=== PATIENT | female | born 1930 | race Caucasian/White ===

== ENCOUNTER 2017-03-15 15:10 | Inpatient (IN) | payer MEDICARE ==
--- OUTSIDE RECORDS SUMMARY | 2017-03-15 15:17 | XMS | Clinical Summary ---
:1930 Author Organization [facility] Address [address] [place] [place] [id number] Phone Care Team Providers Name Role Phone , Primary Care Provider Unavailable Allergies Not on File Current Medications Not on file Active Problems Not on file Social History Tobacco Use Types Packs/Day Years Used Date Never Assessed Sex Assigned at Date Recorded Not on file Last Filed Vital Signs Not on file Plan of Treatment Not on file Results Not on filefrom Last 3 Months
[2017-03-15] MEDS ORDERED: Aspirin 325 MG TAB ONE (16:26)
[2017-03-15] MEDS ORDERED: Ondansetron HCl/PF 4 MG/2 ML Vial IVP PRN ×2 (18:30→18:32)
[2017-03-15] MEDS ORDERED: Benzonatate 100 MG CAP PO PRN (18:30)
[2017-03-15] MEDS ORDERED: cloNIDine HCl 0.1 MG TAB PO PRN (18:30)
[2017-03-15] MEDS ORDERED: Ondansetron ODT 4 MG TAB PO PRN (18:30)
[2017-03-15] MEDS ORDERED: Ondansetron ODT 4 MG TAB SL PRN (18:32)
[2017-03-15] MEDS ORDERED: Sodium Chloride 0.9% 1,000 ML IV SCH (18:45)
--- NOTE | 2017-03-15 19:34 | HP ---
DATE OF ADMISSION: 03/15/2017 PRIMARY CARE PROVIDER: Dr. Adrian Vega. CHIEF COMPLAINT: Shortness of breath. HISTORY OF PRESENT ILLNESS: This is an 87-year-old female who initially presented to [facility] Emergency Department complaining of increased shortness of breath. The patient stat es her symptoms began to increase in the last 24 hours, becoming constant with associated cough and fever with temperature ranging in 100.5-100.9 degrees Fahrenheit range. The patient admitted to inc reasing home inhalers to counteract her symptoms without relief. Patient denied specific exposure h istory, nausea, peripheral edema or vomiting. The patient states her symptoms were not relieved by any measure she took at home. The patient does admit to chronic oxygen supplementation at 2 liters per minute by nasal cannula. The patient reports being up to date on all pneumonia vaccinations and influenza. In the emergency room, the patient underwent general evaluation including chest imaging showing hyperinflation of the lung culver with questionable early infiltrate of the right lower lob e concerning for pneumonia. Due to patient's presentation and hypoxemia, patient was placed on BiPA P noninvasive mechanical ventilation and given IV Rocephin and normal saline, aspirin 324 mg and Freda u-Medrol 125 mg. Patient was also given bronchodilator therapy and transferred to the [facility] for furt her evaluation. PAST MEDICAL HISTORY: 1. Chronic hypoxemic respiratory failure with chronic oxygen supplementation at 2-3 liters per ida te by nasal cannula. 2. History of mechanical falls. 3. History of breast cancer treated with chemotherapy. 4. Chronic obstructive pulmonary disease. 5. Hypertension. 6. Gastroesophageal reflux disease. 7. Osteoarthritis. 8. History of community acquired bacterial pneumonia, 09/2016. 9. Anxiety disorder. PAST SURGICAL HISTORY: 1. Status post left breast needle localization with lumpectomy. 2. Status post bilateral total hip arthroplasty. 3. Status post left shoulder replacement. 4. Status post lumbar spine surgery. CURRENT MEDICATIONS: Based on previous admission in the electronic medical record. 1. Albuterol sulfate 2.5 mg nebulized q.4 hours p.r.n. 2. Xanax 0.25 mg p.o. b.i.d. 3. Acetaminophen 500 mg p.o. q.6 hours p.r.n. 4. Amlodipine 5 mg p.o. at bedtime. 5. Duloxetine 30 mg 1 tablet p.o. daily. 6. Nexium 40 mg one tablet p.o. daily. 7. Lyrica 50 mg p.o. b.i.d. 8. Tramadol 50 mg 1-2 tablet p.o. q.4-6 hours p.r.n. ALLERGIES: 1. ADHESIVE TAPE. 2. OXYCODONE. 3. HYDROCODONE. FAMILY HISTORY: No inheritable diseases per patient report. SOCIAL HISTORY: The patient resides with her daughter and son. Ambulates with the use of a rolling walker. No current alcohol, tobacco or illicit drug use. REVIEW OF SYSTEMS: The following complete review of systems was negative, unless otherwise mentione d in the HPI or below: Constitutional: Weight loss or gain, ability to conduct usual activities. Skin: Rash, itching. Eyes: Double vision, pain. ENT/Mouth: Nose bleeding, neck stiffness, pain, tenderness. Cardiovascular: Palpitations, dyspnea on exertion, orthopnea. Respiratory: Shortness of breath, wheezing, cough, hemoptysis, fever or night sweats. Gastrointestinal: Poor appetite, abdominal pain, heartburn, nausea, vomiting, constipation, or diar satinder. Genitourinary: Urgency, frequency, dysuria, nocturia. Musculoskeletal: Pain, swelling. Neurologic/Psychiatric: Anxiety, depression. Allergy/Immunologic: Skin rash, bleeding tendency. Otherwise negative except as stated per HPI. PHYSICAL EXAMINATION: VITAL SIGNS: On admission, blood pressure 132/64, pulse 103, respiratory rate is 20, temperature 99 .2 degrees Fahrenheit, O2 saturation 95% on 50% FiO2 by face mask. GENERAL APPEARANCE: This is an 87-year-old female sitting on the hospital bed on current BiPAP noninvasive mechanical ventilation, alert and responsive. HEENT: Pupils are equal, round, and reactive to light and accommodation. Extraocular muscles are i ntact. No scleral icterus, no conjunctival injection. Nares patent. OP is clear. NECK: Supple, no cervical adenopathy, no thyromegaly, no carotid bruits, no JVD appreciated. Cervi yudith spine with full active and passive range of motion. CHEST: Diminished breath sounds in the bases bilaterally. CARDIOVASCULAR: S1 and S2 with distant heart sounds. ABDOMEN: Rounded, soft, nontender, and nondistended. Bowel sounds are positive in all four quadran ts. There is no hepatosplenomegaly, no abdominal bruits, no rebound or guarding appreciated. EXTREMITIES: Warm and dry with fair turgor. No clubbing, cyanosis or asymmetric edema appreciated. Pulses palpable distally at the dorsalis pedis, posterior tibial, and popliteal arteries bilateral ly. Capillary refill less than 2 seconds. NEUROLOGIC: Cranial nerves II-XII are grossly intact. No focal or lateralizing signs appreciated. PERTINENT LABORATORY DATA AND X-RAY FINDINGS: Sodium 133, potassium 4.0, chloride 95, CO2 of 26, BU N is 21, creatinine 0.86, estimated GFR of 62, glucose 137. Lactic acid level 2.7, calcium 9.6, tot al bilirubin 1.3, AST 16, ALT of 12, alkaline phosphatase 88, troponin I 0.224. BNP 567, previously noted 73 on 12/31/2016, albumin 3.7. CBC showed a white blood cell count of 22.7, hemoglobin 16, h ematocrit 49, platelet count 225 with 76% neutrophilia. Portable chest x-ray dated 03/15/2017 showe d early infiltrate in the right lower lobe with hyperinflation of bilateral lung culver. EKG dated 03/15/2017 by my interpretation shows sinus tachycardia with heart rates in the low 100s. Premature atrial complexes noted. Normal axis. No acute ST-T wave changes appreciated. ASSESSMENT AND PLAN: 1. Acute on chronic hypoxemic respiratory failure. The patient will continue on bilevel positive a irway pressure noninvasive mechanical ventilation at 10/5 with 40% FIO2. Maintain O2 saturations gr eater than or equal to 90%. Suspect multifactorial including possible infectious process with commu nity-acquired pneumonia in conjunction with mild pulmonary edema and heart failure. Continue genera l pulmonary supportive measures and monitor clinical response. 2. Right lower lobe community-acquired pneumonia. Continue Rocephin 2 g IV q.24 hours with additio nal Levaquin 750 mg IV q.24 hours. Blood cultures pending x2. Continue DuoNeb q.4 hours p.r.n. 3. Lactic acidosis. Suspect multifactorial including infectious process in conjunction with acute respiratory failure. Continue antibiotic coverage as outlined previously. Repeat lactic acid level . 4. Elevated troponin I. Suspect secondarily to demand ischemia in the context of #1. 5. Continue troponin I trending and monitor clinically. 6. Hypertension. Resume amlodipine 5 mg p.o. daily. 7. Prophylaxis. Sequential compression devices while in bed. Pepcid 20 mg p.o. b.i.d. 8. Code status is FULL. Surrogate medical decision maker is patient's son.
[2017-03-15] MEDS ORDERED: cefTRIAXone\\ROCEPHIN 2 GM in Sodium Chloride 0.9% 100 ML IVPB SCH (20:00)
[2017-03-15] MEDS: Acetaminophen 500 MG TAB PO PRN (21:22)
[2017-03-15] MEDS ORDERED: Pregabalin 50 MG CAP PO SCH (21:30)
[2017-03-16 05:22] LABS: Anion Gap 16 mmol/L (10-20); BUN (Urea Nitrogen) 30 mg/dL (9.8-20.1); Calc. Creatinine Clearance 50 mL/min (70-130); Calcium 8.7 mg/dL (7.8-10.44); Carbon Dioxide 23 mmol/L (23-31); Chloride 98 mmol/L (98-107); Estimated GFR-MDRD 65
[2017-03-16 05:27] LABS: Band 23 % (5-11); Hematocrit 42.3 % (36.0-47.0); Mean Platelet Volume 8.4 fL (7.4-10.4); Neutrophil 72 % (42-75); Red Blood Cell (RBC) Count 4.31 mill/uL (4.20-5.40); White Blood Cell (WBC) Count 20.2 thou/uL (4.8-10.8)
[2017-03-16] MEDS: Acetaminophen 500 MG TAB PO PRN (08:10)
[2017-03-16] MEDS: Famotidine 20 MG TAB PO SCH (08:11)
--- NOTE | 2017-03-16 12:41 | PRG ---
DATE OF SERVICE: 03/16/2017 SERVICE: Pulmonary Medicine. REASON FOR CONSULTATION: CU patient. HISTORY OF PRESENT ILLNESS: The patient is an 87-year-old white female with past medical history significant for chronic hypoxemic respiratory failure. She probably has some degree of COPD as well. That being said, she only uses p.r.n. nebulized medications at home. She has never had a formal evaluation for the same. Either way, she presented to the hospital with an acute onset of shortness of breath that came on over a period of a couple of days. She had some low-grade temperatures. She denies any recent sick contacts. She was placed in the IMCU and required BiPAP overnight. This morning, she is feeling much improved. She denies any current fevers, chills, nausea, vomiting, or chest discomfort. Otherwise, there were no overnight events. She has been getting nebulized medications, steroids, and antibiotics. PAST MEDICAL HISTORY: 1. Chronic hypoxic respiratory failure. 2. Chronic obstructive pulmonary disease. 3. Gastroesophageal reflux disease. 4. Hypertension. 5. Osteoarthritis. 6. Anxiety disorder. 7. History of breast cancer, status post chemotherapy. PAST SURGICAL HISTORY: 1. Biopsy of breast followed by lumpectomy. 2. Total hip replacement, bilateral. 3. Left shoulder replacement. 4. Lumbar spine surgery. FAMILY HISTORY: Noncontributory. SOCIAL HISTORY: The patient currently lives with her daughter. She uses a rolling walker to get around, and has been ambulatory as of yesterday. There are no exposures to alcohol, tobacco, or illicit drug use presently. ALLERGIES: ADHESIVE TAPE, OXYCODONE, HYDROCODONE. MEDICATIONS: List of her inpatient medications was reviewed. Multiple updates were made. REVIEW OF SYSTEMS: General, head, ears, eyes, nose, throat, cardiovascular, respiratory, GI, , musculoskeletal, neurologic, and skin is negative except as mentioned in the HPI. PHYSICAL EXAMINATION: VITAL SIGNS: Afebrile, pulse 95, blood pressure 108/43, respirations 12, saturation 95% on 2 liters nasal cannula. GENERAL: Patient is awake, alert, in no apparent distress. LUNGS: Decent air entry. There is a slightly prolonged expiratory phase. I do not appreciate wheezing. Dependent crackles are not present. No rhonchi. HEART: Normal rate, regular. ABDOMEN: Soft, nontender, nondistended. Bowel sounds positive. MUSCULOSKELETAL: No cyanosis or clubbing. No pitting in the bilateral lower extremities. NEUROLOGIC: Grossly nonfocal. LABORATORY DATA: WBC 20.2, hemoglobin 13.9, platelets 176,000. Band count was 23% and the neutrophil count was 72%. Basic metabolic profile was otherwise unremarkable. pH 7.43, pCO2 of 38, pO2 72, and FiO2 of 40%. Lactate 2.7 previously. BNP 570, troponin 0.2. Liver function studies were unremarkable. Blood cultures x2 are growing Streptococcus pneumoniae. IMAGING: Chest x-ray demonstrates right lower lobe infiltrate, new since December, consistent with consolidation/pneumonia. ASSESSMENT: 1. Acute on chronic hypoxic respiratory failure. 2. Community-acquired pneumonia secondary to Streptococcus pneumoniae. 3. Bacteremia secondary to Streptococcus pneumoniae. 4. COPD with acute exacerbation. 5. Severe sepsis. 6. Non-ST elevation myocardial infarction. 7. Abnormal BNP. PLAN: At this point, the patient's end-organ disease has cleared and she is much more comfortable. We will give her a good break from the BiPAP. If she tolerates this through the day, she would be a candidate for transition to the telemetry unit. She may have some COPD, but I really do not appreciate much in the way of an acute exacerbation. Steroids will be deescalated and limited to 5 days. Frequent nebulized medications will be continued. I will discontinue all cough suppressants, as in this setting the cough is quite helpful. MTDD
--- NOTE | 2017-03-16 14:24 | PDOC.PN ---
- Subjective Encounter Start Date: 03/16/17 Encounter Start Time: 14:20 Subjective: Feels much better but does not recall the events of the day before and time -: in ED. Off BiPAP and maintaining O2 sats on O2 via NC. - Objective Resuscitation Status: Resuscitation Status FULL:Full Resuscitation MAR Reviewed: Yes Vital Signs & Weight: Vital Signs (12 hours) Temp Pulse Resp BP Pulse Ox 03/16/17 12:00 97.8 F 122 H 16 148/66 H 91 L 03/16/17 10:58 103 H 24 H 99 03/16/17 08:00 97.6 F 95 12 95 03/16/17 07:42 97.6 F 95 12 108/43 L 95 03/16/17 06:51 99 03/16/17 06:47 90 18 99 03/16/17 04:00 97.8 F 98 18 98/50 L 94 L 03/16/17 02:30 67 18 95 Weight Weight 152 lb 3 oz I&O: 03/15/17 03/16/17 03/17/17 06:59 06:59 06:59 Intake Total 1460 Output Total 350 Balance 1110 Result Diagrams: 03/16/17 04:21 03/16/17 04:21 Additional Labs: Laboratory Tests 03/15/17 13:18 WBC 22.7 H Radiology Reviewed by me: Yes (PCXR - RM/LL infiltrate) EKG Reviewed by me: Yes (Tele - SR in 90's) Phys Exam - Physical Examination Constitutional: NAD smiling, alert HEENT: PERRLA, oral pharynx no lesions Neck: no JVD, supple Respiratory: no wheezing, clear to auscultation bilateral Cardiovascular: RRR Gastrointestinal: soft, non-tender, no distention, positive bowel sounds Musculoskeletal: no edema, pulses present Neurological: normal sensation, moves all 4 limbs Psychiatric: A&O x 3 Skin: normal turgor, cap refill <2 seconds Dx/Plan (1) Acute on chronic respiratory failure with hypoxia Code(s): J96.21 - ACUTE AND CHRONIC RESPIRATORY FAILURE WITH HYPOXIA Status: Acute Comment: Continue O2 supplementation, titrate to keep sats>90% (2) Community acquired bacterial pneumonia Code(s): J15.9 - UNSPECIFIED BACTERIAL PNEUMONIA Status: Acute Comment: Suspected streptococcal spp, continue Levaquin 750mg IV daily, Prednisone 40mg daily (3) Troponin level elevated Code(s): R74.8 - ABNORMAL LEVELS OF OTHER SERUM ENZYMES Status: Acute Comment: chronic and demand state, no ACS (4) Hypertension Code(s): I10 - ESSENTIAL (PRIMARY) HYPERTENSION Status: Chronic Qualifiers: Hypertension type: essential hypertension Qualified Code(s): I10 - Essential (primary) hypertension Comment: Stable overall, resume home BP regimen (5) Lactic acidosis Code(s): E87.2 - ACIDOSIS Status: Acute Comment: Resolved - Plan plan discussed w/ family, continue antibiotics, PT/OT, respiratory therapy, out of bed/ambulate, DVT proph w/SCDs Stable overall -: Continue Levaquin 750mg IV daily -: Continue O2 supplementation -: PT for ambulation -: Duonebs q4h prn * Transfer to tele * AM lab: CBC
[2017-03-16] MEDS ORDERED: Cyclobenzaprine 10 MG TAB PO PRN (16:59)
[2017-03-16] MEDS ORDERED: Pregabalin 50 MG CAP PO SCH (17:15)
[2017-03-16] MEDS ORDERED: ALPRAZolam 0.25 MG TAB PO SCH (21:00)
[2017-03-16] MEDS: ALPRAZolam 0.25 MG TAB PO SCH (21:29)
[2017-03-16] MEDS: Pregabalin 50 MG CAP PO SCH (21:30)
[2017-03-17 06:14] LABS: Band 6 % (5-11); Hematocrit 41.4 % (36.0-47.0); Mean Platelet Volume 8.8 fL (7.4-10.4); Neutrophil 86 % (42-75); White Blood Cell (WBC) Count 15.7 thou/uL (4.8-10.8)
[2017-03-17] MEDS ORDERED: Lisinopril 5 MG TAB PO SCH (09:00)
[2017-03-17] MEDS: Famotidine 20 MG TAB PO SCH (10:01)
[2017-03-17] MEDS: CeleCOXIB 100 MG CAP PO SCH (10:02)
[2017-03-17] MEDS: Multivit, Therapeutic 1 TAB PO SCH (10:03)
[2017-03-17] MEDS: Anastrozole 1 MG TAB PO SCH (10:04)
[2017-03-17] MEDS: Pregabalin 50 MG CAP PO SCH ×3 (10:04→20:37)
[2017-03-17] MEDS: ALPRAZolam 0.25 MG TAB PO SCH ×2 (10:05→20:37)
[2017-03-17] MEDS: predniSONE 20 MG TAB PO SCH (10:06)
[2017-03-17] MEDS ORDERED: guaiFENesin ER 600 MG TAB PO SCH ×2 (10:15→11:00)
--- NOTE | 2017-03-17 11:36 | PDOC.PN ---
- Subjective Encounter Start Date: 03/17/17 Encounter Start Time: 11:15 Subjective: c/o of lack of sleep overnight. [facility] -: SOB improved but coughed extensively without relief. - Objective Resuscitation Status: Resuscitation Status FULL:Full Resuscitation MAR Reviewed: Yes Vital Signs & Weight: Vital Signs (12 hours) Temp Pulse Resp BP BP Pulse Ox 03/17/17 10:03 82 156/70 H 03/17/17 06:58 96.5 F L 82 20 156/70 H 93 L 03/17/17 06:49 94 L 03/17/17 06:46 75 24 H 03/17/17 04:00 98.2 F 83 18 149/70 H 94 L 03/17/17 01:30 95 03/17/17 00:00 99.0 F 97 16 140/69 93 L Weight Weight 152 lb 3 oz I&O: 03/16/17 03/17/17 03/18/17 06:59 06:59 06:59 Intake Total 1460 Output Total 350 Balance 1110 Result Diagrams: 03/17/17 05:15 03/16/17 04:21 Additional Labs: Laboratory Tests 10/03/16 10/03/16 10/04/16 19:35 22:21 02:15 WBC Neutrophils % (Manual) Band Neuts % (Manual) Troponin I 0.052 H 0.059 H 0.049 H 03/15/17 03/16/17 03/17/17 13:18 04:21 05:15 WBC 22.7 H 20.2 H Neutrophils % (Manual) 72 86 H Band Neuts % (Manual) 23 H 6 Troponin I EKG Reviewed by me: Yes (Tele - SR) Phys Exam - Physical Examination Constitutional: NAD HEENT: PERRLA, oral pharynx no lesions Neck: no JVD, supple coarse in basilar segments Cardiovascular: RRR Gastrointestinal: soft, non-tender, no distention, positive bowel sounds Musculoskeletal: no edema, pulses present Neurological: normal sensation, moves all 4 limbs Psychiatric: A&O x 3 Skin: normal turgor, cap refill <2 seconds Dx/Plan (1) Acute on chronic respiratory failure with hypoxia Code(s): J96.21 - ACUTE AND CHRONIC RESPIRATORY FAILURE WITH HYPOXIA Status: Acute Comment: Continue O2 supplementation, titrate to keep sats>90%, improved (2) Community acquired bacterial pneumonia Code(s): J15.9 - UNSPECIFIED BACTERIAL PNEUMONIA Status: Acute Comment: Suspected streptococcal spp, continue Levaquin 750mg IV daily, Prednisone 40mg daily, add Mucinex 600mg BID (3) Troponin level elevated Code(s): R74.8 - ABNORMAL LEVELS OF OTHER SERUM ENZYMES Status: Acute Comment: chronic and demand state, no ACS (4) Hypertension Code(s): I10 - ESSENTIAL (PRIMARY) HYPERTENSION Status: Chronic Qualifiers: Hypertension type: essential hypertension Qualified Code(s): I10 - Essential (primary) hypertension Comment: Stable overall, resume home BP regimen (5) Lactic acidosis Code(s): E87.2 - ACIDOSIS Status: Acute Comment: Resolved - Plan plan discussed w/ family, continue antibiotics, PT/OT, respiratory therapy, out of bed/ambulate, DVT proph w/SCDs Stable overall -: Change Duonebs q6h prn -: Continue Levaquin 750mg IV daily then convert to po in 24h -: PT for mobilization -: Incentive spirometry * AM lab: BMP, CBC * Likely home in 24-48h
--- NOTE | 2017-03-17 18:40 | PRG ---
DATE OF SERVICE: 03/17/2017 SERVICE: Pulmonary Medicine. INTERVAL HISTORY: The patient is doing fine from a cardiovascular and respiratory standpoint. Her breathing is actually under excellent control. Last night, she had a little bit of anxiety attack. She had multiple complaints about the noise that was around her. There was loud TV on. Somebody w as screaming down the hallway. Additionally, it took a long time for her nurse to get to her. When ever her nurse finally made into the room, she would have multiple phone calls in a very short perio d of time that prevented her from getting a tension that she expected. She has no medical complaint s this morning. PHYSICAL EXAMINATION: VITAL SIGNS: Afebrile, pulse 81, blood pressure 163/75, respirations 24, saturation 96% on 2 liters nasal cannula. GENERAL: Patient is awake, alert, no apparent distress. LUNGS: Decent air entry. This has actually improved slightly. There is a prolonged expiratory pha se with a little crackling. There is also expiratory wheezing evident today. HEART: Normal rate, regular. ABDOMEN: Soft, nontender, nondistended. Bowel sounds positive. MUSCULOSKELETAL: No cyanosis or clubbing. There is no pitting in the bilateral lower extremities. NEUROLOGIC: Grossly nonfocal. LABORATORY DATA: WBC is down trending to 15.7, hemoglobin 13.7, platelets 212,000. Band count has dramatically improved. Blood cultures x2 are positive for Streptococcus pneumonia (these are from t he prior encounter). ASSESSMENT: 1. Acute hypoxic respiratory failure, improving. 2. Community-acquired pneumonia secondary to Streptococcus pneumoniae. 3. Bacteremia secondary to Streptococcus pneumoniae. 4. Severe sepsis. 5. Non-ST elevation myocardial infarction. 6. Chronic obstructive pulmonary disease with acute exacerbation. PLAN: We will continue antibiotics for the time being. Once sensitivities return, we can deescalat e to monotherapy Pulmonary Critical Care will continue to follow while the patient remains in house for the time being. Ultimately, she will need a repeat chest x-ray in 6 weeks in the outpatient se tting to make certain the infiltrate has cleared.
[2017-03-17] MEDS: guaiFENesin ER 600 MG TAB PO SCH (20:37)
[2017-03-18] MEDS: Diabetic Tussin 200 MG/10 ML UDCUP PO PRN ×2 (00:24→20:49)
[2017-03-18 05:52] LABS: Anion Gap 10 mmol/L (10-20); BUN (Urea Nitrogen) 23 mg/dL (9.8-20.1); Calc. Creatinine Clearance 71 mL/min (70-130); Carbon Dioxide 31 mmol/L (23-31); Chloride 103 mmol/L (98-107); Estimated GFR-MDRD Greater than 90
[2017-03-18 05:58] LABS: Band 2 % (5-11); Hematocrit 44.1 % (36.0-47.0); Mean Platelet Volume 8.1 fL (7.4-10.4); Neutrophil 73 % (42-75); Red Blood Cell (RBC) Count 4.48 mill/uL (4.20-5.40); White Blood Cell (WBC) Count 12.8 thou/uL (4.8-10.8)
[2017-03-18] MEDS: Famotidine 20 MG TAB PO SCH (08:25)
[2017-03-18] MEDS: Multivit, Therapeutic 1 TAB PO SCH (08:25)
[2017-03-18] MEDS: CeleCOXIB 100 MG CAP PO SCH (08:26)
[2017-03-18] MEDS: predniSONE 20 MG TAB PO SCH (08:26)
[2017-03-18] MEDS: Pregabalin 50 MG CAP PO SCH ×3 (08:26→21:08)
[2017-03-18] MEDS: ALPRAZolam 0.25 MG TAB PO SCH ×2 (08:27→20:48)
[2017-03-18] MEDS: Anastrozole 1 MG TAB PO SCH (08:27)
[2017-03-18] MEDS: guaiFENesin ER 600 MG TAB PO SCH ×2 (08:28→20:48)
[2017-03-18] MEDS ORDERED: Magnesium 2 GM/NS 0.9% 100 ML 2 GM in Premix Bag 1 BAG IVPB SCH (08:34)
[2017-03-18] MEDS ORDERED: Magnesium Sulfate 2 GM in Sodium Chloride 0.9% 100 ML IVPB SCH (08:34)
[2017-03-18 08:51] LABS: Phosphorus 2.7 mg/dL (2.3-4.7)
--- NOTE | 2017-03-18 11:44 | PRG ---
DATE OF SERVICE: 03/18/2017 SUBJECTIVE: The patient is feeling okay. She had no acute complaints. PHYSICAL EXAMINATION: VITAL SIGNS: Temperature is 98.6, pulse ranging from 90-147, O2 sat 93% on 2 liters, respiratory ra te 18, blood pressure 137/99. HEENT: Unremarkable. NECK: No JVD. LUNGS: Clear. CARDIAC: S1, S2 irregularly irregular. ABDOMEN: Soft. EXTREMITIES: Trace edema. LABORATORY DATA: White blood cell count 12.8, hematocrit 44, platelet count 228. Sodium 140, potas sium 3.6, chloride 103, CO2 31, BUN 23, creatinine 0.6, glucose 105. ASSESSMENT: 1. Atrial fibrillation with rapid ventricular response. 2. Acute hypoxic respiratory failure, which is improving. 3. Community-acquired pneumonia secondary to Streptococcus pneumonia. 4. Bacteremia secondary to Streptococcus pneumonia. 5. Sepsis syndrome. 6. Afh-TO-xiddtns myocardial infarction. 7. Chronic obstructive pulmonary disease with exacerbation. PLAN: 1. Antibiotics were consolidated yesterday - she is on Levaquin. 2. Hopefully, she can transition over to oral medication for control of her atrial fibrillation, ve ntricular rate. 3. Continue prednisone for several more days.
--- NOTE | 2017-03-18 14:15 | PDOC.PN ---
- Subjective Encounter Start Date: 03/18/17 Encounter Start Time: 13:30 Patient seen and examined. No new complaints. No overnight events - Objective Resuscitation Status: Resuscitation Status FULL:Full Resuscitation MAR Reviewed: Yes Vital Signs & Weight: Vital Signs (12 hours) Temp Pulse Pulse Pulse Resp BP BP 03/18/17 13:40 98 03/18/17 13:33 93 91 176/77 H 152/65 H 03/18/17 12:58 64 20 03/18/17 11:45 98.2 F 93 20 03/18/17 08:05 98.6 F 147 H 18 03/18/17 06:44 03/18/17 06:41 110 H 16 03/18/17 04:00 98.6 F 90 18 BP Pulse Ox Pulse Ox Pulse Ox 03/18/17 13:40 03/18/17 13:33 95 94 L 03/18/17 12:58 03/18/17 11:45 134/60 03/18/17 08:05 137/99 H 93 L 03/18/17 06:44 94 L 03/18/17 06:41 03/18/17 04:00 142/65 H 93 L Weight Weight 152 lb 3 oz I&O: 03/17/17 03/18/17 03/19/17 06:59 06:59 06:59 Intake Total 940 Output Total 1060 Balance -120 Result Diagrams: 03/18/17 05:13 03/18/17 05:13 EKG Reviewed by me: Yes (SVT earlier) Phys Exam - Physical Examination Respiratory: no wheezing, no rhonchi right basilar rales, Symmetrical Cardiovascular: RRR, no rub no rubs/gallops Gastrointestinal: soft, non-tender, no distention, positive bowel sounds Musculoskeletal: no edema Neurological: non-focal, normal sensation, moves all 4 limbs Psychiatric: normal affect, A&O x 3 Dx/Plan (1) SVT (supraventricular tachycardia) Code(s): I47.1 - SUPRAVENTRICULAR TACHYCARDIA Status: Acute (2) Acute on chronic respiratory failure with hypoxia Code(s): J96.21 - ACUTE AND CHRONIC RESPIRATORY FAILURE WITH HYPOXIA Status: Acute (3) Bacteremia due to Streptococcus pneumoniae Code(s): R78.81 - BACTEREMIA Status: Acute (4) COPD with exacerbation Code(s): J44.1 - CHRONIC OBSTRUCTIVE PULMONARY DISEASE W (ACUTE) EXACERBATION Status: Acute (5) Community acquired bacterial pneumonia Code(s): J15.9 - UNSPECIFIED BACTERIAL PNEUMONIA Status: Acute Comment: Suspected streptococcal spp, (6) Troponin level elevated Code(s): R74.8 - ABNORMAL LEVELS OF OTHER SERUM ENZYMES Status: Acute Comment: due to demand ischemia (7) Anxiety Code(s): F41.9 - ANXIETY DISORDER, UNSPECIFIED Status: Chronic (8) Hypertension Code(s): I10 - ESSENTIAL (PRIMARY) HYPERTENSION Status: Chronic Qualifiers: Hypertension type: essential hypertension Qualified Code(s): I10 - Essential (primary) hypertension - Plan cont current plan of care, plan discussed w/ family, DVT proph w/SCDs * Cardizem drip started * Cont to monitor * Will try oral Cardizem later * Cont steroids/Atbx * Hold Lisinopril * Cont therapy Review of Systems - Review of Systems Respiratory: SOB with Excertion. negative: Cough, Dry, Shortness of Breath, Hemoptysis, Pleuritic Pain, Sputum, Wheezing Cardiovascular: Palpitations. negative: Chest Pain, Orthopnea, Paroxysmal Noc. Dyspnea, Edema, Light Headedness, Other Gastrointestinal: negative: Nausea, Vomiting, Abdominal Pain, Diarrhea, Constipation, Melena, Hematochezia, Other - Medications/Allergies Allergies/Adverse Reactions: Allergies Allergy/AdvReac Type Severity Reaction Status Date / Time adhesive Allergy Mild Rash Verified 03/15/17 19:48 oxycodone HCl Allergy Unknown Hives Verified 03/15/17 19:48 [From OxyContin] codeine Allergy Verified 03/15/17 19:48 diclofenac Allergy Verified 03/15/17 19:48 donepezil Allergy Verified 03/15/17 19:48 hydrocodone bitartrate Allergy AMS Verified 03/15/17 19:48 [From Vicodin] Medications: Current Medications Acetaminophen (Tylenol) 1,000 mg PO Q6H PRN PRN Reason: Headache/Fever or Mild Pain Last Admin: 03/16/17 08:10 Dose: 1,000 mg Albuterol/Ipratropium (Duoneb) 3 ml NEB [id number] JONES Last Admin: 03/18/17 12:58 Dose: 3 ml Alprazolam (Xanax) 0.25 mg PO BID JONES Last Admin: 03/18/17 08:27 Dose: 0.25 mg Anastrozole (Arimidex) 1 mg PO DAILY [facility] Last Admin: 03/18/17 08:27 Dose: 1 mg Celecoxib (Celebrex) 200 mg PO DAILY [facility] Last Admin: 03/18/17 08:26 Dose: 200 mg Clonidine HCl (Catapres) 0.1 mg PO Q4H PRN PRN Reason: Systolic BP > 180 Cyclobenzaprine HCl (Flexeril) 10 mg PO TID PRN PRN Reason: Muscle Spasm Last Admin: 03/17/17 03:07 Dose: 10 mg Diltiazem HCl (Cardizem) 30 mg PO Q6H PRN PRN Reason: HR >120 sustained Diltiazem HCl (Cardizem Cd) 120 mg PO DAILY [facility] Duloxetine HCl (Cymbalta) 60 mg PO DAILY [facility] Last Admin: 03/18/17 08:26 Dose: 60 mg Famotidine (Pepcid) 20 mg PO DAILY [facility] Last Admin: 03/18/17 08:25 Dose: 20 mg Guaifenesin (Mucinex) 600 mg PO Q12HR [facility] Last Admin: 03/18/17 08:28 Dose: 600 mg Guaifenesin (Robitussin Sf) 100 mg PO Q6H PRN PRN Reason: Cough Last Admin: 03/18/17 00:24 Dose: 100 mg Hydralazine HCl (Apresoline) 10 mg SLOW IVP Q4H PRN PRN Reason: Systolic BP > 180 Levofloxacin 750 mg/ Device 150 mls @ 100 mls/hr IVPB 1600 [facility] Last Admin: 03/17/17 15:48 Dose: 150 mls Diltiazem HCl 125 mg/ Sodium (Chloride) 125 mls @ 5 mls/hr IVPB INF JONES; 5 MG/ HR PRN Reason: Protocol Last Admin: 03/18/17 09:27 Dose: 125 mls Multivitamins (Theragran) 1 tab PO DAILY [facility] Last Admin: 03/18/17 08:25 Dose: 1 tab Ondansetron HCl (Zofran Odt) 4 mg PO Q6H PRN PRN Reason: Nausea/Vomiting Ondansetron HCl (Zofran) 4 mg IVP Q6H PRN PRN Reason: Nausea/Vomiting Prednisone (Prednisone) 40 mg PO QA-[facility] Stop: 10/02/17 08:01 Last Admin: 03/18/17 08:26 Dose: 40 mg Pregabalin (Lyrica) 100 mg PO TID [facility] Last Admin: 03/18/17 08:26 Dose: 100 mg Sodium Chloride (Flush - Normal Saline) 10 ml IVF Q12HR [facility] Sodium Chloride (Flush - Normal Saline) 10 ml IVF PRN PRN PRN Reason: Saline Flush
[2017-03-19] MEDS: Acetaminophen 500 MG TAB PO PRN ×2 (06:21→17:59)
[2017-03-19] MEDS: Pregabalin 50 MG CAP PO SCH ×3 (09:43→21:37)
[2017-03-19] MEDS: Famotidine 20 MG TAB PO SCH ×2 (09:46→21:38)
[2017-03-19] MEDS: CeleCOXIB 100 MG CAP PO SCH (09:46)
[2017-03-19] MEDS: ALPRAZolam 0.25 MG TAB PO SCH ×3 (09:46→21:37)
[2017-03-19] MEDS: Multivit, Therapeutic 1 TAB PO SCH (09:46)
[2017-03-19] MEDS: predniSONE 20 MG TAB PO SCH (09:46)
[2017-03-19] MEDS: guaiFENesin ER 600 MG TAB PO SCH ×2 (09:47→21:38)
[2017-03-19] MEDS: Anastrozole 1 MG TAB PO SCH (09:48)
--- NOTE | 2017-03-19 11:01 | PRG ---
DATE OF SERVICE: 03/19/2017 She is awake and alert, in no distress. PHYSICAL EXAMINATION: VITAL SIGNS: On exam, temperature is 96.6, pulse ranging between 79 and 136, blood pressure 175/79, O2 sat 96% on 2 liters. HEENT: Unremarkable. NECK: No JVD. LUNGS: Clear without wheezing. CARDIAC: S1, S2 irregularly irregular. ABDOMEN: Soft. EXTREMITIES: Trace edema. ASSESSMENT: 1. Atrial fibrillation with rapid ventricular response. 2. Acute hypoxic respiratory failure, which appears to have resolved. 3. Community-acquired pneumonia secondary to Streptococcus pneumonia. 4. Bacteremia secondary to Streptococcus pneumonia. 5. Sepsis syndrome. PLAN: 1. Continue Levaquin. 2. Atrial fibrillation per management per Internal Medicine.
--- NOTE | 2017-03-19 12:38 | PDOC.PN ---
- Subjective Encounter Start Date: 03/19/17 Encounter Start Time: 12:00 Patient seen and examined. No new complaints. No overnight events. Off Cardizem drip. - Objective Resuscitation Status: Resuscitation Status FULL:Full Resuscitation MAR Reviewed: Yes Vital Signs & Weight: Vital Signs (12 hours) Temp Pulse Resp BP BP Pulse Ox 03/19/17 09:44 79 175/79 H 03/19/17 08:00 96.6 F L 136 H 20 150/67 H 96 03/19/17 06:33 94 L 03/19/17 06:31 85 12 03/19/17 04:00 98.1 F 93 18 146/63 H 94 L 03/19/17 01:36 96 Weight Weight 151 lb 6 oz I&O: 03/18/17 03/19/17 03/20/17 06:59 06:59 06:59 Intake Total 940 678 Output Total 1060 2200 Balance -120 -1522 Result Diagrams: 03/18/17 05:13 03/18/17 05:13 EKG Reviewed by me: Yes (Tele SR) Phys Exam - Physical Examination Constitutional: NAD Respiratory: no wheezing, no rhonchi Scat rales at bases Cardiovascular: RRR, no rub Gastrointestinal: soft, non-tender, positive bowel sounds Musculoskeletal: no edema Neurological: moves all 4 limbs Dx/Plan (1) SVT (supraventricular tachycardia) Code(s): I47.1 - SUPRAVENTRICULAR TACHYCARDIA Status: Acute Comment: in SR. Off Cardizem drip (2) Acute on chronic respiratory failure with hypoxia Code(s): J96.21 - ACUTE AND CHRONIC RESPIRATORY FAILURE WITH HYPOXIA Status: Acute (3) Bacteremia due to Streptococcus pneumoniae Code(s): R78.81 - BACTEREMIA Status: Acute (4) COPD with exacerbation Code(s): J44.1 - CHRONIC OBSTRUCTIVE PULMONARY DISEASE W (ACUTE) EXACERBATION Status: Acute (5) Community acquired bacterial pneumonia Code(s): J15.9 - UNSPECIFIED BACTERIAL PNEUMONIA Status: Acute Comment: Suspected streptococcal spp, (6) Troponin level elevated Code(s): R74.8 - ABNORMAL LEVELS OF OTHER SERUM ENZYMES Status: Acute Comment: due to demand ischemia (7) Anxiety Code(s): F41.9 - ANXIETY DISORDER, UNSPECIFIED Status: Chronic (8) Hypertension Code(s): I10 - ESSENTIAL (PRIMARY) HYPERTENSION Status: Chronic Qualifiers: Hypertension type: essential hypertension Qualified Code(s): I10 - Essential (primary) hypertension - Plan cont current plan of care, continue antibiotics, PT/OT, DVT proph w/heparin, DVT proph w/SCDs * Cont PO Cardizem * Consult Dr Harding in AM * AM labs * Lisinopril on hold * Cont therapy Review of Systems - Review of Systems Constitutional: negative: Fever, Chills, Sweats, Weakness, Malaise, Other Respiratory: negative: Cough, Dry, Shortness of Breath, Hemoptysis, SOB with Excertion, Pleuritic Pain, Sputum, Wheezing Cardiovascular: negative: Chest Pain, Palpitations, Orthopnea, Paroxysmal Noc. Dyspnea, Edema, Light Headedness, Other Gastrointestinal: negative: Nausea, Vomiting, Abdominal Pain, Diarrhea, Constipation, Melena, Hematochezia, Other Neurological: negative: Weakness, Numbness, Incoordination, Change in Speech, Confusion, Seizures, Other - Medications/Allergies Allergies/Adverse Reactions: Allergies Allergy/AdvReac Type Severity Reaction Status Date / Time adhesive Allergy Mild Rash Verified 03/15/17 19:48 oxycodone HCl Allergy Unknown Hives Verified 03/15/17 19:48 [From OxyContin] codeine Allergy Verified 03/15/17 19:48 diclofenac Allergy Verified 03/15/17 19:48 donepezil Allergy Verified 03/15/17 19:48 hydrocodone bitartrate Allergy AMS Verified 03/15/17 19:48 [From Vicodin] Medications: Current Medications Acetaminophen (Tylenol) 1,000 mg PO Q6H PRN PRN Reason: Headache/Fever or Mild Pain Last Admin: 03/19/17 06:21 Dose: 1,000 mg Albuterol/Ipratropium (Duoneb) 3 ml NEB [id number] [facility] Last Admin: 03/19/17 06:31 Dose: 3 ml Alprazolam (Xanax) 0.25 mg PO BID [facility] Last Admin: 03/19/17 09:50 Dose: 0.25 mg Anastrozole (Arimidex) 1 mg PO DAILY [facility] Last Admin: 03/19/17 09:48 Dose: 1 mg Celecoxib (Celebrex) 200 mg PO DAILY [facility] Last Admin: 03/19/17 09:46 Dose: 200 mg Clonidine HCl (Catapres) 0.1 mg PO Q4H PRN PRN Reason: Systolic BP > 180 Cyclobenzaprine HCl (Flexeril) 10 mg PO TID PRN PRN Reason: Muscle Spasm Last Admin: 03/17/17 03:07 Dose: 10 mg Diltiazem HCl (Cardizem) 30 mg PO Q6H PRN PRN Reason: HR >120 sustained Diltiazem HCl (Cardizem Cd) 120 mg PO DAILY [facility] Last Admin: 03/19/17 09:44 Dose: 120 mg Duloxetine HCl (Cymbalta) 60 mg PO DAILY [facility] Last Admin: 03/19/17 09:46 Dose: 60 mg Famotidine (Pepcid) 20 mg PO BID [facility] Guaifenesin (Mucinex) 600 mg PO Q12HR [facility] Last Admin: 03/19/17 09:47 Dose: 600 mg Guaifenesin (Robitussin Sf) 100 mg PO Q6H PRN PRN Reason: Cough Last Admin: 03/18/17 20:49 Dose: 100 mg Heparin Sodium (Porcine) (Heparin) 5,000 units SC BID [facility] Hydralazine HCl (Apresoline) 10 mg SLOW IVP Q4H PRN PRN Reason: Systolic BP > 180 Levofloxacin 750 mg/ Device 150 mls @ 100 mls/hr IVPB 1600 [facility] Last Admin: 03/18/17 15:36 Dose: 150 mls Multivitamins (Theragran) 1 tab PO DAILY [facility] Last Admin: 03/19/17 09:46 Dose: 1 tab Ondansetron HCl (Zofran Odt) 4 mg PO Q6H PRN PRN Reason: Nausea/Vomiting Ondansetron HCl (Zofran) 4 mg IVP Q6H PRN PRN Reason: Nausea/Vomiting Prednisone (Prednisone) 40 mg PO QAM[facility] Stop: 03/20/17 08:01 Last Admin: 03/19/17 09:46 Dose: 40 mg Pregabalin (Lyrica) 100 mg PO TID [facility] Last Admin: 03/19/17 09:43 Dose: 100 mg Sodium Chloride (Flush - Normal Saline) 10 ml IVF Q12HR [facility] Last Admin: 03/19/17 09:48 Dose: 10 ml Sodium Chloride (Flush - Normal Saline) 10 ml IVF PRN PRN PRN Reason: Saline Flush
[2017-03-19] MEDS ORDERED: Nystatin Cream 15 GM TUBE TOP PRN (13:33)
[2017-03-19] MEDS: Heparin 5,000 UNITS/ML VIAL SC SCH (21:36)
[2017-03-19] MEDS ORDERED: Milk Of Magnesia 30 ML UDCUP PO SCH (23:00)
[2017-03-20 06:10] LABS: #Basophils 0.1 thou/uL (0.0-0.2); #Lymphocytes 2.6 thou/uL (1.20-3.40); #Monocytes 0.7 thou/uL (0.11-0.59); #Neutrophils 4.5 thou/uL (1.40-6.50); %Basophils 1.1 % (0.0-1.0); %Eosinophils 0.2 % (0.0-10.0); %Lymphocytes 32.7 % (21.0-51.0); %Monocytes 9.1 % (0.0-10.0); Hematocrit 45.6 % (36.0-47.0); Red Blood Cell (RBC) Count 4.62 mill/uL (4.20-5.40)
[2017-03-20 06:30] LABS: Anion Gap 13 mmol/L (10-20); BUN (Urea Nitrogen) 24 mg/dL (9.8-20.1); Calc. Creatinine Clearance 61 mL/min (70-130); Calcium 8.8 mg/dL (7.8-10.44); Carbon Dioxide 31 mmol/L (23-31); Chloride 99 mmol/L (98-107); Estimated GFR-MDRD 85
[2017-03-20] MEDS: Pregabalin 50 MG CAP PO SCH ×3 (08:36→20:19)
[2017-03-20] MEDS: guaiFENesin ER 600 MG TAB PO SCH ×2 (08:38→20:19)
[2017-03-20] MEDS: Famotidine 20 MG TAB PO SCH ×2 (08:39→20:19)
[2017-03-20] MEDS: Multivit, Therapeutic 1 TAB PO SCH (08:39)
[2017-03-20] MEDS: ALPRAZolam 0.25 MG TAB PO SCH ×2 (08:41→20:18)
[2017-03-20] MEDS: predniSONE 20 MG TAB PO SCH (08:41)
[2017-03-20] MEDS: Anastrozole 1 MG TAB PO SCH (08:41)
[2017-03-20] MEDS: Heparin 5,000 UNITS/ML VIAL SC SCH ×2 (08:42→20:19)
[2017-03-20] MEDS: CeleCOXIB 100 MG CAP PO SCH (08:42)
--- NOTE | 2017-03-20 10:10 | PQF ---
DATE: 03-20-14 ATTN: DR. JULIANA MACKEY Please exercise your independent, professional judgment in responding to the clarification form. Clinical indicators are provided on the bottom of this form for your review Please check appropriate box(s): [X] Sepsis due to: (Pna, UTI, gangrenous gall bladder, etc.) __Pneumonia [ ] with organ dysfunction [ x ] without organ dysfunction [ ] Severe sepsis with acute organ dysfunction of: (Examples: respiratory failure, encephalopathy, acute kidney failure, other) [ ] Localized infection without sepsis [ ] Other diagnosis [ ] Unable to determine In addition, please specify: Present on Admission (POA): [ X] Yes [ ] No [ ] Unable to determine For continuity of documentation, please document condition throughout progress notes and discharge summary. Thank You. CLINICAL INDICATORS - SIGNS / SYMPTOMS / LABS ER DIAGNOSIS: ACUTE RESPIRATORY DISTRESS, CHF, INDETERMINATE TROPONIN, PNA, SEPSIS H&P: SUSPECT MULTIFACTORIAL INCLUDING POSSIBLE INFECTIOUS PROCESS WITH COMMUNITY ACQUIRED PNEUMONIA IN CONJUNCTION WITH MILD PULMONARY EDEMA AND HEART FAILURE. CONSULT NOTE DR. TSANG 03-17-17: SEVERE SEPSIS CONSULT NOTE DR. PRIETO 03-19-17: SEPSIS SYNDROME WBC: 03-16-17: 20.2 03-17-17: 15.7 03-18-17: 12.8 BANDS: 03-16-17: 23 PULSE: 03-17-17: 107 03-18-17: 110, 147 03-19-17: 136, 124 RISK FACTORS: PN DR. HAMPTON 03-19-17: ACUTE BACTEREMIA D/T STREPTOCOCCUS PNEUMONIAE SUSPECTED ACUTE COMMUNITY ACQUIRED BACTERIAL PNEUMONIA TREATMENTS: (03-17-17) LEVAQUIN IV DAILY LABS (This form is maintained as a part of the permanent medical record) 2014 [employer]. All Rights Reserved ELÍAS [email or web address] Office: [phone] [facility]
--- NOTE | 2017-03-20 11:19 | PDOC.PN ---
- Subjective Encounter Start Date: 03/20/17 Encounter Start Time: 11:05 Subjective: f/u for PNA and ? SVT vs A-fib RVR. States doing better overall. Episode of -: SVT on Cardizem gtt initially. Currently in sinus mechanism. - Objective Resuscitation Status: Resuscitation Status FULL:Full Resuscitation MAR Reviewed: Yes Vital Signs & Weight: Vital Signs (12 hours) Temp Pulse Resp BP BP BP Pulse Ox 03/20/17 10:00 95 126/78 03/20/17 08:39 95 172/104 H 03/20/17 08:00 97.2 F L 95 16 96 03/20/17 07:45 97.2 F L 80 16 172/104 H 96 03/20/17 06:34 81 14 93 L 03/20/17 04:06 96 03/20/17 03:58 97.7 F 77 14 145/68 H 96 03/19/17 23:55 97.8 F 82 18 128/68 95 Weight Weight 143 lb I&O: 03/19/17 03/20/17 03/21/17 06:59 06:59 06:59 Intake Total 678 1200 Output Total 2200 1175 Balance -1522 25 Result Diagrams: 03/20/17 05:27 03/20/17 05:27 Additional Labs: Microbiology 03/15/17 13:18 Venous blood - Right Arm Blood Culture - Final Streptococcus pneumoniae 03/15/17 13:00 Venous blood - Left Arm Blood Culture - Final Streptococcus pneumoniae Laboratory Tests 10/03/16 10/03/16 10/04/16 19:35 22:21 02:15 WBC Neutrophils % (Manual) Band Neuts % (Manual) Troponin I 0.052 H 0.059 H 0.049 H 03/15/17 03/16/17 03/17/17 13:18 04:21 05:15 WBC 22.7 H 20.2 H Neutrophils % (Manual) 72 86 H Band Neuts % (Manual) 23 H 6 Troponin I EKG Reviewed by me: Yes (Tele - SR in with PAC's) Phys Exam - Physical Examination Constitutional: NAD HEENT: PERRLA, oral pharynx no lesions Neck: no JVD Respiratory: no wheezing, clear to auscultation bilateral Cardiovascular: RRR Gastrointestinal: soft, non-tender, no distention, positive bowel sounds Musculoskeletal: no edema, pulses present Neurological: normal sensation, moves all 4 limbs Psychiatric: A&O x 3 Skin: normal turgor, cap refill <2 seconds Dx/Plan (1) Sepsis Code(s): A41.9 - SEPSIS, UNSPECIFIED ORGANISM Status: Acute Qualifiers: Sepsis type: Pneumococcus Qualified Code(s): A40.3 - Sepsis due to Streptococcus pneumoniae Comment: See below, improved and resolving (2) Acute on chronic respiratory failure with hypoxia Code(s): J96.21 - ACUTE AND CHRONIC RESPIRATORY FAILURE WITH HYPOXIA Status: Acute Comment: Stable overall, continue supportive mgmt, O2 supplementation prn (3) Community acquired bacterial pneumonia Code(s): J15.9 - UNSPECIFIED BACTERIAL PNEUMONIA Status: Acute Comment: Streptococcal pneumonia on blood cx, continue Levaquin (4) Troponin level elevated Code(s): R74.8 - ABNORMAL LEVELS OF OTHER SERUM ENZYMES Status: Acute Comment: due to demand ischemia (5) Hypertension Code(s): I10 - ESSENTIAL (PRIMARY) HYPERTENSION Status: Chronic Qualifiers: Hypertension type: essential hypertension Qualified Code(s): I10 - Essential (primary) hypertension (6) Bacteremia due to Streptococcus pneumoniae Code(s): R78.81 - BACTEREMIA Status: Acute Comment: Strep pneumonia on 2/2 blood cx, continue Levaquin 750mg po daily (7) SVT (supraventricular tachycardia) Code(s): I47.1 - SUPRAVENTRICULAR TACHYCARDIA Status: Acute Comment: in SR. 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
[2017-03-20 14:53] VITALS: BMI 28.8
--- NOTE | 2017-03-20 15:03 | CON ---
DATE OF CONSULTATION: 03/20/2017 REFERRING PHYSICIAN: Poornima denise, Dr. Lyn. PRIMARY CARE PHYSICIAN: Dr. Adrian Vega PRIMARY TAPE RECORDER MECHANIC: Dr. Johnna Harding REASON FOR CARDIOLOGY CONSULT: Supraventricular tachycardia and possible atrial fibrillation. HISTORY OF PRESENT ILLNESS: Ms. Wick is an 87-year-old female with significant history of hypertension, hyperlipidemia, COPD with home O2 at 2-3 liters every day, history of a TIA and fibromyalgia. According to the patient' s daughter, she noticed the patient started having shortness of breath about a few days ago. Then the patient started confusing in and out same time. On when the patient's daughter came back from work, she noticed the patient was having labored breathing and very confused about situation even the patient was wearing home oxygen at that time. Therefore, the patient's daughter called EMS and the patient was transferred to [facility] at [place] for further studies and treatments. During that episode, the patient did not remember anything. Her daughter did not notice the patient complaining of any cardiac symptoms prior and during that episode. During the initial Cardiology consult assessment, the patient denies chest pain, palpitation, fluttering in her chest, nauseated or vomiting, dizziness or lightheadedness or any other cardiac complaints. The patient underwent a cardiac catheterization in 2009 which revealed she has normal coronary artery with EF of 50-55%. Last 2D echocardiogram was in 2013 which revealed EF of 55%, mild to moderate tricuspid regurgitation, and mild aortic valve regurgitation, mitral valve regurgitation, and mild aortic sclerosis. The patient had a stress test in 2015 which revealed normal results with no reversible ischemias. She underwent lumpectomy in 2016. PAST MEDICAL HISTORY: 1. Chronic obstructive pulmonary disease. 2. Gastroesophageal reflux disease. 3. Arthritis. 4. Neuropathy. 5. Hypertension. 6. Hyperlipidemia. 7. Transient ischemic attack. 8. Frequent premature atrial contractions on the EKG. 9. Anxiety. 10. Fibromyalgia. 11. She has multiple history of a fall and she uses a walker. PAST SURGICAL HISTORY: 1. Left hip replacement in 1999. 2. Left shoulder replacement. 3. Right hip replacement. 4. Breast biopsy. 5. Lumpectomy in 2017. FAMILY HISTORY: The patient's mother had a history of breast cancer and myocardial infarction. The patient's sister has a history of diabetes. SOCIAL HISTORY: She is and she lives with her 2 children; however, she is having stress at home due to dealing with her son at this time. She denies any tobacco abuse, ETOH or illicit drug abuse. She uses home O2 oxygen 2 -3 liters nasal cannula every day. ALLERGIES: She has allergies to OXYCODONE and any medicine contained oxycodone. She must use paper tape due to her very fragile skin. HOME MEDICATIONS: Xanax 0.25 mg twice a day, tramadol 50 mg 1-2 tablets every 6 hours p.r.n., Tylenol 500 mg 1 tablet every 6 hours p.r.n., albuterol 2.5mg/3 liters nebulizer q.4 h. p.r.n. Celecoxib 200 mg once a day, lisinopril 5 mg once a day, Duloxetine 60 mg once a day, Arimidex 1 tablet once a day, cyclobenzaprine 10 mg 3 times a day p.r.n. , multivitamin 1 tablet once a day, Nexium 20 mg once a day, Lyrica 100 mg 3 times a day, Nystatin cream twice a day as needed to skin rash on the back and buttocks, Valacyclovir 500 mg once a day and she takes 1 tablet extra when she has skin flare on the back. REVIEW OF SYSTEMS: The following complete review of systems was negative, unless otherwise mentioned in the HPI or below. CONSTITUTIONAL: Weight loss or weight gain, ability to conduct usual activities. SKIN: Positive to the skin rash on the back and buttocks. She has seen continuity person and she was prescribed Nystatin cream and valacyclovir. EYES: Double vision, vision change, pain. ENT: Mouth, nasal bleeding, obstruction, no discharge from the nose, neck stiffness, pain or tenderness, or mass to palpate in the thyroid or other areas. CARDIOVASCULAR: Palpitations, dyspnea on exertion, or orthopnea. RESPIRATORY: Shortness of breath, wheezing, cough, hemoptysis. GASTROINTESTINAL: Poor appetite, abdominal pain, heartburn, nausea, vomiting, constipation, diarrhea, blood in the stool or urine, abnormal bowel habits. GENITOURINARY: Urinary urgency, frequency, dysuria, nocturia, hematuria. MUSCULOSKELETAL: She uses a walker to prevent the fall. Positive for generalized pain due to the fibromyalgia, but negative swelling or heat in the joint or muscle. NEUROLOGIC: Patient alert and oriented x4. Seizure, paralysis. PSYCHIATRIC: She is under huge distress due to a relationship with her son. PHYSICAL EXAMINATION: VITAL SIGNS: Blood pressure 139/64, heart rate 78 with sinus rhythm with frequent PACs, temperature 98.9, O2 sat 97% with 2 liters nasal cannula. GENERAL: The patient alert and oriented x4. HEAD: Normocephalic, atraumatic. Eyes; extraocular muscle movement intact. Nose and mouth, there are no nasal and oral mucosa is moist and without lesions. NECK: Supple. No carotid bruits, no JVD. PULMONARY: Clear, but diminished at the bases bilaterally by auscultation. CARDIOVASCULAR: S1 and S2 are present. There are no S3, S4, no murmur, heaves , thrill noted. ABDOMEN: Bowel sounds positive and in the 4 quadrants. No tenderness or mass to palpate. EXTREMITIES: Warm and dry with fair turgor. There is skin rash on her back and bilateral buttock. There is no edema in her extremities. There is 2+ bilateral dorsal pedis pulses, 1+ in bilateral posterior tibial, and popliteal pulses. NEUROLOGIC: The patient is alert, oriented x4, in no acute distress. LABORATORY DATA: A 12-lead EKG on 03/15/2017 showed sinus rhythm with frequent PACs, but there are no 12-lead EKG which revealed atrial fibrillation at this moment. Chest x-ray on 03/15/2017 showing right lower lobe pneumonia. ASSESSMENT AND PLAN: 1. History of supraventricular tachycardia. Unfortunately, there are no records showing the patient has had atrial fibrillation, but there is some history of supraventricular tachycardia on the monitors. At this moment the patient on remains in sinus rhythm with Diltiazem 120 mg daily, and she is on heparin subacute twice a day. We like to continue current medication and continue to monitor on tele. 2. Right lower lobe community acquired pneumonia. The patient's breathing is stable at this time with current antibiotics which is being managed by primary care doctor. 3. Hypertension. Her blood pressure is stable with current medication. We like to continue to monitor. 4. Gastroesophageal reflux disease. She is on Pepcid 20 mg twice a day. 5. Anxiety. She is on Xanax and her emotional condition is stable at this time. 6. Skin rash flare. She is on Nystatin cream at this moment. She may require valacyclovir 500 mg once a day if the patient's skin flare become worse. 7. Fibromyalgia. She is on Lyrica and Flexeril for generalized pain. At this moment she denies any pain or discomfort. 8. Chronic obstructive pulmonary disease. She is on 2 liters nasal cannula at this time. Her breathing pattern is stable at this time. We would like to continue to monitor. Thank you very much for the Cardiology consult to participate in care of the patient. We will follow up with the patient's care team and recommend appropriate recommendations as needed. JEANETTE
--- NOTE | 2017-03-20 17:19 | PRG ---
DATE OF SERVICE: 03/20/2017 SERVICE: Pulmonary Medicine. INTERVAL HISTORY: The patient is doing really well from a respiratory standpoint. She denies any c urrent fevers, chills, nausea, vomiting or chest discomfort. Otherwise, she is returning to her [facility]. Monday evening, she went into atrial fibrillation with a rapid response. She is now under good rate control, but remains irregular. PHYSICAL EXAMINATION: VITAL SIGNS: Afebrile, pulse 74, blood pressure 134/65, respirations 18, saturation 97% on 2 liters nasal cannula. GENERAL: Patient is awake, alert, in no apparent distress. LUNGS: Decent air entry. I do not appreciate a prolonged expiratory phase, wheezing, rhonchi, or c rackles today. HEART: Normal rate, irregular. ABDOMEN: Soft, nontender, nondistended, bowel sounds positive. MUSCULOSKELETAL: No cyanosis or clubbing. No pitting in the bilateral lower extremities. NEUROLOGIC: Grossly nonfocal. LABORATORY DATA: WBC 8.0, hemoglobin 15.1 and platelets 259,000. Basic metabolic profile is comple tely unremarkable with a BUN of 24. Magnesium and phosphorus are previously fell within the normal limits. ASSESSMENT: 1. Acute hypoxic respiratory failure, resolving. 2. Community-acquired pneumonia secondary to Streptococcus pneumoniae. 3. Bacteremia secondary to Streptococcus pneumoniae. 4. Severe sepsis. 5. Non-ST elevation myocardial infarction. 6. Atrial fibrillation with rapid ventricular response. PLAN: I will continue to follow while the patient remains in the hospital. From my perspective, quoc rogel is stable for discharge from the hospital. Her Streptococcus is sensitive to fluoroquinolones, wh ich should be continued for a total duration of 2 weeks. From my perspective, she will be in a posi tion where she is stable for transition out of the hospital tomorrow morning. She will need a repea t chest x-ray in roughly 5 weeks in the outpatient setting to confirm resolution of the infiltrate.
--- NOTE | 2017-03-20 19:29 | CON ---
DATE OF ADMISSION: 03/15/2017 DATE OF CONSULTATION: 03/20/2017 INDICATION FOR CONSULTATION: An 87-year-old female who was admitted with pneumonia, had sinus tachy cardia and PACs. She did have some 5-beat episode of nonsustained ventricular tachycardia and also some short runs of PSVT. We were asked to see her for atrial fibrillation, but I do not see any giovanni dence of atrial fibrillation on the tracings that are available to me at this time, but appears that she does have some occasional multifocal atrial tachycardia, but no other significant arrhythmias. She did undergo stress testing in 2015, which showed a normal ejection fraction about 58%. She had an echocardiogram in September of this year, which showed ejection fraction of 60% with diastolic dysfu nction with trace mitral valve regurgitation, mild tricuspid valve regurgitation, trivial aortic mini ve regurgitation. She had a cardiac catheterization in 2009, which showed normal coronary artery. She denies any chest pain. She does have shortness of breath and has chronic pulmonary problems for which she is on oxygen. She is supposed be on oxygen at least every night, but sometimes she does not wear it, but maybe she needs to be on oxygen 24/, but she recently developed pneumonia. At thi s time, her heart rates have been controlled with diltiazem and she seems to be doing much better. Her respiratory rate is also improved. For her remainder of the physical examination, past medical history, social history, and review of systems, please refer to the notes dictated by the nurse prac Nola linda. PHYSICAL EXAMINATION: The patient was seen and evaluated. GENERAL: She is alert and oriented at this time. She did answer my questions appropriately. She i s in no distress. HEENT: Shows head to be normocephalic and atraumatic. CHEST: Clear. I did not hear any rales, rhonchi, or wheezing. CARDIOVASCULAR: Reveals a regular rate and rhythm at this time without any significant ectopy. ABDOMEN: Soft and nontender. EXTREMITIES: Showed no clubbing, cyanosis, or edema. Pedal pulses are present. NEUROLOGIC: The patient appears to be intact. SKIN: Warm and dry. VITAL SIGNS: Blood pressure was 139/64, heart rates in the 70s and shows a sinus rhythm. O2 satura tion 97% on 2 liters. IMPRESSION: 1. At this time, her pneumonia which is resolving, which cause her to have respiratory failure and a right lower lobe community-acquired pneumonia was noted. She seems to be doing better on her anti biotics. 2. Palpitations. She did not notice any significant arrhythmias herself, but was found by the nurs e at home. She now on the monitor here has been having premature atrial contractions, occasional pr emature ventricular contractions, and short runs of nonsustained ventricular tachycardia as well as atrial arrhythmias in the form of multifocal atrial tachycardia and short runs of supraventricular t achycardia. Given her overall lack of symptoms associated with this and her underlying chronic obst ructive pulmonary disease, most likely this is associated due to underlying pulmonary problems. I w ill continue the present treatment as you are, I would not think that she is a very good candidate f or beta blockers, but seems to be doing quite well on the beta blockers and I would continue these. Otherwise, there is no further cardiac evaluation indicated at this time.
[2017-03-20] MEDS ORDERED: FLU VACC TS2017-18 (>65YR) 0.5 ML SYRINGE IM ONE (21:00)
[2017-03-21] MEDS: Acetaminophen 500 MG TAB PO PRN (01:38)
[2017-03-21] MEDS: CeleCOXIB 100 MG CAP PO SCH (08:37)
[2017-03-21] MEDS: Heparin 5,000 UNITS/ML VIAL SC SCH (08:37)
[2017-03-21] MEDS: Multivit, Therapeutic 1 TAB PO SCH (08:38)
[2017-03-21] MEDS: guaiFENesin ER 600 MG TAB PO SCH (08:38)
[2017-03-21] MEDS: Pregabalin 50 MG CAP PO SCH (08:38)
[2017-03-21] MEDS: Anastrozole 1 MG TAB PO SCH (08:38)
[2017-03-21] MEDS: ALPRAZolam 0.25 MG TAB PO SCH (08:38)
[2017-03-21] MEDS: Famotidine 20 MG TAB PO SCH (08:39)
--- NOTE | 2017-03-21 10:42 | PRG ---
DATE OF SERVICE: 03/21/2017 SERVICE: Pulmonary Medicine. INTERVAL HISTORY: The patient is doing great from a respiratory standpoint. She is off oxygen. Omari rogel feels that her breathing is much improved. Her strength is also much better. She is hoping to go home today. She understands that if she has recurrence in symptoms, increasing cough, sputum produ ction, or fever profile, she has returned to the emergency department or to me in clinic. PHYSICAL EXAMINATION: VITAL SIGNS: Afebrile, pulse 90, blood pressure 168/78, respirations 16, saturation 97% on 2 liters nasal cannula. GENERAL: The patient is awake, alert, no apparent distress. LUNGS: Decent air entry. There is no prolonged expiratory phase, wheezing, rhonchi or crackles. HEART: Normal rate, regular. ABDOMEN: Soft, nontender, nondistended. Bowel sounds positive. MUSCULOSKELETAL: No cyanosis or clubbing. No pitting in the bilateral lower extremities. NEUROLOGIC: Grossly nonfocal. ASSESSMENT: 1. Acute hypoxic respiratory failure, resolved. 2. Community-acquired pneumonia secondary to Streptococcus pneumoniae. 3. Bacteremia secondary to Streptococcus pneumoniae. 4. Severe sepsis, resolving. 5. Non-ST elevation myocardial infarction. 6. Atrial fibrillation with rapid ventricular response, currently rate controlled. PLAN: From a purely respiratory standpoint, the patient is stable for discharge from the hospital. I will continue to follow if she remains in house. She will need a repeat chest x-ray in the outpa tient setting with follow up with me at that time. This chest x-ray should be roughly 5 weeks out.
--- NOTE | 2017-03-21 11:38 | DIS ---
DATE OF ADMISSION: 03/15/2017 DATE OF DISCHARGE: 03/21/2017 DISCHARGE DIAGNOSES: 1. Status post sepsis secondarily to Streptococcus pneumoniae bacteremia with concomitant pneumonia . 2. Community-acquired pneumonia with Streptococcus pneumonia, improved. 3. Acute on chronic hypoxemic respiratory failure with current oxygen supplementation at 2 liters p er minute by nasal cannula. 4. Elevated troponin I secondarily to demand ischemia. 5. Hypertension, stable. 6. Nonsustained supraventricular tachycardia, improved. 7. Deconditioning. CONSULTATIONS: Dr. Pillai and Dr. Duran with Pulmonology Service. Dr. Harding with Cardiology Serv ice. PERTINENT LABORATORY DATA AND X-RAY FINDINGS: Basic metabolic profile showed sodium ranging between 133-140, phosphorus 2.7, magnesium 2.0. CBC showed a white blood cell count ranging between 8.0-20 .2. Blood cultures dated 03/15/2017 showed 2/2 positive for Streptococcus pneumonia. Portable ches t x-ray dated 03/15/2017 showed right basilar opacity concerning for pneumonia. HOSPITAL COURSE: Patient was admitted to the telemetry unit after initially presenting with acute o n chronic hypoxemic respiratory failure with associated right lower lobe community-acquired pneumoni a. The patient was initially managed with BiPAP noninvasive mechanical ventilation transitioning to oxygen supplementation by nasal cannula. The patient was placed on broad spectrum IV antibiotic th erapy with blood cultures showing 2/2 positive for Streptococcus pneumonia species. The patient was initially managed with IV Rocephin and IV Levaquin transitioning to single agent of Levaquin 750 mg daily. The patient was evaluated by the Pulmonology Service with recommendations for general pulmo nary supportive measures and continuation of antibiotic therapy. The patient's hospital course was complicated after patient developed nonsustained ventricular tachycardia with atrial tachycardia req uiring a short course of Cardizem infusion. The patient was evaluated by the Cardiology Service wit h recommendations to transition to diltiazem for rate control. The patient was transitioned to oral diltiazem with overall rate control noted on telemetry monitoring. The patient overall remained cl inically stable throughout the hospital course receiving physical and occupational therapy for mobil ization and ambulation. The patient overall stable and ready for discharge on 03/21/2017. DISCHARGE MEDICATIONS: 1. Levaquin 750 mg 1 tab p.o. daily x8 days. 2. Ventolin nebulized solution 2.5 mg nebulized q.4 hours p.r.n. 3. Xanax 0.25 mg p.o. b.i.d. 4. Acetaminophen 500 mg 1 tab p.o. q.6 hours p.r.n. 5. Arimidex 1 mg p.o. daily. 6. Celebrex 200 mg p.o. daily. 7. Cyclobenzaprine 10 mg p.o. t.i.d. p.r.n. 8. Duloxetine 60 mg p.o. daily. 9. Diltiazem CD 120 mg p.o. daily. 10. Nexium 20 mg 1 tab p.o. daily. 11. Lisinopril 5 mg 1 tablet p.o. daily. 12. Multivitamin 1 tab p.o. daily. 13. Nystatin one application topically b.i.d. p.r.n. 14. Lyrica 100 mg p.o. t.i.d. 15. Mucinex ER 600 mg p.o. b.i.d. 16. Tramadol 50 mg 1-2 tabs p.o. q.6 hours p.r.n. pain. 17. Valacyclovir 500 mg p.o. daily. FOLLOWUP: The patient may follow up with her primary care provider, Dr. Georgia Biggs within 7 da ys of discharge. CONDITION ON DISCHARGE: Stable. ACTIVITY: Ad quintin. SPECIAL INSTRUCTIONS: Patient will receive home health services through [facility] agency to include nursing and physical therapy. Recommend repeat chest x-ray in 4 weeks after discharge. DIET: Regular. CODE STATUS: FULL. DISPOSITION: Home 03/21/2017. Total time preparing and coordinating discharge is 37 minutes.
[2017-03-21 11:47] VITALS: BP 139/68; TEMP 98.2
--- NOTE | 2017-03-21 13:00 | PDOC.CTH ---
Cardiology Progress Note - Subjective The pt was seen and examined. No overnight events. No cardiac complaints. She still has SOB with movement as prior to this hospitalization. She is very gold and felt relief after she and her family discussed with Care managers about her home situation. - Objective Vital Signs Temp Pulse Resp BP BP Pulse Ox 03/21/17 11:46 98.2 F 84 20 139/68 95 03/21/17 08:37 90 03/21/17 08:00 98.5 F 90 16 168/78 H 97 03/21/17 07:30 98.5 F 90 16 97 03/21/17 06:43 77 16 96 03/21/17 03:20 97.9 F 78 20 172/75 H 94 L Admit Weight 147 lb 4.8 oz Weight 145 lb 03/20/17 03/21/17 03/22/17 06:59 06:59 06:59 Intake Total 1200 1198 Output Total 1175 2300 Balance 25 -1102 - Physical Examination General/Neuro: alert & oriented x3 Neck: no JVD present Lungs: other: (very diminished at bases) Heart: RRR, other: (skipping beats with HR 80s) Abdomen: soft Extremities: other: (No edemas) - Telemetry Telemetry Rhythm: SR with HR 80s - Labs Result Diagrams: 03/20/17 05:27 03/20/17 05:27 - Assessment/Plan 1. Hx of SVT - Remain SR with Cardizem 120mg po daily 2. Community acquired bacterial pneumonia - on Oral Antibiotics, Levaquin 750mg po daily 3. HTN - stable with current medication 4. COPD - D/c to home with Home O2 5. GERD - Stable 6. Anxiety - stable with current medication; She is very glad and felt relief after she and her family discussed with tire care manager about her stress situation at home. 7. Skin Rash flar - stable with Nystatin cream and Valcyclovir 500mg PO daily 8. Fibromyalgia - stable with current medication MAR reviewed From Cardiac standpoint, the pt is stable to D/c to home with Home O2; The pt will f/u with Dr Harding' office within 1-2 months with ECG Thank you very much for cardiology consult request. Review of Systems - Review of Systems Constitutional: reports: no symptoms reported EENTM: reports: no symptoms reported Respiratory: reports: SOB with excertion Cardiac (ROS): reports: no symptoms reported ABD/GI: reports: no symptoms reported : reports: no symptoms reported Skin: reports: no symptoms reported
== END 2017-03-21 13:49 | disposition home health service (06) | DRG 871 ==
LOC: ERS 15:10 → IMCU/EMU 16:36 → 2NO 03-16 20:48
PROVIDERS: ADMIT Family Medicine; ATTEND Family Medicine
PROC: 5A09357 Assistance with Respiratory Ventilation, Less than 24 Consecutive Hours, Continuous Positive Airway Pressure (ICD-10-PCS; principal; 2017-03-15)
DX: A40.3 Sepsis due to Streptococcus pneumoniae (principal); J96.21 Acute and chronic respiratory failure with hypoxia; R65.20 Severe sepsis without septic shock; J13 Pneumonia due to Streptococcus pneumoniae; E87.2 Acidosis; I47.1 Supraventricular tachycardia; I24.8 Other forms of acute ischemic heart disease; J44.1 Chronic obstructive pulmonary disease with (acute) exacerbation; J44.0 Chronic obstructive pulmonary disease with (acute) lower respiratory infection; Z99.81 Dependence on supplemental oxygen; Z79.51 Long term (current) use of inhaled steroids; Z91.81 History of falling; Z85.3 Personal history of malignant neoplasm of breast; Z92.21 Personal history of antineoplastic chemotherapy; I10 Essential (primary) hypertension; K21.9 Gastro-esophageal reflux disease without esophagitis; M19.90 Unspecified osteoarthritis, unspecified site; F41.9 Anxiety disorder, unspecified; Z96.643 Presence of artificial hip joint, bilateral; Z96.612 Presence of left artificial shoulder joint; Z90.12 Acquired absence of left breast and nipple; Z88.5 Allergy status to narcotic agent; Z91.048 Other nonmedicinal substance allergy status; I08.3 Combined rheumatic disorders of mitral, aortic and tricuspid valves; E78.5 Hyperlipidemia, unspecified; Z86.73 Personal history of transient ischemic attack (TIA), and cerebral infarction without residual deficits; M79.7 Fibromyalgia; L30.9 Dermatitis, unspecified
CPT/HCPCS: 36415; 80048; 83735; 84100; 85007; 85025; 85027; 93005; 94640; 96365; 96366; 96375; A4216; G8978-GP-CL; G8979-GP-CJ; J0696; J1644; J1956; J3370; J3475; J7050; J7506; J7620

== ENCOUNTER 2017-05-02 13:15 | Outpatient (CLI) | payer MEDICARE ==
--- NOTE | 2017-05-02 14:53 | RAD ---
PA AND LATERAL CHEST: History: Dyspnea. FINDINGS: Comparison made with exam of 03-15-17. The heart is enlarged. The lungs are well expanded with chronic changes. There has been interval res olution of the right basilar opacity since the last exam. No focal areas of consolidation, pneumotho rax or pleural effusions seen. There are degenerative changes in the right shoulder joint. Left mert ral head prosthesis remains in place. IMPRESSION: No evidence of acute process. Interval resolution of right basilar opacity since 03-15-17. POS: DAVID
== END 2017-05-02 13:16 | disposition home or self-care (01) ==
LOC: RAD 13:15
PROVIDERS: ATTEND Internal Medicine
DX: R06.00 Dyspnea, unspecified (principal); R91.8 Other nonspecific abnormal finding of lung field
CPT/HCPCS: 71020

== ENCOUNTER 2017-05-27 05:25 | Inpatient (IN) | payer MEDICARE ==
[2017-05-27] MEDS ORDERED: Albuterol Sulfate 2.5 mg/3 ml Neb ONE ×2 (06:15→08:06)
[2017-05-27] MEDS ORDERED: Albuterol Sulfate 2.5 mg/0.5 ml Neb ONE ×6 (06:17→08:06)
[2017-05-27 06:20] LABS: #Basophils 0.1 thou/uL (0.0-0.2); #Lymphocytes 2.2 thou/uL (1.20-3.40); #Monocytes 0.3 thou/uL (0.11-0.59); #Neutrophils 8.5 thou/uL (1.40-6.50); %Eosinophils 0.2 % (0.0-10.0); %Lymphocytes 19.6 % (21.0-51.0); %Monocytes 2.5 % (0.0-10.0); Hematocrit 44.5 % (36.0-47.0); Mean Platelet Volume 8.3 fL (7.4-10.4); Red Blood Cell (RBC) Count 4.46 mill/uL (4.20-5.40)
[2017-05-27 06:45] LABS: Bilirubin Small (Negative); Blood, Urine Trace (Negative); Glucose, Urine (Dipstick) Negative (Negative); Ketone, Urine Trace mg/dL (Negative); Protein, Urine (Dipstick) 300 mg/dL (Neg-Trace)
[2017-05-27 06:58] LABS: Renal Epithelial 0-3 HPF (0-3); Transitional Epithelial NONE SEEN HPF (0-3)
[2017-05-27 07:00] LABS: Bacteria/HPF Rare-Few HPF (None Seen)
[2017-05-27 07:01] LABS: Nitrite Negative (Negative)
[2017-05-27 07:03] LABS: ALT (SGPT) 14 U/L (8-55); AST (SGOT) 30 U/L (5-34); Alkaline Phosphatase 63 U/L (40-150); Anion Gap 18 mmol/L (10-20); BUN (Urea Nitrogen) 27 mg/dL (9.8-20.1); Bilirubin, Total 0.9 mg/dL (0.2-1.2); CK (CPK) 129 U/L (29-168); Calc. Creatinine Clearance 0 mL/min (70-130); Carbon Dioxide 21 mmol/L (23-31); Chloride 102 mmol/L (98-107); Estimated GFR-MDRD 59; Globulin 4.3 g/dL (2.4-3.5); Lipase Less than 4 U/L (8-78); Protein, Total 7.5 g/dL (6.0-8.3)
[2017-05-27 07:13] LABS: Troponin I 0.328 ng/mL (< 0.028)
[2017-05-27] MEDS ORDERED: Piperacillin/Tazobactam 4.5 GM, Admixture Fee 1 EACH in Sodium Chloride 0.9% 100 ML IVPB SCH (07:45)
[2017-05-27] MEDS ORDERED: methylPREDNISolone Sod Succ/PF 125 MG/2 ML VIAL ONE (08:15)
[2017-05-27] MEDS ORDERED: Diabetic Tussin 200 MG/10 ML UDCUP PO PRN (08:31)
[2017-05-27] MEDS ORDERED: Chloraseptic Spray 180 ml Bottle PO PRN (08:31)
[2017-05-27] MEDS ORDERED: Loperamide HCl 2 MG CAP PO PRN (08:31)
[2017-05-27] MEDS ORDERED: Loratadine 10 MG TAB PO PRN (08:31)
[2017-05-27] MEDS ORDERED: hydrALAZINE 20 MG/ML VIAL SLOW IVP PRN (08:31)
[2017-05-27] MEDS ORDERED: Mag-Al 1200 mg/1200 mg/30 ML UDCUP PO PRN (08:31)
[2017-05-27] MEDS ORDERED: Artificial Tears 18 DROP/0.9 ML EA EYE PRN (08:31)
[2017-05-27] MEDS ORDERED: Nystatin Powder 15 GM BOT TOP PRN (08:31)
[2017-05-27] MEDS ORDERED: cloNIDine 0.1 MG TAB PO PRN (08:31)
[2017-05-27] MEDS ORDERED: Ondansetron ODT 4 MG TAB PO PRN (08:31)
[2017-05-27] MEDS ORDERED: Ondansetron HCl/PF 4 MG/2 ML Vial IVP PRN (08:31)
[2017-05-27] MEDS ORDERED: Sodium Chloride 0.65% Nasal 44 ML BOT EA NARE PRN (08:31)
[2017-05-27] MEDS ORDERED: Senokot 8.6 MG TAB PO PRN (08:31)
[2017-05-27] MEDS ORDERED: Milk Of Magnesia 30 ML UDCUP PO PRN (08:31)
[2017-05-27] MEDS ORDERED: Eucerin (Mineral Oil/Petrolatum,White) 30 gm Jar TOP PRN (08:31)
[2017-05-27] MEDS ORDERED: Benzonatate 100 MG CAP PO PRN (08:31)
--- NOTE | 2017-05-27 08:40 | RAD ---
1 VIEW CHEST: Date: 05/27/17 HISTORY: Dyspnea. COMPARISON: 03/15/17, 05/02/17. FINDINGS: Enlarged cardiac silhouette. Pulmonary vessels are within normal limits. Costophrenic angles are george r. Patchy interstitial opacities with more focal alveolar opacification in the left upper lobe and le ft lower lobe. No pneumothorax. Stable degenerative changes and prosthesis involving the right and le ft humerus, respectively. IMPRESSION: Multifocal opacities. Multifocal pneumonia. Continued surveillance. POS: [facility]
--- NOTE | 2017-05-27 10:31 | HP ---
PRIMARY CARE PHYSICIAN: Adrian Vega M.D. REASON FOR ADMISSION: Acute on chronic hypoxic respiratory failure, COPD exacerbation, influenza A, and community-acquired pneumonia. HISTORY OF PRESENT ILLNESS: An 87-year-old female who was recently admitted in our hospital in 03/08 17. At that time, patient was treated for right lower lobe community-acquired pneumonia. Subsequent ly, patient was discharged home on p.o. Levaquin. Patient has completed the therapy. She has underl bettina chronic hypoxic respiratory failure and she is using 2-3 liters of nasal cannula oxygen at home. The patient came back again to emergency room with increasing shortness of breath, gurgling sound fro m her throat and cough productive of yellowish white sputum. She denies any hemoptysis. She became sick very rapidly. The patient's family member reports that in her entire family, most of the family members had flu-like symptoms and patient also started recently flu-like symptoms and subsequently h er condition gotten worse rapidly. She was struggling to breathe and she was becoming more and more hypoxic and she was not able to talk in full sentences and that is why family member brought her to emergency room. In the emergency room, patient has appeared sick. She was in respiratory distress. Her routine lab tests showed lactic acidosis and elevated troponin. Her chest x-ray at this time also showed multifo yudith opacity and her influenza A was positive. Patient is going to be admitted in IMCU for close monitoring. When I saw this patient in the emergency room, at that time, patient's daughter who was present at be [facility] and she expressed her wish to be continued as FULL CODE status. At this point, the patient wayne eared to be vitals bianchi stable. She was given maintaining saturation with nasal cannula oxygen, but she was continued to have gurgling sound from her throat. The patient was not able to provide any hi story because of respiratory distress. REVIEW OF SYSTEMS: The patient was able to nod yes or no with direct questions. The following compl ete review of systems was negative, unless otherwise mentioned in the HPI or below: Constitutional: Weight loss or gain, ability to conduct usual activities. Skin: Rash, itching. Eyes: Double vision, pain. ENT/Mouth: Nose bleeding, neck stiffness, pain, tenderness. Cardiovascular: Palpitations, dyspnea on exertion, orthopnea. Respiratory: Shortness of breath, wheezing, cough, hemoptysis, fever or night sweats. Gastrointestinal: Poor appetite, abdominal pain, heartburn, nausea, vomiting, constipation, or diarr hea. Genitourinary: Urgency, frequency, dysuria, nocturia. Musculoskeletal: Pain, swelling. Neurologic/Psychiatric: Anxiety, depression. Allergy/Immunologic: Skin rash, bleeding tendency. All other review of systems reviewed and negative except as mentioned in the HPI. ALLERGIES: ADHESIVE TAPE, CODEINE SULFATE, DICLOFENAC, ARICEPT, HYDROCODONE, OXYCODONE. CURRENT HOME MEDICATIONS: Xanax 0.25 mg p.o. b.i.d. p.r.n., Ventolin nebulization q.4 hourly, Arimid ex 1 mg p.o. daily, celecoxib 200 mg p.o. daily, Flexeril 10 mg t.i.d. p.r.n., Cardizem CD 120 mg p.o . daily, Nexium 20 mg p.o. daily, lisinopril 5 mg p.o. daily, multivitamin 1 tablet p.o. daily, Mai a 100 mg t.i.d., tramadol 50 mg q.6 hourly p.r.n., valacyclovir 500 mg p.o. daily. PAST MEDICAL HISTORY: Chronic hypoxic respiratory failure with chronic oxygen supplementation at 2-3 liters nasal cannula, COPD, history of recurrent community-acquired pneumonia, osteoarthritis, gastr oesophageal reflux disease, hypertension, history of breast cancer treated with chemotherapy, mechani yudith fall, physical deconditioning. PAST PSYCHIATRIC HISTORY: Anxiety and depression. PAST SURGICAL HISTORY: Left breast needle localization with lumpectomy, bilateral total hip arthropl asty, left shoulder replacement, lumbar spine surgery. FAMILY HISTORY: No strong family history of premature coronary artery disease, stroke or cancer. SOCIAL HISTORY: Patient lives at home with her daughter. She ambulates with a rolling walker. No h istory of tobacco, alcohol or illicit drug abuse. EMERGENCY ROOM COURSE: Patient has received Solu-Medrol 125 mg, vancomycin, Zosyn, IV fluid, and alb uterol nebulization therapy. PHYSICAL EXAMINATION: VITAL SIGNS: On arrival, blood pressure 134/67, pulse 96, respiratory rate 24, temperature 98.1, sat uration 91% on 3 liter oxygen. Weight 70.3 kilograms. GENERAL: The patient is currently in respiratory distress. HEAD: Normocephalic, atraumatic. EYES: Pupils are round and reactive to light. Extraocular muscle intact. ENT: Oropharynx within normal limits. Moist mucous membranes. No oral lesions. No pharyngeal eryt nolvia, no exudate. NECK: Supple. Gurgling sounds heard from throat. Pharyngeal erythema noted. No exudate. LUNGS: Bilateral wheezing heard. Coarse rales noted. CARDIAC: S1, S2 regular. No murmur elicited, no gallop, no rub. ABDOMEN: Soft, bowel sounds present, nontender, nondistended. No organomegaly, no mass, no suprapub ic tenderness. BACK: Examination unremarkable, no CVA tenderness. EXTREMITIES: Upper extremity passive movements of all joints are normal. Lower extremities: No bethanie ma. Good peripheral pulsation. SKIN: No skin rash. HEMATOLOGICAL SYSTEM: No lymphadenopathy. PSYCHIATRIC: Anxious affect. IMAGING AND SIGNIFICANT LABORATORY DATA: 1. EKG based on my review, normal sinus rhythm, premature ventricular complexes, nonspecific ST-T ch anges. 2. Chest x-ray showing multifocal pneumonia. 3. CBC: WBC 11.0, hemoglobin 14.6, platelets 175 with left shift. 4. BMP: Sodium 136, potassium 4.6, chloride 102, carbon dioxide 21, anion gap 18, BUN 27, creatinin e 0.98, glucose 113, calcium 9.0, lactic acid 7.0 5. LFT: AST 30, ALT 14, alkaline phosphatase 63, albumin 3.2, CK 129, CK-MB 1.6, troponin I 0.328. Lipase less than 4. 6. Urinalysis: WBC 4-6. ASSESSMENT AND PLAN/IMPRESSION: 1. Acute on chronic hypoxic respiratory failure, most likely related with underlying influenza A and associated multifocal pneumonia. At this point, we are trying to keep oxygen saturation above 92% w ith nasal cannula or facemask. We will try BiPAP if needed, but currently in the emergency room, rose quintana was experiencing nausea and vomiting and that is why we are holding on that. I spoke with the gonzalez leong's daughter who is the medical power of erisa attorney for this patient and she expressed to be a FUL L CODE. This patient is at risk for intubation in case if she gets tired with breathing. We will cl osely monitor in IMCU. I spoke with Dr. Pillai and consulted him as well. 2. Chronic obstructive pulmonary disease exacerbation with hypoxic respiratory failure and pneumonia . Patient will be given DuoNeb therapy every 4 hourly, Solu-Medrol 40 mg IV q.6 hourly, empiric anti biotic therapy with vancomycin and Zosyn, Mucinex 600 mg t.i.d., and oxygen to keep saturation above 92%. 3. Multifocal pneumonia, community acquired with underlying chronic obstructive pulmonary disease an d associated with respiratory failure. At this point, patient has influenza A as well. We will cora t for influenza A with Tamiflu as well as we will cover with Staphyloncus coverage with vancomycin an d we will continue with Zosyn and Levaquin for atypical coverage. We will continue with steroid as w ell as Mucinex 600 mg 3 times daily along with respiratory therapy. We will closely monitor in IMCU. 4. Demand ischemia of myocardium with non-ST elevation myocardial infarction type 2, likely due to s tress response. Patient already had echocardiography in recent past, so no need of repeating echocar diography, we will continue with aspirin 325 mg p.o. daily. Cardiology will be consulted for their o tadeo. 5. Lactic acidosis, likely due to sepsis and hypoxic respiratory failure. We will repeat lactic aci d tomorrow. Patient is on broad spectrum antibiotic therapy. 6. Chronic low back pain and pain disorder. We will continue Flexeril 5 mg t.i.d. p.r.n., celecoxib 200 mg p.o. daily, tramadol 50 mg q.6 hourly p.r.n. as per home dosage and Lyrica 100 mg t.i.d. 7. Hypertension. We will continue lisinopril 5 mg p.o. daily and we will continue p.r.n. basis bloo d pressure medication if needed. 8. Paroxysmal supraventricular tachycardia. We will continue Cardizem CD 120 mg p.o. daily. 9. Gastroesophageal reflux disease. We will continue Protonix 40 mg p.o. daily. 10. Anxiety and depression. We will continue Xanax 0.25 mg p.o. b.i.d. and Cymbalta 60 mg p.o. leeann y as per home dosage. 11. History of breast cancer. We will continue Arimidex 1 mg p.o. daily. 12. Deep venous thrombosis prophylaxis, Lovenox 40 mg subcu daily. 13. Gastrointestinal prophylaxis, Protonix 40 mg p.o. daily. CODE STATUS: The patient is FULL CODE. Patient's daughter is surrogate decision maker. Disposition plan based on clinical course. We are expecting patient's stay in the hospital more than 2 midnights. Plan of care discussed with the patient and family member at bedside in the emergency room.
[2017-05-27] MEDS ORDERED: Vancomycin HCl 750 MG, Admixture Fee 1 EACH in Sodium Chloride 0.9% 250 ML 250 ML IVPB SCH (11:00)
[2017-05-27] MEDS ORDERED: Enoxaparin Sodium 40 MG/0.4 ML SYRINGE ONE (11:57)
[2017-05-27] MEDS ORDERED: Aspirin 325 MG TAB ONE (11:57)
[2017-05-27] MEDS ORDERED: ALPRAZolam 0.25 MG TAB ONE (12:46)
[2017-05-27 12:47] LABS: Critical Call Chem Troponin I RESULT DECREASING; Troponin I 0.307 ng/mL (< 0.028)
--- NOTE | 2017-05-27 17:15 | CON ---
DATE OF CONSULTATION: 05/27/2017 PRIMARY WASHER ENGINEER: Johnna Harding M.D. REASON FOR CONSULTATION: Elevated troponins. HISTORY OF PRESENT ILLNESS: Ms. Wick is a very pleasant 87-year-old white female who comes to the [facility] for shortness of breath. She was diagnosed with COPD exacerbation secondary to influenza type A. She has been placed on a BiPAP during her initial evaluation. Troponins were drawn, they are mi ldly elevated, so Cardiology is being consulted. Ms. Wick denies any chest pain, tightness. She onl y admits to the shortness of breath. PAST MEDICAL HISTORY: 1. Chronic COPD, chronic oxygen supplementation 2 or 3 liters. 2. History of several mechanical falls. 3. Breast cancer treated with chemotherapy. 4. Hypertension. 5. GERD. 6. Osteoarthritis. 7. History of pneumonias in the recent past. 8. Anxiety disorder. PAST SURGICAL HISTORY: 1. Left breast lumpectomy. 2. Total hip arthroplasty bilaterally. 3. Left shoulder replacement. 4. Lumber spine surgery. OUTPATIENT MEDICATIONS: Include: 1. Xanax p.r.n. 2. Albuterol inhalers. 3. Arimidex. 4. Celecoxib. 5. Flexeril. 6. Cardizem 120 mg a day. 7. Nexium 20 mg a day. 8. Lisinopril 5 mg a day. 9. Multivitamin daily. 10. Lyrica 100 mg daily. 11. Tramadol 50 mg q. 6 hours p.r.n. 12. Valacyclovir. SOCIAL HISTORY: No alcohol, tobacco, or drugs. FAMILY HISTORY: Noncontributory, but she does not have a strong premature coronary artery disease hi story. REVIEW OF SYSTEMS: A 12-point review of systems was done and is all negative unless stated in the hi story of present illness. PHYSICAL EXAMINATION: VITAL SIGNS: Temperature 98.1, pulse 96, respiratory rate 24, satting 91% on 2 liters nasal cannula, blood pressure 134/67. GENERAL: Awake, alert, oriented x3, in moderate respiratory distress. HEENT: Normocephalic, atraumatic. NECK: Supple. LUNGS: Have diminished breath sounds bilaterally. CARDIOVASCULAR: S1, S2 with distant heart sounds. ABDOMEN: Soft, positive bowel sounds. EXTREMITIES: Trace edema. SKIN: Warm and dry. LABORATORY WORK: Reviewed. White count of 11, hemoglobin of 14, hematocrit of 44, platelet count of 175. Chemistry showed a carbon dioxide of 21, BUN of 27, creatinine of 0.9, GFR of 59, albumin of 3 .2. Lactic acid was 7.0 up to 12. On redo, troponin was 0.32, 0.32, 0.30. UA showed trace ketones and blood, proteins, small bilirubin, 7-10 red cells. Chest x-ray showed multiple opacities suggestive of multifocal pneumonia. Microbiology shows influenza type A positive antigen. ASSESSMENT AND PLAN: 1. Non-ST elevation myocardial infarction: Demand ischemia most likely from her chronic obstructive pulmonary disease exacerbation and pneumonia. 2. Multifocal pneumonia. 3. Influenza type A. 4. Chronic obstructive pulmonary disease exacerbation. PLAN: 1. Conservative management for now. 2. Demand ischemia is most likely the cause. We will get an echocardiogram to assess LV function an d valvular structure to make sure they have not changed significantly from the echo done back in [place]. Thank you for letting us participate in the care of your patient. We will follow.
[2017-05-27] MEDS: Anastrozole 1 MG TAB PO SCH (17:59)
[2017-05-27] MEDS: CeleCOXIB 100 MG CAP PO SCH (17:59)
[2017-05-27] MEDS: Aspirin 325 MG TAB PO SCH (17:59)
[2017-05-27] MEDS: guaiFENesin ER 600 MG TAB PO SCH ×2 (18:00→20:51)
[2017-05-27] MEDS: Lisinopril 10 MG TAB PO SCH (18:00)
[2017-05-27] MEDS: Enoxaparin Sodium 40 MG/0.4 ML SYRINGE SC SCH (18:00)
[2017-05-27] MEDS: Saccharomyces boulardii 250 MG CAP PO SCH (18:01)
[2017-05-27] MEDS: Pregabalin 50 MG CAP PO SCH ×2 (18:01→20:51)
[2017-05-27] MEDS: Multivitamin W/ Minerals 1 TAB PO SCH (18:01)
[2017-05-27] MEDS: Oseltamivir 75 MG CAP PO SCH ×2 (18:01→20:50)
[2017-05-27] MEDS: Piperacillin/Tazobactam 4.5 GM, Admixture Fee 1 EACH in Sodium Chloride 0.9% 100 ML IVPB SCH ×2 (18:02→20:50)
[2017-05-27] MEDS: Dextrose 5 % And 0.9 % NaCl 1,000 ML IV SCH (18:30)
[2017-05-27 20:34] LABS: Oxyhemoglobin 93.2 % (94.0-97.0); Sodium 140 mmol/L (135-148)
--- NOTE | 2017-05-27 21:40 | CON ---
DATE OF SERVICE: 05/27/2017 SERVICE: Pulmonary Medicine. REASON FOR CONSULTATION: Respiratory failure. HISTORY OF PRESENT ILLNESS: The patient is an 87-year-old white female who was recently admitted in 02/2017 for community-acquired pneumonia of the right lower lobe. She was discharged on p.o. Levaquin. She completed her therapy. She returned to her usual state of health, but keeps a little bit of a cough productive of some clear sputum. Roughly 2 to 3 days ago, she started having higher fevers, productive of yellow sputum, myalgias, and started having increasing difficulty with breathing. She presented to the Emergency Department. She was discovered to have influenza. She was initiated on a little bit of BiPAP. This has been discontinued. Her lactate has been trending upward. I just address code status with the patient's daughter, suggesting that she has a FULL CODE, if it means that she could return to her usual state of health in a short period of time. They are leaning against protracted hospital courses with tracheostomies, but would cross that bridge at some future time. PAST MEDICAL HISTORY: 1. Chronic hypoxic respiratory failure. 2. Chronic obstructive pulmonary disease. 3. Osteoarthritis. 4. Gastroesophageal reflux disease. 5. Hypertension. 6. History of breast cancer, status post chemotherapy. 7. Deconditioning. PAST SURGICAL HISTORY: 1. Left breast lumpectomy. 2. Bilateral hip arthroplasty. 3. Left shoulder replacement. 4. Lumbar spine surgery. FAMILY HISTORY: Noncontributory. SOCIAL HISTORY: She lives at home with her daughter. She uses a rolling walker to get around. She denies any alcohol, tobacco, or illicit drug use presently. ALLERGIES: ADHESIVE TAPE, CODEINE, DICLOFENAC, ARICEPT, HYDROCODONE, OXYCODONE. MEDICATIONS: List of her inpatient medications were reviewed. Multiple updates were made at this time. REVIEW OF SYSTEMS: General, head, ears, eyes, nose, throat, cardiovascular, respiratory, GI, , musculoskeletal, neurologic and skin is negative except as mentioned in the HPI. PHYSICAL EXAMINATION: VITAL SIGNS: Afebrile, pulse 99, blood pressure 137/59, respirations 22, saturation 94% on 3 liters nasal cannula. GENERAL: The patient is awake and alert. She is in acute respiratory distress. She has pursed lip breathing and has tachypnea. HEENT: Normocephalic, atraumatic. Sclerae are white, conjunctivae pink. Oral mucosa is dry. LUNGS: Decreased air entry with prolonged expiratory phase and rhonchi. Dependent crackles on the left, but not on the right. HEART: Tachycardic. Regular. ABDOMEN: Soft, nontender, nondistended. Bowel sounds are positive. MUSCULOSKELETAL: No cyanosis or clubbing. No pitting in the bilateral lower extremities. SKIN: Tenting throughout. GENITOURINARY: No Dimas catheter in place. NEUROLOGIC: Grossly nonfocal. LABORATORY DATA: Lactate is trending upward 12.2 from 7.0. Basic metabolic profile and liver function studies are otherwise unremarkable. Troponin is down trending to 0.31. Urinalysis is unremarkable. WBC 11.0 with 76% bands. Influenza A is positive on the nasal swab. IMAGING: Chest x-ray demonstrates multifocal opacifications. ASSESSMENT: 1. Acute on chronic hypoxic respiratory failure. 2. Chronic obstructive pulmonary disease with acute exacerbation. 3. Healthcare-associated pneumonia, secondary to influenza. 4. Debility. PLAN: I am going to get rid of all nonessential medications. Agree with current antibiotic choices. Tamiflu will be continued. I am going to get stat ABG and lactate. If these things are significantly abnormal, we will need to proceed with intubation. BiPAP was titrated up and down at bedside throughout the evening. CRITICAL CARE TIME: 45 minutes. MTDD
--- NOTE | 2017-05-27 22:10 | PDOC.EVN ---
Event Note - Event Note Event Note: RN called with positive blood cultures. Already on Empiric Atbx
[2017-05-27 22:25] LABS: Mode 2L NC; Modified Allen's Test POSITIVE
[2017-05-28] MEDS: Piperacillin/Tazobactam 4.5 GM, Admixture Fee 1 EACH in Sodium Chloride 0.9% 100 ML IVPB SCH ×4 (01:16→17:25)
[2017-05-28] MEDS: Amiodarone In Dextrose,Iso-Osm 200 ML IVPB SCH ×2 (04:46→10:04)
[2017-05-28] MEDS: Dextrose 5 % And 0.9 % NaCl 1,000 ML IV SCH ×2 (04:54→14:04)
[2017-05-28 05:19] LABS: ALT (SGPT) 15 U/L (8-55); AST (SGOT) 25 U/L (5-34); Alkaline Phosphatase 44 U/L (40-150); Bilirubin, Direct 0.5 mg/dL (0.1-0.3); Bilirubin, Total 0.9 mg/dL (0.2-1.2); Protein, Total 7.3 g/dL (6.0-8.3)
[2017-05-28 05:23] LABS: ALT (SGPT) 14 U/L (8-55); AST (SGOT) 26 U/L (5-34); Alkaline Phosphatase 45 U/L (40-150); Anion Gap 12 mmol/L (10-20); BUN (Urea Nitrogen) 27 mg/dL (9.8-20.1); Bilirubin, Total 0.9 mg/dL (0.2-1.2); Calc. Creatinine Clearance 53 mL/min (70-130); Calcium 9.2 mg/dL (7.8-10.44); Carbon Dioxide 23 mmol/L (23-31); Chloride 106 mmol/L (98-107); Estimated GFR-MDRD 70; Globulin 4.4 g/dL (2.4-3.5); Protein, Total 7.4 g/dL (6.0-8.3)
[2017-05-28 06:39] LABS: Band 21 % (5-11); Hematocrit 42.4 % (36.0-47.0); Mean Platelet Volume 8.3 fL (7.4-10.4); Metamyelocyte 2 % (0-0); Myelocyte 3 % (0-0); Neutrophil 58 % (42-75); Red Blood Cell (RBC) Count 4.29 mill/uL (4.20-5.40); White Blood Cell (WBC) Count 15.6 thou/uL (4.8-10.8)
--- NOTE | 2017-05-28 07:33 | PDOC.PN ---
- Subjective Encounter Start Date: 05/28/17 Encounter Start Time: 06:50 -: old records requested/rev pt had afib with RVR, so amiodraron drip stated, afebrile, vitals stable, - Objective Resuscitation Status: Resuscitation Status FULL:Full Resuscitation MAR Reviewed: Yes Vital Signs & Weight: Vital Signs (12 hours) Temp Pulse Resp BP Pulse Ox 05/28/17 07:19 97.6 F 111 H 29 H 142/83 H 96 05/28/17 06:10 115 H 27 H 134/80 97 05/28/17 05:15 115 H 22 H 141/79 H 05/28/17 04:45 118 H 121/86 05/28/17 04:00 99.1 F 118 H 26 H 136/71 97 05/28/17 02:32 93 05/28/17 02:30 95 27 H 96 05/28/17 02:10 85 22 H 139/75 96 05/28/17 00:00 97.1 F L 88 28 H 130/65 97 05/27/17 22:34 86 05/27/17 22:33 87 33 H 96 05/27/17 22:20 88 20 128/56 L 95 Weight Weight 145 lb 2 oz I&O: 05/27/17 05/28/17 05/29/17 06:59 06:59 06:59 Intake Total 1925 Output Total 1075 Balance 850 Result Diagrams: 05/28/17 04:48 05/28/17 04:48 EKG Reviewed by me: Yes (afib) Phys Exam - Physical Examination Constitutional: NAD HEENT: PERRLA, moist MMs, sclera anicteric Neck: no JVD, supple Respiratory: wheezing present reduced air entry, few scattered rales Cardiovascular: no significant murmur, irregular Gastrointestinal: soft, non-tender, no distention, positive bowel sounds Musculoskeletal: no edema, pulses present Neurological: non-focal, normal sensation Lymphatic: no nodes Psychiatric: normal affect Skin: no rash, normal turgor Dx/Plan (1) Acute on chronic respiratory failure with hypoxia Code(s): J96.21 - ACUTE AND CHRONIC RESPIRATORY FAILURE WITH HYPOXIA Status: Acute Comment: (2) Atrial fibrillation with RVR Code(s): I48.91 - UNSPECIFIED ATRIAL FIBRILLATION Status: Acute (3) Bacteremia due to Streptococcus pneumoniae Code(s): R78.81 - BACTEREMIA Status: Acute (4) COPD with exacerbation Code(s): J44.1 - CHRONIC OBSTRUCTIVE PULMONARY DISEASE W (ACUTE) EXACERBATION Status: Acute (5) Demand ischemia of myocardium Code(s): I24.8 - OTHER FORMS OF ACUTE ISCHEMIC HEART DISEASE Status: Acute (6) Influenza A Code(s): J10.1 - FLU DUE TO OTH IDENT INFLUENZA VIRUS W OTH RESP MANIFEST Status: Acute (7) Lactic acidosis Code(s): E87.2 - ACIDOSIS Status: Acute (8) Pneumococcal pneumonia (streptococcus pneumoniae pneumonia) Code(s): J13 - PNEUMONIA DUE TO STREPTOCOCCUS PNEUMONIAE Status: Acute (9) Sepsis with acute organ dysfunction Code(s): A41.9 - SEPSIS, UNSPECIFIED ORGANISM; R65.20 - SEVERE SEPSIS WITHOUT SEPTIC SHOCK Status: Acute (10) Anxiety and depression Code(s): F41.8 - OTHER SPECIFIED ANXIETY DISORDERS Status: Chronic (11) Chronic pain disorder Code(s): G89.4 - CHRONIC PAIN SYNDROME Status: Chronic (12) GERD (gastroesophageal reflux disease) Code(s): K21.9 - GASTRO-ESOPHAGEAL REFLUX DISEASE WITHOUT ESOPHAGITIS Status: Chronic (13) H/O malignant neoplasm of breast Code(s): Z85.3 - PERSONAL HISTORY OF MALIGNANT NEOPLASM OF BREAST Status: Chronic (14) Hypertension Code(s): I10 - ESSENTIAL (PRIMARY) HYPERTENSION Status: Chronic Qualifiers: Hypertension type: essential hypertension Qualified Code(s): I10 - Essential (primary) hypertension - Plan cont current plan of care, continue antibiotics, respiratory therapy * continue amiodraon drip for afib * continue rocephin, levaquin, vancomycin * later today will narrow antibiotics spectrum, will not need vancomycin and rocephin * continue tamiflu * continue low dose steroid * continue respiratory therapy * continue selected home medication * follow blood culture report * medication reviewed as below * symptomatic treatment. Review of Systems - Review of Systems Constitutional: Weakness. negative: Fever, Chills, Sweats, Malaise, Other Eyes: negative: Pain, Vision Change, Conjunctivae Inflammation, Eyelid Inflammation, Redness, Other ENT: negative: Ear Pain, Ear Discharge, Nose Pain, Nose Discharge, Nose Congestion, Mouth Pain, Mouth Swelling, Throat Pain, Throat Swelling, Other Respiratory: Cough, Shortness of Breath, SOB with Excertion. negative: Dry, Hemoptysis, Pleuritic Pain, Sputum, Wheezing Cardiovascular: negative: Chest Pain, Palpitations, Orthopnea, Paroxysmal Noc. Dyspnea, Edema, Light Headedness, Other Gastrointestinal: negative: Nausea, Vomiting, Abdominal Pain, Diarrhea, Constipation, Melena, Hematochezia, Other Genitourinary: negative: Dysuria, Frequency, Incontinence, Hematuria, Retention , Other Musculoskeletal: negative: Neck Pain, Shoulder Pain, Arm Pain, Back Pain, Hand Pain, Leg Pain, Foot Pain, Other - Medications/Allergies Allergies/Adverse Reactions: Allergies Allergy/AdvReac Type Severity Reaction Status Date / Time adhesive Allergy Mild Rash Verified 03/15/17 19:48 oxycodone HCl Allergy Unknown Hives Verified 03/15/17 19:48 [From OxyContin] codeine Allergy Verified 03/15/17 19:48 diclofenac Allergy Verified 03/15/17 19:48 donepezil Allergy Verified 03/15/17 19:48 hydrocodone bitartrate Allergy AMS Verified 03/15/17 19:48 [From Vicodin] Medications: Current Medications Acetaminophen (Tylenol) 650 mg PO Q4H PRN PRN Reason: Headache/Fever or Pain Al Hydroxide/Mg Hydroxide (Maalox) 30 ml PO Q6H PRN PRN Reason: Heartburn or Indigestion Albuterol/Ipratropium (Duoneb) 3 ml NEB [id number] [facility] Last Admin: 05/28/17 02:30 Dose: 3 ml Albuterol/Ipratropium (Duoneb) 3 ml NEB [id number] PRN PRN Reason: SOB &/or Wheezing Alprazolam (Xanax) 0.25 mg PO BIDPRN PRN PRN Reason: Anxiety Anastrozole (Arimidex) 1 mg PO DAILY [facility] Last Admin: 05/27/17 17:59 Dose: Not Given Aspirin (Aspirin) 325 mg PO DAILY [facility] Last Admin: 05/27/17 17:59 Dose: Not Given Celecoxib (Celebrex) 200 mg PO DAILY [facility] Last Admin: 05/27/17 17:59 Dose: Not Given Clonidine (Catapres) 0.1 mg PO Q4H PRN PRN Reason: Systolic BP > 180 Cyclobenzaprine HCl (Flexeril) 5 mg PO TID PRN PRN Reason: Muscle Spasm Diltiazem HCl (Cardizem Cd) 120 mg PO DAILY [facility] Last Admin: 05/27/17 17:59 Dose: Not Given Duloxetine HCl (Cymbalta) 60 mg PO DAILY [facility] Last Admin: 05/27/17 17:59 Dose: Not Given Enoxaparin Sodium (Lovenox) 40 mg SC 0900 [facility] Last Admin: 05/27/17 18:00 Dose: Not Given Guaifenesin (Mucinex) 600 mg PO TID [facility] Last Admin: 05/27/17 20:51 Dose: 600 mg Hydralazine HCl (Apresoline) 10 mg SLOW IVP Q4H PRN PRN Reason: Systolic BP > 180 Levofloxacin 750 mg/ Device 150 mls @ 100 mls/hr IVPB Q24HR [facility] Last Admin: 05/27/17 18:00 Dose: Not Given Piperacillin Sod/Tazobactam Sod 4.5 gm/ Miscellaneous Medication 1 each/ Sodium Chloride 100 mls @ 200 mls/hr IVPB Q6HR [facility] Last Admin: 05/28/17 06:09 Dose: 100 mls Vancomycin HCl 750 mg/Miscellaneous Medication 1 each/ Sodium Chloride 250 mls @ 250 mls/hr IVPB 0800 [facility] Dextrose/Sodium Chloride (D5 0.9% Ns) 1,000 mls @ 75 mls/hr IV .[id number] [facility] Last Admin: 05/28/17 04:54 Dose: Not Given Amiodarone HCl/Dextrose (Nexterone) 200 mls @ 0 mls/hr IVPB INF JONES; As Directed PRN Reason: Protocol Last Admin: 05/28/17 04:46 Dose: 200 mls Iron/Minerals/Multivitamins (Theragran M) 1 tab PO DAILY [facility] Last Admin: 05/27/17 18:01 Dose: Not Given Lisinopril (Zestril) 10 mg PO DAILY [facility] Last Admin: 05/27/17 18:00 Dose: Not Given Loperamide HCl (Imodium) 2 mg PO PRN PRN PRN Reason: Diarrhea/Loose Stools Loratadine (Claritin) 10 mg PO DAILYPRN PRN PRN Reason: Sinus Symptoms Magnesium Hydroxide (Milk Of Magnesium) 30 ml PO DAILYPRN PRN PRN Reason: Constipation Methylprednisolone Sodium Succinate (Solu-Medrol) 40 mg IVP DAILY [facility] Mineral Oil/White Petrolatum (Eucerin Cream) 0 gm TOP BIDPRN PRN PRN Reason: Dry Skin Miscellaneous Medication (Pharmacy To Dose) 1 each IVPB ASDIR [facility] Nystatin (Mycostatin Powder) 1 gm TOP BID PRN PRN Reason: Topical Irritations Ondansetron HCl (Zofran Odt) 4 mg PO Q6H PRN PRN Reason: Nausea/Vomiting Ondansetron HCl (Zofran) 4 mg IVP Q6H PRN PRN Reason: Nausea/Vomiting Oseltamivir Phosphate (Tamiflu) 75 mg PO BID [facility] Stop: 05/31/17 21:01 Last Admin: 05/27/17 20:50 Dose: 75 mg Pantoprazole Sodium (Protonix) 40 mg PO DAILY [facility] Last Admin: 05/27/17 18:01 Dose: Not Given Phenol (Chloraseptic [place] 180 Ml Bot) 0 ml PO PRN PRN PRN Reason: Sore Throat Pregabalin (Lyrica) 100 mg PO TID [facility] Last Admin: 05/27/17 20:51 Dose: 100 mg Saccharomyces Boulardii (Florastor) 250 mg PO DAILY [facility] Last Admin: 05/27/17 18:01 Dose: Not Given Senna (Senokot) 2 tab PO HSPRN PRN PRN Reason: Constipation Sodium Chloride ([place] Nasal [place] 0.65%) 0 ml EA NARE QIDPRN PRN PRN Reason: Nasal Congestion Sodium Chloride (Flush - Normal Saline) 10 ml IVF Q12HR [facility] Last Admin: 05/27/17 20:51 Dose: 10 ml Sodium Chloride (Flush - Normal Saline) 10 ml IVF PRN PRN PRN Reason: Saline Flush Tramadol HCl (Ultram) 50 mg PO Q6H PRN PRN Reason: Pain
[2017-05-28] MEDS: CeleCOXIB 100 MG CAP PO SCH (09:18)
[2017-05-28] MEDS: Aspirin 325 MG TAB PO SCH (09:18)
[2017-05-28] MEDS: Anastrozole 1 MG TAB PO SCH (09:18)
[2017-05-28] MEDS: Multivitamin W/ Minerals 1 TAB PO SCH (09:19)
[2017-05-28] MEDS: Lisinopril 10 MG TAB PO SCH (09:19)
[2017-05-28] MEDS: guaiFENesin ER 600 MG TAB PO SCH ×3 (09:19→20:55)
[2017-05-28] MEDS: Enoxaparin Sodium 40 MG/0.4 ML SYRINGE SC SCH (09:19)
[2017-05-28] MEDS: Saccharomyces boulardii 250 MG CAP PO SCH (09:20)
[2017-05-28] MEDS: Pregabalin 50 MG CAP PO SCH ×3 (10:03→20:55)
[2017-05-28] MEDS: Vancomycin HCl 750 MG, Admixture Fee 1 EACH in Sodium Chloride 0.9% 250 ML 250 ML IVPB SCH (10:03)
[2017-05-28] MEDS: Oseltamivir 75 MG CAP PO SCH ×2 (10:04→20:55)
--- NOTE | 2017-05-28 12:39 | PDOC.CTH ---
Cardiology Progress Note - Subjective She is breathing much better than yesterday. She is off bipap and only on NC. She went into afib RVR overnight. - Objective Vital Signs Temp Pulse Resp BP Pulse Ox 05/28/17 11:18 96 05/28/17 11:17 112 H 20 05/28/17 11:12 97.7 F 102 H 16 133/79 93 L 05/28/17 09:18 111 H 05/28/17 08:00 97.6 F 111 H 24 H 95 05/28/17 07:19 97.6 F 111 H 29 H 142/83 H 96 05/28/17 06:10 115 H 27 H 134/80 97 05/28/17 05:15 115 H 22 H 141/79 H 05/28/17 04:45 118 H 121/86 05/28/17 04:00 99.1 F 118 H 26 H 136/71 97 05/28/17 02:32 93 05/28/17 02:30 95 27 H 96 05/28/17 02:10 85 22 H 139/75 96 Weight 145 lb 2 oz 05/27/17 05/28/17 05/29/17 06:59 06:59 06:59 Intake Total 1925 Output Total 1075 Balance 850 - Physical Examination General/Neuro: alert & oriented x3, NAD Neck: no JVD present Lungs: unlabored respirations, other: (reduced breath sounds bilat. ) Heart: other: (Irreg) Abdomen: NT/ND Extremities: other: (no edema) - Telemetry Telemetry Rhythm: Afib - Labs Result Diagrams: 05/28/17 04:48 05/28/17 04:48 Troponin/CKMB CK-MB (CK-2) 1.6 ng/mL (0-6.6) 05/27/17 06:03 Troponin I 0.307 ng/mL (< 0.028) H* 05/27/17 12:09 - Assessment/Plan 1. COPD exacerbation. 2. Influenza A 3. Afib RVR new diagnosis. 4. Pneumonia 5. Strep bacteremia. 6. NSTEMI, demand ischemia. PLAN: - Continue rate control. Will switch amio to diltiazem drip. - Full anticoagulation with Lovenox SQ for stroke prophylaxis. - Abx per primary team.
[2017-05-28] MEDS: ALPRAZolam 0.25 MG TAB PO PRN (17:24)
--- NOTE | 2017-05-28 17:33 | PRG ---
DATE OF SERVICE: 05/28/2017 SERVICE: Pulmonary Medicine. INTERVAL HISTORY: The patient actually feels a little improved today. She denies any current fevers , chills, nausea, or vomiting. She is coughing up mucus plugs. Outside of this, there has been no i nterval change to her condition. PHYSICAL EXAMINATION: VITAL SIGNS: Afebrile, pulse 98, blood pressure 126/69, respirations 22, saturation 91% on 4 liters nasal cannula. GENERAL: Patient is awake, alert, in no apparent distress. HEENT: Normocephalic, atraumatic. Sclerae are white, conjunctivae pink. LUNGS: Decent air entry. This is much improved compared to yesterday. There is still prolonged exp iratory phase. I hear rhonchi and polyphonic wheeze on expiration. HEART: Normal rate and irregular. ABDOMEN: Soft, nontender, nondistended, bowel sounds positive. MUSCULOSKELETAL: No cyanosis or clubbing. There is no pitting in the bilateral lower extremities. NEUROLOGIC: Grossly nonfocal. LABORATORY DATA: WBC 15.6, hemoglobin 13.7, platelets 175,000. Band count is now 21%. A pH 7.45, p CO2 35, pO2 62. Metabolic profile and liver function studies are unremarkable. Troponin is 0.3, whi ch is down trending. TSH falls within the normal limits. One out of two blood cultures is growing a lpha hemolytic streptococcus. The other blood culture is growing Streptococcus pneumoniae. Urine cu lture is negative x1. Influenza A is positive. ASSESSMENT: 1. Acute on chronic hypoxic respiratory failure. 2. Chronic obstructive pulmonary disease with acute exacerbation. 3. Healthcare-associated pneumonia, secondary to influenza and Streptococcus. 4. Debility, advanced. PLAN: We will continue current medications for an additional 24 hours. Tomorrow, we can likely dire ct our antibiotic choice and duration to the bacteremia and influenza. The patient feels much improv ed. As such, supportive measures including antibiotic, steroids and nebulized medications will be co ntinued.
[2017-05-28] MEDS: Enoxaparin Sodium 60 MG/0.6 ML SYRINGE SC SCH (20:55)
[2017-05-28] MEDS: Acetaminophen 325 MG TAB PO PRN (22:50)
[2017-05-28] MEDS: Cyclobenzaprine 10 MG TAB PO PRN (22:50)
[2017-05-29] MEDS: Piperacillin/Tazobactam 4.5 GM, Admixture Fee 1 EACH in Sodium Chloride 0.9% 100 ML IVPB SCH ×3 (00:36→12:18)
[2017-05-29 05:39] LABS: Anion Gap 10 mmol/L (10-20); BUN (Urea Nitrogen) 35 mg/dL (9.8-20.1); Calc. Creatinine Clearance 53 mL/min (70-130); Calcium 8.9 mg/dL (7.8-10.44); Carbon Dioxide 25 mmol/L (23-31); Chloride 109 mmol/L (98-107); Estimated GFR-MDRD 70
[2017-05-29 05:57] LABS: Band 26 % (5-11); Hematocrit 39.1 % (36.0-47.0); Mean Platelet Volume 9.1 fL (7.4-10.4); Neutrophil 65 % (42-75); Red Blood Cell (RBC) Count 3.95 mill/uL (4.20-5.40); White Blood Cell (WBC) Count 13.1 thou/uL (4.8-10.8)
[2017-05-29] MEDS: Dextrose 5 % And 0.9 % NaCl 1,000 ML IV SCH (06:29)
[2017-05-29 07:36] LABS: Vancomycin, Trough 6.9 ug/mL
[2017-05-29] MEDS: Acetaminophen 325 MG TAB PO PRN (08:41)
[2017-05-29] MEDS: ALPRAZolam 0.25 MG TAB PO PRN (08:42)
[2017-05-29] MEDS: Anastrozole 1 MG TAB PO SCH (08:42)
[2017-05-29] MEDS: Oseltamivir 75 MG CAP PO SCH ×2 (08:42→21:07)
[2017-05-29] MEDS: Multivitamin W/ Minerals 1 TAB PO SCH (08:43)
[2017-05-29] MEDS: Aspirin 325 MG TAB PO SCH (08:43)
[2017-05-29] MEDS: guaiFENesin ER 600 MG TAB PO SCH ×3 (08:43→21:06)
[2017-05-29] MEDS: Pregabalin 50 MG CAP PO SCH ×3 (08:43→21:09)
[2017-05-29] MEDS: Lisinopril 10 MG TAB PO SCH (08:43)
[2017-05-29] MEDS: CeleCOXIB 100 MG CAP PO SCH (08:44)
[2017-05-29] MEDS: Saccharomyces boulardii 250 MG CAP PO SCH (08:44)
[2017-05-29] MEDS: Enoxaparin Sodium 60 MG/0.6 ML SYRINGE SC SCH ×2 (08:44→21:10)
[2017-05-29] MEDS: Vancomycin HCl 750 MG, Admixture Fee 1 EACH in Sodium Chloride 0.9% 250 ML 250 ML IVPB SCH (08:45)
--- NOTE | 2017-05-29 13:02 | PDOC.PN ---
- Subjective Encounter Start Date: 05/29/17 Encounter Start Time: 09:00 Patient seen and examined. No new complaints. No overnight events - Objective Resuscitation Status: Resuscitation Status FULL:Full Resuscitation MAR Reviewed: Yes Vital Signs & Weight: Vital Signs (12 hours) Temp Pulse Resp BP BP Pulse Ox 05/29/17 12:19 96 24 H 99 05/29/17 11:13 98.0 F 110 H 20 144/57 H 94 L 05/29/17 09:06 88 24 H 99 05/29/17 08:43 135/66 05/29/17 08:00 97.5 F L 88 24 H 93 L 05/29/17 07:19 98.1 F 90 19 126/55 L 95 05/29/17 06:32 82 24 H 122/65 05/29/17 04:14 97.9 F 78 26 H 118/64 95 05/29/17 02:35 79 25 H 96 Weight Weight 149 lb 1 oz I&O: 05/28/17 05/29/17 05/30/17 06:59 06:59 06:59 Intake Total 1925 2920 Output Total 1075 1200 Balance 850 1720 Result Diagrams: 05/29/17 04:34 05/29/17 04:34 EKG Reviewed by me: Yes (afib) Phys Exam - Physical Examination Constitutional: NAD HEENT: PERRLA, moist MMs, sclera anicteric Neck: no JVD, supple Respiratory: no wheezing, no rales, no rhonchi Cardiovascular: no significant murmur, no rub, irregular Gastrointestinal: soft, non-tender, no distention, positive bowel sounds Musculoskeletal: no edema, pulses present Neurological: non-focal, normal sensation Lymphatic: no nodes Psychiatric: normal affect Skin: no rash, normal turgor Dx/Plan (1) Acute on chronic respiratory failure with hypoxia Code(s): J96.21 - ACUTE AND CHRONIC RESPIRATORY FAILURE WITH HYPOXIA Status: Acute Comment: (2) Atrial fibrillation with RVR Code(s): I48.91 - UNSPECIFIED ATRIAL FIBRILLATION Status: Acute (3) Bacteremia due to Streptococcus pneumoniae Code(s): R78.81 - BACTEREMIA Status: Acute (4) COPD with exacerbation Code(s): J44.1 - CHRONIC OBSTRUCTIVE PULMONARY DISEASE W (ACUTE) EXACERBATION Status: Acute (5) Demand ischemia of myocardium Code(s): I24.8 - OTHER FORMS OF ACUTE ISCHEMIC HEART DISEASE Status: Acute (6) Influenza A Code(s): J10.1 - FLU DUE TO OTH IDENT INFLUENZA VIRUS W OTH RESP MANIFEST Status: Acute (7) Lactic acidosis Code(s): E87.2 - ACIDOSIS Status: Acute (8) Pneumococcal pneumonia (streptococcus pneumoniae pneumonia) Code(s): J13 - PNEUMONIA DUE TO STREPTOCOCCUS PNEUMONIAE Status: Acute (9) Sepsis with acute organ dysfunction Code(s): A41.9 - SEPSIS, UNSPECIFIED ORGANISM; R65.20 - SEVERE SEPSIS WITHOUT SEPTIC SHOCK Status: Acute (10) Anxiety and depression Code(s): F41.8 - OTHER SPECIFIED ANXIETY DISORDERS Status: Chronic (11) Chronic pain disorder Code(s): G89.4 - CHRONIC PAIN SYNDROME Status: Chronic (12) GERD (gastroesophageal reflux disease) Code(s): K21.9 - GASTRO-ESOPHAGEAL REFLUX DISEASE WITHOUT ESOPHAGITIS Status: Chronic (13) H/O malignant neoplasm of breast Code(s): Z85.3 - PERSONAL HISTORY OF MALIGNANT NEOPLASM OF BREAST Status: Chronic (14) Hypertension Code(s): I10 - ESSENTIAL (PRIMARY) HYPERTENSION Status: Chronic Qualifiers: Hypertension type: essential hypertension Qualified Code(s): I10 - Essential (primary) hypertension - Plan cont current plan of care, continue antibiotics, PT/OT, social group worker, respiratory therapy * continue cardizem drip for rate control * start PT as tolerated * repeat labs and culture tomorrow * medication reviewed as below * symptomatic treatment. * DC vancomycin and zosyn * continue IV levaquin * DC IVF Review of Systems - Review of Systems ENT: negative: Ear Pain, Ear Discharge, Nose Pain, Nose Discharge, Nose Congestion, Mouth Pain, Mouth Swelling, Throat Pain, Throat Swelling, Other Respiratory: negative: Cough, Dry, Shortness of Breath, Hemoptysis, SOB with Excertion, Pleuritic Pain, Sputum, Wheezing Cardiovascular: negative: Chest Pain, Palpitations, Orthopnea, Paroxysmal Noc. Dyspnea, Edema, Light Headedness, Other Gastrointestinal: negative: Nausea, Vomiting, Abdominal Pain, Diarrhea, Constipation, Melena, Hematochezia, Other Genitourinary: negative: Dysuria, Frequency, Incontinence, Hematuria, Retention , Other Musculoskeletal: negative: Neck Pain, Shoulder Pain, Arm Pain, Back Pain, Hand Pain, Leg Pain, Foot Pain, Other Skin: negative: Rash, Lesions, [place], Bruising, Other Other: not reliable due to dementia - Medications/Allergies Allergies/Adverse Reactions: Allergies Allergy/AdvReac Type Severity Reaction Status Date / Time adhesive Allergy Mild Rash Verified 03/15/17 19:48 oxycodone HCl Allergy Unknown Hives Verified 03/15/17 19:48 [From OxyContin] codeine Allergy Verified 03/15/17 19:48 diclofenac Allergy Verified 03/15/17 19:48 donepezil Allergy Verified 03/15/17 19:48 hydrocodone bitartrate Allergy AMS Verified 03/15/17 19:48 [From Vicodin] Medications: Current Medications Acetaminophen (Tylenol) 650 mg PO Q4H PRN PRN Reason: Headache/Fever or Pain Last Admin: 05/29/17 08:41 Dose: 650 mg Al Hydroxide/Mg Hydroxide (Maalox) 30 ml PO Q6H PRN PRN Reason: Heartburn or Indigestion Albuterol/Ipratropium (Duoneb) 3 ml NEB [id number] [facility] Last Admin: 05/29/17 12:19 Dose: 3 ml Albuterol/Ipratropium (Duoneb) 3 ml NEB [id number] PRN PRN Reason: SOB &/or Wheezing Alprazolam (Xanax) 0.25 mg PO BIDPRN PRN PRN Reason: Anxiety Last Admin: 05/29/17 08:42 Dose: 0.25 mg Anastrozole (Arimidex) 1 mg PO DAILY [facility] Last Admin: 05/29/17 08:42 Dose: 1 mg Aspirin (Aspirin) 325 mg PO DAILY [facility] Last Admin: 05/29/17 08:43 Dose: 325 mg Celecoxib (Celebrex) 200 mg PO DAILY [facility] Last Admin: 05/29/17 08:44 Dose: 200 mg Clonidine (Catapres) 0.1 mg PO Q4H PRN PRN Reason: Systolic BP > 180 Cyclobenzaprine HCl (Flexeril) 5 mg PO TID PRN PRN Reason: Muscle Spasm Last Admin: 05/28/17 22:50 Dose: 5 mg Duloxetine HCl (Cymbalta) 60 mg PO DAILY [facility] Last Admin: 05/29/17 08:44 Dose: 60 mg Enoxaparin Sodium (Lovenox) 60 mg SC 0900,2100 [facility] Last Admin: 05/29/17 08:44 Dose: 60 mg Guaifenesin (Mucinex) 600 mg PO TID [facility] Last Admin: 05/29/17 08:43 Dose: 600 mg Hydralazine HCl (Apresoline) 10 mg SLOW IVP Q4H PRN PRN Reason: Systolic BP > 180 Levofloxacin 750 mg/ Device 150 mls @ 100 mls/hr IVPB Q24HR [facility] Last Admin: 05/29/17 10:17 Dose: 150 mls Piperacillin Sod/Tazobactam Sod 4.5 gm/ Miscellaneous Medication 1 each/ Sodium Chloride 100 mls @ 200 mls/hr IVPB Q6HR [facility] Last Admin: 05/29/17 12:18 Dose: 100 mls Diltiazem HCl 125 mg/ Sodium (Chloride) 125 mls @ 10 mls/hr IVPB INF JONES; 10 MG /HR PRN Reason: Protocol Last Admin: 05/29/17 00:35 Dose: 125 mls Iron/Minerals/Multivitamins (Theragran M) 1 tab PO DAILY [facility] Last Admin: 05/29/17 08:43 Dose: 1 tab Lisinopril (Zestril) 10 mg PO DAILY [facility] Last Admin: 05/29/17 08:43 Dose: 10 mg Loperamide HCl (Imodium) 2 mg PO PRN PRN PRN Reason: Diarrhea/Loose Stools Loratadine (Claritin) 10 mg PO DAILYPRN PRN PRN Reason: Sinus Symptoms Magnesium Hydroxide (Milk Of Magnesium) 30 ml PO DAILYPRN PRN PRN Reason: Constipation Methylprednisolone Sodium Succinate (Solu-Medrol) 40 mg IVP DAILY [facility] Last Admin: 05/29/17 08:44 Dose: 40 mg Mineral Oil/White Petrolatum (Eucerin Cream) 0 gm TOP BIDPRN PRN PRN Reason: Dry Skin Nystatin (Mycostatin Powder) 1 gm TOP BID PRN PRN Reason: Topical Irritations Ondansetron HCl (Zofran Odt) 4 mg PO Q6H PRN PRN Reason: Nausea/Vomiting Ondansetron HCl (Zofran) 4 mg IVP Q6H PRN PRN Reason: Nausea/Vomiting Last Admin: 05/28/17 07:50 Dose: 4 mg Oseltamivir Phosphate (Tamiflu) 75 mg PO BID [facility] Stop: 05/31/17 21:01 Last Admin: 05/29/17 08:42 Dose: 75 mg Pantoprazole Sodium (Protonix) 40 mg PO DAILY [facility] Last Admin: 05/29/17 08:44 Dose: 40 mg Phenol (Chloraseptic [place] 180 Ml Bot) 0 ml PO PRN PRN PRN Reason: Sore Throat Pregabalin (Lyrica) 100 mg PO TID [facility] Last Admin: 05/29/17 08:43 Dose: 100 mg Saccharomyces Boulardii (Florastor) 250 mg PO DAILY [facility] Last Admin: 05/29/17 08:44 Dose: 250 mg Senna (Senokot) 2 tab PO HSPRN PRN PRN Reason: Constipation Sodium Chloride ([place] Nasal [place] 0.65%) 0 ml EA NARE QIDPRN PRN PRN Reason: Nasal Congestion Sodium Chloride (Flush - Normal Saline) 10 ml IVF Q12HR [facility] Last Admin: 05/29/17 08:44 Dose: 10 ml Sodium Chloride (Flush - Normal Saline) 10 ml IVF PRN PRN PRN Reason: Saline Flush Tramadol HCl (Ultram) 50 mg PO Q6H PRN PRN Reason: Pain Valacyclovir HCl (Valtrex) 500 mg PO DAILY [facility] Last Admin: 05/29/17 10:17 Dose: 500 mg
--- NOTE | 2017-05-29 13:58 | PDOC.CTH ---
Cardiology Progress Note - Subjective Pt. seen and evaluated. No complaints. Chronic A-fib. - Objective Vital Signs Temp Pulse Resp BP BP Pulse Ox 05/29/17 12:19 96 24 H 99 05/29/17 11:13 98.0 F 110 H 20 144/57 H 94 L 05/29/17 09:06 88 24 H 99 05/29/17 08:43 135/66 05/29/17 08:00 97.5 F L 88 24 H 93 L 05/29/17 07:19 98.1 F 90 19 126/55 L 95 05/29/17 06:32 82 24 H 122/65 05/29/17 04:14 97.9 F 78 26 H 118/64 95 05/29/17 02:35 79 25 H 96 Weight 149 lb 1 oz 05/28/17 05/29/17 05/30/17 06:59 06:59 06:59 Intake Total 1925 2920 Output Total 1075 1200 Balance 850 1720 - Physical Examination General/Neuro: alert & oriented x3 Neck: carotid US brisk, no JVD present Lungs: other: (scattered rhonchi.) Heart: other: (irreg/ireg.) Abdomen: NT/ND, soft Extremities: other: (no edema.) - Telemetry Telemetry Rhythm: Afib. - Labs Result Diagrams: 05/29/17 04:34 05/29/17 04:34 Troponin/CKMB CK-MB (CK-2) 1.6 ng/mL (0-6.6) 05/27/17 06:03 Troponin I 0.307 ng/mL (< 0.028) H* 05/27/17 12:09 - Assessment/Plan 1. COPD exacerbation. 2. Influenza A 3. Afib RVR new diagnosis. Rate control is the goal. Continue IV dilt. for now. 4. Pneumonia 5. Strep bacteremia. 6. NSTEMI, demand ischemia. Review of Systems - Review of Systems Respiratory: reports: cough, shortness of breath Cardiac (ROS): reports: no symptoms reported ABD/GI: reports: no symptoms reported : reports: no symptoms reported Musculoskeletal: reports: no symptoms reported
--- NOTE | 2017-05-29 18:32 | PRG ---
DATE OF SERVICE: 05/29/2017 SERVICE: Pulmonary Medicine. INTERVAL HISTORY: The patient is doing great from a respiratory standpoint. She currently denies an y shortness of breath, fevers, chills, nausea or vomiting. She is breathing very comfortably this mo rning. Otherwise, she is slowly returning to her usual state of health. She is yet to be out of bed . PHYSICAL EXAMINATION: VITAL SIGNS: Afebrile, pulse 92, blood pressure 142/64, respirations 17, saturation 94% on 3 liters nasal cannula. GENERAL: The patient is awake, alert, in no apparent distress. LUNGS: Rhonchi are present. There is slightly prolonged expiratory phase. There is no wheezing or crackles appreciated. HEART: Normal rate, irregular. ABDOMEN: Soft, nontender, nondistended. Bowel sounds positive. MUSCULOSKELETAL: No cyanosis or clubbing. No pitting in the bilateral lower extremities. NEUROLOGIC: Grossly nonfocal. LABORATORY DATA: WBC 13.1 and trending downward, hemoglobin 12.8, platelets 172,000. Band count is 26%. Basic metabolic profile was completely unremarkable. Liver function studies are previously nor mal. TSH was normal. One out of two blood cultures growing Streptococcus pneumoniae. Blood culture s also growing Streptococcus pneumoniae. ASSESSMENT: 1. Acute on chronic hypoxic respiratory failure. 2. Chronic obstructive pulmonary disease with acute exacerbation. 3. Healthcare-associated pneumonia, secondary to influenza and Streptococcus. 4. Bacteremia secondary to Streptococcus. 5. Debility, advanced. PLAN: We can transition the patient onto a narrow spectrum of antibiotic. We will continue her Linda flu for a total duration of 5 days and Levaquin for a total duration of 14 days. This can be switche d over to p.o. regimen assuming she tolerates moving forward. Pulmonary Critical Care will continue to follow. From my perspective, she is stable for transition to the floor. We will focus on mobiliz ing her, getting her into a chair and having worked with physical therapy.
[2017-05-30] MEDS: Cyclobenzaprine 10 MG TAB PO PRN (00:31)
[2017-05-30] MEDS: traMADol HCl 50 MG TAB PO PRN (00:31)
[2017-05-30 06:28] LABS: Anion Gap 11 mmol/L (10-20); BUN (Urea Nitrogen) 35 mg/dL (9.8-20.1); Calc. Creatinine Clearance 59 mL/min (70-130); Calcium 8.7 mg/dL (7.8-10.44); Carbon Dioxide 24 mmol/L (23-31); Chloride 109 mmol/L (98-107); Estimated GFR-MDRD 77
[2017-05-30 07:03] LABS: Hematocrit 38.6 % (36.0-47.0); Mean Platelet Volume 8.5 fL (7.4-10.4); White Blood Cell (WBC) Count 9.2 thou/uL (4.8-10.8)
[2017-05-30 07:25] LABS: Band 12 % (5-11); Metamyelocyte 4 % (0-0); Myelocyte 2 % (0-0); Neutrophil 63 % (42-75); Reactive Lymphocytes 1 % (0-10); Toxic Granulation SLIGHT
[2017-05-30] MEDS: Anastrozole 1 MG TAB PO SCH (08:51)
[2017-05-30] MEDS: Saccharomyces boulardii 250 MG CAP PO SCH (08:51)
[2017-05-30] MEDS: Aspirin 325 MG TAB PO SCH (08:51)
[2017-05-30] MEDS: Oseltamivir 75 MG CAP PO SCH ×2 (08:51→20:29)
[2017-05-30] MEDS: Enoxaparin Sodium 60 MG/0.6 ML SYRINGE SC SCH ×2 (08:51→20:28)
[2017-05-30] MEDS: Multivitamin W/ Minerals 1 TAB PO SCH (08:52)
[2017-05-30] MEDS: Lisinopril 10 MG TAB PO SCH (08:52)
[2017-05-30] MEDS: Pregabalin 50 MG CAP PO SCH ×3 (08:52→20:29)
[2017-05-30] MEDS: CeleCOXIB 100 MG CAP PO SCH (08:52)
[2017-05-30] MEDS: guaiFENesin ER 600 MG TAB PO SCH ×3 (08:53→20:28)
[2017-05-30] MEDS: ALPRAZolam 0.25 MG TAB PO PRN (08:53)
--- NOTE | 2017-05-30 10:05 | PDOC.CTH ---
Cardiology Progress Note - Subjective The pt. was seen and evaluated. She is feeling better but remains in A-fib. The rate is reasonable well controlled. She denies any cardiac complaints today. She says she is breathing much better. - Objective Vital Signs Temp Pulse Resp BP BP Pulse Ox 05/30/17 09:29 92 L 05/30/17 09:28 103 H 19 92 L 05/30/17 08:52 147/85 H 05/30/17 08:00 98.3 F 93 16 133/79 94 L 05/30/17 03:43 99 20 129/66 92 L 05/30/17 02:28 995 H 05/30/17 02:26 102 H 16 95 05/30/17 00:31 95 05/29/17 23:25 98.3 F 103 H 24 H 134/73 96 Weight 145 lb 3 oz 05/29/17 05/30/17 05/31/17 06:59 06:59 06:59 Intake Total 2920 1170 Output Total 1200 775 Balance 1720 395 - Physical Examination General/Neuro: alert & oriented x3 Neck: carotid US brisk Lungs: other: (few left basilar rales.) Heart: other: (irreg/irreg.) Abdomen: no HSM, NT/ND, soft Extremities: other: (no edema.) - Labs Result Diagrams: 05/30/17 05:23 05/30/17 05:23 Troponin/CKMB CK-MB (CK-2) 1.6 ng/mL (0-6.6) 05/27/17 06:03 Troponin I 0.307 ng/mL (< 0.028) H* 05/27/17 12:09 - Assessment/Plan 1. COPD exacerbation. 2. Influenza A 3. Afib RVR new diagnosis. Rate control is the goal. Continue IV dilt. for now. Add flecainide. She has LAE and may not maintain sinus even if she converts. She has a history of falls and is a poor candidate for OAC. She is on Lovenox at this time. 4. Pneumonia 5. Strep bacteremia. 6. NSTEMI, demand ischemia. consider a stress test as an outpt. She has an abnormal EKG but the echo does not indicate a prior PA. Review of Systems - Review of Systems Respiratory: reports: other (mild SOB) Cardiac (ROS): reports: no symptoms reported ABD/GI: reports: no symptoms reported : reports: no symptoms reported Musculoskeletal: reports: no symptoms reported Neurological: reports: no symptoms reported
--- NOTE | 2017-05-30 11:07 | PDOC.PN ---
- Subjective Encounter Start Date: 05/30/17 Encounter Start Time: 09:30 Patient seen and examined. No new complaints. No overnight events - Objective Resuscitation Status: Resuscitation Status FULL:Full Resuscitation MAR Reviewed: Yes Vital Signs & Weight: Vital Signs (12 hours) Temp Pulse Resp BP BP Pulse Ox 05/30/17 09:29 92 L 05/30/17 09:28 103 H 19 92 L 05/30/17 08:52 147/85 H 05/30/17 08:00 98.3 F 103 H 19 133/79 95 05/30/17 03:43 99 20 129/66 92 L 05/30/17 02:28 995 H 05/30/17 02:26 102 H 16 95 05/30/17 00:31 95 05/29/17 23:25 98.3 F 103 H 24 H 134/73 96 Weight Weight 145 lb 3 oz I&O: 05/29/17 05/30/17 05/31/17 06:59 06:59 06:59 Intake Total 2920 1170 Output Total 1200 775 Balance 1720 395 Result Diagrams: 05/30/17 05:23 05/30/17 05:23 EKG Reviewed by me: Yes (afib) Phys Exam - Physical Examination Constitutional: NAD HEENT: PERRLA, moist MMs, sclera anicteric Neck: no JVD, supple Respiratory: no wheezing, no rales, no rhonchi Cardiovascular: no significant murmur, irregular Gastrointestinal: soft, non-tender, no distention, positive bowel sounds Musculoskeletal: no edema, pulses present Neurological: non-focal, normal sensation Lymphatic: no nodes Psychiatric: normal affect, A&O x 3 Skin: no rash, normal turgor Dx/Plan (1) Acute on chronic respiratory failure with hypoxia Code(s): J96.21 - ACUTE AND CHRONIC RESPIRATORY FAILURE WITH HYPOXIA Status: Acute Comment: (2) Atrial fibrillation with RVR Code(s): I48.91 - UNSPECIFIED ATRIAL FIBRILLATION Status: Acute (3) Bacteremia due to Streptococcus pneumoniae Code(s): R78.81 - BACTEREMIA Status: Acute (4) COPD with exacerbation Code(s): J44.1 - CHRONIC OBSTRUCTIVE PULMONARY DISEASE W (ACUTE) EXACERBATION Status: Acute (5) Demand ischemia of myocardium Code(s): I24.8 - OTHER FORMS OF ACUTE ISCHEMIC HEART DISEASE Status: Acute (6) Influenza A Code(s): J10.1 - FLU DUE TO OTH IDENT INFLUENZA VIRUS W OTH RESP MANIFEST Status: Acute (7) Lactic acidosis Code(s): E87.2 - ACIDOSIS Status: Acute (8) Pneumococcal pneumonia (streptococcus pneumoniae pneumonia) Code(s): J13 - PNEUMONIA DUE TO STREPTOCOCCUS PNEUMONIAE Status: Acute (9) Sepsis with acute organ dysfunction Code(s): A41.9 - SEPSIS, UNSPECIFIED ORGANISM; R65.20 - SEVERE SEPSIS WITHOUT SEPTIC SHOCK Status: Acute (10) Anxiety and depression Code(s): F41.8 - OTHER SPECIFIED ANXIETY DISORDERS Status: Chronic (11) Chronic pain disorder Code(s): G89.4 - CHRONIC PAIN SYNDROME Status: Chronic (12) GERD (gastroesophageal reflux disease) Code(s): K21.9 - GASTRO-ESOPHAGEAL REFLUX DISEASE WITHOUT ESOPHAGITIS Status: Chronic (13) H/O malignant neoplasm of breast Code(s): Z85.3 - PERSONAL HISTORY OF MALIGNANT NEOPLASM OF BREAST Status: Chronic (14) Hypertension Code(s): I10 - ESSENTIAL (PRIMARY) HYPERTENSION Status: Chronic Qualifiers: Hypertension type: essential hypertension Qualified Code(s): I10 - Essential (primary) hypertension - Plan cont current plan of care, continue antibiotics, PT/OT, public health social worker, respiratory therapy * continue cardizem drip and now will start oral cardizem as well and wean off drip * continue lovenox and on discharge will consider elliquis * start PT * SNU evaluation if needed * transfer to tele * medication reviewed as below * symptomatic treatment. * continue levaquin and tamiflu Review of Systems - Review of Systems ENT: negative: Ear Pain, Ear Discharge, Nose Pain, Nose Discharge, Nose Congestion, Mouth Pain, Mouth Swelling, Throat Pain, Throat Swelling, Other Respiratory: negative: Cough, Dry, Shortness of Breath, Hemoptysis, SOB with Excertion, Pleuritic Pain, Sputum, Wheezing Cardiovascular: negative: Chest Pain, Palpitations, Orthopnea, Paroxysmal Noc. Dyspnea, Edema, Light Headedness, Other Gastrointestinal: negative: Nausea, Vomiting, Abdominal Pain, Diarrhea, Constipation, Melena, Hematochezia, Other Genitourinary: negative: Dysuria, Frequency, Incontinence, Hematuria, Retention , Other Musculoskeletal: negative: Neck Pain, Shoulder Pain, Arm Pain, Back Pain, Hand Pain, Leg Pain, Foot Pain, Other Skin: negative: Rash, Lesions, [place], Bruising, Other - Medications/Allergies Allergies/Adverse Reactions: Allergies Allergy/AdvReac Type Severity Reaction Status Date / Time adhesive Allergy Mild Rash Verified 03/15/17 19:48 oxycodone HCl Allergy Unknown Hives Verified 03/15/17 19:48 [From OxyContin] codeine Allergy Verified 03/15/17 19:48 diclofenac Allergy Verified 03/15/17 19:48 donepezil Allergy Verified 03/15/17 19:48 hydrocodone bitartrate Allergy AMS Verified 03/15/17 19:48 [From Vicodin] Medications: Current Medications Acetaminophen (Tylenol) 650 mg PO Q4H PRN PRN Reason: Headache/Fever or Pain Last Admin: 05/29/17 08:41 Dose: 650 mg Al Hydroxide/Mg Hydroxide (Maalox) 30 ml PO Q6H PRN PRN Reason: Heartburn or Indigestion Albuterol/Ipratropium (Duoneb) 3 ml NEB [id number] [facility] Last Admin: 05/30/17 09:28 Dose: 3 ml Albuterol/Ipratropium (Duoneb) 3 ml NEB [id number] PRN PRN Reason: SOB &/or Wheezing Alprazolam (Xanax) 0.25 mg PO BIDPRN PRN PRN Reason: Anxiety Last Admin: 05/30/17 08:53 Dose: 0.25 mg Anastrozole (Arimidex) 1 mg PO DAILY [facility] Last Admin: 05/30/17 08:51 Dose: 1 mg Aspirin (Aspirin) 325 mg PO DAILY [facility] Last Admin: 05/30/17 08:51 Dose: 325 mg Celecoxib (Celebrex) 200 mg PO DAILY [facility] Last Admin: 05/30/17 08:52 Dose: 200 mg Clonidine (Catapres) 0.1 mg PO Q4H PRN PRN Reason: Systolic BP > 180 Cyclobenzaprine HCl (Flexeril) 5 mg PO TID PRN PRN Reason: Muscle Spasm Last Admin: 05/30/17 00:31 Dose: 5 mg Duloxetine HCl (Cymbalta) 60 mg PO DAILY [facility] Last Admin: 05/30/17 08:51 Dose: 60 mg Enoxaparin Sodium (Lovenox) 60 mg SC 0900,2100 [facility] Last Admin: 05/30/17 08:51 Dose: 60 mg Flecainide Acetate (Tambocor) 50 mg PO Q12HR [facility] Flecainide Acetate (Tambocor) 50 mg PO NOW [facility] Stop: 05/30/17 12:30 Guaifenesin (Mucinex) 600 mg PO TID [facility] Last Admin: 05/30/17 08:53 Dose: 600 mg Hydralazine HCl (Apresoline) 10 mg SLOW IVP Q4H PRN PRN Reason: Systolic BP > 180 Diltiazem HCl 125 mg/ Sodium (Chloride) 125 mls @ 10 mls/hr IVPB INF JONES; 10 MG /HR PRN Reason: Protocol Last Admin: 05/30/17 00:04 Dose: 125 mls Iron/Minerals/Multivitamins (Theragran M) 1 tab PO DAILY [facility] Last Admin: 05/30/17 08:52 Dose: 1 tab Levofloxacin (Levaquin) 750 mg PO 0600 [facility] Stop: 06/12/17 06:01 Last Admin: 05/30/17 07:11 Dose: 750 mg Lisinopril (Zestril) 10 mg PO DAILY [facility] Last Admin: 05/30/17 08:52 Dose: 10 mg Loperamide HCl (Imodium) 2 mg PO PRN PRN PRN Reason: Diarrhea/Loose Stools Loratadine (Claritin) 10 mg PO DAILYPRN PRN PRN Reason: Sinus Symptoms Magnesium Hydroxide (Milk Of Magnesium) 30 ml PO DAILYPRN PRN PRN Reason: Constipation Mineral Oil/White Petrolatum (Eucerin Cream) 0 gm TOP BIDPRN PRN PRN Reason: Dry Skin Nystatin (Mycostatin Powder) 1 gm TOP BID PRN PRN Reason: Topical Irritations Ondansetron HCl (Zofran Odt) 4 mg PO Q6H PRN PRN Reason: Nausea/Vomiting Ondansetron HCl (Zofran) 4 mg IVP Q6H PRN PRN Reason: Nausea/Vomiting Last Admin: 05/28/17 07:50 Dose: 4 mg Oseltamivir Phosphate (Tamiflu) 75 mg PO BID [facility] Stop: 05/31/17 21:01 Last Admin: 05/30/17 08:51 Dose: 75 mg Pantoprazole Sodium (Protonix) 40 mg PO DAILY [facility] Last Admin: 05/30/17 08:53 Dose: 40 mg Phenol (Chloraseptic [place] 180 Ml Bot) 0 ml PO PRN PRN PRN Reason: Sore Throat Pregabalin (Lyrica) 100 mg PO TID [facility] Last Admin: 05/30/17 08:52 Dose: 100 mg Saccharomyces Boulardii (Florastor) 250 mg PO DAILY [facility] Last Admin: 05/30/17 08:51 Dose: 250 mg Senna (Senokot) 2 tab PO HSPRN PRN PRN Reason: Constipation Sodium Chloride ([place] Nasal [place] 0.65%) 0 ml EA NARE QIDPRN PRN PRN Reason: Nasal Congestion Sodium Chloride (Flush - Normal Saline) 10 ml IVF Q12HR [facility] Last Admin: 05/30/17 08:53 Dose: 10 ml Sodium Chloride (Flush - Normal Saline) 10 ml IVF PRN PRN PRN Reason: Saline Flush Tramadol HCl (Ultram) 50 mg PO Q6H PRN PRN Reason: Pain Last Admin: 05/30/17 00:31 Dose: 50 mg Valacyclovir HCl (Valtrex) 500 mg PO DAILY [facility] Last Admin: 05/30/17 08:53 Dose: 500 mg
--- NOTE | 2017-05-30 17:38 | PRG ---
DATE OF SERVICE: 05/30/2017 SERVICE: Pulmonary Medicine. INTERVAL HISTORY: The patient is doing very well from a respiratory standpoint. She is breathing co mfortably and so has a sense of humor better. She denies any current fevers, chills, nausea, vomitin g or chest discomfort. Otherwise, there has been no interval change to her condition. PHYSICAL EXAMINATION: VITAL SIGNS: Afebrile, pulse 78, blood pressure 150/53, respirations 16, saturation 97% on 2 liters nasal cannula. GENERAL: Patient is awake, alert, in no apparent distress. LUNGS: Excellent air entry. There is not much prolonged expiratory phase. Rhonchi are still presen t, but are clear with an improved cough. HEART: Normal rate, regular. ABDOMEN: Soft, nontender, nondistended. Bowel sounds positive. MUSCULOSKELETAL: No cyanosis or clubbing. No pitting in the bilateral lower extremities. NEUROLOGIC: Grossly nonfocal. LABORATORY DATA: WBC 9.2, hemoglobin 12.5, platelets 181,000. Band count is improving well to 12%. Basic metabolic profile is essentially unremarkable/stable. Microbiology is growing Streptococcus p neumoniae in 2 out of 2 blood cultures. Influenza A is positive. Urine cultures negative to date. ASSESSMENT: 1. Acute on chronic hypoxic respiratory failure. 2. Chronic obstructive pulmonary disease with acute exacerbation. 3. Healthcare-associated pneumonia, secondary to influenza and Streptococcus. 4. Bacteremia, secondary to Streptococcus. 5. Debility. PLAN: The patient will be transitioned out of the IMCU to the regular floor. She will require a 14- day course of p.o. Levaquin for her severe community-acquired pneumonia and bacteremia. Pulmonary wi ll continue to follow for the time being. In 4-6 weeks repeat chest x-ray will need to be done in [facility] outpatient setting.
[2017-05-31] MEDS: Acetaminophen 325 MG TAB PO PRN ×2 (05:29→12:49)
[2017-05-31 05:53] VITALS: BMI 30.9
[2017-05-31] MEDS: Aspirin 325 MG TAB PO SCH (09:22)
[2017-05-31] MEDS: Anastrozole 1 MG TAB PO SCH (09:22)
[2017-05-31] MEDS: CeleCOXIB 100 MG CAP PO SCH (09:22)
[2017-05-31] MEDS: Lisinopril 10 MG TAB PO SCH (09:23)
[2017-05-31] MEDS: guaiFENesin ER 600 MG TAB PO SCH ×3 (09:23→20:27)
[2017-05-31] MEDS: Enoxaparin Sodium 60 MG/0.6 ML SYRINGE SC SCH ×2 (09:23→20:26)
[2017-05-31] MEDS: Oseltamivir 75 MG CAP PO SCH ×2 (09:24→20:27)
[2017-05-31] MEDS: Saccharomyces boulardii 250 MG CAP PO SCH (09:24)
[2017-05-31] MEDS: Multivitamin W/ Minerals 1 TAB PO SCH (09:24)
[2017-05-31] MEDS: Pregabalin 50 MG CAP PO SCH ×3 (09:24→20:27)
--- NOTE | 2017-05-31 12:53 | DIS ---
DATE OF ADMISSION: 05/27/2017 DATE OF DISCHARGE: 05/31/2017 PRIMARY CARE PHYSICIAN: Dr. Adrian Vega. DISCHARGE DISPOSITION: Home with home health. PRIMARY DISCHARGE DIAGNOSES: 1. Acute on chronic respiratory failure with hypoxia. 2. Atrial fibrillation with rapid ventricular response. 3. Bacteremia due to Streptococcus pneumoniae. 4. Streptococcal pneumonia. 5. Influenza A. 6. Chronic obstructive pulmonary disease with exacerbation. 7. Demand ischemia of myocardium. 8. Sepsis with acute organ dysfunction. 9. Lactic acidosis. SECONDARY DISCHARGE DIAGNOSES: Anxiety and depression, chronic pain disorder, chronic respiratory failure, chronic obstructive pulmonary disease, gastroesophageal reflux disease, history of breast cancer, paroxysmal supraventricular tachycardia, hypertension. PRIMARY PROCEDURE/OPERATION: None. RADIOLOGICAL INVESTIGATION: Echocardiography during this admission showed normal EF, pulmonary hypertension. Chest x-ray on admission showed multifocal pneumonia. SIGNIFICANT LABS: WBC 9.2, hemoglobin 12.5, platelets 181, sodium 140, potassium 3.8, BUN 35, creatinine 0.72, calcium 8.7. LFTs normal. TSH 1.32. Urinalysis suggestive of UTI. Urine culture negative. Blood culture positive for Streptococcus pneumoniae. Repeat blood culture negative, influenza A positive. DISCHARGE MEDICATIONS: Tylenol 500 mg 1 tablet q.6 hourly p.r.n., Ventolin nebulization q.4 hourly p.r.n., Xanax 0.25 mg p.o. b.i.d., Arimidex 1 mg p.o. daily, Eliquis 5 mg p.o. b.i.d., celecoxib 200 mg p.o. daily, Flexeril 10 mg p.o. t.i.d. p.r.n., Cardizem-CD 120 mg p.o. daily, Cymbalta 60 mg p.o. daily, Nexium 20 mg p.o. daily, flecainide 50 mg p.o. b.i.d., Mucinex 600 mg p.o. t.i.d. for 10 days, Levaquin 750 mg p.o. daily for 11 days, lisinopril 5 mg p.o. daily, multivitamin 1 tablet p.o. daily, Protonix 40 mg p.o. daily, Lyrica 100 mg t.i.d., Florastor 250 mg p.o. daily for 11 days, tramadol 50 mg q.6 hourly p.r.n., Valtrex 500 mg p.o. daily. CONTRAINDICATIONS: None. CODE STATUS: FULL CODE. INPATIENT CONSULTANTS: Dr. Gtz was consulted for atrial fibrillation with rapid ventricular response. Dr. Pillai was consulted for Streptococcal multifocal pneumonia. TEST RESULTS PENDING ON DISCHARGE: None. ALLERGIES: ADHESIVE, OXYCODONE, CODEINE, DICLOFENAC, ARICEPT. DISCHARGE PLAN: Post hospital, the patient is discharged home with home health. Subsequently, the patient will follow up with primary care physician, Dr. Vega, and Dr. Gtz. Primary care physician requested to repeat chest x -ray in 2-3 weeks. HOSPITAL COURSE: An 87-year-old female who was admitted by me. Please see my HPI for further details. The patient was having upper respiratory symptoms and she got acutely sick with shortness of breath, cough, fever. Most of the family members were also having flu-like illness. During this admission, we found her with positive influenza A and she was having COPD exacerbation as well as underlying multifocal pneumonia. Patient was hypoxic and she is using home oxygen as well. She was more hypoxic on arrival to the ER. She was also in atrial fibrillation with RVR. This patient was sick and she required IMCU admission. We treated her with Solu-Medrol, empiric antibiotic therapy with Rocephin, levofloxacin, as well as Tamiflu. Her atrial fibrillation required a Cardizem drip. Subsequently, Cardiology also started flecainide as well as we changed Cardizem drip to oral Cardizem-CD. With this, her rate is under control. She remained in the CCU for 3 days. Upon stabilization, we transferred her to the telemetry floor where she remained stable as well. We initially were interested in sending her to a assisted home, but this patient denied to go to assisted, rather wanted to go home with home health and she already has caregiver and family member support. At this point now, Pulmonary cleared her for discharge. For anticoagulation, restarted Eliquis therapy. While in hospital, we gave her Lovenox. The patient is seen and examined at bedside today. All review of systems reviewed with her and negative. PHYSICAL EXAMINATION: VITAL SIGNS: Currently, temperature 97.6, pulse 79, respiratory rate 20, saturation 93%, blood pressure 146/83. Weight 152 pounds. GENERAL: The patient is alert, oriented, no acute distress. HEAD: Normocephalic, atraumatic. LUNGS: Clear. CARDIAC: S1, S2, irregular. No murmur. ABDOMEN: Soft, benign without any tenderness. EXTREMITIES: No edema. NEUROLOGIC: Nonfocal examination. MTDD
--- NOTE | 2017-05-31 13:00 | PRG ---
DATE OF SERVICE: 05/31/2017 SERVICE: Pulmonary Medicine. INTERVAL HISTORY: The patient is doing really well from a respiratory standpoint. She denies any cu rrent fever, chills, nausea, vomiting or chest discomfort. She is breathing very comfortably. Her s pirits are about her. Otherwise, there has been no interval change to her condition. Her strength i s improving a little day by day. PHYSICAL EXAMINATION: VITAL SIGNS: Afebrile, pulse 79, blood pressure 146/83, respirations 20, saturation 95% on 3 liters nasal cannula. GENERAL: Patient is awake and alert, in no apparent distress. LUNGS: Decreased air entry. There is no prolonged expiratory phase. Rhonchi are present, but clear with cough. No crackles. HEART: Normal rate, regular. ABDOMEN: Soft, nontender, nondistended. Bowel sounds positive. MUSCULOSKELETAL: No cyanosis or clubbing. No pitting in the bilateral lower extremities. NEUROLOGIC: Grossly nonfocal. ASSESSMENT: 1. Acute on chronic hypoxic respiratory failure. 2. Chronic obstructive pulmonary disease with acute exacerbation. 3. Healthcare-associated pneumonia secondary to influenza and Streptococcus. 4. Bacteremia secondary to Streptococcus. 5. Debility. PLAN: From my perspective, the patient is stable for transition out of the hospital. She will follo w up with me in clinic in 4-6 weeks with a repeat chest x-ray to make certain that infiltrate has res olved. Pulmonary Critical Care will continue to follow while the patient remains in house.
--- NOTE | 2017-05-31 13:13 | PDOC.PN ---
- Subjective Encounter Start Date: 05/31/17 Encounter Start Time: 09:05 Patient seen and examined. No new complaints. No overnight events - Objective Resuscitation Status: Resuscitation Status FULL:Full Resuscitation MAR Reviewed: Yes Vital Signs & Weight: Vital Signs (12 hours) Temp Pulse Resp BP BP BP Pulse Ox 05/31/17 11:33 97.2 F L 103 H 18 114/69 92 L 05/31/17 10:00 79 20 95 05/31/17 09:23 79 146/83 H 05/31/17 09:14 97.6 F 79 16 93 L 05/31/17 07:08 82 20 94 L 05/31/17 03:19 97.9 F 72 20 137/65 95 05/31/17 02:26 66 22 H 92 L Weight Weight 152 lb 14.4 oz I&O: 05/30/17 05/31/17 06/01/17 06:59 06:59 06:59 Intake Total 1170 966.1 Output Total 775 Balance 395 966.1 Result Diagrams: 05/30/17 05:23 05/30/17 05:23 EKG Reviewed by me: Yes Phys Exam - Physical Examination Constitutional: NAD HEENT: PERRLA, moist MMs, sclera anicteric Neck: no JVD, supple Respiratory: no wheezing, no rales, no rhonchi Cardiovascular: RRR, no significant murmur, no rub Gastrointestinal: soft, non-tender, no distention, positive bowel sounds Musculoskeletal: no edema, pulses present Neurological: non-focal, normal sensation Lymphatic: no nodes Psychiatric: normal affect Skin: no rash, normal turgor Dx/Plan (1) Acute on chronic respiratory failure with hypoxia Code(s): J96.21 - ACUTE AND CHRONIC RESPIRATORY FAILURE WITH HYPOXIA Status: Acute Comment: (2) Atrial fibrillation with RVR Code(s): I48.91 - UNSPECIFIED ATRIAL FIBRILLATION Status: Acute (3) Bacteremia due to Streptococcus pneumoniae Code(s): R78.81 - BACTEREMIA Status: Acute (4) COPD with exacerbation Code(s): J44.1 - CHRONIC OBSTRUCTIVE PULMONARY DISEASE W (ACUTE) EXACERBATION Status: Acute (5) Demand ischemia of myocardium Code(s): I24.8 - OTHER FORMS OF ACUTE ISCHEMIC HEART DISEASE Status: Acute (6) Influenza A Code(s): J10.1 - FLU DUE TO OTH IDENT INFLUENZA VIRUS W OTH RESP MANIFEST Status: Acute (7) Lactic acidosis Code(s): E87.2 - ACIDOSIS Status: Acute (8) Pneumococcal pneumonia (streptococcus pneumoniae pneumonia) Code(s): J13 - PNEUMONIA DUE TO STREPTOCOCCUS PNEUMONIAE Status: Acute (9) Sepsis with acute organ dysfunction Code(s): A41.9 - SEPSIS, UNSPECIFIED ORGANISM; R65.20 - SEVERE SEPSIS WITHOUT SEPTIC SHOCK Status: Acute (10) Anxiety and depression Code(s): F41.8 - OTHER SPECIFIED ANXIETY DISORDERS Status: Chronic (11) Chronic pain disorder Code(s): G89.4 - CHRONIC PAIN SYNDROME Status: Chronic (12) GERD (gastroesophageal reflux disease) Code(s): K21.9 - GASTRO-ESOPHAGEAL REFLUX DISEASE WITHOUT ESOPHAGITIS Status: Chronic (13) H/O malignant neoplasm of breast Code(s): Z85.3 - PERSONAL HISTORY OF MALIGNANT NEOPLASM OF BREAST Status: Chronic (14) Hypertension Code(s): I10 - ESSENTIAL (PRIMARY) HYPERTENSION Status: Chronic Qualifiers: Hypertension type: essential hypertension Qualified Code(s): I10 - Essential (primary) hypertension - Plan cont current plan of care, continue antibiotics * medication reviewed as below * symptomatic treatment * see discharge summery. Review of Systems - Review of Systems ENT: negative: Ear Pain, Ear Discharge, Nose Pain, Nose Discharge, Nose Congestion, Mouth Pain, Mouth Swelling, Throat Pain, Throat Swelling, Other Respiratory: negative: Cough, Dry, Shortness of Breath, Hemoptysis, SOB with Excertion, Pleuritic Pain, Sputum, Wheezing Cardiovascular: negative: Chest Pain, Palpitations, Orthopnea, Paroxysmal Noc. Dyspnea, Edema, Light Headedness, Other Gastrointestinal: negative: Nausea, Vomiting, Abdominal Pain, Diarrhea, Constipation, Melena, Hematochezia, Other Genitourinary: negative: Dysuria, Frequency, Incontinence, Hematuria, Retention , Other Musculoskeletal: negative: Neck Pain, Shoulder Pain, Arm Pain, Back Pain, Hand Pain, Leg Pain, Foot Pain, Other - Medications/Allergies Allergies/Adverse Reactions: Allergies Allergy/AdvReac Type Severity Reaction Status Date / Time adhesive Allergy Mild Rash Verified 03/15/17 19:48 oxycodone HCl Allergy Unknown Hives Verified 03/15/17 19:48 [From OxyContin] codeine Allergy Verified 03/15/17 19:48 diclofenac Allergy Verified 03/15/17 19:48 donepezil Allergy Verified 03/15/17 19:48 hydrocodone bitartrate Allergy AMS Verified 03/15/17 19:48 [From Vicodin] Medications: Current Medications Acetaminophen (Tylenol) 650 mg PO Q4H PRN PRN Reason: Headache/Fever or Pain Last Admin: 05/31/17 12:49 Dose: 650 mg Al Hydroxide/Mg Hydroxide (Maalox) 30 ml PO Q6H PRN PRN Reason: Heartburn or Indigestion Albuterol/Ipratropium (Duoneb) 3 ml NEB [id number] [facility] Last Admin: 05/31/17 10:00 Dose: 3 ml Albuterol/Ipratropium (Duoneb) 3 ml NEB [id number] PRN PRN Reason: SOB &/or Wheezing Alprazolam (Xanax) 0.25 mg PO BIDPRN PRN PRN Reason: Anxiety Last Admin: 05/30/17 08:53 Dose: 0.25 mg Anastrozole (Arimidex) 1 mg PO DAILY [facility] Last Admin: 05/31/17 09:22 Dose: 1 mg Aspirin (Aspirin) 325 mg PO DAILY [facility] Last Admin: 05/31/17 09:22 Dose: 325 mg Celecoxib (Celebrex) 200 mg PO DAILY [facility] Last Admin: 05/31/17 09:22 Dose: 200 mg Clonidine (Catapres) 0.1 mg PO Q4H PRN PRN Reason: Systolic BP > 180 Cyclobenzaprine HCl (Flexeril) 5 mg PO TID PRN PRN Reason: Muscle Spasm Last Admin: 05/30/17 00:31 Dose: 5 mg Diltiazem HCl (Cardizem Cd) 120 mg PO DAILY [facility] Last Admin: 05/31/17 09:23 Dose: 120 mg Duloxetine HCl (Cymbalta) 60 mg PO DAILY [facility] Last Admin: 05/31/17 09:23 Dose: 60 mg Enoxaparin Sodium (Lovenox) 60 mg SC 0900,2100 [facility] Last Admin: 05/31/17 09:23 Dose: 60 mg Flecainide Acetate (Tambocor) 50 mg PO Q12HR [facility] Last Admin: 05/31/17 09:23 Dose: 50 mg Guaifenesin (Mucinex) 600 mg PO TID [facility] Last Admin: 05/31/17 09:23 Dose: 600 mg Hydralazine HCl (Apresoline) 10 mg SLOW IVP Q4H PRN PRN Reason: Systolic BP > 180 Iron/Minerals/Multivitamins (Theragran M) 1 tab PO DAILY [facility] Last Admin: 05/31/17 09:24 Dose: 1 tab Levofloxacin (Levaquin) 750 mg PO 0600 [facility] Stop: 06/12/17 06:01 Last Admin: 05/31/17 05:29 Dose: 750 mg Lisinopril (Zestril) 10 mg PO DAILY [facility] Last Admin: 05/31/17 09:23 Dose: 10 mg Loperamide HCl (Imodium) 2 mg PO PRN PRN PRN Reason: Diarrhea/Loose Stools Loratadine (Claritin) 10 mg PO DAILYPRN PRN PRN Reason: Sinus Symptoms Magnesium Hydroxide (Milk Of Magnesium) 30 ml PO DAILYPRN PRN PRN Reason: Constipation Mineral Oil/White Petrolatum (Eucerin Cream) 0 gm TOP BIDPRN PRN PRN Reason: Dry Skin Nystatin (Mycostatin Powder) 1 gm TOP BID PRN PRN Reason: Topical Irritations Ondansetron HCl (Zofran Odt) 4 mg PO Q6H PRN PRN Reason: Nausea/Vomiting Ondansetron HCl (Zofran) 4 mg IVP Q6H PRN PRN Reason: Nausea/Vomiting Last Admin: 05/28/17 07:50 Dose: 4 mg Oseltamivir Phosphate (Tamiflu) 75 mg PO BID [facility] Stop: 05/31/17 21:01 Last Admin: 05/31/17 09:24 Dose: 75 mg Pantoprazole Sodium (Protonix) 40 mg PO DAILY [facility] Last Admin: 05/31/17 09:24 Dose: 40 mg Phenol (Chloraseptic [place] 180 Ml Bot) 0 ml PO PRN PRN PRN Reason: Sore Throat Pregabalin (Lyrica) 100 mg PO TID [facility] Last Admin: 05/31/17 09:24 Dose: 100 mg Saccharomyces Boulardii (Florastor) 250 mg PO DAILY [facility] Last Admin: 05/31/17 09:24 Dose: 250 mg Senna (Senokot) 2 tab PO HSPRN PRN PRN Reason: Constipation Sodium Chloride ([place] Nasal [place] 0.65%) 0 ml EA NARE QIDPRN PRN PRN Reason: Nasal Congestion Sodium Chloride (Flush - Normal Saline) 10 ml IVF Q12HR [facility] Last Admin: 05/31/17 09:25 Dose: 10 ml Sodium Chloride (Flush - Normal Saline) 10 ml IVF PRN PRN PRN Reason: Saline Flush Tramadol HCl (Ultram) 50 mg PO Q6H PRN PRN Reason: Pain Last Admin: 05/30/17 00:31 Dose: 50 mg Valacyclovir HCl (Valtrex) 500 mg PO DAILY [facility] Last Admin: 05/31/17 09:25 Dose: 500 mg
--- NOTE | 2017-05-31 13:26 | PDOC.CTH ---
<Nola Avila - Last Filed: 05/31/17 13:24> Cardiology Progress Note - Subjective The Pt was seen and examined. No overnight events. No cardiac complaints. She still complains of weakness. Her HR has been increasing since her IV diltizem was titillated from 10mg/h to 5mg/h. - Objective Vital Signs Temp Pulse Resp BP BP BP Pulse Ox 05/31/17 11:33 97.2 F L 103 H 18 114/69 92 L 05/31/17 10:00 79 20 95 05/31/17 09:23 79 146/83 H 05/31/17 09:14 97.6 F 79 16 93 L 05/31/17 07:08 82 20 94 L 05/31/17 03:19 97.9 F 72 20 137/65 95 05/31/17 02:26 66 22 H 92 L Weight 152 lb 14.4 oz 05/30/17 05/31/17 06/01/17 06:59 06:59 06:59 Intake Total 1170 966.1 Output Total 775 Balance 395 966.1 - Physical Examination General/Neuro: alert & oriented x3 Neck: no JVD present Lungs: other: (diminished at bases) Heart: other: (irregular) Extremities: other: (No edema) - Telemetry Telemetry Rhythm: Afib 90-120s - Labs Result Diagrams: 05/30/17 05:23 05/30/17 05:23 Troponin/CKMB CK-MB (CK-2) 1.6 ng/mL (0-6.6) 05/27/17 06:03 Troponin I 0.307 ng/mL (< 0.028) H* 05/27/17 12:09 - Assessment/Plan 1. New-onset Afib with RVR - Increase PO diltiazem from 120mg to 240mg daily and stop IV diltiazem when finish. Cont. flecainide. She has LAE and may not maintain sinus even if she converts. She has a history of falls and is a poor candidate for OAC. She is on Lovenox at this time. 2. COPD exacerbation - stable; cont. monitor 3. Influenza A - 4. Pneumonia - 5. Strep bacteremia. 6. NSTEMI 2ndary to demand ischemia - consider a stress test as an outpt. She has an abnormal EKG but the echo does not indicate a prior [place]. MAR reviewed Review of Systems - Review of Systems Constitutional: reports: see HPI EENTM: reports: no symptoms reported Respiratory: reports: see HPI Cardiac (ROS): reports: no symptoms reported ABD/GI: reports: no symptoms reported : reports: no symptoms reported Musculoskeletal: reports: no symptoms reported <Julius Hardingan - Last Filed: 05/31/17 18:03> Cardiology Progress Note - Objective Vital Signs Temp Pulse Pulse Pulse Resp BP BP 05/31/17 15:30 98.2 F 105 H 16 05/31/17 13:42 115 H 159/70 H 05/31/17 11:33 97.2 F L 103 H 18 05/31/17 10:00 79 20 05/31/17 09:23 79 146/83 H 05/31/17 09:14 97.6 F 79 16 05/31/17 09:10 79 81 144/68 H 05/31/17 07:08 82 20 BP BP Pulse Ox Pulse Ox Pulse Ox 05/31/17 15:30 139/71 94 L 05/31/17 13:42 05/31/17 11:33 114/69 92 L 05/31/17 10:00 95 05/31/17 09:23 05/31/17 09:14 93 L 05/31/17 09:10 149/83 H 96 95 05/31/17 07:08 94 L Weight 152 lb 14.4 oz 05/30/17 05/31/17 06/01/17 06:59 06:59 06:59 Intake Total 1170 966.1 720 Output Total 775 Balance 395 966.1 720 - Labs Result Diagrams: 05/30/17 05:23 05/30/17 05:23 Troponin/CKMB CK-MB (CK-2) 1.6 ng/mL (0-6.6) 05/27/17 06:03 Troponin I 0.307 ng/mL (< 0.028) H* 05/27/17 12:09 - Assessment/Plan Pt. seen and eval. by me. I agree with the A/P by the N.P. The HR is still elevated with the A-fib. I will add digoxin. May consider electrical cardioversion if she does not convert to sinus with the Flecainide.
[2017-05-31] MEDS ORDERED: Digoxin 0.5 MG/2 ML AMP SLOW IVP SCH (18:00)
[2017-05-31] MEDS: ALPRAZolam 0.25 MG TAB PO PRN (20:57)
[2017-06-01] MEDS: Digoxin 0.5 MG/2 ML AMP SLOW IVP SCH ×2 (00:10→05:35)
[2017-06-01] MEDS: traMADol HCl 50 MG TAB PO PRN ×2 (03:49→09:13)
[2017-06-01 04:44] LABS: Hematocrit 43.6 % (36.0-47.0)
[2017-06-01] MEDS: Aspirin 325 MG TAB PO SCH (09:12)
[2017-06-01] MEDS: Multivitamin W/ Minerals 1 TAB PO SCH (09:12)
[2017-06-01] MEDS: CeleCOXIB 100 MG CAP PO SCH (09:13)
[2017-06-01] MEDS: Saccharomyces boulardii 250 MG CAP PO SCH (09:13)
[2017-06-01] MEDS: guaiFENesin ER 600 MG TAB PO SCH ×3 (09:15→20:39)
[2017-06-01] MEDS: Anastrozole 1 MG TAB PO SCH (09:15)
[2017-06-01] MEDS: Lisinopril 10 MG TAB PO SCH (09:15)
[2017-06-01] MEDS: Enoxaparin Sodium 60 MG/0.6 ML SYRINGE SC SCH ×2 (09:16→20:39)
[2017-06-01] MEDS: Pregabalin 50 MG CAP PO SCH ×3 (09:16→20:39)
--- NOTE | 2017-06-01 10:24 | PDOC.PN ---
- Subjective Encounter Start Date: 06/01/17 Encounter Start Time: 08:10 Patient seen and examined. No new complaints. No overnight events - Objective Resuscitation Status: Resuscitation Status FULL:Full Resuscitation MAR Reviewed: Yes Vital Signs & Weight: Vital Signs (12 hours) Temp Pulse Resp BP BP BP Pulse Ox 06/01/17 09:15 137/94 H 06/01/17 09:12 116 H 137/94 H 06/01/17 07:36 97.8 F 92 17 137/94 H 94 L 06/01/17 06:50 116 H 20 94 L 06/01/17 05:35 105 H 06/01/17 04:00 97.7 F 67 18 142/67 H 96 06/01/17 02:48 68 20 95 06/01/17 00:00 98.9 F 77 16 144/78 H 96 05/31/17 22:45 116 H 24 H 92 L Weight Weight 150 lb 12.8 oz I&O: 05/31/17 06/01/17 06/02/17 06:59 06:59 06:59 Intake Total 966.1 1180 240 Output Total 1400 Balance 966.1 -220 240 Result Diagrams: 06/01/17 04:18 06/01/17 04:18 EKG Reviewed by me: Yes (afib) Phys Exam - Physical Examination Constitutional: NAD HEENT: PERRLA, moist MMs, sclera anicteric Neck: no JVD, supple Respiratory: no wheezing, no rales, no rhonchi Cardiovascular: no significant murmur, irregular Gastrointestinal: soft, non-tender, no distention, positive bowel sounds Musculoskeletal: no edema, pulses present Neurological: non-focal, normal sensation Lymphatic: no nodes Psychiatric: normal affect, A&O x 3 Skin: no rash, normal turgor Dx/Plan (1) Acute on chronic respiratory failure with hypoxia Code(s): J96.21 - ACUTE AND CHRONIC RESPIRATORY FAILURE WITH HYPOXIA Status: Acute Comment: (2) Atrial fibrillation with RVR Code(s): I48.91 - UNSPECIFIED ATRIAL FIBRILLATION Status: Acute (3) Bacteremia due to Streptococcus pneumoniae Code(s): R78.81 - BACTEREMIA Status: Acute (4) COPD with exacerbation Code(s): J44.1 - CHRONIC OBSTRUCTIVE PULMONARY DISEASE W (ACUTE) EXACERBATION Status: Acute (5) Demand ischemia of myocardium Code(s): I24.8 - OTHER FORMS OF ACUTE ISCHEMIC HEART DISEASE Status: Acute (6) Influenza A Code(s): J10.1 - FLU DUE TO OTH IDENT INFLUENZA VIRUS W OTH RESP MANIFEST Status: Acute (7) Lactic acidosis Code(s): E87.2 - ACIDOSIS Status: Acute (8) Pneumococcal pneumonia (streptococcus pneumoniae pneumonia) Code(s): J13 - PNEUMONIA DUE TO STREPTOCOCCUS PNEUMONIAE Status: Acute (9) Sepsis with acute organ dysfunction Code(s): A41.9 - SEPSIS, UNSPECIFIED ORGANISM; R65.20 - SEVERE SEPSIS WITHOUT SEPTIC SHOCK Status: Acute (10) Anxiety and depression Code(s): F41.8 - OTHER SPECIFIED ANXIETY DISORDERS Status: Chronic (11) Chronic pain disorder Code(s): G89.4 - CHRONIC PAIN SYNDROME Status: Chronic (12) GERD (gastroesophageal reflux disease) Code(s): K21.9 - GASTRO-ESOPHAGEAL REFLUX DISEASE WITHOUT ESOPHAGITIS Status: Chronic (13) H/O malignant neoplasm of breast Code(s): Z85.3 - PERSONAL HISTORY OF MALIGNANT NEOPLASM OF BREAST Status: Chronic (14) Hypertension Code(s): I10 - ESSENTIAL (PRIMARY) HYPERTENSION Status: Chronic Qualifiers: Hypertension type: essential hypertension Qualified Code(s): I10 - Essential (primary) hypertension - Plan cont current plan of care, plan discussed w/ family, continue antibiotics, respiratory therapy * cardizem cd dose increased * rate appears controlled but on exertion goes little fast * continue digoxin * medication reviewed as below * symptomatic treatment * will consider discharge when cardiology ok. Review of Systems - Review of Systems ENT: negative: Ear Pain, Ear Discharge, Nose Pain, Nose Discharge, Nose Congestion, Mouth Pain, Mouth Swelling, Throat Pain, Throat Swelling, Other Respiratory: negative: Cough, Dry, Shortness of Breath, Hemoptysis, SOB with Excertion, Pleuritic Pain, Sputum, Wheezing Cardiovascular: negative: Chest Pain, Palpitations, Orthopnea, Paroxysmal Noc. Dyspnea, Edema, Light Headedness, Other Gastrointestinal: negative: Nausea, Vomiting, Abdominal Pain, Diarrhea, Constipation, Melena, Hematochezia, Other Genitourinary: negative: Dysuria, Frequency, Incontinence, Hematuria, Retention , Other Musculoskeletal: negative: Neck Pain, Shoulder Pain, Arm Pain, Back Pain, Hand Pain, Leg Pain, Foot Pain, Other Skin: negative: Rash, Lesions, [place], Bruising, Other - Medications/Allergies Allergies/Adverse Reactions: Allergies Allergy/AdvReac Type Severity Reaction Status Date / Time adhesive Allergy Mild Rash Verified 03/15/17 19:48 oxycodone HCl Allergy Unknown Hives Verified 03/15/17 19:48 [From OxyContin] codeine Allergy Verified 03/15/17 19:48 diclofenac Allergy Verified 03/15/17 19:48 donepezil Allergy Verified 03/15/17 19:48 hydrocodone bitartrate Allergy AMS Verified 03/15/17 19:48 [From Vicodin] Medications: Current Medications Acetaminophen (Tylenol) 650 mg PO Q4H PRN PRN Reason: Headache/Fever or Pain Last Admin: 05/31/17 12:49 Dose: 650 mg Al Hydroxide/Mg Hydroxide (Maalox) 30 ml PO Q6H PRN PRN Reason: Heartburn or Indigestion Albuterol/Ipratropium (Duoneb) 3 ml NEB [id number] [facility] Last Admin: 06/01/17 06:50 Dose: 3 ml Albuterol/Ipratropium (Duoneb) 3 ml NEB [id number] PRN PRN Reason: SOB &/or Wheezing Alprazolam (Xanax) 0.25 mg PO BIDPRN PRN PRN Reason: Anxiety Last Admin: 05/31/17 20:57 Dose: 0.25 mg Anastrozole (Arimidex) 1 mg PO DAILY [facility] Last Admin: 06/01/17 09:15 Dose: 1 mg Aspirin (Aspirin) 325 mg PO DAILY [facility] Last Admin: 06/01/17 09:12 Dose: 325 mg Celecoxib (Celebrex) 200 mg PO DAILY [facility] Last Admin: 06/01/17 09:13 Dose: 200 mg Clonidine (Catapres) 0.1 mg PO Q4H PRN PRN Reason: Systolic BP > 180 Cyclobenzaprine HCl (Flexeril) 5 mg PO TID PRN PRN Reason: Muscle Spasm Last Admin: 05/30/17 00:31 Dose: 5 mg Digoxin (Lanoxin) 0.25 mg PO [facility] Diltiazem HCl (Cardizem Cd) 240 mg PO DAILY [facility] Last Admin: 06/01/17 09:12 Dose: 240 mg Duloxetine HCl (Cymbalta) 60 mg PO DAILY [facility] Last Admin: 06/01/17 09:12 Dose: 60 mg Enoxaparin Sodium (Lovenox) 60 mg SC 0900,2100 [facility] Last Admin: 06/01/17 09:16 Dose: 60 mg Flecainide Acetate (Tambocor) 50 mg PO Q12HR [facility] Last Admin: 06/01/17 09:12 Dose: 50 mg Guaifenesin (Mucinex) 600 mg PO TID [facility] Last Admin: 06/01/17 09:15 Dose: 600 mg Hydralazine HCl (Apresoline) 10 mg SLOW IVP Q4H PRN PRN Reason: Systolic BP > 180 Iron/Minerals/Multivitamins (Theragran M) 1 tab PO DAILY [facility] Last Admin: 06/01/17 09:12 Dose: 1 tab Levofloxacin (Levaquin) 750 mg PO 0600 [facility] Stop: 06/12/17 06:01 Last Admin: 06/01/17 05:35 Dose: 750 mg Lisinopril (Zestril) 10 mg PO DAILY [facility] Last Admin: 06/01/17 09:15 Dose: 10 mg Loperamide HCl (Imodium) 2 mg PO PRN PRN PRN Reason: Diarrhea/Loose Stools Loratadine (Claritin) 10 mg PO DAILYPRN PRN PRN Reason: Sinus Symptoms Magnesium Hydroxide (Milk Of Magnesium) 30 ml PO DAILYPRN PRN PRN Reason: Constipation Mineral Oil/White Petrolatum (Eucerin Cream) 0 gm TOP BIDPRN PRN PRN Reason: Dry Skin Nystatin (Mycostatin Powder) 1 gm TOP BID PRN PRN Reason: Topical Irritations Ondansetron HCl (Zofran Odt) 4 mg PO Q6H PRN PRN Reason: Nausea/Vomiting Ondansetron HCl (Zofran) 4 mg IVP Q6H PRN PRN Reason: Nausea/Vomiting Last Admin: 05/28/17 07:50 Dose: 4 mg Pantoprazole Sodium (Protonix) 40 mg PO DAILY [facility] Last Admin: 06/01/17 09:12 Dose: 40 mg Phenol (Chloraseptic [place] 180 Ml Bot) 0 ml PO PRN PRN PRN Reason: Sore Throat Pregabalin (Lyrica) 100 mg PO TID [facility] Last Admin: 06/01/17 09:16 Dose: 100 mg Saccharomyces Boulardii (Florastor) 250 mg PO DAILY [facility] Last Admin: 06/01/17 09:13 Dose: 250 mg Senna (Senokot) 2 tab PO HSPRN PRN PRN Reason: Constipation Sodium Chloride ([place] Nasal [place] 0.65%) 0 ml EA NARE QIDPRN PRN PRN Reason: Nasal Congestion Sodium Chloride (Flush - Normal Saline) 10 ml IVF Q12HR [facility] Last Admin: 06/01/17 09:17 Dose: 10 ml Sodium Chloride (Flush - Normal Saline) 10 ml IVF PRN PRN PRN Reason: Saline Flush Tramadol HCl (Ultram) 50 mg PO Q6H PRN PRN Reason: Pain Last Admin: 06/01/17 09:13 Dose: 50 mg Valacyclovir HCl (Valtrex) 500 mg PO DAILY [facility] Last Admin: 06/01/17 09:17 Dose: 500 mg
[2017-06-01] MEDS: Acetaminophen 325 MG TAB PO PRN (11:56)
--- NOTE | 2017-06-01 15:51 | PRG ---
DATE OF SERVICE: 06/01/2017 SERVICE: Pulmonary Medicine. INTERVAL HISTORY: The patient is doing fine from a breathing standpoint. She continues to be in atr ial fibrillation and working on getting that under control. Outside of that, her cough is improving. She is walking with physical therapy without significant difficulties. PHYSICAL EXAMINATION: VITAL SIGNS: Afebrile, pulse 86-130, blood pressure 124/61, respirations 18, saturation 93% on 2.5 l iters nasal cannula. GENERAL: Patient is awake, alert, in no apparent distress. LUNGS: Excellent air entry with no prolonged expiratory phase, wheezing, rhonchi or crackles. HEART: Normal rate, regular. ABDOMEN: Soft, nontender, nondistended. Bowel sounds positive. MUSCULOSKELETAL: No cyanosis or clubbing. No pitting in the bilateral lower extremities. NEUROLOGIC: Grossly nonfocal. LABORATORY DATA: Hemoglobin 14.4, platelets 211,000. Creatinine 0.64 and roughly stable. Blood cul tures growing Streptococcus pneumoniae in out of two. Repeat blood cultures are negative to date. T he strep is sensitive to fluoroquinolones. ASSESSMENT: 1. Acute on chronic hypoxic respiratory failure. 2. Chronic obstructive pulmonary disease with acute exacerbation. 3. Healthcare-associated pneumonia secondary to influenza and Streptococcus. 4. Bacteremia secondary to Streptococcus. 5. Debility, improving. 6. Atrial fibrillation with variable rate control, asymptomatic. PLAN: The patient is stable from a respiratory standpoint for transition home. She will need a repe at chest x-ray in 4 weeks in the outpatient setting and will follow up with me at that time. The [facility] has no further ongoing requirements for inpatient Pulmonary or Critical Care opinion. As such, we will sign off. Please call with additional questions or concerns.
--- NOTE | 2017-06-01 15:51 | PDOC.CTH ---
<Nola Avila - Last Filed: 06/01/17 15:49> Cardiology Progress Note - Subjective The pt seen and examined. No overnights. No cardiac complaints. She is eating lunch at this time without any difficulties. - Objective Vital Signs Temp Pulse Pulse Resp BP BP BP 06/01/17 13:54 80 18 06/01/17 12:00 98.1 F 130 H 20 06/01/17 10:55 86 20 06/01/17 10:16 82 138/67 06/01/17 09:15 137/94 H 06/01/17 09:12 116 H 137/94 H 06/01/17 07:36 97.8 F 92 17 06/01/17 06:50 116 H 20 06/01/17 05:35 105 H 06/01/17 04:00 97.7 F 67 18 142/67 H BP Pulse Ox Pulse Ox 06/01/17 13:54 93 L 06/01/17 12:00 124/61 94 L 06/01/17 10:55 95 06/01/17 10:16 95 06/01/17 09:15 06/01/17 09:12 06/01/17 07:36 137/94 H 94 L 06/01/17 06:50 94 L 06/01/17 05:35 06/01/17 04:00 96 Weight 150 lb 12.8 oz 05/31/17 06/01/17 06/02/17 06:59 06:59 06:59 Intake Total 966.1 1180 480 Output Total 1400 Balance 966.1 -220 480 - Physical Examination General/Neuro: alert & oriented x3 Neck: no JVD present Lungs: CTA (diminished at bases) Heart: other: (Irregluar) Abdomen: soft Extremities: other: (No edemas) - Telemetry Telemetry Rhythm: afib - Labs Result Diagrams: 06/01/17 04:18 06/01/17 04:18 Troponin/CKMB CK-MB (CK-2) 1.6 ng/mL (0-6.6) 05/27/17 06:03 Troponin I 0.307 ng/mL (< 0.028) H* 05/27/17 12:09 - Assessment/Plan 1. New-onset Afib with RVR - Remains Afib with HR 90-110s; on PO diltiazem 240mg daily, Digoxin 0.25mg daily, and flecainide. She has LAE and may not maintain sinus even if she converts. She has a history of falls and is a poor candidate for OAC. She is on Lovenox at this time. 2. COPD exacerbation - stable; cont. monitor 3. Influenza A - 4. Pneumonia - improved 5. Strep bacteremia. 6. NSTEMI 2ndary to demand ischemia - stable; consider a stress test as an outpt. She has an abnormal EKG but the echo does not indicate a prior [place]. MAR reviewed Review of Systems - Review of Systems Constitutional: reports: no symptoms reported EENTM: reports: no symptoms reported Respiratory: reports: no symptoms reported Cardiac (ROS): reports: no symptoms reported ABD/GI: reports: no symptoms reported : reports: no symptoms reported Musculoskeletal: reports: no symptoms reported <Julius Harding - Last Filed: 06/01/17 18:53> Cardiology Progress Note - Objective Vital Signs Temp Pulse Pulse Resp BP BP BP 06/01/17 15:13 98.6 F 111 H 18 126/78 06/01/17 13:54 80 18 06/01/17 12:00 98.1 F 130 H 20 06/01/17 10:55 86 20 06/01/17 10:16 82 138/67 06/01/17 09:15 137/94 H 06/01/17 09:12 116 H 137/94 H 06/01/17 07:36 97.8 F 92 17 06/01/17 06:50 116 H 20 BP Pulse Ox Pulse Ox 06/01/17 15:13 94 L 06/01/17 13:54 93 L 06/01/17 12:00 124/61 94 L 06/01/17 10:55 95 06/01/17 10:16 95 06/01/17 09:15 06/01/17 09:12 06/01/17 07:36 137/94 H 94 L 06/01/17 06:50 94 L Weight 150 lb 12.8 oz 05/31/17 06/01/17 06/02/17 06:59 06:59 06:59 Intake Total 966.1 1180 1080 Output Total 1400 550 Balance 966.1 -220 530 - Labs Result Diagrams: 06/01/17 04:18 06/01/17 04:18 Troponin/CKMB CK-MB (CK-2) 1.6 ng/mL (0-6.6) 05/27/17 06:03 Troponin I 0.307 ng/mL (< 0.028) H* 05/27/17 12:09 - Assessment/Plan Pt. seen and eval. by me. I agree with the A/P by the PSYCH TECH. She remains in atrial fib. She may convert with the Flecainide and if not I will consider electrical cardioversion. She had a cardiac cath several years ago and had normal coronaries.
[2017-06-02] MEDS: traMADol HCl 50 MG TAB PO PRN (05:58)
[2017-06-02] MEDS: Aspirin 325 MG TAB PO SCH (09:45)
[2017-06-02] MEDS: CeleCOXIB 100 MG CAP PO SCH (09:45)
[2017-06-02] MEDS: Multivitamin W/ Minerals 1 TAB PO SCH (09:45)
[2017-06-02] MEDS: Saccharomyces boulardii 250 MG CAP PO SCH (09:45)
[2017-06-02] MEDS: Digoxin 0.25 MG TAB PO SCH (09:46)
[2017-06-02] MEDS: Anastrozole 1 MG TAB PO SCH (09:46)
[2017-06-02] MEDS: Lisinopril 10 MG TAB PO SCH (09:46)
[2017-06-02] MEDS: guaiFENesin ER 600 MG TAB PO SCH ×3 (09:46→21:08)
[2017-06-02] MEDS: Pregabalin 50 MG CAP PO SCH ×3 (09:47→21:07)
[2017-06-02] MEDS: Enoxaparin Sodium 60 MG/0.6 ML SYRINGE SC SCH ×2 (09:47→21:09)
--- NOTE | 2017-06-02 10:13 | PDOC.PN ---
- Subjective Encounter Start Date: 06/02/17 Encounter Start Time: 08:10 Patient seen and examined. No new complaints. No overnight events - Objective Resuscitation Status: Resuscitation Status FULL:Full Resuscitation MAR Reviewed: Yes Vital Signs & Weight: Vital Signs (12 hours) Temp Pulse Resp BP BP Pulse Ox 06/02/17 09:46 86 136/87 06/02/17 09:45 86 06/02/17 08:00 97 F L 86 18 94 L 06/02/17 07:41 97.0 F L 125 H 20 95 06/02/17 06:34 125 H 20 96 06/02/17 04:00 96.9 F L 128 H 19 131/69 94 L 06/02/17 02:58 117 H 18 95 06/02/17 00:00 97.1 F L 100 20 154/72 H 94 L 06/01/17 23:15 81 18 95 Weight Weight 150 lb I&O: 06/01/17 06/02/17 06/03/17 06:59 06:59 06:59 Intake Total 1180 1680 Output Total 1400 1850 Balance -220 -170 Result Diagrams: 06/01/17 04:18 06/01/17 04:18 EKG Reviewed by me: Yes (afib) Phys Exam - Physical Examination Constitutional: NAD HEENT: PERRLA, moist MMs, sclera anicteric Neck: no JVD, supple Respiratory: no wheezing, no rales, no rhonchi Cardiovascular: no significant murmur, irregular Gastrointestinal: soft, non-tender, no distention, positive bowel sounds Musculoskeletal: no edema, pulses present Neurological: non-focal, normal sensation Lymphatic: no nodes Psychiatric: normal affect, A&O x 3 Skin: no rash, normal turgor Dx/Plan (1) Acute on chronic respiratory failure with hypoxia Code(s): J96.21 - ACUTE AND CHRONIC RESPIRATORY FAILURE WITH HYPOXIA Status: Acute Comment: (2) Atrial fibrillation with RVR Code(s): I48.91 - UNSPECIFIED ATRIAL FIBRILLATION Status: Acute (3) Bacteremia due to Streptococcus pneumoniae Code(s): R78.81 - BACTEREMIA Status: Acute (4) COPD with exacerbation Code(s): J44.1 - CHRONIC OBSTRUCTIVE PULMONARY DISEASE W (ACUTE) EXACERBATION Status: Acute (5) Demand ischemia of myocardium Code(s): I24.8 - OTHER FORMS OF ACUTE ISCHEMIC HEART DISEASE Status: Acute (6) Influenza A Code(s): J10.1 - FLU DUE TO OTH IDENT INFLUENZA VIRUS W OTH RESP MANIFEST Status: Acute (7) Lactic acidosis Code(s): E87.2 - ACIDOSIS Status: Acute (8) Pneumococcal pneumonia (streptococcus pneumoniae pneumonia) Code(s): J13 - PNEUMONIA DUE TO STREPTOCOCCUS PNEUMONIAE Status: Acute (9) Sepsis with acute organ dysfunction Code(s): A41.9 - SEPSIS, UNSPECIFIED ORGANISM; R65.20 - SEVERE SEPSIS WITHOUT SEPTIC SHOCK Status: Acute (10) Anxiety and depression Code(s): F41.8 - OTHER SPECIFIED ANXIETY DISORDERS Status: Chronic (11) Chronic pain disorder Code(s): G89.4 - CHRONIC PAIN SYNDROME Status: Chronic (12) GERD (gastroesophageal reflux disease) Code(s): K21.9 - GASTRO-ESOPHAGEAL REFLUX DISEASE WITHOUT ESOPHAGITIS Status: Chronic (13) H/O malignant neoplasm of breast Code(s): Z85.3 - PERSONAL HISTORY OF MALIGNANT NEOPLASM OF BREAST Status: Chronic (14) Hypertension Code(s): I10 - ESSENTIAL (PRIMARY) HYPERTENSION Status: Chronic Qualifiers: Hypertension type: essential hypertension Qualified Code(s): I10 - Essential (primary) hypertension - Plan cont current plan of care, continue antibiotics, respiratory therapy * on cardizem cd 240 mg, flecanide, digoxin, * still with exertion she goes to RVR * medication reviewed as below * symptomatic treatment * once cardiology clear, will consider discharge * overall stable and improving * will need repeat chest xray on follow up. Review of Systems - Review of Systems ENT: negative: Ear Pain, Ear Discharge, Nose Pain, Nose Discharge, Nose Congestion, Mouth Pain, Mouth Swelling, Throat Pain, Throat Swelling, Other Respiratory: negative: Cough, Dry, Shortness of Breath, Hemoptysis, SOB with Excertion, Pleuritic Pain, Sputum, Wheezing Cardiovascular: negative: Chest Pain, Palpitations, Orthopnea, Paroxysmal Noc. Dyspnea, Edema, Light Headedness, Other Gastrointestinal: negative: Nausea, Vomiting, Abdominal Pain, Diarrhea, Constipation, Melena, Hematochezia, Other Genitourinary: negative: Dysuria, Frequency, Incontinence, Hematuria, Retention , Other Musculoskeletal: negative: Neck Pain, Shoulder Pain, Arm Pain, Back Pain, Hand Pain, Leg Pain, Foot Pain, Other Skin: negative: Rash, Lesions, [place], Bruising, Other - Medications/Allergies Allergies/Adverse Reactions: Allergies Allergy/AdvReac Type Severity Reaction Status Date / Time adhesive Allergy Mild Rash Verified 03/15/17 19:48 oxycodone HCl Allergy Unknown Hives Verified 03/15/17 19:48 [From OxyContin] codeine Allergy Verified 03/15/17 19:48 diclofenac Allergy Verified 03/15/17 19:48 donepezil Allergy Verified 03/15/17 19:48 hydrocodone bitartrate Allergy AMS Verified 03/15/17 19:48 [From Vicodin] Medications: Current Medications Acetaminophen (Tylenol) 650 mg PO Q4H PRN PRN Reason: Headache/Fever or Pain Last Admin: 06/01/17 11:56 Dose: 650 mg Al Hydroxide/Mg Hydroxide (Maalox) 30 ml PO Q6H PRN PRN Reason: Heartburn or Indigestion Albuterol/Ipratropium (Duoneb) 3 ml NEB [id number] [facility] Last Admin: 06/02/17 06:34 Dose: 3 ml Albuterol/Ipratropium (Duoneb) 3 ml NEB [id number] PRN PRN Reason: SOB &/or Wheezing Alprazolam (Xanax) 0.25 mg PO BIDPRN PRN PRN Reason: Anxiety Last Admin: 05/31/17 20:57 Dose: 0.25 mg Anastrozole (Arimidex) 1 mg PO DAILY [facility] Last Admin: 06/02/17 09:46 Dose: 1 mg Aspirin (Aspirin) 325 mg PO DAILY [facility] Last Admin: 06/02/17 09:45 Dose: 325 mg Celecoxib (Celebrex) 200 mg PO DAILY [facility] Last Admin: 06/02/17 09:45 Dose: 200 mg Clonidine (Catapres) 0.1 mg PO Q4H PRN PRN Reason: Systolic BP > 180 Cyclobenzaprine HCl (Flexeril) 5 mg PO TID PRN PRN Reason: Muscle Spasm Last Admin: 05/30/17 00:31 Dose: 5 mg Digoxin (Lanoxin) 0.25 mg PO QAM [facility] Last Admin: 06/02/17 09:46 Dose: 0.25 mg Diltiazem HCl (Cardizem Cd) 240 mg PO DAILY [facility] Last Admin: 06/02/17 09:45 Dose: 240 mg Duloxetine HCl (Cymbalta) 60 mg PO DAILY [facility] Last Admin: 06/02/17 09:45 Dose: 60 mg Enoxaparin Sodium (Lovenox) 60 mg SC 0900,2100 [facility] Last Admin: 06/02/17 09:47 Dose: 60 mg Flecainide Acetate (Tambocor) 50 mg PO Q12HR [facility] Last Admin: 06/02/17 09:45 Dose: 50 mg Guaifenesin (Mucinex) 600 mg PO TID [facility] Last Admin: 06/02/17 09:46 Dose: 600 mg Hydralazine HCl (Apresoline) 10 mg SLOW IVP Q4H PRN PRN Reason: Systolic BP > 180 Iron/Minerals/Multivitamins (Theragran M) 1 tab PO DAILY [facility] Last Admin: 06/02/17 09:45 Dose: 1 tab Levofloxacin (Levaquin) 750 mg PO 0600 [facility] Stop: 06/12/17 06:01 Last Admin: 06/02/17 05:57 Dose: 750 mg Lisinopril (Zestril) 10 mg PO DAILY [facility] Last Admin: 06/02/17 09:46 Dose: 10 mg Loperamide HCl (Imodium) 2 mg PO PRN PRN PRN Reason: Diarrhea/Loose Stools Loratadine (Claritin) 10 mg PO DAILYPRN PRN PRN Reason: Sinus Symptoms Magnesium Hydroxide (Milk Of Magnesium) 30 ml PO DAILYPRN PRN PRN Reason: Constipation Mineral Oil/White Petrolatum (Eucerin Cream) 0 gm TOP BIDPRN PRN PRN Reason: Dry Skin Nystatin (Mycostatin Powder) 1 gm TOP BID PRN PRN Reason: Topical Irritations Ondansetron HCl (Zofran Odt) 4 mg PO Q6H PRN PRN Reason: Nausea/Vomiting Ondansetron HCl (Zofran) 4 mg IVP Q6H PRN PRN Reason: Nausea/Vomiting Last Admin: 05/28/17 07:50 Dose: 4 mg Pantoprazole Sodium (Protonix) 40 mg PO DAILY [facility] Last Admin: 06/02/17 09:46 Dose: 40 mg Phenol (Chloraseptic [place] 180 Ml Bot) 0 ml PO PRN PRN PRN Reason: Sore Throat Pregabalin (Lyrica) 100 mg PO TID [facility] Last Admin: 06/02/17 09:47 Dose: 100 mg Saccharomyces Boulardii (Florastor) 250 mg PO DAILY [facility] Last Admin: 06/02/17 09:45 Dose: 250 mg Senna (Senokot) 2 tab PO HSPRN PRN PRN Reason: Constipation Sodium Chloride ([place] Nasal [place] 0.65%) 0 ml EA NARE QIDPRN PRN PRN Reason: Nasal Congestion Sodium Chloride (Flush - Normal Saline) 10 ml IVF Q12HR [facility] Last Admin: 06/02/17 09:47 Dose: 10 ml Sodium Chloride (Flush - Normal Saline) 10 ml IVF PRN PRN PRN Reason: Saline Flush Tramadol HCl (Ultram) 50 mg PO Q6H PRN PRN Reason: Pain Last Admin: 06/02/17 05:58 Dose: 50 mg Valacyclovir HCl (Valtrex) 500 mg PO DAILY [facility] Last Admin: 06/02/17 09:45 Dose: 500 mg
--- NOTE | 2017-06-02 11:17 | DIS ---
ADDENDUM Please see my discharge summary dictated on 05/31/2017. This patient was planned for discharge on at day, but she was having atrial fibrillation with RVR and that is why we canceled discharge and kep t in hospital. Subsequently, patient was also getting high dose of Cardizem-CD and we turned off Ca rdizem drip. The patient's rate almost most of the time remained well controlled, but whenever she o dayana-examined her heart rate goes to 110 and at that time, patient is completely asymptomatic. Vonda t wanted to continue anticoagulation therapy and risk and benefit was discussed with the patient and she agreed with continuation of Eliquis therapy upon discharge. The patient was seen and examined at bedside today. Please see my progress note from today for furth er details. The only change happened from my discharge summary dictated on 05/31/2017 is the patient is on following medications: Digoxin is added and 0.25 mg p.o. daily, Cardizem-CD, dose increased t o 240 mg p.o. daily. She will continue flecainide 50 mg p.o. b.i.d., and Eliquis 5 mg p.o. b.i.d. H er antibiotics will be continued for another 7 days, along with Mucinex and Florastor. Rest of medic ation was continued as per previous. The patient is medically stable for discharge to home if as long as Cardiology clears her today.
--- NOTE | 2017-06-02 12:12 | PDOC.CTH ---
<Nola Avila - Last Filed: 06/02/17 12:09> Cardiology Progress Note - Subjective The pt seen and examined. No overnight events. No cardiac complaints. Her HR has been 110-120s. Asymptomatic. - Objective Vital Signs Temp Pulse Resp BP BP Pulse Ox 06/02/17 10:14 117 H 20 97 06/02/17 09:46 86 136/87 06/02/17 09:45 86 06/02/17 08:00 97 F L 86 18 94 L 06/02/17 07:41 97.0 F L 125 H 20 95 06/02/17 06:34 125 H 20 96 06/02/17 04:00 96.9 F L 128 H 19 131/69 94 L 06/02/17 02:58 117 H 18 95 Weight 150 lb 06/01/17 06/02/17 06/03/17 06:59 06:59 06:59 Intake Total 1180 1680 Output Total 1400 1850 Balance -220 -170 - Physical Examination General/Neuro: alert & oriented x3 Neck: no JVD present Lungs: CTA (diminished at bases) Heart: other: (irregular) Abdomen: soft Extremities: other: (No edemas) - Telemetry Telemetry Rhythm: Afib 110-120s - Labs Result Diagrams: 06/01/17 04:18 06/01/17 04:18 Troponin/CKMB CK-MB (CK-2) 1.6 ng/mL (0-6.6) 05/27/17 06:03 Troponin I 0.307 ng/mL (< 0.028) H* 05/27/17 12:09 - Assessment/Plan 1. New-onset Afib with RVR - Remains Afib with HR 110-120s; Increase flecainide from 50mg to 100mg BID; Cont. monitor and possible cardioversion on Monday if her HR is not controlled well. She has LAE and may not maintain sinus even if she converts. She has a history of falls and is a poor candidate for OAC. She is on Lovenox at this time. 2. COPD exacerbation - stable; cont. monitor 3. Influenza A - 4. Pneumonia - improved 5. Strep bacteremia. 6. NSTEMI 2ndary to demand ischemia - stable; consider a stress test as an outpt. She has an abnormal EKG but the echo does not indicate a prior [place]. MAR reviewed Review of Systems - Review of Systems Constitutional: reports: no symptoms reported EENTM: reports: no symptoms reported Respiratory: reports: no symptoms reported Cardiac (ROS): reports: no symptoms reported ABD/GI: reports: no symptoms reported : reports: no symptoms reported Musculoskeletal: reports: no symptoms reported Skin: reports: no symptoms reported Neurological: reports: no symptoms reported <Julius Harding - Last Filed: 06/02/17 14:33> Cardiology Progress Note - Objective Vital Signs Temp Pulse Resp BP BP Pulse Ox 06/02/17 13:37 105 H 18 98 06/02/17 12:00 98.5 F 89 19 126/81 94 L 06/02/17 10:14 117 H 20 97 06/02/17 09:46 86 136/87 06/02/17 09:45 86 06/02/17 08:00 97 F L 86 18 94 L 06/02/17 07:41 97.0 F L 125 H 20 95 06/02/17 06:34 125 H 20 96 06/02/17 04:00 96.9 F L 128 H 19 131/69 94 L 06/02/17 02:58 117 H 18 95 Weight 150 lb 06/01/17 06/02/17 06/03/17 06:59 06:59 06:59 Intake Total 1180 1680 120 Output Total 1400 1850 Balance -220 -170 120 - Labs Result Diagrams: 06/01/17 04:18 06/01/17 04:18 Troponin/CKMB CK-MB (CK-2) 1.6 ng/mL (0-6.6) 05/27/17 06:03 Troponin I 0.307 ng/mL (< 0.028) H* 05/27/17 12:09 - Assessment/Plan Pt. seen and eval. by me. I agree with the A/P by the [employer]. She remains in atrial fib. She may convert with the increased dose Flecainide and if not I will plan for electrical cardioversion on Monday... She had a cardiac cath several years ago and had normal coronaries.
[2017-06-02] MEDS: ALPRAZolam 0.25 MG TAB PO PRN (12:33)
[2017-06-03] MEDS: Cyclobenzaprine 10 MG TAB PO PRN (00:11)
[2017-06-03] MEDS: ALPRAZolam 0.25 MG TAB PO PRN (00:11)
[2017-06-03 06:25] LABS: Hematocrit 39.4 % (36.0-47.0)
[2017-06-03] MEDS: guaiFENesin ER 600 MG TAB PO SCH ×3 (09:00→21:33)
[2017-06-03] MEDS: Multivitamin W/ Minerals 1 TAB PO SCH (09:00)
[2017-06-03] MEDS: Aspirin 325 MG TAB PO SCH (09:00)
[2017-06-03] MEDS: Enoxaparin Sodium 60 MG/0.6 ML SYRINGE SC SCH ×2 (09:00→21:35)
[2017-06-03] MEDS: Digoxin 0.25 MG TAB PO SCH (09:00)
[2017-06-03] MEDS: Pregabalin 50 MG CAP PO SCH ×3 (09:01→21:33)
[2017-06-03] MEDS: Saccharomyces boulardii 250 MG CAP PO SCH (09:01)
[2017-06-03] MEDS: Lisinopril 10 MG TAB PO SCH (09:01)
[2017-06-03] MEDS: Anastrozole 1 MG TAB PO SCH (09:01)
[2017-06-03] MEDS: CeleCOXIB 100 MG CAP PO SCH (09:01)
--- NOTE | 2017-06-03 11:01 | PDOC.PN ---
- Subjective Encounter Start Date: 06/03/17 Encounter Start Time: 08:00 Patient seen and examined. No new complaints. No overnight events her afib remained labile with HR 90-120 - Objective Resuscitation Status: Resuscitation Status FULL:Full Resuscitation MAR Reviewed: Yes Vital Signs & Weight: Vital Signs (12 hours) Temp Pulse Resp BP BP BP Pulse Ox 06/03/17 09:00 91 06/03/17 08:00 97.2 F L 91 18 98 06/03/17 07:59 97.2 F L 91 18 156/77 H 96 06/03/17 04:00 98.3 F 97 20 143/80 H 93 L 06/03/17 02:40 76 16 95 06/03/17 00:11 95 06/02/17 23:31 97.8 F 98 20 138/60 91 L Weight Weight 149 lb 12.8 oz I&O: 06/02/17 06/03/17 06/04/17 06:59 06:59 06:59 Intake Total 1680 1200 Output Total 1850 1380 Balance -170 -180 Result Diagrams: 06/03/17 06:07 06/03/17 06:07 EKG Reviewed by me: Yes (afib) Phys Exam - Physical Examination Constitutional: NAD HEENT: PERRLA, moist MMs, sclera anicteric Neck: no JVD, supple Respiratory: no wheezing, no rales, no rhonchi Cardiovascular: no significant murmur, irregular Gastrointestinal: soft, non-tender, no distention, positive bowel sounds Musculoskeletal: no edema, pulses present Neurological: non-focal, normal sensation Psychiatric: normal affect, A&O x 3 Skin: no rash, normal turgor Dx/Plan (1) Acute on chronic respiratory failure with hypoxia Code(s): J96.21 - ACUTE AND CHRONIC RESPIRATORY FAILURE WITH HYPOXIA Status: Acute Comment: (2) Atrial fibrillation with RVR Code(s): I48.91 - UNSPECIFIED ATRIAL FIBRILLATION Status: Acute (3) Bacteremia due to Streptococcus pneumoniae Code(s): R78.81 - BACTEREMIA Status: Acute (4) COPD with exacerbation Code(s): J44.1 - CHRONIC OBSTRUCTIVE PULMONARY DISEASE W (ACUTE) EXACERBATION Status: Acute (5) Demand ischemia of myocardium Code(s): I24.8 - OTHER FORMS OF ACUTE ISCHEMIC HEART DISEASE Status: Acute (6) Influenza A Code(s): J10.1 - FLU DUE TO OTH IDENT INFLUENZA VIRUS W OTH RESP MANIFEST Status: Acute (7) Lactic acidosis Code(s): E87.2 - ACIDOSIS Status: Acute (8) Pneumococcal pneumonia (streptococcus pneumoniae pneumonia) Code(s): J13 - PNEUMONIA DUE TO STREPTOCOCCUS PNEUMONIAE Status: Acute (9) Sepsis with acute organ dysfunction Code(s): A41.9 - SEPSIS, UNSPECIFIED ORGANISM; R65.20 - SEVERE SEPSIS WITHOUT SEPTIC SHOCK Status: Acute (10) Anxiety and depression Code(s): F41.8 - OTHER SPECIFIED ANXIETY DISORDERS Status: Chronic (11) Chronic pain disorder Code(s): G89.4 - CHRONIC PAIN SYNDROME Status: Chronic (12) GERD (gastroesophageal reflux disease) Code(s): K21.9 - GASTRO-ESOPHAGEAL REFLUX DISEASE WITHOUT ESOPHAGITIS Status: Chronic (13) H/O malignant neoplasm of breast Code(s): Z85.3 - PERSONAL HISTORY OF MALIGNANT NEOPLASM OF BREAST Status: Chronic (14) Hypertension Code(s): I10 - ESSENTIAL (PRIMARY) HYPERTENSION Status: Chronic Qualifiers: Hypertension type: essential hypertension Qualified Code(s): I10 - Essential (primary) hypertension - Plan cont current plan of care, continue antibiotics, PT/OT, respiratory therapy * continue to monitor over weekend to see rate control and adjust medication * if she still has RVR, she will need cardioversion on Monday as per cardiology * continue levaquin * medication reviewed as below * symptomatic treatment * overall stable and improving. * change duoneb q 6 hourly Review of Systems - Review of Systems ENT: negative: Ear Pain, Ear Discharge, Nose Pain, Nose Discharge, Nose Congestion, Mouth Pain, Mouth Swelling, Throat Pain, Throat Swelling, Other Respiratory: negative: Cough, Dry, Shortness of Breath, Hemoptysis, SOB with Excertion, Pleuritic Pain, Sputum, Wheezing Cardiovascular: negative: Chest Pain, Palpitations, Orthopnea, Paroxysmal Noc. Dyspnea, Edema, Light Headedness, Other Gastrointestinal: negative: Nausea, Vomiting, Abdominal Pain, Diarrhea, Constipation, Melena, Hematochezia, Other Genitourinary: negative: Dysuria, Frequency, Incontinence, Hematuria, Retention , Other Musculoskeletal: negative: Neck Pain, Shoulder Pain, Arm Pain, Back Pain, Hand Pain, Leg Pain, Foot Pain, Other Skin: negative: Rash, Lesions, [place], Bruising, Other - Medications/Allergies Allergies/Adverse Reactions: Allergies Allergy/AdvReac Type Severity Reaction Status Date / Time adhesive Allergy Mild Rash Verified 03/15/17 19:48 oxycodone HCl Allergy Unknown Hives Verified 03/15/17 19:48 [From OxyContin] codeine Allergy Verified 03/15/17 19:48 diclofenac Allergy Verified 03/15/17 19:48 donepezil Allergy Verified 03/15/17 19:48 hydrocodone bitartrate Allergy AMS Verified 03/15/17 19:48 [From Vicodin] Medications: Current Medications Acetaminophen (Tylenol) 650 mg PO Q4H PRN PRN Reason: Headache/Fever or Pain Last Admin: 06/01/17 11:56 Dose: 650 mg Al Hydroxide/Mg Hydroxide (Maalox) 30 ml PO Q6H PRN PRN Reason: Heartburn or Indigestion Albuterol/Ipratropium (Duoneb) 3 ml NEB [id number] [facility] Last Admin: 06/03/17 10:34 Dose: 3 ml Albuterol/Ipratropium (Duoneb) 3 ml NEB [id number] PRN PRN Reason: SOB &/or Wheezing Alprazolam (Xanax) 0.25 mg PO BIDPRN PRN PRN Reason: Anxiety Last Admin: 06/03/17 00:11 Dose: 0.25 mg Anastrozole (Arimidex) 1 mg PO DAILY [facility] Last Admin: 06/03/17 09:01 Dose: 1 mg Aspirin (Aspirin) 325 mg PO DAILY [facility] Last Admin: 06/03/17 09:00 Dose: 325 mg Celecoxib (Celebrex) 200 mg PO DAILY [facility] Last Admin: 06/03/17 09:01 Dose: 200 mg Clonidine (Catapres) 0.1 mg PO Q4H PRN PRN Reason: Systolic BP > 180 Cyclobenzaprine HCl (Flexeril) 5 mg PO TID PRN PRN Reason: Muscle Spasm Last Admin: 06/03/17 00:11 Dose: 5 mg Digoxin (Lanoxin) 0.25 mg PO QAM [facility] Last Admin: 06/03/17 09:00 Dose: 0.25 mg Diltiazem HCl (Cardizem Cd) 240 mg PO DAILY [facility] Last Admin: 06/03/17 09:00 Dose: 240 mg Duloxetine HCl (Cymbalta) 60 mg PO DAILY [facility] Last Admin: 06/03/17 09:00 Dose: 60 mg Enoxaparin Sodium (Lovenox) 60 mg SC 0900,2100 [facility] Last Admin: 06/03/17 09:00 Dose: 60 mg Flecainide Acetate (Tambocor) 100 mg PO Q12HR [facility] Last Admin: 06/03/17 09:00 Dose: 100 mg Guaifenesin (Mucinex) 600 mg PO TID [facility] Last Admin: 06/03/17 09:00 Dose: 600 mg Hydralazine HCl (Apresoline) 10 mg SLOW IVP Q4H PRN PRN Reason: Systolic BP > 180 Iron/Minerals/Multivitamins (Theragran M) 1 tab PO DAILY [facility] Last Admin: 06/03/17 09:00 Dose: 1 tab Levofloxacin (Levaquin) 750 mg PO 0600 [facility] Stop: 06/12/17 06:01 Last Admin: 06/03/17 05:36 Dose: 750 mg Lisinopril (Zestril) 10 mg PO DAILY [facility] Last Admin: 06/03/17 09:01 Dose: 10 mg Loperamide HCl (Imodium) 2 mg PO PRN PRN PRN Reason: Diarrhea/Loose Stools Loratadine (Claritin) 10 mg PO DAILYPRN PRN PRN Reason: Sinus Symptoms Magnesium Hydroxide (Milk Of Magnesium) 30 ml PO DAILYPRN PRN PRN Reason: Constipation Mineral Oil/White Petrolatum (Eucerin Cream) 0 gm TOP BIDPRN PRN PRN Reason: Dry Skin Nystatin (Mycostatin Powder) 1 gm TOP BID PRN PRN Reason: Topical Irritations Ondansetron HCl (Zofran Odt) 4 mg PO Q6H PRN PRN Reason: Nausea/Vomiting Ondansetron HCl (Zofran) 4 mg IVP Q6H PRN PRN Reason: Nausea/Vomiting Last Admin: 05/28/17 07:50 Dose: 4 mg Pantoprazole Sodium (Protonix) 40 mg PO DAILY [facility] Last Admin: 06/03/17 09:01 Dose: 40 mg Phenol (Chloraseptic [place] 180 Ml Bot) 0 ml PO PRN PRN PRN Reason: Sore Throat Pregabalin (Lyrica) 100 mg PO TID [facility] Last Admin: 06/03/17 09:01 Dose: 100 mg Saccharomyces Boulardii (Florastor) 250 mg PO DAILY [facility] Last Admin: 06/03/17 09:01 Dose: 250 mg Senna (Senokot) 2 tab PO HSPRN PRN PRN Reason: Constipation Sodium Chloride ([place] Nasal [place] 0.65%) 0 ml EA NARE QIDPRN PRN PRN Reason: Nasal Congestion Sodium Chloride (Flush - Normal Saline) 10 ml IVF Q12HR [facility] Last Admin: 06/03/17 09:02 Dose: 10 ml Sodium Chloride (Flush - Normal Saline) 10 ml IVF PRN PRN PRN Reason: Saline Flush Tramadol HCl (Ultram) 50 mg PO Q6H PRN PRN Reason: Pain Last Admin: 06/02/17 05:58 Dose: 50 mg Valacyclovir HCl (Valtrex) 500 mg PO DAILY [facility] Last Admin: 06/03/17 09:00 Dose: 500 mg
[2017-06-03] MEDS: Acetaminophen 325 MG TAB PO PRN (14:24)
[2017-06-04] MEDS: traMADol HCl 50 MG TAB PO PRN ×2 (05:16→12:27)
[2017-06-04] MEDS: Pregabalin 50 MG CAP PO SCH ×3 (08:33→20:32)
[2017-06-04] MEDS: Digoxin 0.25 MG TAB PO SCH (08:34)
[2017-06-04] MEDS: Multivitamin W/ Minerals 1 TAB PO SCH (08:34)
[2017-06-04] MEDS: Aspirin 325 MG TAB PO SCH (08:34)
[2017-06-04] MEDS: CeleCOXIB 100 MG CAP PO SCH (08:34)
[2017-06-04] MEDS: Saccharomyces boulardii 250 MG CAP PO SCH (08:34)
[2017-06-04] MEDS: Lisinopril 10 MG TAB PO SCH (08:35)
[2017-06-04] MEDS: Enoxaparin Sodium 60 MG/0.6 ML SYRINGE SC SCH ×2 (08:35→20:33)
[2017-06-04] MEDS: Anastrozole 1 MG TAB PO SCH (08:35)
[2017-06-04] MEDS: guaiFENesin ER 600 MG TAB PO SCH ×3 (08:35→20:33)
--- NOTE | 2017-06-04 10:27 | PDOC.PN ---
- Subjective Encounter Start Date: 06/04/17 Encounter Start Time: 08:10 Patient seen and examined. No new complaints. No overnight events - Objective Resuscitation Status: Resuscitation Status FULL:Full Resuscitation MAR Reviewed: Yes Vital Signs & Weight: Vital Signs (12 hours) Temp Pulse Resp BP Pulse Ox 06/04/17 08:34 73 06/04/17 08:00 98 F 73 20 95 06/04/17 07:54 98 F 73 18 131/60 95 06/04/17 07:35 80 16 06/04/17 04:00 98.6 F 76 18 120/67 91 L 06/04/17 00:00 97.8 F 78 20 122/56 L 94 L 06/03/17 23:32 70 16 94 L Weight Weight 149 lb 11.2 oz I&O: 06/03/17 06/04/17 06/05/17 06:59 06:59 06:59 Intake Total 1200 1560 Output Total 1380 1280 Balance -180 280 Result Diagrams: 06/03/17 06:07 06/03/17 06:07 EKG Reviewed by me: Yes (afib) Phys Exam - Physical Examination Constitutional: NAD HEENT: PERRLA, moist MMs, sclera anicteric Neck: no JVD, supple Respiratory: no wheezing, no rales, no rhonchi Cardiovascular: no significant murmur, irregular Gastrointestinal: soft, non-tender, no distention, positive bowel sounds Musculoskeletal: no edema, pulses present Neurological: non-focal, normal sensation, moves all 4 limbs Lymphatic: no nodes Psychiatric: normal affect, A&O x 3 Skin: no rash, normal turgor Dx/Plan (1) Acute on chronic respiratory failure with hypoxia Code(s): J96.21 - ACUTE AND CHRONIC RESPIRATORY FAILURE WITH HYPOXIA Status: Acute Comment: (2) Atrial fibrillation with RVR Code(s): I48.91 - UNSPECIFIED ATRIAL FIBRILLATION Status: Acute (3) Bacteremia due to Streptococcus pneumoniae Code(s): R78.81 - BACTEREMIA Status: Acute (4) COPD with exacerbation Code(s): J44.1 - CHRONIC OBSTRUCTIVE PULMONARY DISEASE W (ACUTE) EXACERBATION Status: Acute (5) Demand ischemia of myocardium Code(s): I24.8 - OTHER FORMS OF ACUTE ISCHEMIC HEART DISEASE Status: Acute (6) Influenza A Code(s): J10.1 - FLU DUE TO OTH IDENT INFLUENZA VIRUS W OTH RESP MANIFEST Status: Acute (7) Lactic acidosis Code(s): E87.2 - ACIDOSIS Status: Acute (8) Pneumococcal pneumonia (streptococcus pneumoniae pneumonia) Code(s): J13 - PNEUMONIA DUE TO STREPTOCOCCUS PNEUMONIAE Status: Acute (9) Sepsis with acute organ dysfunction Code(s): A41.9 - SEPSIS, UNSPECIFIED ORGANISM; R65.20 - SEVERE SEPSIS WITHOUT SEPTIC SHOCK Status: Acute (10) Anxiety and depression Code(s): F41.8 - OTHER SPECIFIED ANXIETY DISORDERS Status: Chronic (11) Chronic pain disorder Code(s): G89.4 - CHRONIC PAIN SYNDROME Status: Chronic (12) GERD (gastroesophageal reflux disease) Code(s): K21.9 - GASTRO-ESOPHAGEAL REFLUX DISEASE WITHOUT ESOPHAGITIS Status: Chronic (13) H/O malignant neoplasm of breast Code(s): Z85.3 - PERSONAL HISTORY OF MALIGNANT NEOPLASM OF BREAST Status: Chronic (14) Hypertension Code(s): I10 - ESSENTIAL (PRIMARY) HYPERTENSION Status: Chronic Qualifiers: Hypertension type: essential hypertension Qualified Code(s): I10 - Essential (primary) hypertension - Plan cont current plan of care, continue antibiotics, PT/OT, respiratory therapy * tomorrow cardiology will decide if she needs cardioversion or not * we are expecting discharge tomorrow * medication reviewed as below * symptomatic treatment * stable and improving * continue levaquin. Review of Systems - Review of Systems ENT: negative: Ear Pain, Ear Discharge, Nose Pain, Nose Discharge, Nose Congestion, Mouth Pain, Mouth Swelling, Throat Pain, Throat Swelling, Other Respiratory: negative: Cough, Dry, Shortness of Breath, Hemoptysis, SOB with Excertion, Pleuritic Pain, Sputum, Wheezing Cardiovascular: negative: Chest Pain, Palpitations, Orthopnea, Paroxysmal Noc. Dyspnea, Edema, Light Headedness, Other Gastrointestinal: negative: Nausea, Vomiting, Abdominal Pain, Diarrhea, Constipation, Melena, Hematochezia, Other Genitourinary: negative: Dysuria, Frequency, Incontinence, Hematuria, Retention , Other Musculoskeletal: negative: Neck Pain, Shoulder Pain, Arm Pain, Back Pain, Hand Pain, Leg Pain, Foot Pain, Other Skin: negative: Rash, Lesions, T[place], Bruising, Other - Medications/Allergies Allergies/Adverse Reactions: Allergies Allergy/AdvReac Type Severity Reaction Status Date / Time adhesive Allergy Mild Rash Verified 03/15/17 19:48 oxycodone HCl Allergy Unknown Hives Verified 03/15/17 19:48 [From OxyContin] codeine Allergy Verified 03/15/17 19:48 diclofenac Allergy Verified 03/15/17 19:48 donepezil Allergy Verified 03/15/17 19:48 hydrocodone bitartrate Allergy AMS Verified 03/15/17 19:48 [From Vicodin] Medications: Current Medications Acetaminophen (Tylenol) 650 mg PO Q4H PRN PRN Reason: Headache/Fever or Pain Last Admin: 06/03/17 14:24 Dose: 650 mg Al Hydroxide/Mg Hydroxide (Maalox) 30 ml PO Q6H PRN PRN Reason: Heartburn or Indigestion Albuterol/Ipratropium (Duoneb) 3 ml NEB [id number] PRN PRN Reason: SOB &/or Wheezing Albuterol/Ipratropium (Duoneb) 3 ml NEB [id number] [facility] Last Admin: 06/04/17 07:35 Dose: 3 ml Alprazolam (Xanax) 0.25 mg PO BIDPRN PRN PRN Reason: Anxiety Last Admin: 06/03/17 00:11 Dose: 0.25 mg Anastrozole (Arimidex) 1 mg PO DAILY [facility] Last Admin: 06/04/17 08:35 Dose: 1 mg Aspirin (Aspirin) 325 mg PO DAILY [facility] Last Admin: 06/04/17 08:34 Dose: 325 mg Celecoxib (Celebrex) 200 mg PO DAILY [facility] Last Admin: 06/04/17 08:34 Dose: 200 mg Clonidine (Catapres) 0.1 mg PO Q4H PRN PRN Reason: Systolic BP > 180 Last Admin: 06/03/17 21:32 Dose: 0.1 mg Cyclobenzaprine HCl (Flexeril) 5 mg PO TID PRN PRN Reason: Muscle Spasm Last Admin: 06/03/17 00:11 Dose: 5 mg Digoxin (Lanoxin) 0.25 mg PO QAM [facility] Last Admin: 06/04/17 08:34 Dose: 0.25 mg Diltiazem HCl (Cardizem Cd) 240 mg PO DAILY [facility] Last Admin: 06/04/17 08:34 Dose: 240 mg Duloxetine HCl (Cymbalta) 60 mg PO DAILY [facility] Last Admin: 06/04/17 08:34 Dose: 60 mg Enoxaparin Sodium (Lovenox) 60 mg SC 0900,2100 [facility] Last Admin: 06/04/17 08:35 Dose: 60 mg Flecainide Acetate (Tambocor) 100 mg PO Q12HR [facility] Last Admin: 06/04/17 08:35 Dose: 100 mg Guaifenesin (Mucinex) 600 mg PO TID [facility] Last Admin: 06/04/17 08:35 Dose: 600 mg Hydralazine HCl (Apresoline) 10 mg SLOW IVP Q4H PRN PRN Reason: Systolic BP > 180 Iron/Minerals/Multivitamins (Theragran M) 1 tab PO DAILY [facility] Last Admin: 06/04/17 08:34 Dose: 1 tab Levofloxacin (Levaquin) 750 mg PO 0600 [facility] Stop: 06/12/17 06:01 Last Admin: 06/04/17 05:16 Dose: 750 mg Lisinopril (Zestril) 10 mg PO DAILY [facility] Last Admin: 06/04/17 08:35 Dose: 10 mg Loperamide HCl (Imodium) 2 mg PO PRN PRN PRN Reason: Diarrhea/Loose Stools Loratadine (Claritin) 10 mg PO DAILYPRN PRN PRN Reason: Sinus Symptoms Magnesium Hydroxide (Milk Of Magnesium) 30 ml PO DAILYPRN PRN PRN Reason: Constipation Mineral Oil/White Petrolatum (Eucerin Cream) 0 gm TOP BIDPRN PRN PRN Reason: Dry Skin Nystatin (Mycostatin Powder) 1 gm TOP BID PRN PRN Reason: Topical Irritations Ondansetron HCl (Zofran Odt) 4 mg PO Q6H PRN PRN Reason: Nausea/Vomiting Ondansetron HCl (Zofran) 4 mg IVP Q6H PRN PRN Reason: Nausea/Vomiting Last Admin: 05/28/17 07:50 Dose: 4 mg Pantoprazole Sodium (Protonix) 40 mg PO DAILY [facility] Last Admin: 06/04/17 08:34 Dose: 40 mg Phenol (Chloraseptic [place] 180 Ml Bot) 0 ml PO PRN PRN PRN Reason: Sore Throat Pregabalin (Lyrica) 100 mg PO TID [facility] Last Admin: 06/04/17 08:33 Dose: 100 mg Saccharomyces Boulardii (Florastor) 250 mg PO DAILY [facility] Last Admin: 06/04/17 08:34 Dose: 250 mg Senna (Senokot) 2 tab PO HSPRN PRN PRN Reason: Constipation Sodium Chloride ([place] Nasal [place] 0.65%) 0 ml EA NARE QIDPRN PRN PRN Reason: Nasal Congestion Sodium Chloride (Flush - Normal Saline) 10 ml IVF Q12HR [facility] Last Admin: 06/04/17 08:36 Dose: 10 ml Sodium Chloride (Flush - Normal Saline) 10 ml IVF PRN PRN PRN Reason: Saline Flush Tramadol HCl (Ultram) 50 mg PO Q6H PRN PRN Reason: Pain Last Admin: 06/04/17 05:16 Dose: 50 mg Valacyclovir HCl (Valtrex) 500 mg PO DAILY [facility] Last Admin: 06/04/17 08:34 Dose: 500 mg
[2017-06-05] MEDS: traMADol HCl 50 MG TAB PO PRN (00:42)
[2017-06-05 05:25] LABS: Hematocrit 36.2 % (36.0-47.0)
[2017-06-05] MEDS: Anastrozole 1 MG TAB PO SCH (08:32)
[2017-06-05] MEDS: Multivitamin W/ Minerals 1 TAB PO SCH (08:33)
[2017-06-05] MEDS: CeleCOXIB 100 MG CAP PO SCH (08:33)
[2017-06-05] MEDS: Lisinopril 10 MG TAB PO SCH (08:33)
[2017-06-05] MEDS: Pregabalin 50 MG CAP PO SCH ×3 (08:34→20:33)
[2017-06-05] MEDS: Saccharomyces boulardii 250 MG CAP PO SCH (08:34)
[2017-06-05] MEDS: Digoxin 0.25 MG TAB PO SCH (08:35)
[2017-06-05] MEDS: guaiFENesin ER 600 MG TAB PO SCH ×3 (08:35→20:33)
[2017-06-05] MEDS: Apixaban 5 MG TAB PO SCH ×2 (08:42→20:33)
--- NOTE | 2017-06-05 09:38 | PDOC.PN ---
- Subjective Encounter Start Date: 06/05/17 Encounter Start Time: 07:50 Patient seen and examined. No new complaints. No overnight events - Objective Resuscitation Status: Resuscitation Status FULL:Full Resuscitation MAR Reviewed: Yes Vital Signs & Weight: Vital Signs (12 hours) Temp Pulse Resp BP Pulse Ox 06/05/17 08:35 74 06/05/17 04:00 97.8 F 74 20 119/57 L 93 L 06/05/17 01:31 95 06/05/17 00:00 98.7 F 61 20 107/52 L 93 L Weight Weight 150 lb I&O: 06/04/17 06/05/17 06/06/17 06:59 06:59 06:59 Intake Total 1560 1080 Output Total 1280 1330 Balance 280 -250 Result Diagrams: 06/05/17 04:55 06/05/17 04:55 EKG Reviewed by me: Yes (afib) Phys Exam - Physical Examination Constitutional: NAD HEENT: PERRLA, moist MMs, sclera anicteric Neck: no JVD, supple Respiratory: no wheezing, no rales, no rhonchi Cardiovascular: no significant murmur, irregular Gastrointestinal: soft, non-tender, no distention, positive bowel sounds Musculoskeletal: no edema, pulses present Neurological: non-focal, normal sensation Lymphatic: no nodes Psychiatric: normal affect, A&O x 3 Skin: no rash, normal turgor Dx/Plan (1) Acute on chronic respiratory failure with hypoxia Code(s): J96.21 - ACUTE AND CHRONIC RESPIRATORY FAILURE WITH HYPOXIA Status: Acute Comment: (2) Atrial fibrillation with RVR Code(s): I48.91 - UNSPECIFIED ATRIAL FIBRILLATION Status: Acute (3) Bacteremia due to Streptococcus pneumoniae Code(s): R78.81 - BACTEREMIA Status: Acute (4) COPD with exacerbation Code(s): J44.1 - CHRONIC OBSTRUCTIVE PULMONARY DISEASE W (ACUTE) EXACERBATION Status: Acute (5) Demand ischemia of myocardium Code(s): I24.8 - OTHER FORMS OF ACUTE ISCHEMIC HEART DISEASE Status: Acute (6) Influenza A Code(s): J10.1 - FLU DUE TO OTH IDENT INFLUENZA VIRUS W OTH RESP MANIFEST Status: Acute (7) Lactic acidosis Code(s): E87.2 - ACIDOSIS Status: Acute (8) Pneumococcal pneumonia (streptococcus pneumoniae pneumonia) Code(s): J13 - PNEUMONIA DUE TO STREPTOCOCCUS PNEUMONIAE Status: Acute (9) Sepsis with acute organ dysfunction Code(s): A41.9 - SEPSIS, UNSPECIFIED ORGANISM; R65.20 - SEVERE SEPSIS WITHOUT SEPTIC SHOCK Status: Acute (10) Anxiety and depression Code(s): F41.8 - OTHER SPECIFIED ANXIETY DISORDERS Status: Chronic (11) Chronic pain disorder Code(s): G89.4 - CHRONIC PAIN SYNDROME Status: Chronic (12) GERD (gastroesophageal reflux disease) Code(s): K21.9 - GASTRO-ESOPHAGEAL REFLUX DISEASE WITHOUT ESOPHAGITIS Status: Chronic (13) H/O malignant neoplasm of breast Code(s): Z85.3 - PERSONAL HISTORY OF MALIGNANT NEOPLASM OF BREAST Status: Chronic (14) Hypertension Code(s): I10 - ESSENTIAL (PRIMARY) HYPERTENSION Status: Chronic Qualifiers: Hypertension type: essential hypertension Qualified Code(s): I10 - Essential (primary) hypertension - Plan cont current plan of care, plan discussed w/ family, continue antibiotics, respiratory therapy * overall stable medically with current treatment * medication reviewed as below * symptomatic treatment * today likely plan for cardioversion. Review of Systems - Review of Systems ENT: negative: Ear Pain, Ear Discharge, Nose Pain, Nose Discharge, Nose Congestion, Mouth Pain, Mouth Swelling, Throat Pain, Throat Swelling, Other Respiratory: negative: Cough, Dry, Shortness of Breath, Hemoptysis, SOB with Excertion, Pleuritic Pain, Sputum, Wheezing Cardiovascular: negative: Chest Pain, Palpitations, Orthopnea, Paroxysmal Noc. Dyspnea, Edema, Light Headedness, Other Gastrointestinal: negative: Nausea, Vomiting, Abdominal Pain, Diarrhea, Constipation, Melena, Hematochezia, Other Genitourinary: negative: Dysuria, Frequency, Incontinence, Hematuria, Retention , Other Musculoskeletal: negative: Neck Pain, Shoulder Pain, Arm Pain, Back Pain, Hand Pain, Leg Pain, Foot Pain, Other Skin: negative: Rash, Lesions, [place], Bruising, Other - Medications/Allergies Allergies/Adverse Reactions: Allergies Allergy/AdvReac Type Severity Reaction Status Date / Time adhesive Allergy Mild Rash Verified 03/15/17 19:48 oxycodone HCl Allergy Unknown Hives Verified 03/15/17 19:48 [From OxyContin] codeine Allergy Verified 03/15/17 19:48 diclofenac Allergy Verified 03/15/17 19:48 donepezil Allergy Verified 03/15/17 19:48 hydrocodone bitartrate Allergy AMS Verified 03/15/17 19:48 [From Vicodin] Medications: Current Medications Acetaminophen (Tylenol) 650 mg PO Q4H PRN PRN Reason: Headache/Fever or Pain Last Admin: 06/03/17 14:24 Dose: 650 mg Al Hydroxide/Mg Hydroxide (Maalox) 30 ml PO Q6H PRN PRN Reason: Heartburn or Indigestion Albuterol/Ipratropium (Duoneb) 3 ml NEB [id number] PRN PRN Reason: SOB &/or Wheezing Albuterol/Ipratropium (Duoneb) 3 ml NEB [id number] [facility] Last Admin: 06/05/17 01:31 Dose: 3 ml Alprazolam (Xanax) 0.25 mg PO BIDPRN PRN PRN Reason: Anxiety Last Admin: 06/03/17 00:11 Dose: 0.25 mg Anastrozole (Arimidex) 1 mg PO DAILY [facility] Last Admin: 06/05/17 08:32 Dose: 1 mg Apixaban (Eliquis) 5 mg PO BID [facility] Last Admin: 06/05/17 08:42 Dose: 5 mg Aspirin (Aspirin Chewable) 81 mg PO DAILY [facility] Last Admin: 06/05/17 08:42 Dose: 81 mg Celecoxib (Celebrex) 200 mg PO DAILY [facility] Last Admin: 06/05/17 08:33 Dose: 200 mg Clonidine (Catapres) 0.1 mg PO Q4H PRN PRN Reason: Systolic BP > 180 Last Admin: 06/03/17 21:32 Dose: 0.1 mg Cyclobenzaprine HCl (Flexeril) 5 mg PO TID PRN PRN Reason: Muscle Spasm Last Admin: 06/03/17 00:11 Dose: 5 mg Digoxin (Lanoxin) 0.25 mg PO QAM [facility] Last Admin: 06/05/17 08:35 Dose: 0.25 mg Diltiazem HCl (Cardizem Cd) 240 mg PO DAILY [facility] Last Admin: 06/05/17 08:33 Dose: 240 mg Duloxetine HCl (Cymbalta) 60 mg PO DAILY [facility] Last Admin: 06/05/17 08:33 Dose: 60 mg Flecainide Acetate (Tambocor) 100 mg PO Q12HR [facility] Last Admin: 06/05/17 08:34 Dose: 100 mg Guaifenesin (Mucinex) 600 mg PO TID [facility] Last Admin: 06/05/17 08:35 Dose: 600 mg Hydralazine HCl (Apresoline) 10 mg SLOW IVP Q4H PRN PRN Reason: Systolic BP > 180 Iron/Minerals/Multivitamins (Theragran M) 1 tab PO DAILY [facility] Last Admin: 06/05/17 08:33 Dose: 1 tab Levofloxacin (Levaquin) 750 mg PO 0600 [facility] Stop: 06/12/17 06:01 Last Admin: 06/05/17 06:20 Dose: 750 mg Lisinopril (Zestril) 10 mg PO DAILY [facility] Last Admin: 06/05/17 08:33 Dose: 10 mg Loperamide HCl (Imodium) 2 mg PO PRN PRN PRN Reason: Diarrhea/Loose Stools Loratadine (Claritin) 10 mg PO DAILYPRN PRN PRN Reason: Sinus Symptoms Magnesium Hydroxide (Milk Of Magnesium) 30 ml PO DAILYPRN PRN PRN Reason: Constipation Mineral Oil/White Petrolatum (Eucerin Cream) 0 gm TOP BIDPRN PRN PRN Reason: Dry Skin Nystatin (Mycostatin Powder) 1 gm TOP BID PRN PRN Reason: Topical Irritations Ondansetron HCl (Zofran Odt) 4 mg PO Q6H PRN PRN Reason: Nausea/Vomiting Ondansetron HCl (Zofran) 4 mg IVP Q6H PRN PRN Reason: Nausea/Vomiting Last Admin: 05/28/17 07:50 Dose: 4 mg Pantoprazole Sodium (Protonix) 40 mg PO DAILY [facility] Last Admin: 06/05/17 08:34 Dose: 40 mg Phenol (Chloraseptic [place] 180 Ml Bot) 0 ml PO PRN PRN PRN Reason: Sore Throat Pregabalin (Lyrica) 100 mg PO TID [facility] Last Admin: 06/05/17 08:34 Dose: 100 mg Saccharomyces Boulardii (Florastor) 250 mg PO DAILY [facility] Last Admin: 06/05/17 08:34 Dose: 250 mg Senna (Senokot) 2 tab PO HSPRN PRN PRN Reason: Constipation Sodium Chloride (Citrus Nasal [place] 0.65%) 0 ml EA NARE QIDPRN PRN PRN Reason: Nasal Congestion Sodium Chloride (Flush - Normal Saline) 10 ml IVF Q12HR [facility] Last Admin: 06/05/17 08:36 Dose: 10 ml Sodium Chloride (Flush - Normal Saline) 10 ml IVF PRN PRN PRN Reason: Saline Flush Tramadol HCl (Ultram) 50 mg PO Q6H PRN PRN Reason: Pain Last Admin: 06/05/17 00:42 Dose: 50 mg Valacyclovir HCl (Valtrex) 500 mg PO DAILY [facility] Last Admin: 06/05/17 08:42 Dose: 500 mg
--- NOTE | 2017-06-05 09:45 | PQF ---
DATE: 06-05-17 ATTN: ANTONIO KASPER Please exercise your independent, professional judgment in responding to the clarification form. Clinical indicators are provided on the bottom of this form for your review Please check appropriate box(s): [ ] NSTEMI [x ] NSTEMI Type 2 ( due to demand ischemia) [ ] Demand Ischemia [ ] Unable to determine [ ] Other diagnosis [ ] Unable to determine In addition, please specify: Present on Admission (POA): [ x ] Yes [ ] No [ ] Unable to determine CLINICAL INDICATORS - SIGNS / SYMPTOMS / LABS H&P: DEMAND ISCHEMIA OF MYOCARDIUM WITH NON-ST ELEVATION MYOCARDIAL INFARCTION TYPE 2, LIKELY DUE TO DEMAND STRESS RESPONSE CONSULT NOTE DR. VARGAS 05-27-17: NON-ST ELEVATION MYOCARDIAL INFARCTION: DEMAND ISCHEMIA MOST LIKELY FROM HER COPD EXACERBATION AND PNEUMONIA. CONSULT NOTE JOHN ZACARIAS 06-01-17: NSTEMI 2NDARY TO DEMAND ISCHEMIA PROGRESS NOTE DR. KASPER 06-04-17: ACUTE DEMAND ISCHEMIA OF MYOCARDIUM TROPONIN 05-27-17: 0.328, 0.320, 0.307 RISKS: H&P: HX OF HTN TREATMENTS:CONTINUOUS CARDIAC MONITORING CARDIAC CONSULT (MAR) ASPIRIN 05-27-17, LOVENOX 05-28-17 (This form is maintained as a part of the permanent medical record) 2014 [employer]. All Rights Reserved ELÍAS [email or web address] Office: [phone] JEANETTE
[2017-06-05] MEDS ORDERED: Diprivan 20 ML ONE (09:57)
[2017-06-05] MEDS ORDERED: Propofol 200 MG/20 ML VIAL ONE (10:24)
--- NOTE | 2017-06-05 11:48 | OP ---
DATE OF PROCEDURE: 06/05/2017 INDICATION FOR PROCEDURE: An 87-year-old female with atrial fibrillation and was advised to undergo electrical cardioversion. DESCRIPTION OF PROCEDURE: She was taken to the recovery area where she underwent short acting propof ol. Using one attempt at 200 joules, she was successfully converted back to normal sinus rhythm with heart rate in the 70s without any difficulties or complications. ADDENDUM: Approximately 10 minutes after the patient was successfully converted from atrial fibrilla tion back to normal sinus rhythm with one shock at 200 joules, she then developed atrial flutter with a variable block. Heart rate was still well controlled. At this time we will ask the electrophysio logist to visit with the patient for possible ablation or further recommendations regarding medical m anagement.
[2017-06-05] MEDS: Acetaminophen 325 MG TAB PO PRN (13:35)
--- NOTE | 2017-06-05 13:58 | PDOC.CTH ---
Cardiology Progress Note - Subjective The pt converted back from Afib to SR with HR 70s at 1155 today. She was asymptomatic when she was having Afib. - Objective Vital Signs Temp Pulse Resp BP Pulse Ox 06/05/17 11:26 93 L 06/05/17 11:24 77 20 93 L 06/05/17 08:35 74 06/05/17 08:00 80 16 134/60 93 L 06/05/17 04:00 97.8 F 74 20 119/57 L 93 L Weight 150 lb 06/04/17 06/05/17 06/06/17 06:59 06:59 06:59 Intake Total 1560 1080 Output Total 1280 1330 Balance 280 -250 - Labs Result Diagrams: 06/05/17 04:55 06/05/17 04:55 Troponin/CKMB CK-MB (CK-2) 1.6 ng/mL (0-6.6) 05/27/17 06:03 Troponin I 0.307 ng/mL (< 0.028) H* 05/27/17 12:09
--- NOTE | 2017-06-05 20:23 | CON-2 ---
DATE OF CONSULTATION: 06/05/2017 NALLELY Streeter, dictating as scribe for oTny Smith M.D. ELECTROPHYSIOLOGY CONSULTATION REPORT REFERRING PHYSICIAN: Johnna Harding MD REASON FOR CONSULTATION: Atrial fibrillation of new onset. HISTORY OF PRESENT ILLNESS: Ms. Wick is a pleasant 87-year-old female who initially presented to the emergency room with shortness of breath. Earlier this year, she had been hospitalized for pneumonia and completed her course of Levaquin, but upon presentation in the emergency room was found to be experiencing a COPD exacerbation with multifocal pneumonia as well as influenza type A. Also, of note, she had a mildly elevated troponin upon admission of 0.32, for which Cardiology was consulted. She required BiPAP support during initial evaluation. She denies being aware of anything wrong with her other than having this persistent cough and some shortness of breath. Since admission , cardiology determined her elevated troponin was from demand ischemia, and she is being treated for her pneumonia. Her COPD exacerbation is resolving and she denies any increasing shortness of breath. She does have some fatigue and dyspnea on exertion. She denies chest pain or pressure, syncope, stroke, or stroke-like symptoms. She denies any awareness of heart racing or palpitations. She does not remember ever being told that she has had atrial fibrillation in the past or other arrhythmias. The patient was admitted on 05/27/2017 and over the night going into the following day, she went into atrial fibrillation with rapid ventricular response. She sustained in atrial fibrillation over the weekend and cardioversion was attempted earlier today. Initially, cardioversion did restore sinus rhythm, but only briefly and the patient returned back to atrial fibrillation. Shortly after returning to her room, she did spontaneously convert to a normal sinus rhythm (at 11:55). The patient is currently taking Eliquis for stroke prophylaxis, digoxin for rate control, and flecainide for arrhythmia suppression. PAST MEDICAL HISTORY: 1. New-onset atrial fibrillation with rapid ventricular response. 2. Chronic obstructive pulmonary disease. 3. Hypertension. 4. History of pneumonia. 5. Breast cancer, previously treated with chemo. 6. History of multiple falls. 7. Osteoarthritis. 8. Gastroesophageal reflux disease. 9. Anxiety. PAST SURGICAL HISTORY: Left breast lumpectomy and ortho surgeries of the hip, shoulder, and spine. HOME MEDICATIONS: Include Xanax, albuterol inhalers, Arimidex, celecoxib, Flexeril, Cardizem 120 mg a day, Nexium daily, lisinopril 5 mg daily, multivitamin daily, Lyrica 100 mg daily, tramadol as needed, and valacyclovir. SOCIAL HISTORY: Denies any alcohol, drug, or tobacco use. FAMILY HISTORY: Noncontributory. Negative for sudden cardiac and negative for premature coronary artery disease over the age of 55. ALLERGIES: Include ADHESIVE, OXYCODONE, CODEINE, DICLOFENAC, DONEPEZIL, WELL ARICEPT, AND HYDROCODONE. REVIEW OF SYMPTOMS: A 12-point review of systems was conducted and is negative with the exception of that which is listed in the HPI. PHYSICAL EXAMINATION: VITAL SIGNS: Include temperature 97.8 degrees Fahrenheit, pulse of 77, respirations 16, 93% on 2 liters, blood pressure 134/60. NEUROLOGIC: Grossly intact. The patient is nonfocal and without deficit. PULMONARY: Lungs are coarse with very fine crackles over the lower lobes. There are no wheezes or rhonchi. Respirations are even and unlabored with good bilateral excursion. HEART: The patient does have wet sounding cough. CARDIOVASCULAR: Heart tones are irregularly irregular. PMI is nondisplaced. EXTREMITIES: Warm and dry to touch without evidence of clubbing, cyanosis, or edema. ABDOMEN: Positive bowel tones. There are no masses. There is no hepatosplenomegaly and hepatojugular reflux is negative. LABORATORY DATA: Lab results were reviewed. Hemoglobin today was 11.9, hematocrit today was 36.2, and platelet count was 257. The last WBC was on 05/2017 and was 9.2. Chemistry from 05/30/2017, sodium 140, potassium 3.8, chloride 109, carbon dioxide 24, BUN 35, creatinine 0.72, calcium was 8.7. DATABASE: The patient is currently in a normal sinus rhythm, but review of rhythm strip and EKGs on chart reveals that the patient was in atrial fibrillation and atrial flutter previously. QRS is narrow at 80 milliseconds and the QTC is 387 milliseconds. IMPRESSION: 1. New-onset atrial fibrillation/atrial flutter with rapid ventricular response. Currently, the patient is in normal sinus rhythm and the patient had an eventual good response to her flecainide antiarrhythmic therapy. She is on digoxin for rate control and Eliquis for stroke prophylaxis. 2. Chronic pulmonary disease, chronic obstructive pulmonary disease, pneumonia this admission. PLAN: Continue with current plan utilizing flecainide and digoxin for arrhythmia management and Eliquis for oral anticoagulation/stroke prophylaxis. At this time there has been no definite typical atrial flutter seen and we will continue to monitor at this time. Given the patient's extensive chronic pulmonary disease, amiodarone should be avoided for long-term antiarrhythmia management. Thank you for allowing us to participate in the care of this patient. JEANETTE
[2017-06-06] MEDS: traMADol HCl 50 MG TAB PO PRN (03:15)
[2017-06-06] MEDS: Pregabalin 50 MG CAP PO SCH (09:49)
[2017-06-06] MEDS: Apixaban 5 MG TAB PO SCH (09:49)
[2017-06-06] MEDS: Multivitamin W/ Minerals 1 TAB PO SCH (09:50)
[2017-06-06] MEDS: Lisinopril 10 MG TAB PO SCH (09:50)
[2017-06-06] MEDS: CeleCOXIB 100 MG CAP PO SCH (09:50)
[2017-06-06] MEDS: Anastrozole 1 MG TAB PO SCH (09:52)
[2017-06-06] MEDS: guaiFENesin ER 600 MG TAB PO SCH (09:52)
[2017-06-06] MEDS: Digoxin 0.25 MG TAB PO SCH (09:55)
[2017-06-06] MEDS: Saccharomyces boulardii 250 MG CAP PO SCH (09:55)
--- NOTE | 2017-06-06 11:38 | PDOC.PN ---
- Subjective Encounter Start Date: 06/06/17 Encounter Start Time: 08:10 Patient seen and examined. No new complaints. No overnight events - Objective Resuscitation Status: Resuscitation Status FULL:Full Resuscitation MAR Reviewed: Yes Vital Signs & Weight: Vital Signs (12 hours) Temp Pulse Resp BP BP BP Pulse Ox 06/06/17 09:55 83 06/06/17 09:50 141/65 H 06/06/17 08:45 98 F 83 20 141/65 H 93 L 06/06/17 07:19 95 06/06/17 07:17 76 16 96 06/06/17 04:04 94 L 06/06/17 04:00 97.9 F 75 16 131/56 L 92 L 06/06/17 00:00 75 18 90 L Weight Weight 151 lb I&O: 06/05/17 06/06/17 06/07/17 06:59 06:59 06:59 Intake Total 1080 730 Output Total 1330 1325 Balance -250 -595 Result Diagrams: 06/05/17 04:55 06/05/17 04:55 EKG Reviewed by me: Yes (afib) Phys Exam - Physical Examination Constitutional: NAD HEENT: PERRLA, moist MMs, sclera anicteric Neck: no JVD, supple Respiratory: no wheezing, no rales, no rhonchi Cardiovascular: no significant murmur, irregular Gastrointestinal: soft, non-tender, no distention, positive bowel sounds Musculoskeletal: no edema, pulses present Neurological: non-focal, normal sensation, moves all 4 limbs Psychiatric: normal affect, A&O x 3 Skin: no rash, normal turgor Dx/Plan (1) Acute on chronic respiratory failure with hypoxia Code(s): J96.21 - ACUTE AND CHRONIC RESPIRATORY FAILURE WITH HYPOXIA Status: Acute Comment: (2) Atrial fibrillation with RVR Code(s): I48.91 - UNSPECIFIED ATRIAL FIBRILLATION Status: Acute (3) Bacteremia due to Streptococcus pneumoniae Code(s): R78.81 - BACTEREMIA Status: Acute (4) COPD with exacerbation Code(s): J44.1 - CHRONIC OBSTRUCTIVE PULMONARY DISEASE W (ACUTE) EXACERBATION Status: Acute (5) Demand ischemia of myocardium Code(s): I24.8 - OTHER FORMS OF ACUTE ISCHEMIC HEART DISEASE Status: Acute (6) Influenza A Code(s): J10.1 - FLU DUE TO OTH IDENT INFLUENZA VIRUS W OTH RESP MANIFEST Status: Acute (7) Lactic acidosis Code(s): E87.2 - ACIDOSIS Status: Acute (8) Pneumococcal pneumonia (streptococcus pneumoniae pneumonia) Code(s): J13 - PNEUMONIA DUE TO STREPTOCOCCUS PNEUMONIAE Status: Acute (9) Sepsis with acute organ dysfunction Code(s): A41.9 - SEPSIS, UNSPECIFIED ORGANISM; R65.20 - SEVERE SEPSIS WITHOUT SEPTIC SHOCK Status: Acute (10) Anxiety and depression Code(s): F41.8 - OTHER SPECIFIED ANXIETY DISORDERS Status: Chronic (11) Chronic pain disorder Code(s): G89.4 - CHRONIC PAIN SYNDROME Status: Chronic (12) GERD (gastroesophageal reflux disease) Code(s): K21.9 - GASTRO-ESOPHAGEAL REFLUX DISEASE WITHOUT ESOPHAGITIS Status: Chronic (13) H/O malignant neoplasm of breast Code(s): Z85.3 - PERSONAL HISTORY OF MALIGNANT NEOPLASM OF BREAST Status: Chronic (14) Hypertension Code(s): I10 - ESSENTIAL (PRIMARY) HYPERTENSION Status: Chronic Qualifiers: Hypertension type: essential hypertension Qualified Code(s): I10 - Essential (primary) hypertension - Plan cont current plan of care, continue antibiotics, respiratory therapy * s/p cardioversion but still in afib * as per EP, no plan for ablation * flecainide dose increased * medication reviewed as below * symptomatic treatment * medically stable with current treatment * stable for discharge if cardiology OK. Review of Systems - Review of Systems ENT: negative: Ear Pain, Ear Discharge, Nose Pain, Nose Discharge, Nose Congestion, Mouth Pain, Mouth Swelling, Throat Pain, Throat Swelling, Other Respiratory: negative: Cough, Dry, Shortness of Breath, Hemoptysis, SOB with Excertion, Pleuritic Pain, Sputum, Wheezing Cardiovascular: negative: Chest Pain, Palpitations, Orthopnea, Paroxysmal Noc. Dyspnea, Edema, Light Headedness, Other Gastrointestinal: negative: Nausea, Vomiting, Abdominal Pain, Diarrhea, Constipation, Melena, Hematochezia, Other Genitourinary: negative: Dysuria, Frequency, Incontinence, Hematuria, Retention , Other Musculoskeletal: negative: Neck Pain, Shoulder Pain, Arm Pain, Back Pain, Hand Pain, Leg Pain, Foot Pain, Other Skin: negative: Rash, Lesions, [place], Bruising, Other - Medications/Allergies Allergies/Adverse Reactions: Allergies Allergy/AdvReac Type Severity Reaction Status Date / Time adhesive Allergy Mild Rash Verified 03/15/17 19:48 oxycodone HCl Allergy Unknown Hives Verified 03/15/17 19:48 [From OxyContin] codeine Allergy Verified 03/15/17 19:48 diclofenac Allergy Verified 03/15/17 19:48 donepezil Allergy Verified 03/15/17 19:48 hydrocodone bitartrate Allergy AMS Verified 03/15/17 19:48 [From Vicodin] Medications: Current Medications Acetaminophen (Tylenol) 650 mg PO Q4H PRN PRN Reason: Headache/Fever or Pain Last Admin: 06/05/17 13:35 Dose: 650 mg Al Hydroxide/Mg Hydroxide (Maalox) 30 ml PO Q6H PRN PRN Reason: Heartburn or Indigestion Albuterol/Ipratropium (Duoneb) 3 ml NEB [id number] PRN PRN Reason: SOB &/or Wheezing Albuterol/Ipratropium (Duoneb) 3 ml NEB [id number] [facility] Last Admin: 06/06/17 07:17 Dose: 3 ml Anastrozole (Arimidex) 1 mg PO DAILY [facility] Last Admin: 06/06/17 09:52 Dose: 1 mg Apixaban (Eliquis) 5 mg PO BID [facility] Last Admin: 06/06/17 09:49 Dose: 5 mg Aspirin (Aspirin Chewable) 81 mg PO DAILY [facility] Last Admin: 06/06/17 09:52 Dose: 81 mg Celecoxib (Celebrex) 200 mg PO DAILY [facility] Last Admin: 06/06/17 09:50 Dose: 200 mg Clonidine (Catapres) 0.1 mg PO Q4H PRN PRN Reason: Systolic BP > 180 Last Admin: 06/03/17 21:32 Dose: 0.1 mg Cyclobenzaprine HCl (Flexeril) 5 mg PO TID PRN PRN Reason: Muscle Spasm Last Admin: 06/03/17 00:11 Dose: 5 mg Digoxin (Lanoxin) 0.25 mg PO QAM [facility] Last Admin: 06/06/17 09:55 Dose: 0.25 mg Diltiazem HCl (Cardizem Cd) 240 mg PO DAILY [facility] Last Admin: 06/06/17 09:55 Dose: 240 mg Duloxetine HCl (Cymbalta) 60 mg PO DAILY [facility] Last Admin: 06/06/17 09:55 Dose: 60 mg Flecainide Acetate (Tambocor) 100 mg PO Q12HR [facility] Last Admin: 06/06/17 09:56 Dose: 100 mg Guaifenesin (Mucinex) 600 mg PO TID [facility] Last Admin: 06/06/17 09:52 Dose: 600 mg Hydralazine HCl (Apresoline) 10 mg SLOW IVP Q4H PRN PRN Reason: Systolic BP > 180 Iron/Minerals/Multivitamins (Theragran M) 1 tab PO DAILY [facility] Last Admin: 06/06/17 09:50 Dose: 1 tab Levofloxacin (Levaquin) 750 mg PO 0600 [facility] Stop: 06/12/17 06:01 Last Admin: 06/06/17 05:41 Dose: 750 mg Lisinopril (Zestril) 10 mg PO DAILY [facility] Last Admin: 06/06/17 09:50 Dose: 10 mg Loperamide HCl (Imodium) 2 mg PO PRN PRN PRN Reason: Diarrhea/Loose Stools Loratadine (Claritin) 10 mg PO DAILYPRN PRN PRN Reason: Sinus Symptoms Magnesium Hydroxide (Milk Of Magnesium) 30 ml PO DAILYPRN PRN PRN Reason: Constipation Last Admin: 06/05/17 17:14 Dose: 30 ml Mineral Oil/White Petrolatum (Eucerin Cream) 0 gm TOP BIDPRN PRN PRN Reason: Dry Skin Nystatin (Mycostatin Powder) 1 gm TOP BID PRN PRN Reason: Topical Irritations Ondansetron HCl (Zofran Odt) 4 mg PO Q6H PRN PRN Reason: Nausea/Vomiting Ondansetron HCl (Zofran) 4 mg IVP Q6H PRN PRN Reason: Nausea/Vomiting Last Admin: 05/28/17 07:50 Dose: 4 mg Pantoprazole Sodium (Protonix) 40 mg PO DAILY [facility] Last Admin: 06/06/17 09:52 Dose: 40 mg Phenol (Chloraseptic [place] 180 Ml Bot) 0 ml PO PRN PRN PRN Reason: Sore Throat Pregabalin (Lyrica) 100 mg PO TID [facility] Last Admin: 06/06/17 09:49 Dose: 100 mg Saccharomyces Boulardii (Florastor) 250 mg PO DAILY [facility] Last Admin: 06/06/17 09:55 Dose: 250 mg Senna (Senokot) 2 tab PO HSPRN PRN PRN Reason: Constipation Sodium Chloride ([place] Nasal [place] 0.65%) 0 ml EA NARE QIDPRN PRN PRN Reason: Nasal Congestion Sodium Chloride (Flush - Normal Saline) 10 ml IVF Q12HR [facility] Last Admin: 06/06/17 09:57 Dose: 10 ml Sodium Chloride (Flush - Normal Saline) 10 ml IVF PRN PRN PRN Reason: Saline Flush Valacyclovir HCl (Valtrex) 500 mg PO DAILY [facility] Last Admin: 06/06/17 09:49 Dose: 500 mg
--- NOTE | 2017-06-06 13:00 | PDOC.CTH ---
Cardiology Progress Note - Subjective The pt seen and examined. No overnight events. No cardiac complaints. she has home O2. - Objective Vital Signs Temp Pulse Resp BP BP BP Pulse Ox 06/06/17 09:55 83 06/06/17 09:50 141/65 H 06/06/17 08:45 98 F 83 20 141/65 H 93 L 06/06/17 08:00 98 F 83 20 93 L 06/06/17 07:19 95 06/06/17 07:17 76 16 96 06/06/17 04:04 94 L 06/06/17 04:00 97.9 F 75 16 131/56 L 92 L Weight 151 lb 06/05/17 06/06/17 06/07/17 06:59 06:59 06:59 Intake Total 1080 730 Output Total 1330 1325 Balance -250 -595 - Physical Examination General/Neuro: alert & oriented x3 Neck: no JVD present Lungs: CTA (diminished at bases) Heart: RRR Abdomen: soft Extremities: other: (No edemas) - Telemetry Telemetry Rhythm: Sr 70-80s - Labs Result Diagrams: 06/05/17 04:55 06/05/17 04:55 Troponin/CKMB CK-MB (CK-2) 1.6 ng/mL (0-6.6) 05/27/17 06:03 Troponin I 0.307 ng/mL (< 0.028) H* 05/27/17 12:09 - Assessment/Plan 1. New-onset Afib with RVR - Remains SR with HR 70-80s with flecainide 100mg BID ; S/p Cardioversion on 06/05/17; On Eliquis 5mg BID; Cont. monitor; She has LAE and may not maintain sinus even if she converts. 2. COPD exacerbation - stable; cont. monitor 3. Influenza A - 4. Pneumonia - improved 5. Strep bacteremia. 6. NSTEMI 2ndary to demand ischemia - stable; consider a stress test as an outpt. She has an abnormal EKG but the echo does not indicate a prior [place]. MAR reviewed * From Cardiac standpoint, the pt is stable to d/c home; The pt will f/u with Dr Harding' office within 1-2wks. Review of Systems - Review of Systems Constitutional: reports: no symptoms reported EENTM: reports: no symptoms reported Respiratory: reports: see HPI Cardiac (ROS): reports: no symptoms reported ABD/GI: reports: no symptoms reported : reports: no symptoms reported Musculoskeletal: reports: no symptoms reported Skin: reports: no symptoms reported
[2017-06-06] MEDS: Acetaminophen 325 MG TAB PO PRN (13:43)
--- NOTE | 2017-06-06 13:46 | DIS ---
DATE OF ADMISSION: 05/27/2017 DATE OF DISCHARGE: 06/06/2017 PRIMARY CARE PHYSICIAN: Adrian Vega M.D. DISCHARGE DISPOSITION: Home with home health. PRIMARY DISCHARGE DIAGNOSES: 1. Acute on chronic respiratory failure with hypoxia. 2. Atrial fibrillation with rapid ventricular response required cardioversion. 3. Bacteremia due to Streptococcus. 4. Streptococcal pneumonia. 5. Influenza A. 6. Chronic obstructive pulmonary disease with exacerbation. 7. Demand ischemia of the myocardium. 8. Lactic acidosis. 9. Sepsis with acute organ dysfunction. SECONDARY DISCHARGE DIAGNOSES: Paroxysmal SVT, hypertension, history of malignant neoplasm, gastroesophageal reflux disease, chronic pain disorder, anxiety and depression, COPD, chronic respiratory failure, paroxysmal atrial fibrillation. PRIMARY PROCEDURE/OPERATION: Cardioversion was performed by Dr. Harding, but it was unsuccessful. RADIOLOGICAL INVESTIGATION: Chest x-ray showed multifocal pneumonia. Echocardiography showed diastolic dysfunction, pulmonary hypertension, biatrial enlargement, moderate mitral regurgitation, severe tricuspid regurgitation. SIGNIFICANT LABORATORY DATA: WBC 9.2, hemoglobin 11.9, platelet 257. Sodium 140, potassium 3.8, and creatinine 0.72. LFT normal. Urinalysis suggestive of UTI. Blood culture positive for Streptococcus pneumonia. Urine culture negative. Influenza A was positive. DISCHARGE MEDICATIONS: Tylenol 500 mg q.6 hourly p.r.n., Ventolin nebulization q.4 hourly p.r.n., Xanax 0.25 mg p.o. b.i.d., Arimidex 1 mg p.o. daily, Eliquis 5 mg p.o. b.i.d., celecoxib 200 mg p.o. daily, Flexeril 10 mg t.i.d. p.r.n., digoxin 0.25 mg p.o. daily, Cardizem-CD 240 mg p.o. daily, Cymbalta 60 mg p.o. daily, Nexium 420 mg p.o. daily, flecainide 100 mg p.o. b.i.d., Mucinex 600 mg twice daily, Levaquin 750 mg p.o. daily, lisinopril 5 mg p.o. daily, multivitamin 1 tablet p.o. daily, Protonix 40 mg p.o. daily, Lyrica 100 mg p.o. t.i.d., Florastor 250 mg p.o. daily, tramadol 1 or 2 tablets q.6 hourly p.r.n., Valtrex 500 mg p.o. daily. CONTRAINDICATIONS: None. CODE STATUS: FULL CODE. INPATIENT CONSULTANTS: Dr. Harding was consulted while in hospital who did cardioversion. Dr. Luis Jimenez was consulted for electrophysiologic study and he recommended electrophysiologic study at this point. Dr. Pillai was following for pneumonia. TEST RESULTS PENDING ON DISCHARGE: None. ALLERGIES: OXYCODONE, CODEINE, DICLOFENAC HYDROCODONE. DISCHARGE PLAN: Post hospital, the patient will follow up with Dr. Harding, Dr. Gary Campbell, Dr. Pillai as well as Dr. Luis Jimenez as instructed. HOSPITAL COURSE: An 87-year-old female who was admitted by me on 05/27/2017. Please see my HPI for further details. This patient mainly came with respiratory distress. She was having acute on chronic respiratory failure with hypoxia. This patient was also having multifocal pneumonia and she had influenza A positive. She was initially very sick. She was having atrial fibrillation with RVR. She was having sepsis with acute organ dysfunction. Patient was admitted in [facility] and Cardiology and Pulmonary group saw this patient. Regarding influenza A, she was treated with Tamiflu and she has finished complete course of Tamiflu while in hospital. Regarding multifocal pneumonia, we were treating her with cefepime, Levaquin, and vancomycin, but upon identification of bacteria in blood, we changed to Levaquin therapy only. Patient will finish total 2 weeks of antibiotic therapy and the patient will get repeat chest x-ray upon followup visit with primary care physician and her pneumonia is significantly better. Regarding COPD exacerbation, she was optimally treated with COPD treatment and her COPD was completely stabilized by the time of discharge. Regarding atrial fibrillation, patient was again treated with Cardizem drip. Subsequently, amiodarone drip was also added, but her rate was not controlled and digoxin was added. Subsequently, flecainide was added and Cardiology did cardioversion, but it was also unsuccessful electrophysiologic study. Theoretical Physicist was consulted, but they were not planning to do any electrophysiologic study. Patient did not want to go to shelter on any rehab placement rather she wanted to go home. At this point, patient's condition is stabilized, she will continue medication as above. The patient is seen and examined at bedside today. Please see my progress note from today. I reviewed all new medication with her. Total time spent again on discharge day 31 minutes. JEANETTE
[2017-06-06 16:41] VITALS: BP 124/73; TEMP 98.3
== END 2017-06-06 15:33 | disposition home health service (06) | DRG 871 ==
LOC: ERS 05:25 → ERHOLD 08:20 → IMCU/EMU 17:09 → 2NO 05-30 16:34
PROVIDERS: ADMIT Internal Medicine; ATTEND Internal Medicine
PROC: 5A2204Z Restoration of Cardiac Rhythm, Single (ICD-10-PCS; principal; 2017-06-05)
DX: A40.3 Sepsis due to Streptococcus pneumoniae (principal); J96.21 Acute and chronic respiratory failure with hypoxia; R65.20 Severe sepsis without septic shock; I21.A1 Myocardial infarction type 2; J10.08 Influenza due to other identified influenza virus with other specified pneumonia; E87.2 Acidosis; I48.0 Paroxysmal atrial fibrillation; J44.0 Chronic obstructive pulmonary disease with (acute) lower respiratory infection; I47.1 Supraventricular tachycardia; J13 Pneumonia due to Streptococcus pneumoniae; J44.1 Chronic obstructive pulmonary disease with (acute) exacerbation; Z87.01 Personal history of pneumonia (recurrent); I10 Essential (primary) hypertension; K21.9 Gastro-esophageal reflux disease without esophagitis; F41.8 Other specified anxiety disorders; I27.20 Pulmonary hypertension, unspecified; I08.1 Rheumatic disorders of both mitral and tricuspid valves; Z85.3 Personal history of malignant neoplasm of breast; Z96.612 Presence of left artificial shoulder joint; Z96.643 Presence of artificial hip joint, bilateral; G89.4 Chronic pain syndrome
CPT/HCPCS: 36415; 51701; 71010; 80048; 80053; 80202; 81003; 81015; 82550; 82553; 82565; 82805; 83605; 83690; 83735; 84443; 84484; 85014; 85018; 85025; 85049; 87040; 87077; 87086; 87149; 87186; 92960; 93005; 93010; 93306; 94640; 94660; 94760; 96365; 96366; 96367; 96375; A4216; A4353; G8978-GP-CL; G8979-GP-CJ; G8987-GO-CK; G8988-GO-CI; J0282; J1160; J1650; J1956; J2543; J2704; J2920; J2930; J3370; J7050; J7611; J7620

== ENCOUNTER 2017-06-07 06:55 | Inpatient (IN) | payer MEDICARE ==
[2017-06-07 07:24] LABS: #Basophils 0.1 thou/uL (0.0-0.2); #Lymphocytes 1.3 thou/uL (1.20-3.40); #Monocytes 0.7 thou/uL (0.11-0.59); #Neutrophils 10.7 thou/uL (1.40-6.50); %Basophils 0.7 % (0.0-1.0); %Eosinophils 0.3 % (0.0-10.0); %Lymphocytes 10.3 % (21.0-51.0); %Monocytes 5.6 % (0.0-10.0); Hematocrit 36.3 % (36.0-47.0); Mean Platelet Volume 7.4 fL (7.4-10.4); Red Blood Cell (RBC) Count 3.62 mill/uL (4.20-5.40); White Blood Cell (WBC) Count 12.9 thou/uL (4.8-10.8)
[2017-06-07 07:30] LABS: PTT 33.8 SEC (22.9-36.1); Prothrombin Time 17.3 SEC (12.0-14.7)
[2017-06-07 07:45] LABS: ALT (SGPT) 18 U/L (8-55); AST (SGOT) 22 U/L (5-34); Alkaline Phosphatase 61 U/L (40-150); Anion Gap 11 mmol/L (10-20); BUN (Urea Nitrogen) 25 mg/dL (9.8-20.1); Bilirubin, Total 0.5 mg/dL (0.2-1.2); Calc. Creatinine Clearance 0 mL/min (70-130); Calcium 8.9 mg/dL (7.8-10.44); Carbon Dioxide 28 mmol/L (23-31); Chloride 97 mmol/L (98-107); Digoxin 1.83 ng/mL (0.8-2.0); Estimated GFR-MDRD 74; Globulin 3.5 g/dL (2.4-3.5); Protein, Total 6.6 g/dL (6.0-8.3)
[2017-06-07 07:49] LABS: Troponin I 0.257 ng/mL (< 0.028)
[2017-06-07 07:57] LABS: Anion Gap 9 mmol/L (-14-95); T. Carbon Dioxide 29.8 mmol/L (1.0-85.0)
--- NOTE | 2017-06-07 08:05 | RAD ---
AP CHEST: Comparison: 05-27-17 Indication: Respiratory distress. FINDINGS: There is persistent left perihilar and left infrahilar airspace consolidation suspicious for persiste nt pneumonia. There are small bilateral pleural effusions. There is cardiomegaly with pulmonary vascu lar congestion. No pneumothorax is evident. Osseous structures and left total shoulder replacement ap pears similar. Compression abnormality with vertebroplasty change at T12 is similar appearing. IMPRESSION: 1. Persistent pneumonia. 2. Findings of CHF. POS: H
[2017-06-07] MEDS ORDERED: Furosemide 40 MG/4 ML VIAL ONE (09:28)
[2017-06-07 14:14] LABS: Troponin I 0.268 ng/mL (< 0.028)
[2017-06-07] MEDS ORDERED: hydrALAZINE 20 MG/ML VIAL SLOW IVP PRN (17:16)
[2017-06-07] MEDS ORDERED: Albuterol Sulfate 2.5 mg/3 ml Neb NEB PRN (17:16)
[2017-06-07] MEDS ORDERED: Acetaminophen 500 MG TAB PO PRN (17:16)
[2017-06-07] MEDS ORDERED: cloNIDine 0.1 MG TAB PO PRN (17:16)
[2017-06-07] MEDS ORDERED: Ondansetron HCl/PF 4 MG/2 ML Vial IVP PRN (17:16)
[2017-06-07] MEDS ORDERED: Ondansetron ODT 4 MG TAB PO PRN (17:16)
[2017-06-07] MEDS ORDERED: traMADol HCl 50 MG TAB PO PRN (18:00)
[2017-06-07] MEDS ORDERED: Furosemide 40 MG/4 ML VIAL SLOW IVP SCH (18:00)
[2017-06-07] MEDS: traMADol HCl 50 MG TAB PO PRN (18:32)
--- NOTE | 2017-06-07 19:01 | HP ---
DATE OF ADMISSION: 06/07/2017 PRIMARY CARE PROVIDER: Dr. Vega. CHIEF COMPLAINT: Shortness of breath and weakness. HISTORY OF PRESENT ILLNESS: This is an 87-year-old female who presents to [facility] after a discharge 06/06/2017, being homeless in 24 hours, presenting back to [facility] Emergency Department with complaints of shortness of breath and general weakness. The patient was notably admitted to [facility] from 05/27/2017 through 06/06/2017 for acute respiratory failure, likely multifactorial in conjunction with chronic obstructive pulmonar y disease exacerbation. The patient also with chronic atrial fibrillation with variable rate control , undergoing cardioversion as well as multiple medical treatments including Cardizem, amiodarone and flecainide with unsuccessful rate control. The patient was also treated for Streptococcus bacteremia likely from Streptococcal pneumonia and influenza A positivity. The patient states she returned j luis e, but was progressively weak in less than 24 hours, unable to get out of bed per the son's report. The patient states she was minimally ambulatory during her hospital stay for 10 days. The patient pr esented with acute respiratory distress with evidence of volume overload receiving IV Lasix in the em ergency room. Portable chest imaging showed persistent infiltrates of the left arianna and infrahilar r egion concerning for persistent pneumonia. The patient also was noted with pulmonary edema consisten t with congestive heart failure. The patient denies any specific fever or chills, and had some impro vement after a short course of BiPAP noninvasive mechanical ventilation in the emergency room, IV Las ix and attempted cardioversion with a short interval of sinus mechanism. PAST MEDICAL HISTORY: 1. Acute/chronic hypoxemic respiratory failure with chronic oxygen supplementation at 2 liters per m inute by nasal cannula. 2. Chronic atrial fibrillation with variable rate control, status post cardioversion and multiple me dical modalities. 3. Streptococcus pneumonia with bacteremia. 4. Influenza A. 5. Chronic obstructive pulmonary disease with recent exacerbation. 6. Elevated troponin I secondary to demand ischemia. 7. Lactic acidosis. 8. Sepsis with acute organ dysfunction secondary to Streptococcus species. 9. Hypertension. 10. Deconditioning. 11. Gastroesophageal reflux disease. 12. Chronic pain syndrome. 13. Anxiety/depression. 14. History of breast cancer, status post chemotherapy. 15. History of mechanical falls. PAST SURGICAL HISTORY: 1. Status post left breast needle localization with lumpectomy. 2. Status post bilateral total hip arthroplasty. 3. Status post left shoulder replacement. 4. Status post lumbar spine surgery. CURRENT MEDICATIONS: Based on recent discharge 06/06/2017. 1. Ventolin nebulized solution q.4 hours p.r.n. 2. Xanax 0.25 mg p.o. b.i.d. 3. Arimidex 1 mg p.o. daily. 4. Eliquis 5 mg 1 tab p.o. b.i.d. 5. Celebrex 200 mg p.o. daily. 6. Flexeril 10 mg p.o. t.i.d. p.r.n. 7. Digoxin 0.25 mg p.o. daily. 8. Cardizem CD 240 mg p.o. daily. 9. Cymbalta 60 mg 1 tab p.o. daily. 10. Nexium 40 mg p.o. daily. 11. Flecainide 100 mg p.o. b.i.d. 12. Mucinex 600 mg p.o. b.i.d. 13. Levaquin 750 mg p.o. daily. 14. Lisinopril 5 mg 1 tablet p.o. daily. 15. Multivitamin 1 tab p.o. daily. 16. Protonix 40 mg 1 tab p.o. daily. 17. Lyrica 100 mg 1 tab p.o. t.i.d. 18. Florastor 250 mg p.o. daily. 19. Tramadol 50 mg 1-2 tabs p.o. q.6 hours p.r.n. pain. 20. Valtrex 500 mg p.o. daily. ALLERGIES: OXYCODONE, CODEINE, DICLOFENAC. FAMILY HISTORY: No inheritable diseases per patient report. SOCIAL HISTORY: Patient lives at home with her family. No current alcohol, tobacco or illicit drug use. Ambulates with the use of a rolling walker, standby assistance. History of prior falls. REVIEW OF SYSTEMS: The following complete review of systems was negative, unless otherwise mentioned in the HPI or below: Constitutional: Weight loss or gain, ability to conduct usual activities. Skin: Rash, itching. Eyes: Double vision, pain. ENT/Mouth: Nose bleeding, neck stiffness, pain, tenderness. Cardiovascular: Palpitations, dyspnea on exertion, orthopnea. Respiratory: Shortness of breath, wheezing, cough, hemoptysis, fever or night sweats. Gastrointestinal: Poor appetite, abdominal pain, heartburn, nausea, vomiting, constipation, or diarr hea. Genitourinary: Urgency, frequency, dysuria, nocturia. Musculoskeletal: Pain, swelling. Neurologic/Psychiatric: Anxiety, depression. Allergy/Immunologic: Skin rash, bleeding tendency. Otherwise negative except as stated per HPI. PHYSICAL EXAMINATION: VITAL SIGNS: On admission, blood pressure 147/62, pulse 79, respiratory rate is 31, temperature 97.8 degrees Fahrenheit, O2 saturation 94% on BiPAP noninvasive mechanical ventilation in the emergency r oom and currently 94% on 3 liters per minute by nasal cannula. GENERAL APPEARANCE: This is an 87-year-old female, alert and oriented x3, pleasant, in no acute distress. HEENT: Pupils are equal, round, and reactive to light and accommodation. Extraocular muscles are in tact. No scleral icterus, no conjunctival injection. Nares patent. OP is clear. Teeth in poor rep air. NECK: Supple, no cervical adenopathy, no thyromegaly, no carotid bruits, no JVD appreciated. Cervic al spine with full active and passive range of motion. No meningeal signs appreciated. CHEST: Diminished breath sounds in the bases bilaterally. Scattered crackles. CARDIOVASCULAR: S1, S2 with irregular rate and rhythm. ABDOMEN: Obese, soft, nontender, nondistended. Bowel sounds are positive in all four quadrants. Th ere is no hepatosplenomegaly, no abdominal bruits, no rebound or guarding appreciated. EXTREMITIES: Warm and dry with fair turgor. No clubbing, cyanosis or asymmetric edema appreciated. Pulses palpable distally at the dorsalis pedis, posterior tibial, and popliteal arteries bilaterally . Capillary refill less than 2 seconds. NEUROLOGIC: Cranial nerves II-XII are grossly intact. No focal or lateralizing signs appreciated. The patient not observed ambulatory during this exam. PERTINENT LABORATORY AND X-RAY FINDINGS: Sodium 136, potassium 4.7, chloride 98, CO2 of 28, BUN 25, creatinine 0.74, glucose 199, calcium 8.9. LFTs within normal limits. Troponin I ranged between 0.2 57, 0.350. BNP 796, previously noted 567 on 03/15/2017. CBC showed a white blood cell count of 12.9 , hemoglobin 12, hematocrit 36, MCV 100, platelet count 278 with 83% neutrophils. Venous blood gas d ated 06/07/2017 showed a pH of 7.51, pCO2 of 36, pO2 of 120, bicarbonate 28.7 with 99% O2 saturation. Digoxin level 1.83. Portable chest x-ray dated 06/07/2017 showed left arianna and infrahilar consolid ation concerning for persistent pneumonia. Pulmonary edema noted. EKG dated 06/07/2017 by my interp retation shows sinus mechanism with a first degree AV block. Attenuated R waves noted in the precord ial leads. Left axis deviation noted. T-wave flattening with inversion in V5 and V6. ASSESSMENT AND PLAN: 1. Acute on chronic hypoxemic respiratory failure. Continue aggressive pulmonary supportive measure s. Initially managed with BiPAP noninvasive mechanical ventilation transitioning to oxygen by nasal cannula at 4 liters per minute. Continue general pulmonary supportive measures, see #2 below. 2. Acute congestive heart failure, likely secondary to diastolic dysfunction. Review of 2D transtho racic echocardiogram, 05/28/2017 shows ejection fraction of 55-60%. We will continue Lasix 40 mg IV q.12 hours. Continue to monitor I's and O's. Consult Cardiology service in the a.m. for further rec ommendations and management. 3. Chronic atrial fibrillation with variable rate on chronic Eliquis therapy. Continue digoxin 0.25 mg p.o. daily. Continue diltiazem CD 240 mg p.o. daily. Continue Tambocor 100 mg p.o. q.12 hours. 4. Elevated troponin I. Suspect demand ischemia in the context of acute respiratory failure with as sociated atrial fibrillation and rapid ventricular response. Continue supportive management as outli gary previously. 5. Severe deconditioning. We will obtain PT evaluation for functional assessment. The patient may be an appropriate candidate for ongoing skilled care after discharge. 6. Question of persistent left-sided pneumonia with streptococcal species. We will continue Levaqui n 500 mg IV q.24 hours. Continue general supportive measures. 7. Prophylaxis. Sequential compression devices while in bed. Pepcid 20 mg p.o. b.i.d. PT evaluati on pending. 8. Code status is FULL. Surrogate medical decision maker is patient's son.
[2017-06-07] MEDS: Apixaban 5 MG TAB PO SCH (20:41)
[2017-06-07] MEDS: Pregabalin 50 MG CAP PO SCH (20:41)
[2017-06-07] MEDS: Famotidine 20 MG TAB PO SCH (20:42)
[2017-06-07] MEDS: ALPRAZolam 0.25 MG TAB PO SCH (20:42)
[2017-06-08 05:13] LABS: Anion Gap 9 mmol/L (10-20); BUN (Urea Nitrogen) 24 mg/dL (9.8-20.1); Calc. Creatinine Clearance 55 mL/min (70-130); Calcium 8.7 mg/dL (7.8-10.44); Carbon Dioxide 36 mmol/L (23-31); Chloride 97 mmol/L (98-107); Estimated GFR-MDRD 75
[2017-06-08] MEDS: Furosemide 40 MG/4 ML VIAL SLOW IVP SCH ×2 (05:22→12:40)
[2017-06-08 05:26] LABS: Band 12 % (5-11); Hematocrit 35.1 % (36.0-47.0); Mean Platelet Volume 7.7 fL (7.4-10.4); Neutrophil 66 % (42-75); Red Blood Cell (RBC) Count 3.57 mill/uL (4.20-5.40); White Blood Cell (WBC) Count 6.6 thou/uL (4.8-10.8)
[2017-06-08] MEDS ORDERED: Digoxin 0.25 MG TAB PO SCH (09:00)
[2017-06-08] MEDS: Multivit, Therapeutic 1 TAB PO SCH (09:31)
[2017-06-08] MEDS: Lisinopril 5 MG TAB PO SCH (09:31)
[2017-06-08] MEDS: Famotidine 20 MG TAB PO SCH ×2 (09:32→20:25)
[2017-06-08] MEDS: Saccharomyces boulardii 250 MG CAP PO SCH (09:32)
[2017-06-08] MEDS: Pregabalin 50 MG CAP PO SCH ×3 (09:32→20:25)
[2017-06-08] MEDS: Apixaban 5 MG TAB PO SCH ×2 (09:33→20:25)
[2017-06-08] MEDS: Anastrozole 1 MG TAB PO SCH (09:33)
[2017-06-08] MEDS: ALPRAZolam 0.25 MG TAB PO SCH ×2 (09:34→20:24)
[2017-06-08] MEDS: traMADol HCl 50 MG TAB PO PRN (12:40)
--- NOTE | 2017-06-08 14:10 | CON ---
DATE OF CONSULTATON: 06/08/2017 SERVICE: Pulmonary Medicine REASON FOR CONSULTATION: CU patient. HISTORY OF PRESENT ILLNESS: The patient is a very sweet 87-year-old white female who recently was in the hospital because of Streptococcus pneumonia as well as influenza. Both of these were acquired in the community setting. She recovered from this and was actually discharged from the hospital 3 da ys ago. She returned to the hospital yesterday because of increasing work of breathing that was comi ng on during rest. It prevented her from getting any consolidated rest. She subsequently returned t o the emergency department. She was tucked into the [facility]. Overnight, she was diuresed and this morn ing, her work of breathing is much improved, though she does not feel like she has any energy whatsoe dayana. She does not feel safe to be home at this time. As such, she is interested in perhaps looking into inpatient skilled options. She is hopeful that this is a temporary placement so that she can re cover her strength and be able to move back home. Otherwise, there has been no interval change to he r condition. She currently denies any fevers, chills, nausea, vomiting, chest discomfort, cough prod uctive of any sputum with color. She denies any lower extremity swelling. PAST MEDICAL HISTORY: 1. Atrial fibrillation. 2. Chronic obstructive pulmonary disease. 3. Hypertension. 4. Gastroesophageal reflux disease. 5. Anxiety disorder. 6. Major depressive disorder. 7. Deconditioning, severe. 8. History of breast cancer. PAST SURGICAL HISTORY: 1. Left needle biopsy with lumpectomy. 2. Total hip arthroplasty, bilateral. 3. Shoulder replacement surgeries, left. 4. Lumbar spine surgery. ALLERGIES: OXYCODONE, CODEINE, DICLOFENAC. MEDICATIONS: List of inpatient medications were reviewed. No specific updates were made at this arcenio e. FAMILY HISTORY: Noncontributory. SOCIAL HISTORY: Negative for alcohol, tobacco or illicit drug use. At baseline, she uses a rolling walker to get around, but since this recent hospital stay, she has essentially been confined to bed w ith very limited mobility since being home. REVIEW OF SYSTEMS: Including general, head, ears, eyes, nose, throat, cardiovascular, respiratory, G I, , musculoskeletal, neurologic and skin is negative except as mentioned in the HPI. PHYSICAL EXAMINATION: VITAL SIGNS: Afebrile, pulse 93, blood pressure 124/59, respirations 24, saturation 93% on 3 liters nasal cannula. GENERAL: The patient is awake, alert, in no apparent distress. LUNGS: Excellent air entry. I do not appreciate a significantly prolonged expiratory phase or wheez ing. Dependent crackles are evident. There is no rhonchi that I hear. HEART: Normal rate, regular. ABDOMEN: Soft, nontender, nondistended. Bowel sounds are positive. MUSCULOSKELETAL: No cyanosis or clubbing. There is no pitting in the bilateral lower extremities. NEUROLOGIC: Grossly nonfocal. LABORATORY DATA: WBC 6.6, hemoglobin 11.8, platelets 303,000. Band count is 12% and decreasing. IN R 1.4. PH 7.51, pCO2 36, pO2 120. Basic metabolic profile is essentially unremarkable with a normal creatinine of 0.73. Bicarb is 36 and up trending. Troponin 0.268 and down trending, BNP 796. Live r function studies are unremarkable. Digoxin 1.83. IMAGING: Chest x-ray demonstrates increasing pulmonary vascular congestion, bilateral pleural effusi ons are new. Cardiomegaly is evident. There is significant amounts of fluid in the interstitial spa ce, as well as the minor fissure, suggesting volume overload. ASSESSMENT: 1. Acute on chronic hypoxic respiratory failure. 2. Acute on chronic diastolic heart failure. 3. Recent community-acquired pneumonia secondary to Streptococcus and influenza, continuing to resol ve without obvious recrudescence in symptoms. 4. Debility, advanced. PLAN: I will put in a referral for case management to look into our placement options. At this poin t, I do not think it is safe for the patient to go directly home. She is interested in the most aggr essive physical therapy that she qualifies for so that she can ultimately get back onto her feet and into a home situation. Given her advanced age and debility, she understands how important it is for her to start moving. Pulmonary will continue to follow up for the time being. I agree with her curr ent antibiotic selection. If she continues to improve as she has done overnight, we can transition h er back on p.o. medications. Ultimately in 4 weeks, she will need to follow up with me in clinic in the outpatient setting to have a repeat chest x-ray to verify the infiltrate has resolved once again. If it does not, CT of the chest will be indicated.
--- NOTE | 2017-06-08 16:57 | PDOC.PN ---
- Subjective Encounter Start Date: 06/08/17 Encounter Start Time: 16:55 Subjective: f/u for acute resp failure likely due to diastolic CHF and recent PNA -: and Influenza A. Continues on Levaquin, Duonebs and O2. -: Overall feeling better but very weak. - Objective Resuscitation Status: Resuscitation Status FULL:Full Resuscitation MAR Reviewed: Yes Vital Signs & Weight: Vital Signs (12 hours) Temp Pulse Pulse Pulse Resp BP BP 06/08/17 16:00 98.2 F 63 20 06/08/17 13:50 78 76 110/55 L 06/08/17 12:00 97.4 F L 93 24 H 06/08/17 10:29 83 83 116/50 L 06/08/17 09:33 90 149/75 H 06/08/17 09:31 90 149/75 H 06/08/17 08:00 98.1 F 90 20 06/08/17 07:41 98.1 F 90 20 BP BP Pulse Ox Pulse Ox Pulse Ox 06/08/17 16:00 106/43 L 92 L 06/08/17 13:50 118/58 L 06/08/17 12:00 124/59 L 93 L 06/08/17 10:29 124/59 L 94 L 59 L 06/08/17 09:33 06/08/17 09:31 06/08/17 08:00 95 06/08/17 07:41 149/75 H 95 Weight Weight 139 lb I&O: 06/07/17 06/08/17 06/09/17 06:59 06:59 06:59 Intake Total 940 Output Total 1325 Balance -385 Result Diagrams: 06/08/17 04:26 06/08/17 04:26 Additional Labs: Microbiology 03/15/17 13:18 Venous blood - Right Arm Blood Culture - Final Streptococcus pneumoniae 03/15/17 13:00 Venous blood - Left Arm Blood Culture - Final Streptococcus pneumoniae Laboratory Tests 10/03/16 10/03/16 10/04/16 19:35 22:21 02:15 WBC Hgb Neutrophils % (Manual) Band Neuts % (Manual) Troponin I 0.052 H 0.059 H 0.049 H Digoxin 03/15/17 03/16/17 03/17/17 13:18 04:21 05:15 WBC 22.7 H 20.2 H Hgb Neutrophils % (Manual) 72 86 H Band Neuts % (Manual) 23 H 6 Troponin I Digoxin 06/07/17 06/07/17 07:13 07:13 WBC 12.9 H Hgb 11.7 L Neutrophils % (Manual) Band Neuts % (Manual) Troponin I Digoxin 1.83 EKG Reviewed by me: Yes (Tele - A-fib in 70's) Phys Exam - Physical Examination Constitutional: NAD HEENT: PERRLA, oral pharynx no lesions Neck: no JVD, supple diminished in bases Cardiovascular: irregular Gastrointestinal: soft, non-tender, no distention, positive bowel sounds Musculoskeletal: no edema, pulses present Neurological: normal sensation, moves all 4 limbs Psychiatric: A&O x 3 Skin: normal turgor, cap refill <2 seconds Dx/Plan (1) Acute diastolic (congestive) heart failure Code(s): I50.31 - ACUTE DIASTOLIC (CONGESTIVE) HEART FAILURE Status: Acute Comment: Improved with Lasix, continue diuresis and monitor I/O's, daily weight (2) Acute on chronic respiratory failure with hypoxia Code(s): J96.21 - ACUTE AND CHRONIC RESPIRATORY FAILURE WITH HYPOXIA Status: Acute Comment: Stable currently, O2 via NC, Duonebs, Levaquin (3) Pneumococcal pneumonia (streptococcus pneumoniae pneumonia) Code(s): J13 - PNEUMONIA DUE TO STREPTOCOCCUS PNEUMONIAE Status: Acute Comment: Continue Levaquin 500mg daily, general pulmonary supportive measures (4) Chronic pain disorder Code(s): G89.4 - CHRONIC PAIN SYNDROME Status: Chronic (5) Hypertension Code(s): I10 - ESSENTIAL (PRIMARY) HYPERTENSION Status: Chronic Qualifiers: Hypertension type: essential hypertension Qualified Code(s): I10 - Essential (primary) hypertension Comment: Stable, continue current BP regimen (6) Severe muscle deconditioning Code(s): R29.898 - OTH SYMPTOMS AND SIGNS INVOLVING THE MUSCULOSKELETAL SYSTEM Status: Chronic Comment: PT for functional assessment, CM for SNF options - Plan plan discussed w/ family, continue antibiotics, PT/OT, social insurance analyst, respiratory therapy, out of bed/ambulate, DVT proph w/SCDs Stable currently -: Continue Levaquin 500mg IV daily -: Continue Lasix 40mg IV daily -: Decrease Digoxin 0.125mg daily -: AM lab: BMP, Mg++, H/H * .
--- NOTE | 2017-06-08 19:29 | CON ---
DATE OF CONSULTATION: 06/08/2017 PRIMARY SLOOP CAPTAIN: Johnna Harding M.D. REASON FOR CONSULTATION: Atrial fibrillation. HISTORY OF PRESENT ILLNESS: Ms. Wick is a very pleasant 87-year-old white female who comes to the [facility] for weakness. She was recently admitted from the to the for COPD exacerbation. She went into atrial fibrillation which is a new onset at that time, and she had a cardioversion that was successful from converting her from atrial fibrillation into sinus rhythm, but then soon after conve rted into atrial flutter. She had several antiarrhythmics and eventually was just planned to do rate control and Eliquis for stroke prophylaxis. She was diagnosed with influenza type A at that time. She was home for less than 24 hours and had to come back as her breathing was a little worse and she felt just weak and felt she cannot do much. PAST MEDICAL HISTORY: 1. Acute hypoxic respiratory insufficiency, on chronic home O2. 2. Chronic atrial fibrillation, currently rate controlled. 3. Strep pneumonia with bacterium. 4. Influenza A recently. 5. Chronic obstructive pulmonary disease with recent exacerbation last week. 6. Hypertension. 7. Severe deconditioning. 8. Gastroesophageal reflux disease. 9. Chronic pain syndrome. 10. Anxiety/depression. 11. History of breast cancer, status post chemo. 12. Mechanical fall. PAST SURGICAL HISTORY: 1. Left breast needle lumpectomy. 2. Bilateral total hip arthroplasty. 3. Left shoulder replacement. 4. Lumber spine surgery. OUTPATIENT MEDICATIONS: Reviewed. They include, 1. Ventolin. 2. Xanax. 3. Arimidex. 4. Eliquis 5 mg b.i.d. 5. Celebrex. 6. Flexeril. 7. Digoxin 0.25 mg a day. 8. Cardizem . 9. Cymbalta. 10. Nexium. 11. Flecainide 100 mg p.o. b.i.d. 12. Mucinex. 13. Levaquin. 14. Lisinopril. 15. Multivitamin. 16. Protonix. 17. Lyrica. 18. Florastor. 19. Tramadol. 20. Valtrex. ALLERGIES: OXYCODONE, CODEINE, and DICLOFENAC. FAMILY HISTORY: Noncontributory. SOCIAL HISTORY: No alcohol, tobacco or drugs. REVIEW OF SYSTEMS: A 12-point review of systems was done and is all negative unless stated in the hi story of present illness. PHYSICAL EXAMINATION: VITAL SIGNS: Temperature 98.2, pulse 63, respiratory rate 20, satting 92% on 3-1/2 liters, blood pre ssure 106/43. GENERAL: Awake, alert and oriented x3, in no distress. HEENT: Normocephalic, atraumatic. NECK: Supple. LUNGS: Have bilateral crackles. ABDOMEN: Soft, positive bowel sounds. EXTREMITIES: Trace edema. SKIN: Warm and dry. LABORATORY WORK: Reviewed. She has elevated white count of 12, down to 6.6, hemoglobin 11.8, platel et count of 303. Coags were reviewed. ABG was reviewed. Chemistry was reviewed. BUN 24, creatinin e 0.73, GFR 75. Troponin was 0.35 and 0.26. BNP was 796, albumin of 3.1. UA cloudy with small amount of bilirubin, trace blood, 7-10 red cells, 4-6 white cells, rare few bact eria. Digoxin level was 1.83. Chest x-ray on this admission showed persistent pneumonia with findings suggestive of CHF. Telemetry was reviewed, atrial fibrillation, heart rate in the 50s to 60s. EKG on admission showed sinus rhythm with first degree AV block. ASSESSMENT AND PLAN: 1. Acute hypoxia and respiratory insufficiency. 2. Acute diastolic heart failure. 3. Atrial fibrillation, paroxysmal. 4. Deconditioning. 5. Left-sided pneumonia, persistent. 6. [id number] elevation myocardial infarction, likely demand ischemia from pneumonia, and influe nza type A. PLAN: 1. Continue current medication. We will agree with reducing the dose of digoxin as she was a little bradycardic while in atrial fibrillation. Digoxin currently at 0.125 mg a day. 2. Continue flecainide for now as well as Eliquis for stroke prophylaxis. She had some bleeding siena und her mouth, but has not had any severe bleeding for me to want to stop her medication. If she is deemed to be high fall risk in the next few days, then I would probably reconsider full anticoagulati on, switch her to aspirin, however, she is high risk for strokes given her TIAs in the past. 3. Would give IV Lasix for her mild diastolic dysfunction. Thank you for letting us to participate in the care of your patient. We will follow in the morning.
[2017-06-09 05:36] LABS: BUN (Urea Nitrogen) 28 mg/dL (9.8-20.1); Calc. Creatinine Clearance 53 mL/min (70-130); Calcium 8.7 mg/dL (7.8-10.44); Estimated GFR-MDRD 73; Magnesium 1.9 mg/dL (1.6-2.6)
[2017-06-09 05:47] LABS: Anion Gap 14 mmol/L (10-20); Carbon Dioxide 33 mmol/L (23-31); Chloride 94 mmol/L (98-107)
[2017-06-09] MEDS ORDERED: Furosemide 40 MG/4 ML VIAL SLOW IVP SCH (09:00)
[2017-06-09] MEDS: Pregabalin 50 MG CAP PO SCH ×3 (09:09→20:22)
[2017-06-09] MEDS: Famotidine 20 MG TAB PO SCH ×2 (09:10→20:23)
[2017-06-09] MEDS: ALPRAZolam 0.25 MG TAB PO SCH ×2 (09:10→20:22)
[2017-06-09] MEDS: Saccharomyces boulardii 250 MG CAP PO SCH (09:10)
[2017-06-09] MEDS: Digoxin 0.125 MG TAB PO SCH (09:10)
[2017-06-09] MEDS: Lisinopril 5 MG TAB PO SCH (09:10)
[2017-06-09] MEDS: Multivit, Therapeutic 1 TAB PO SCH (09:10)
[2017-06-09] MEDS: Anastrozole 1 MG TAB PO SCH (09:12)
[2017-06-09] MEDS: Apixaban 5 MG TAB PO SCH ×2 (09:16→20:23)
--- NOTE | 2017-06-09 12:35 | PDOC.CTH ---
Cardiology Progress Note - Subjective No new issues or concerns. Breathing at baseline. - Objective Vital Signs Temp Pulse Resp BP Pulse Ox 06/09/17 12:00 97.6 F 73 20 128/58 L 96 06/09/17 09:10 90 06/09/17 08:36 92 L 06/09/17 08:35 96 06/09/17 08:00 97.6 F 90 18 92 L 06/09/17 07:37 97.6 F 90 18 148/65 H 95 06/09/17 04:00 97.1 F L 82 22 H 128/67 96 Weight 139 lb 5 oz 06/08/17 06/09/17 06/10/17 06:59 06:59 06:59 Intake Total 940 1920 Output Total 1325 2400 Balance -385 -480 - Physical Examination General/Neuro: NAD Neck: no JVD present Lungs: unlabored respirations Heart: other: (Irreg) Abdomen: NT/ND Extremities: + edema B (1+) - Telemetry Telemetry Rhythm: Afib HR 70's. - Labs Result Diagrams: 06/08/17 04:26 06/09/17 04:42 Troponin/CKMB CK-MB (CK-2) 2.7 ng/mL (0-6.6) 06/07/17 07:13 Troponin I 0.268 ng/mL (< 0.028) H 06/07/17 13:15 - Assessment/Plan 1. NSTEMI, demand ischemia 2. Acute hypoxic respiratory failure. 3. Acute diastolic heart failure. improved. 4. Deconditioning. 5. Left sided pneumonia. 6. paroxysmal afib PLAN: - Continue Eliquis for stroke prophylaxis. - Continue other meds. - Placement.
--- NOTE | 2017-06-09 13:23 | PDOC.PN ---
- Subjective Encounter Start Date: 06/09/17 Encounter Start Time: 13:15 Subjective: f/u for acute resp failure with recent strep PNA, diast CHF and NSTEMI. -: Overall improved and minimal SOB. Still weak with movement or transfers. - Objective Resuscitation Status: Resuscitation Status FULL:Full Resuscitation MAR Reviewed: Yes Vital Signs & Weight: Vital Signs (12 hours) Temp Pulse Resp BP Pulse Ox 06/09/17 12:00 97.6 F 73 20 128/58 L 96 06/09/17 09:10 90 06/09/17 08:36 92 L 06/09/17 08:35 96 06/09/17 08:00 97.6 F 90 18 92 L 06/09/17 07:37 97.6 F 90 18 148/65 H 95 06/09/17 04:00 97.1 F L 82 22 H 128/67 96 Weight Weight 139 lb 5 oz I&O: 06/08/17 06/09/17 06/10/17 06:59 06:59 06:59 Intake Total 940 1920 Output Total 1325 2400 Balance -385 -480 Result Diagrams: 06/08/17 04:26 06/09/17 04:42 Additional Labs: Microbiology 03/15/17 13:18 Venous blood - Right Arm Blood Culture - Final Streptococcus pneumoniae 03/15/17 13:00 Venous blood - Left Arm Blood Culture - Final Streptococcus pneumoniae Laboratory Tests 10/03/16 10/03/16 10/04/16 19:35 22:21 02:15 WBC Hgb Neutrophils % (Manual) Band Neuts % (Manual) Troponin I 0.052 H 0.059 H 0.049 H Digoxin 03/15/17 03/16/17 03/17/17 13:18 04:21 05:15 WBC 22.7 H 20.2 H Hgb Neutrophils % (Manual) 72 86 H Band Neuts % (Manual) 23 H 6 Troponin I Digoxin 06/07/17 06/07/17 06/07/17 07:13 07:13 07:13 WBC 12.9 H Hgb 11.7 L Neutrophils % (Manual) Band Neuts % (Manual) Troponin I 0.257 H Digoxin 1.83 06/07/17 06/07/17 10:03 13:15 WBC Hgb Neutrophils % (Manual) Band Neuts % (Manual) Troponin I 0.350 H* 0.268 H Digoxin EKG Reviewed by me: Yes (Tele - A-fib in 80's) Phys Exam - Physical Examination Constitutional: NAD HEENT: PERRLA, oral pharynx no lesions Neck: no JVD, supple diminished in bases Respiratory: no wheezing Cardiovascular: irregular Gastrointestinal: soft, non-tender, no distention, positive bowel sounds Musculoskeletal: no edema, pulses present Neurological: normal sensation, moves all 4 limbs Psychiatric: A&O x 3 Skin: normal turgor, cap refill <2 seconds Dx/Plan (1) Acute diastolic (congestive) heart failure Code(s): I50.31 - ACUTE DIASTOLIC (CONGESTIVE) HEART FAILURE Status: Acute Comment: Improved with Lasix, continue diuresis and monitor I/O's, daily weight (2) NSTEMI (non-ST elevated myocardial infarction) Code(s): I21.4 - NON-ST ELEVATION (NSTEMI) MYOCARDIAL INFARCTION Status: Acute Comment: Supportive mgmt, continue Beta-blockers, statin (3) Acute on chronic respiratory failure with hypoxia Code(s): J96.21 - ACUTE AND CHRONIC RESPIRATORY FAILURE WITH HYPOXIA Status: Acute Comment: Stable currently, O2 via NC, Duonebs, Levaquin (4) Pneumococcal pneumonia (streptococcus pneumoniae pneumonia) Code(s): J13 - PNEUMONIA DUE TO STREPTOCOCCUS PNEUMONIAE Status: Acute Comment: Continue Levaquin 500mg daily, general pulmonary supportive measures (5) Chronic pain disorder Code(s): G89.4 - CHRONIC PAIN SYNDROME Status: Chronic (6) Hypertension Code(s): I10 - ESSENTIAL (PRIMARY) HYPERTENSION Status: Chronic Qualifiers: Hypertension type: essential hypertension Qualified Code(s): I10 - Essential (primary) hypertension Comment: Stable, continue current BP regimen (7) Severe muscle deconditioning Code(s): R29.898 - OTH SYMPTOMS AND SIGNS INVOLVING THE MUSCULOSKELETAL SYSTEM Status: Chronic Comment: PT for functional assessment, CM for SNF options - Plan plan discussed w/ family, continue antibiotics, PT/OT, social research assistant, respiratory therapy, out of bed/ambulate, DVT proph w/SCDs Stable overall -: Continue Digoxin 0.125mg daily -: Continue Diltiazem 240mg daily -: PT for mobilization -: CM for swing bed options * Transfer to tele * AM lab: BMP, Mg++
[2017-06-09] MEDS: traMADol HCl 50 MG TAB PO PRN (13:32)
[2017-06-09] MEDS ORDERED: Sodium Chloride 0.9% 10 ML ONE (18:08)
--- NOTE | 2017-06-09 21:55 | PRG ---
DATE OF SERVICE: 06/09/2017 SUBJECTIVE: Ms. Wick is afebrile. OBJECTIVE: VITAL SIGNS: Heart rates in the 80s-90s, respiratory rate is in the teens, oximetry is 92 on 4 liter s, blood pressure 159/64. LUNGS: Remarkable for fine crackles at her lung bases. IMPRESSION: 1. Diastolic heart failure. 2. Non-ST elevation myocardial infarction. 3. Pneumococcal pneumonia. 4. Hypertension. 5. Deconditioning. PLAN: She appears to be doing well. Digoxin and Cardizem had been added. PT has been consulted. S he is being evaluated for placement in a fdc facility for physical therapy and rehabilita tion.
[2017-06-10 05:00] LABS: Hematocrit 37.5 % (36.0-47.0)
[2017-06-10 05:21] LABS: BUN (Urea Nitrogen) 25 mg/dL (9.8-20.1); Calc. Creatinine Clearance 51 mL/min (70-130); Calcium 8.4 mg/dL (7.8-10.44); Estimated GFR-MDRD 71; Magnesium 2.2 mg/dL (1.6-2.6)
[2017-06-10 05:31] LABS: Anion Gap 12 mmol/L (10-20); Carbon Dioxide 36 mmol/L (23-31); Chloride 96 mmol/L (98-107)
[2017-06-10] MEDS: Digoxin 0.125 MG TAB PO SCH (08:18)
[2017-06-10] MEDS: Furosemide 40 MG TAB PO SCH (08:18)
[2017-06-10] MEDS: Saccharomyces boulardii 250 MG CAP PO SCH (08:19)
[2017-06-10] MEDS: Pregabalin 50 MG CAP PO SCH ×3 (08:19→22:36)
[2017-06-10] MEDS: Lisinopril 5 MG TAB PO SCH (08:19)
[2017-06-10] MEDS: Anastrozole 1 MG TAB PO SCH (08:20)
[2017-06-10] MEDS: Famotidine 20 MG TAB PO SCH ×2 (08:20→20:29)
[2017-06-10] MEDS: ALPRAZolam 0.25 MG TAB PO SCH ×2 (08:20→22:37)
[2017-06-10] MEDS: Multivit, Therapeutic 1 TAB PO SCH (08:20)
[2017-06-10] MEDS: Apixaban 5 MG TAB PO SCH ×2 (08:20→20:28)
[2017-06-10] MEDS ORDERED: Milk Of Magnesia 30 ML UDCUP PO PRN (11:13)
[2017-06-10] MEDS ORDERED: Milk Of Magnesia 30 ML UDCUP PO SCH (11:15)
--- NOTE | 2017-06-10 14:36 | PDOC.PN ---
- Subjective Encounter Start Date: 06/10/17 Encounter Start Time: 09:00 Pt seen for followup re: constipation. Denies chest pain, shortness of breath. - Objective Resuscitation Status: Resuscitation Status FULL:Full Resuscitation MAR Reviewed: Yes Vital Signs & Weight: Vital Signs (12 hours) Temp Pulse Resp BP Pulse Ox 06/10/17 12:00 98.8 F 100 20 118/62 95 06/10/17 07:29 97.9 F 73 20 128/58 L 97 06/10/17 04:00 97.8 F 78 16 128/59 L 93 L Weight Weight 144 lb I&O: 06/09/17 06/10/17 06/11/17 06:59 06:59 06:59 Intake Total 1920 400 Output Total 2400 Balance -480 400 Result Diagrams: 06/10/17 04:50 06/10/17 04:50 EKG Reviewed by me: Yes (Tele: georgette miranda) Phys Exam - Physical Examination Constitutional: NAD HEENT: moist MMs Neck: supple Respiratory: clear to auscultation bilateral Cardiovascular: RRR Gastrointestinal: soft Neurological: moves all 4 limbs Psychiatric: normal affect Dx/Plan (1) Constipation Code(s): K59.00 - CONSTIPATION, UNSPECIFIED Status: Acute (2) Acute diastolic (congestive) heart failure Code(s): I50.31 - ACUTE DIASTOLIC (CONGESTIVE) HEART FAILURE Status: Acute (3) NSTEMI (non-ST elevated myocardial infarction) Code(s): I21.4 - NON-ST ELEVATION (NSTEMI) MYOCARDIAL INFARCTION Status: Acute (4) Acute on chronic respiratory failure with hypoxia Code(s): J96.21 - ACUTE AND CHRONIC RESPIRATORY FAILURE WITH HYPOXIA Status: Acute (5) Anxiety and depression Code(s): F41.8 - OTHER SPECIFIED ANXIETY DISORDERS Status: Chronic (6) Chronic pain disorder Code(s): G89.4 - CHRONIC PAIN SYNDROME Status: Chronic (7) GERD (gastroesophageal reflux disease) Code(s): K21.9 - GASTRO-ESOPHAGEAL REFLUX DISEASE WITHOUT ESOPHAGITIS Status: Chronic (8) H/O malignant neoplasm of breast Code(s): Z85.3 - PERSONAL HISTORY OF MALIGNANT NEOPLASM OF BREAST Status: Chronic (9) Hypertension Code(s): I10 - ESSENTIAL (PRIMARY) HYPERTENSION Status: Chronic Qualifiers: Hypertension type: essential hypertension Qualified Code(s): I10 - Essential (primary) hypertension - Plan * . Continue diuretics. Milk of magnesia PRN. Monitor vital signs, titrate antihypertensives as needed. Demand ischemia, improved. Pt awaiting SNU. Review of Systems - Review of Systems Respiratory: SOB with Excertion. negative: Cough, Dry, Shortness of Breath, Hemoptysis, Pleuritic Pain, Sputum, Wheezing Cardiovascular: negative: chest pain, palpitations, orthopnea, paroxysmal nocturnal dyspnea, edema, light headedness Gastrointestinal: Constipation - Medications/Allergies Allergies/Adverse Reactions: Allergies Allergy/AdvReac Type Severity Reaction Status Date / Time adhesive Allergy Mild Rash Verified 03/15/17 19:48 oxycodone HCl Allergy Unknown Hives Verified 03/15/17 19:48 [From OxyContin] codeine Allergy Verified 03/15/17 19:48 diclofenac Allergy Verified 03/15/17 19:48 donepezil Allergy Verified 03/15/17 19:48 hydrocodone bitartrate Allergy AMS Verified 03/15/17 19:48 [From Vicodin] Medications: Current Medications Acetaminophen (Tylenol) 1,000 mg PO Q6H PRN PRN Reason: Headache/Fever or Mild Pain Albuterol Sulfate (Ventolin) 2.5 mg NEB Q4H PRN PRN Reason: SOB &/or Wheezing Alprazolam (Xanax) 0.25 mg PO BID [facility] Last Admin: 06/10/17 08:20 Dose: 0.25 mg Anastrozole (Arimidex) 1 mg PO DAILY [facility] Last Admin: 06/10/17 08:20 Dose: 1 mg Apixaban (Eliquis) 5 mg PO BID [facility] Last Admin: 06/10/17 08:20 Dose: 5 mg Clonidine (Catapres) 0.1 mg PO Q4H PRN PRN Reason: Systolic BP > 180 Digoxin (Lanoxin) 0.125 mg PO QAM [facility] Last Admin: 06/10/17 08:18 Dose: 0.125 mg Diltiazem HCl (Cardizem Cd) 240 mg PO DAILY [facility] Last Admin: 06/10/17 08:19 Dose: 240 mg Duloxetine HCl (Cymbalta) 60 mg PO DAILY [facility] Last Admin: 06/10/17 08:19 Dose: 60 mg Famotidine (Pepcid) 20 mg PO BID [facility] Last Admin: 06/10/17 08:20 Dose: 20 mg Flecainide Acetate (Tambocor) 100 mg PO Q12HR [facility] Last Admin: 06/10/17 08:20 Dose: 100 mg Furosemide (Lasix) 40 mg PO DAILY-AC [facility] Last Admin: 06/10/17 08:18 Dose: 40 mg Hydralazine HCl (Apresoline) 10 mg SLOW IVP Q4H PRN PRN Reason: Systolic BP > 180 Levofloxacin 500 mg/ Device 100 mls @ 100 mls/hr IVPB Q24HR@1830 [facility] Last Admin: 06/09/17 18:05 Dose: 100 mls Lisinopril (Zestril) 5 mg PO DAILY [facility] Last Admin: 06/10/17 08:19 Dose: 5 mg Magnesium Hydroxide (Milk Of Magnesium) 30 ml PO DAILYPRN PRN PRN Reason: Constipation Multivitamins (Theragran) 1 tab PO DAILY [facility] Last Admin: 06/10/17 08:20 Dose: 1 tab Ondansetron HCl (Zofran Odt) 4 mg PO Q6H PRN PRN Reason: Nausea/Vomiting Ondansetron HCl (Zofran) 4 mg IVP Q6H PRN PRN Reason: Nausea/Vomiting Pregabalin (Lyrica) 100 mg PO TID [facility] Last Admin: 06/10/17 08:19 Dose: 100 mg Saccharomyces Boulardii (Florastor) 250 mg PO DAILY [facility] Last Admin: 06/10/17 08:19 Dose: 250 mg Tramadol HCl (Ultram) 50 mg PO Q6H PRN PRN Reason: Mild-Moderate Pain (1-5) Last Admin: 06/09/17 13:32 Dose: 50 mg Tramadol HCl (Ultram) 100 mg PO Q6H PRN PRN Reason: Moderate to Severe Pain (6-10) Last Admin: 06/10/17 03:26 Dose: 100 mg
--- NOTE | 2017-06-10 19:30 | PRG ---
DATE OF SERVICE: 06/10/2017 SUBJECTIVE: Samira Wick still has no complaints, said she is feeling better. She is tentatively scheduled to go to a swing bed. She is not sure where she is going and lot of att empts depends on bed availability on a holiday weekend. OBJECTIVE: VITAL SIGNS: She is afebrile, heart rate 100, respiratory rate 20, oximetry is 95 on 3 liters, and b lood pressure 115/56. LUNGS: Clear anteriorly. HEART: Regular rhythm. ABDOMEN: Soft. LABORATORY DATA: Hemoglobin is 12.3. Sodium 140, potassium 3.6, chloride 96, bicarbonate 36, BUN 25, and creatinine 0.7. Intake and output not recorded. IMPRESSION: 1. Diastolic heart failure. 2. Non-ST elevation myocardial infarction. 3. Pneumococcal pneumonia. 4. Hypertension. 5. Deconditioning. PLAN: Continue current orders, which included nebulizer treatments, digoxin, Cardizem, flecainide, a nd Lasix. Her Levaquin can be converted to p.o. She is stable to transfer when the physicians agree.
[2017-06-10] MEDS ORDERED: Sodium Chloride 0.9% 10 ML ONE (20:11)
[2017-06-10] MEDS: traMADol HCl 50 MG TAB PO PRN (20:28)
[2017-06-11] MEDS ORDERED: Sodium Chloride 0.9% 10 ML ONE ×2 (05:43→20:24)
[2017-06-11 06:23] LABS: Anion Gap 9 mmol/L (10-20); BUN (Urea Nitrogen) 25 mg/dL (9.8-20.1); Calc. Creatinine Clearance 56 mL/min (70-130); Calcium 8.4 mg/dL (7.8-10.44); Carbon Dioxide 37 mmol/L (23-31); Chloride 94 mmol/L (98-107); Estimated GFR-MDRD 75; Magnesium 2.2 mg/dL (1.6-2.6)
[2017-06-11] MEDS: traMADol HCl 50 MG TAB PO PRN (06:53)
[2017-06-11] MEDS: Saccharomyces boulardii 250 MG CAP PO SCH (09:47)
[2017-06-11] MEDS: Furosemide 40 MG TAB PO SCH (09:47)
[2017-06-11] MEDS: Multivit, Therapeutic 1 TAB PO SCH (09:48)
[2017-06-11] MEDS: Famotidine 20 MG TAB PO SCH ×2 (09:48→21:07)
[2017-06-11] MEDS: Apixaban 5 MG TAB PO SCH ×2 (09:48→21:07)
[2017-06-11] MEDS: Anastrozole 1 MG TAB PO SCH (09:48)
[2017-06-11] MEDS: Lisinopril 5 MG TAB PO SCH (09:49)
[2017-06-11] MEDS: Pregabalin 50 MG CAP PO SCH ×3 (09:50→21:07)
[2017-06-11] MEDS: Digoxin 0.125 MG TAB PO SCH ×2 (09:51→09:56)
[2017-06-11] MEDS: ALPRAZolam 0.25 MG TAB PO SCH ×2 (09:52→21:07)
--- NOTE | 2017-06-11 10:40 | PDOC.PN ---
- Subjective Encounter Start Date: 06/11/17 Encounter Start Time: 10:35 Subjective: f/u for PNA with recent strep pneumonia, NSTEMI, diastolic CHF with NSTEMI. -: Overall improved. Awaiting SNF/swing bed options. - Objective Resuscitation Status: Resuscitation Status FULL:Full Resuscitation MAR Reviewed: Yes Vital Signs & Weight: Vital Signs (12 hours) Temp Pulse Resp BP BP Pulse Ox 06/11/17 09:56 68 06/11/17 09:49 61 131/64 06/11/17 09:47 131/64 06/11/17 08:05 98.1 F 18 128/62 95 06/11/17 04:00 97.5 F L 61 22 H 133/59 L 93 L 06/11/17 02:50 97 06/10/17 22:40 63 20 135/63 92 L Weight Weight 145 lb I&O: 06/10/17 06/11/17 06/12/17 06:59 06:59 06:59 Intake Total 400 1300 Output Total 1260 Balance 400 40 Result Diagrams: 06/10/17 04:50 06/11/17 05:09 EKG Reviewed by me: Yes (Tele - A-fib in 60's) Phys Exam - Physical Examination alert, responsive HEENT: PERRLA, oral pharynx no lesions Neck: no JVD, supple Respiratory: no wheezing Cardiovascular: irregular Gastrointestinal: soft, non-tender, no distention, positive bowel sounds Musculoskeletal: no edema, pulses present Neurological: normal sensation, moves all 4 limbs Psychiatric: A&O x 3 Skin: normal turgor, cap refill <2 seconds Dx/Plan (1) Acute diastolic (congestive) heart failure Code(s): I50.31 - ACUTE DIASTOLIC (CONGESTIVE) HEART FAILURE Status: Acute Comment: Resolved, continue Lasix 40mg daily (2) NSTEMI (non-ST elevated myocardial infarction) Code(s): I21.4 - NON-ST ELEVATION (NSTEMI) MYOCARDIAL INFARCTION Status: Acute Comment: Supportive mgmt, beta-blockers, statin (3) Acute on chronic respiratory failure with hypoxia Code(s): J96.21 - ACUTE AND CHRONIC RESPIRATORY FAILURE WITH HYPOXIA Status: Acute Comment: Resolved, continuing on O2 via NC at baseline levels (4) Pneumococcal pneumonia (streptococcus pneumoniae pneumonia) Code(s): J13 - PNEUMONIA DUE TO STREPTOCOCCUS PNEUMONIAE Status: Acute Comment: Continue Levaquin 500mg daily, general pulmonary supportive measures (5) Chronic pain disorder Code(s): G89.4 - CHRONIC PAIN SYNDROME Status: Chronic (6) Hypertension Code(s): I10 - ESSENTIAL (PRIMARY) HYPERTENSION Status: Chronic Qualifiers: Hypertension type: essential hypertension Qualified Code(s): I10 - Essential (primary) hypertension (7) Severe muscle deconditioning Code(s): R29.898 - OTH SYMPTOMS AND SIGNS INVOLVING THE MUSCULOSKELETAL SYSTEM Status: Chronic Comment: PT for functional assessment, CM for SNF options (8) Constipation Code(s): K59.00 - CONSTIPATION, UNSPECIFIED Status: Acute Comment: Mag Citrate 1 bottle today - Plan continue antibiotics, PT/OT, community mental health social worker, respiratory therapy, DVT proph w/ SCDs Stable overall -: Continue supportive mgmt -: Lasix 40mg po Daily -: Continue Levaquin 500mg po daily -: PT for mobilization * SNF options pending * OOB/ambulate with assist
[2017-06-11] MEDS ORDERED: Magnesium Citrate 300 ML BOT PO SCH (11:00)
--- NOTE | 2017-06-11 18:27 | PRG ---
DATE OF SERVICE: 06/11/2017 SUBJECTIVE: Samira Wick has no complaints. PHYSICAL EXAMINATION: VITAL SIGNS: She is afebrile, heart rate is 52, respiratory rate is 19, oximetry is 92% on 3 liters, and blood pressure 119/56. LUNGS: Clear. HEART: Regular rhythm. IMPRESSION: 1. Pneumonia. 2. Diastolic heart failure. 3. Non-ST elevation myocardial infarction. 4. Hypertension. 5. Deconditioning. PLAN: She is tentatively scheduled to go to [facility]. We will sign off.
[2017-06-12] MEDS: traMADol HCl 50 MG TAB PO PRN (00:29)
[2017-06-12 05:31] LABS: Hematocrit 35.3 % (36.0-47.0)
[2017-06-12 06:03] LABS: BUN (Urea Nitrogen) 21 mg/dL (9.8-20.1); Calc. Creatinine Clearance 52 mL/min (70-130); Calcium 8.3 mg/dL (7.8-10.44); Estimated GFR-MDRD 69; Magnesium 2.6 mg/dL (1.6-2.6)
[2017-06-12 06:12] LABS: Anion Gap 12 mmol/L (10-20); Carbon Dioxide 35 mmol/L (23-31); Chloride 95 mmol/L (98-107)
[2017-06-12 06:26] LABS: #Basophils 0.1 thou/uL (0.0-0.2); #Eosinphils 0.1 thou/uL (0.0-0.7); #Lymphocytes 2.3 thou/uL (1.20-3.40); #Monocytes 0.9 thou/uL (0.11-0.59); #Neutrophils 3.6 thou/uL (1.40-6.50); %Basophils 1.2 % (0.0-1.0); %Eosinophils 1.8 % (0.0-10.0); %Lymphocytes 32.8 % (21.0-51.0); %Monocytes 12.7 % (0.0-10.0); Mean Platelet Volume 7.5 fL (7.4-10.4); Red Blood Cell (RBC) Count 3.53 mill/uL (4.20-5.40)
[2017-06-12] MEDS: Digoxin 0.125 MG TAB PO SCH (08:00)
[2017-06-12] MEDS: Furosemide 40 MG TAB PO SCH (08:00)
[2017-06-12] MEDS: Anastrozole 1 MG TAB PO SCH (08:00)
[2017-06-12] MEDS: Apixaban 5 MG TAB PO SCH ×2 (08:01→20:44)
[2017-06-12] MEDS: Lisinopril 5 MG TAB PO SCH (08:01)
[2017-06-12] MEDS: Famotidine 20 MG TAB PO SCH ×2 (08:02→20:44)
[2017-06-12] MEDS: Saccharomyces boulardii 250 MG CAP PO SCH (08:02)
[2017-06-12] MEDS: Multivit, Therapeutic 1 TAB PO SCH (08:02)
[2017-06-12] MEDS: ALPRAZolam 0.25 MG TAB PO SCH ×2 (08:02→20:44)
[2017-06-12] MEDS: Pregabalin 50 MG CAP PO SCH ×3 (08:15→20:42)
--- NOTE | 2017-06-12 14:39 | PDOC.PN ---
- Subjective Encounter Start Date: 06/12/17 Encounter Start Time: 14:35 Subjective: f/u for PNA with strep pneumonia spp, NSTEMI and diast CHF. -: Overall feels better. Apparently slipped and fell this am but no significan -: injury. - Objective Resuscitation Status: Resuscitation Status FULL:Full Resuscitation MAR Reviewed: Yes Vital Signs & Weight: Vital Signs (12 hours) Temp Pulse Resp BP BP Pulse Ox 06/12/17 12:57 98.1 F 81 18 111/55 L 96 06/12/17 08:01 67 143/66 H 06/12/17 08:00 67 06/12/17 07:58 97.9 F 67 17 143/66 H 95 06/12/17 04:36 98.1 F 77 20 112/59 L 93 L 06/12/17 04:00 98.0 F 85 18 119/71 92 L Weight Weight 143 lb 14.4 oz I&O: 06/11/17 06/12/17 06/13/17 06:59 06:59 06:59 Intake Total 1300 1570 Output Total 1260 1600 Balance 40 -30 Result Diagrams: 06/12/17 04:48 06/12/17 04:48 EKG Reviewed by me: Yes (Tele - A-fib in 70's) Phys Exam - Physical Examination Constitutional: NAD HEENT: PERRLA, oral pharynx no lesions Neck: no JVD, supple Respiratory: no wheezing, clear to auscultation bilateral Cardiovascular: irregular Gastrointestinal: soft, non-tender, no distention, positive bowel sounds Musculoskeletal: no edema, pulses present Neurological: normal sensation, moves all 4 limbs Psychiatric: A&O x 3 Skin: normal turgor, cap refill <2 seconds Dx/Plan (1) Acute diastolic (congestive) heart failure Code(s): I50.31 - ACUTE DIASTOLIC (CONGESTIVE) HEART FAILURE Status: Acute Comment: Resolved, continue Lasix 40mg daily (2) NSTEMI (non-ST elevated myocardial infarction) Code(s): I21.4 - NON-ST ELEVATION (NSTEMI) MYOCARDIAL INFARCTION Status: Acute Comment: Supportive mgmt, beta-blockers, statin (3) Acute on chronic respiratory failure with hypoxia Code(s): J96.21 - ACUTE AND CHRONIC RESPIRATORY FAILURE WITH HYPOXIA Status: Acute Comment: Resolved, continuing on O2 via NC at baseline levels (4) Pneumococcal pneumonia (streptococcus pneumoniae pneumonia) Code(s): J13 - PNEUMONIA DUE TO STREPTOCOCCUS PNEUMONIAE Status: Acute Comment: Continue Levaquin 500mg daily, general pulmonary supportive measures (5) Chronic pain disorder Code(s): G89.4 - CHRONIC PAIN SYNDROME Status: Chronic (6) Hypertension Code(s): I10 - ESSENTIAL (PRIMARY) HYPERTENSION Status: Chronic Qualifiers: Hypertension type: essential hypertension Qualified Code(s): I10 - Essential (primary) hypertension (7) Severe muscle deconditioning Code(s): R29.898 - OT SYMPTOMS AND SIGNS INVOLVING THE MUSCULOSKELETAL SYSTEM Status: Chronic Comment: PT for functional assessment, CM for SNF options (8) Constipation Code(s): K59.00 - CONSTIPATION, UNSPECIFIED Status: Acute Comment: Mag Citrate with successful BM 06/12 - Plan plan discussed w/ family, continue antibiotics, PT/OT, social service technician, out of bed/ambulate, DVT proph w/SCDs Stable overall -: Continue Levaquin 500mg daily -: Continue Digoxin, Diltiazem and Eliquis -: PT for mobilization -: Add ASA 81mg daily * Likely d/c to [facility] bed in 24h * AM lab: BMP, H/H
[2017-06-12] MEDS: Nystatin Cream 30 GM TUBE TOP SCH (20:45)
[2017-06-13 05:13] VITALS: BMI 29.1
[2017-06-13 05:56] LABS: Anion Gap 11 mmol/L (10-20); BUN (Urea Nitrogen) 17 mg/dL (9.8-20.1); Calc. Creatinine Clearance 58 mL/min (70-130); Calcium 8.5 mg/dL (7.8-10.44); Carbon Dioxide 36 mmol/L (23-31); Chloride 95 mmol/L (98-107); Estimated GFR-MDRD 79; Magnesium 2.2 mg/dL (1.6-2.6)
[2017-06-13] MEDS: Furosemide 40 MG TAB PO SCH (09:07)
[2017-06-13] MEDS: Digoxin 0.125 MG TAB PO SCH (09:08)
[2017-06-13] MEDS: Apixaban 5 MG TAB PO SCH (09:08)
[2017-06-13] MEDS: Anastrozole 1 MG TAB PO SCH (09:08)
[2017-06-13] MEDS: ALPRAZolam 0.25 MG TAB PO SCH (09:08)
[2017-06-13] MEDS: Famotidine 20 MG TAB PO SCH (09:08)
[2017-06-13] MEDS: Lisinopril 5 MG TAB PO SCH (09:09)
[2017-06-13] MEDS: Pregabalin 50 MG CAP PO SCH ×2 (09:09→14:33)
[2017-06-13] MEDS: Multivit, Therapeutic 1 TAB PO SCH (09:09)
[2017-06-13] MEDS: Saccharomyces boulardii 250 MG CAP PO SCH (09:10)
[2017-06-13] MEDS: Nystatin Cream 30 GM TUBE TOP SCH (09:12)
[2017-06-13] MEDS: traMADol HCl 50 MG TAB PO PRN (10:37)
[2017-06-13 12:11] VITALS: BP 127/91; TEMP 98.7
--- NOTE | 2017-06-13 13:22 | DIS ---
DISCHARGE DIAGNOSES: 1. Acute on chronic hypoxemic respiratory failure, multifactorial, improved. 2. Acute diastolic congestive heart failure with ejection fraction of 55-60%. 3. Non-ST elevation myocardial infarction, stable, medical management. 4. Streptococcus pneumonia, improved. 5. Severe deconditioning. 6. Hypertension, stable. 7. Constipation, resolved. 8. Polypharmacy. 9. Atrial fibrillation with rapid ventricular response, currently rate controlled. CONSULTATIONS: 1. Dr. Dumont with Pulmonology Service. 2. Dr. Gtz with Cardiology Service. PERTINENT LABORATORY AND X-RAY FINDINGS: Sodium ranged between 131-140. Troponin ranged between 0.2 57-0.350. BNP 796. CBC showed a white blood cell count ranging between 6.6-12.9, hemoglobin ranged between 11.7-12.3. Digoxin level 1.83. Portable chest x-ray dated 06/07/2017 showed left infrahilar consolidation consistent with pneumonia. Pulmonary edema noted. HOSPITAL COURSE: The patient was admitted to the Intermediate Care Unit after presenting with acute on chronic hypoxemic respiratory failure. The patient was initially placed on BiPAP noninvasive [facility] anical ventilation, stabilizing and transitioning to nasal cannula supplementation. The patient unde rwent extensive evaluation with chest imaging showing evidence of pulmonary edema. The patient recei charyl IV Lasix therapy with excellent diuresis and stabilization of respiratory status. The patient eid d previously undergone 2D transthoracic echocardiogram evaluation on 05/28/2017 showing a preserved e jection fraction of 55-60% with diastolic dysfunction. The patient was evaluated by the Cardiology S ervice after initial troponin elevation was noted. The patient was titrated on her beta gustavo ther apy in addition to aspirin 81 mg daily. Recommendations are for medical management without aggressiv e intervention. The patient was slow to clinically improve and continued on antibiotic therapy after recent diagnosis of Streptococcal pneumonia noted on chest imaging in the left infrahilar region. T he patient transitioned from the Intermediate Care Unit to the Telemetry Unit, stabilizing clinically with general supportive measures. Due to patient's overall deconditioned status the patient was sushila med an appropriate candidate for ongoing skilled care after discharge. The patient has been approved for transfer to [facility] 06/13/2017. Overall, the patient remained clinically stable thro [facility] the remainder the hospital course and ready for discharge 06/13/2017. DISCHARGE MEDICATIONS: 1. Levaquin 500 mg 1 tab p.o. daily until 06/18/2017. 2. Ventolin nebulized solution 2.5 mg nebulized q.4h. p.r.n. 3. Xanax 0.25 mg p.o. b.i.d. 4. Arimidex 1 mg p.o. daily. 5. Eliquis 5 mg 1 tab p.o. b.i.d. 6. Flexeril 10 mg 1 tab p.o. t.i.d. p.r.n. 7. Digoxin 0.25 mg p.o. daily. 8. Cardizem-CD 240 mg 1 tab p.o. daily. 9. Cymbalta 60 mg 1 tab p.o. daily. 10. Nexium 20 mg 1 tab p.o. daily. 11. Lasix 40 mg 1 tab p.o. daily. 12. Lisinopril 5 mg 1 tablet p.o. daily. 13. Multivitamin 1 tab p.o. daily. 14. Lyrica 100 mg p.o. t.i.d. 15. Florastor 250 mg 1 tab p.o. daily. 16. Tramadol 50 mg 1-2 tabs p.o. q.6h. p.r.n. pain. FOLLOWUP: The patient may follow up with Dr. Adrian Vega within the next 7 days. CONDITION ON DISCHARGE: Stable. ACTIVITY: Ad quintin. Rolling walker with standby/contact guard assistance. DIET: Heart healthy. SPECIAL INSTRUCTIONS: Recommend ongoing physical and occupational therapy. CODE STATUS: Full. DISPOSITION: Discharge to [facility] 06/13/2017. Total time preparing and coordinating discharge is 35 minutes.
== END 2017-06-13 15:55 | disposition swing bed (61) | DRG 280 ==
LOC: ERS 06:55 → ERHOLD 08:40 → IMCU/EMU 16:07 → 2NO 06-09 14:05
PROVIDERS: ADMIT Family Medicine; ATTEND Family Medicine
PROC: 5A09357 Assistance with Respiratory Ventilation, Less than 24 Consecutive Hours, Continuous Positive Airway Pressure (ICD-10-PCS; principal; 2017-06-07)
DX: I11.0 Hypertensive heart disease with heart failure (principal); I21.A1 Myocardial infarction type 2; J96.21 Acute and chronic respiratory failure with hypoxia; I48.0 Paroxysmal atrial fibrillation; J13 Pneumonia due to Streptococcus pneumoniae; I48.2 Chronic atrial fibrillation; J44.0 Chronic obstructive pulmonary disease with (acute) lower respiratory infection; I50.33 Acute on chronic diastolic (congestive) heart failure; K59.00 Constipation, unspecified; K21.9 Gastro-esophageal reflux disease without esophagitis; G89.4 Chronic pain syndrome; F41.9 Anxiety disorder, unspecified; F32.9 Major depressive disorder, single episode, unspecified; R29.898 Other symptoms and signs involving the musculoskeletal system
CPT/HCPCS: 36415; 71010; 80048; 80053; 80162; 82330; 82553; 82565; 82803; 83735; 83880; 84484; 85007; 85014; 85018; 85025; 85027; 85049; 85610; 85730; 93005; 93798; 94660; 96374; A4216; G8978-GP-CK; G8979-GP-CI; J1940; J1956

== ENCOUNTER 2017-06-30 11:43 | Inpatient (IN) | payer MEDICARE ==
[2017-06-30 12:18] LABS: #Basophils 0.2 thou/uL (0.0-0.2); #Eosinphils 0.1 thou/uL (0.0-0.7); #Lymphocytes 3.2 thou/uL (1.20-3.40); #Monocytes 0.8 thou/uL (0.11-0.59); #Neutrophils 4.6 thou/uL (1.40-6.50); %Eosinophils 1.5 % (0.0-10.0); %Monocytes 9.3 % (0.0-10.0); %Neutrophils 51.2 % (42.0-75.0); Hemoglobin 13.5 g/dL (12.0-16.0); Mean Corpuscular HGB CONC 33.7 g/dL (32.0-36.0); Mean Corpuscular Hemoglobin 33.1 pg (27.0-31.0); Mean Corpuscular Volume 98.4 fl (81.0-99.0); Mean Platelet Volume 7.6 fL (7.4-10.4); Platelet Count 315 thou/uL (130-400); RBC Distribution Width 15.1 % (11.5-14.5); Red Blood Cell (RBC) Count 4.08 mill/uL (4.20-5.40)
--- NOTE | 2017-06-30 12:19 | RAD ---
PORTABLE CHEST 1 VIEW: Date: 06/30/17 Time: 1128 hours HISTORY: Altered mental status. FINDINGS: Comparison made with exam of 06/07/17. The heart is enlarged. The aorta is tortuous. There has been interval improvement in the left basilar pneumonia since the last exam. Mild residual opacity remains. No pneumothoraces are seen. A left hum eral head prosthesis remains in place. Degenerative changes in the right shoulder are again noted. IMPRESSION: Incomplete improvement without complete resolution of left basilar pneumonia since 06/07/17. POS: [facility]
[2017-06-30 12:22] LABS: INR-International Normal Ratio 1.6; PTT 35.6 SEC (22.9-36.1); Prothrombin Time 19.5 SEC (12.0-14.7)
[2017-06-30 12:36] LABS: ALT (SGPT) 10 U/L (8-55); AST (SGOT) 20 U/L (5-34); Albumin 3.2 g/dL (3.4-4.8); Alkaline Phosphatase 78 U/L (40-150); Anion Gap 13 mmol/L (10-20); BUN (Urea Nitrogen) 20 mg/dL (9.8-20.1); Bilirubin, Total 0.5 mg/dL (0.2-1.2); Calc. Creatinine Clearance 0 mL/min (70-130); Calcium 8.8 mg/dL (7.8-10.44); Carbon Dioxide 29 mmol/L (23-31); Chloride 97 mmol/L (98-107); Estimated GFR-MDRD 56; Glucose 128 mg/dL (83-110); Potassium 4.8 mmol/L (3.5-5.1); Protein, Total 7.2 g/dL (6.0-8.3); Sodium 134 mmol/L (136-145)
[2017-06-30 12:43] LABS: CKMB 1.9 ng/mL (0-6.6)
[2017-06-30 12:50] LABS: Troponin I 0.397 ng/mL (< 0.028)
--- NOTE | 2017-06-30 12:59 | CT ---
CT BRAIN WITHOUT CONTRAST: Date: 06/30/17 HISTORY: Altered mental status. FINDINGS: Comparison made with exam of 09/29/16. Changes of cortical atrophy and chronic small vessel ischemic disease again seen. No evidence of acut e infarct, hemorrhage, midline shift, or abnormal extra-axial fluid collections are noted. The ventri cular size is stable and the basilar cisterns are patent. The bony calvarium is intact. There is muco yeimi disease in the paranasal sinuses. IMPRESSION: No CT evidence of acute intracranial process. POS: [facility]
[2017-06-30] MEDS ORDERED: Albuterol Sulfate 2.5 mg/3 ml Neb NEB PRN (15:02)
[2017-06-30] MEDS ORDERED: Nitroglycerin 0.4 MG TAB (25 Tab Bottle) PO PRN (15:33)
[2017-06-30] MEDS ORDERED: Ondansetron ODT 4 MG TAB PO PRN (15:33)
[2017-06-30] MEDS ORDERED: Ondansetron HCl/PF 4 MG/2 ML Vial IVP PRN (15:33)
[2017-06-30 15:44] VITALS: BMI 28.1
--- NOTE | 2017-06-30 15:48 | HP ---
DATE OF ADMISSION: 06/30/2017 CHIEF COMPLAINT: Altered mental status. HISTORY OF PRESENT ILLNESS: This is an 87-year-old white female who was recently admitted to the [facility] for flu and pneumonia and was discharged home and living with her son. The patient's daughter came to live with her to assist her in the nighttime and she noticed 3 days back that her mental stat us was off, but she denied having any chest pain, but she was noted that the patient was breathing sh ort today and she decided to bring the patient to the ER for further evaluation. When patient arrive d in the ER, she was mildly hypoxic and was completely disoriented and very lethargic. She had eleva nafisa troponin in the ER, but EKG was unremarkable with known chronic atrial fibrillation, rate control led. The patient was unable to give much history and most of the history is obtained from the walter rahman's daughter. The patient sees Dr. Ulisses Nelson, Cardiology for history of chronic atrial fibril lation. The patient is unable to give any history at this time. PAST MEDICAL HISTORY: 1. Acute chronic hypoxic respiratory failure. 2. Chronic atrial fibrillation with variable rate control, status post cardioversion multiple times. 3. Streptococcus pneumonia of bacteremia and influenza A. 4. COPD. 5. History of elevated troponins in the past. 6. Hypertension. 7. History of GERD. 8. History of chronic pain syndrome. 9. History of breast cancer status post chemo. PAST SURGICAL HISTORY: 1. Status post left breast needle localization lumpectomy. 2. Status post bilateral total hip replacement. 3. Status post left shoulder replacement. 4. Status post lumbar spine surgeries. HOME MEDICATIONS: 1. Ventolin. 2. Xanax. 3. Arimidex. 4. Eliquis 5 mg p.o. b.i.d. 5. Flexeril 10 mg p.o. t.i.d. 6. Celebrex 200 mg p.o. daily. 7. Digoxin 0.25 mg p.o. daily. 8. Cardizem 240 mg p.o. daily. 9. Cymbalta 60 mg 1 tablet p.o. daily. 10. Nexium. 11. Flecainide 100 mg p.o. b.i.d. 12. Lisinopril 5 mg 1 tablet p.o. daily. 13. Multivitamin. 14. Protonix 40 mg p.o. daily. 15. Lyrica 100 mg p.o. t.i.d. 16. Florastor 250 mg p.o. daily. 17. Tramadol 50 mg 1-2 tablets q.6 hours p.r.n. ALLERGIES: OXYCODONE, CODEINE and DICLOFENAC. FAMILY HISTORY: No inheritable disease noted. No evidence of any coronary artery disease. SOCIAL HISTORY: The patient lives at home with her son. No history of alcohol, no history of illici t drug use. She ambulates with the use of walker and standby assistance. REVIEW OF SYSTEMS: Unable to open review of systems because of the altered mental status. PHYSICAL EXAMINATION: VITAL SIGNS: Blood pressures are 110/80, heart rate is 110, respiratory rate is 18, saturation is 98 %. GENERAL: The patient is moderately built and moderately nourished. She does not appear to be in acu te distress at this time. She is alert. She is drowsy and disoriented. HEENT: Atraumatic, normocephalic. PERRLA. Extraocular movements were intact. Oral mucosa is pink and moist. CARDIOVASCULAR: S1, S2 normal. No murmurs. No rubs or gallops. LUNGS: Bilateral air entry was equal. No wheezing, no crackles. ABDOMEN: Soft, nontender, no guarding, no rebound tenderness. Bowel sounds normal. MUSCULOSKELETAL: No calf tenderness. No pedal edema. EXTREMITIES: No joint tenderness, no joint swelling. SKIN: No cyanosis, no erythema, no rash, no pallor. CENTRAL NERVOUS SYSTEM: Cranial nerve examination II-XII intact. No focal deficits were noted at th is time. LABORATORY DATA: WBC 9.0, hemoglobin 13.5, hematocrit is 40.1. Sodium 132, potassium 4.8, chloride is 97, BUN 20, creatinine 0.94, blood sugar 128. Troponin 0.397. IMAGING DATA: CT of the head was negative. Chest x-ray was done showing incomplete improvement with out complete resolution of left bibasilar pneumonia present since 06/07/2017. ASSESSMENT AND PLAN: 1. Acute encephalopathy. 2. Non-ST elevation myocardial infarction. 3. History of atrial fibrillation, rate controlled. 4. History of hypertension. 5. History of hyperlipidemia. 6. History of chronic obstructive pulmonary disease. PLAN: 1. Plan is to closely monitor this patient at this time with fall precautions. We will start the pa tient on normal saline at 100 mL hour. We will hold the Lasix at this time as the patient looks pret ty dehydrated. 2. Patient has elevated troponins, most likely could be having a silent heart attack. We will do se rial troponins at this time and we will consult Cardiology. We will do a 2D echo to look for any giovanni dence of wall motion abnormalities and we will continue the patient on Coreg 3.[address]d., [address] atin and aspirin. 3. Patient has history of chronic obstructive pulmonary disease. We will continue the patient's neb ulizer treatments, DuoNebs therapy 4 hours and closely monitor for any evidence of worsening exacerba tions. 4. Patient has history of chronic pain syndrome. We will continue the patient on Cymbalta. We will hold off on cyclobenzaprine, which could interfere with her mental status changes. 5. Urinalysis has been negative for any urinary tract infection. 6. I will send blood culture and wait to see if the patient has any evidence of sepsis. 7. Chest x-ray shows evidence of pneumonia from the last admission, but no evidence of any recurrenc e was noted. We will closely monitor and repeat chest x-rays if her shortness of breath get worsen. 8. DVT prophylaxis, patient is on Eliquis twice a day. 10. Patient's atrial fibrillation well controlled with rate control. We will continue to monitor. There is no evidence of stroke at this time. There are no neurologic deficits were noted. I spent 70 minutes on this patient.
[2017-06-30] MEDS: Sodium Chloride 0.9% 1,000 ML IV SCH ×2 (16:11→22:40)
[2017-06-30 16:18] LABS: Critical Call Chem Troponin I RESULT DECREASING; Troponin I 0.366 ng/mL (< 0.028)
--- NOTE | 2017-06-30 19:06 | CON ---
DATE OF CONSULTATION: 06/30/2017 REASON FOR CONSULTATION: Atrial fibrillation and mental status changes. PRIMARY GOLD CHARMER: Dr. David Harding. HISTORY OF PRESENT ILLNESS: Ms. Wick is a pleasant 87-year-old woman who is a patient of Dr. David diana. She has a history of chronic atrial fibrillation. She was recently cardioverted on 06/05/2017. She is back in atrial fibrillation. Her rate appears slow. She does complain of mild shortness of breath, but no other significant symptoms present. PAST MEDICAL HISTORY AND SURGICAL: As above including previous elevated troponin, hypertension, acid reflux, chronic pain syndrome, breast cancer, COPD, total hip replacement, shoulder surgery and lumb ar spine surgery. MEDICATIONS: Include Ventolin, Xanax, Arimidex, Eliquis, Flexeril, Celebrex, digoxin, Cardizem, Cymb estiven, Nexium, flecainide, lisinopril, multivitamin, Protonix, Lyrica, Florastor and tramadol. ALLERGIES: OXYCODONE. FAMILY HISTORY: Negative for CAD. SOCIAL HISTORY: No current tobacco or alcohol use. REVIEW OF SYSTEMS: Ten-point review of systems is reviewed and is as above, negative. PHYSICAL EXAMINATION: GENERAL: Patient is a pleasant female who is in no acute distress. The patient appears her stated a ge. VITAL SIGNS: Blood pressure 154/64, pulse 60 and temperature 97. NEUROLOGIC: The patient is alert and oriented x3 with no focal neurologic deficits. HEENT: Sclerae without icterus. Mouth has moist mucous membranes with normal pallor. NECK: No JVD. Carotid upstroke brisk. No bruits bilaterally. LUNGS: Clear to auscultation with unlabored respirations. BACK: No scoliosis or kyphosis. CARDIAC: Irregularly irregular. ABDOMEN: Soft, nontender, nondistended. No peritoneal signs present. No hepatosplenomegaly. No ab normal striae. EXTREMITIES: 2+ femoral and 2+ dorsalis pedis pulses. No cyanosis, clubbing, or edema. SKIN: No gross abnormalities. . PERTINENT LABS: Hemoglobin 13.5. Creatinine 0.94 with GFR of 54. Peak troponin 0.397, which is sim ilar to previous troponins noted in the past. IMPRESSION: 1. Mental status changes. 2. Chronic atrial fibrillation. RECOMMENDATIONS: Ms. Delano does appear somewhat lucid this afternoon. She appears to be rate control led. Her heart rate appears to be low. At this point, we will check a digoxin level. We will stop her Cardizem at 0.25 mg q.a.m. We will decrease the Cardizem from 240-180 q.a.m. Continue Eliquis a s prescribed.
[2017-06-30 19:24] LABS: Critical Call Chem Troponin I RESULT DECREASING; Troponin I 0.361 ng/mL (< 0.028)
[2017-06-30] MEDS: Famotidine/PF 20 mg/2ml Vial SLOW IVP SCH (21:05)
[2017-06-30] MEDS: ALPRAZolam 0.25 MG TAB PO SCH (21:05)
[2017-06-30] MEDS: Apixaban 5 MG TAB PO SCH (21:05)
[2017-06-30] MEDS: Pregabalin 50 MG CAP PO SCH (21:06)
[2017-06-30] MEDS: Carvedilol 3.125 MG TAB PO SCH (21:06)
[2017-06-30] MEDS: guaiFENesin ER 600 MG TAB PO SCH (21:07)
[2017-06-30 21:46] LABS: Bilirubin Negative (Negative); Blood, Urine Trace (Negative); Clarity CLOUDY (Clear); Glucose, Urine (Dipstick) Negative (Negative); Leukocyte Small (Negative); Nitrite Negative (Negative); Protein, Urine (Dipstick) 300 mg/dL (Neg-Trace); Urobilinogen 0.2 mg/dL (0.2-1.0); pH, Urine 5.5 (5.0-9.0)
[2017-06-30 21:48] LABS: Bacteria/HPF None Seen HPF (None Seen); Hyaline Casts/LPF 0-3 HYALINE CAST LPF (0-3 Hyaline); Pathc Cast-AUWi Flag 0.54 (0-2.49); Squamous Epithelial 0-3 HPF (0-3)
[2017-07-01 05:22] LABS: #Basophils 0.1 thou/uL (0.0-0.2); #Eosinphils 0.2 thou/uL (0.0-0.7); #Lymphocytes 2.7 thou/uL (1.20-3.40); #Monocytes 0.9 thou/uL (0.11-0.59); #Neutrophils 3.7 thou/uL (1.40-6.50); %Basophils 0.8 % (0.0-1.0); %Eosinophils 2.8 % (0.0-10.0); %Lymphocytes 35.7 % (21.0-51.0); %Monocytes 12.2 % (0.0-10.0); %Neutrophils 48.5 % (42.0-75.0); Mean Platelet Volume 7.6 fL (7.4-10.4); Platelet Count 279 thou/uL (130-400); RBC Distribution Width 15.2 % (11.5-14.5); Red Blood Cell (RBC) Count 3.64 mill/uL (4.20-5.40); White Blood Cell (WBC) Count 7.5 thou/uL (4.8-10.8)
[2017-07-01 05:42] LABS: Anion Gap 11 mmol/L (10-20); BUN (Urea Nitrogen) 15 mg/dL (9.8-20.1); Calc. Creatinine Clearance 54 mL/min (70-130); Calcium 8.3 mg/dL (7.8-10.44); Carbon Dioxide 29 mmol/L (23-31); Chloride 101 mmol/L (98-107); Cholesterol 144 mg/dl (< 200 Desired); Estimated GFR-MDRD 72; Glucose 111 mg/dL (83-110); HDL Cholesterol 29 mg/dL (>60 Neg Risk); LDL Cholesterol, Calculated 74 mg/dL; Potassium 4.4 mmol/L (3.5-5.1); Sodium 137 mmol/L (136-145); Triglycerides 207 mg/dL (Less than 150)
[2017-07-01] MEDS ORDERED: Digoxin 0.25 MG TAB PO SCH (09:00)
[2017-07-01] MEDS: Famotidine/PF 20 mg/2ml Vial SLOW IVP SCH ×2 (09:20→21:04)
[2017-07-01] MEDS: Pregabalin 50 MG CAP PO SCH ×4 (09:20→21:04)
[2017-07-01] MEDS: guaiFENesin ER 600 MG TAB PO SCH ×3 (09:22→21:05)
[2017-07-01] MEDS: Saccharomyces boulardii 250 MG CAP PO SCH ×2 (09:22→11:23)
[2017-07-01] MEDS: Carvedilol 3.125 MG TAB PO SCH ×3 (09:22→21:05)
[2017-07-01] MEDS: ALPRAZolam 0.25 MG TAB PO SCH ×3 (09:22→21:15)
[2017-07-01] MEDS: Lisinopril 5 MG TAB PO SCH ×2 (09:22→11:22)
[2017-07-01] MEDS: Anastrozole 1 MG TAB PO SCH ×2 (09:22→11:22)
[2017-07-01] MEDS: Aspirin 325 MG TAB PO SCH ×2 (09:22→11:22)
[2017-07-01] MEDS: Apixaban 5 MG TAB PO SCH ×3 (09:22→21:05)
[2017-07-01] MEDS: DULoxetine 60 MG CAP PO SCH ×2 (09:22→11:22)
[2017-07-01 11:08] LABS: Digoxin 3.77 ng/mL (0.8-2.0)
--- NOTE | 2017-07-01 12:38 | PDOC.PN ---
- Subjective Encounter Start Date: 07/01/17 Encounter Start Time: 11:30 Patient is seen today, drowsy, disoriented, Discussed with Family, explained the confusion is from Digoxin toxicity,if toxicity resolved and pt remians confused we can get a neurology assesment or mRI. - Objective Resuscitation Status: Resuscitation Status FULL:Full Resuscitation MAR Reviewed: Yes Vital Signs & Weight: Vital Signs (12 hours) Temp Pulse Resp BP Pulse Ox 07/01/17 09:20 98.1 F 70 26 H 167/71 H 94 L 07/01/17 03:56 98 F 63 14 149/67 H 91 L Weight Weight 143 lb 6.4 oz I&O: 06/30/17 07/01/17 07/02/17 06:59 06:59 06:59 Intake Total 1638 Output Total 400 Balance 1238 Result Diagrams: 07/01/17 05:07 07/01/17 05:07 Radiology Reviewed by me: Yes Phys Exam - Physical Examination HEENT: PERRLA, moist MMs Neck: no nodes, no JVD Respiratory: no wheezing, no rales Cardiovascular: RRR, no significant murmur Gastrointestinal: soft, non-tender Musculoskeletal: no edema, pulses present Dx/Plan (1) Encephalopathy, toxic Code(s): G92 - TOXIC ENCEPHALOPATHY Status: Acute (2) Digoxin toxicity Code(s): T46.0X1A - POISONING BY CARDI-STIM GLYCOS/DRUG SIMLAR ACT, ACC, INIT Status: Acute (3) Acute on chronic respiratory failure with hypoxia Code(s): J96.21 - ACUTE AND CHRONIC RESPIRATORY FAILURE WITH HYPOXIA Status: Acute Comment: Resolved, continuing on O2 via NC at baseline levels (4) Atrial fibrillation with RVR Code(s): I48.91 - UNSPECIFIED ATRIAL FIBRILLATION Status: Acute (5) NSTEMI (non-ST elevated myocardial infarction) Code(s): I21.4 - NON-ST ELEVATION (NSTEMI) MYOCARDIAL INFARCTION Status: Acute Comment: Supportive mgmt, beta-blockers, statin (6) GERD (gastroesophageal reflux disease) Code(s): K21.9 - GASTRO-ESOPHAGEAL REFLUX DISEASE WITHOUT ESOPHAGITIS Status: Chronic (7) Hypertension Code(s): I10 - ESSENTIAL (PRIMARY) HYPERTENSION Status: Chronic Qualifiers: Hypertension type: essential hypertension Qualified Code(s): I10 - Essential (primary) hypertension - Plan cont current plan of care, plan discussed w/ family, PT/OT, geriatric social worker, incentive spirometry, DVT proph w/lovenox -Acute Digixin toxicity: likelyt the Rerason for her delirium and confusion, she has No nausea or vomitng, Will contiue to monitor, Will consult neurology if confusion do not improve after normalizing Dig levls - Acute Atria FIbrillation Rate controlled, Cardiology following, suggested reducing dose of Cardizem 180. -Acute on chronic hypoxic resp failur, continue to monitor with harjeet Calabrese. - Acute Encephalopathy, likely from digoxin levels, will consult nurology if persistant. - Hypertension: continue on her Home meds. Stbale. Dvt prophylaxis pt is Anticoagulant with Eliquis. - Discharge Day Encounter end time: 12:00 Review of Systems - Review of Systems Other: Unable to obtain due to Confusion. - Medications/Allergies Allergies/Adverse Reactions: Allergies Allergy/AdvReac Type Severity Reaction Status Date / Time adhesive Allergy Mild Rash Verified 03/15/17 19:48 oxycodone HCl Allergy Unknown Hives Verified 03/15/17 19:48 [From OxyContin] codeine Allergy Verified 03/15/17 19:48 diclofenac Allergy Verified 03/15/17 19:48 donepezil Allergy Verified 03/15/17 19:48 hydrocodone bitartrate Allergy AMS Verified 03/15/17 19:48 [From Vicodin] Medications: Current Medications Albuterol Sulfate (Ventolin) 2.5 mg NEB Q4H PRN PRN Reason: SOB &/or Wheezing Alprazolam (Xanax) 0.25 mg PO BID [facility] Last Admin: 07/01/17 11:22 Dose: Not Given Anastrozole (Arimidex) 1 mg PO DAILY [facility] Last Admin: 07/01/17 11:22 Dose: Not Given Apixaban (Eliquis) 5 mg PO BID [facility] Last Admin: 07/01/17 11:22 Dose: Not Given Aspirin (Aspirin) 325 mg PO DAILY [facility] Last Admin: 07/01/17 11:22 Dose: Not Given Carvedilol (Coreg) 3.125 mg PO BID [facility] Last Admin: 07/01/17 11:22 Dose: Not Given Diltiazem HCl (Cardizem Cd) 180 mg PO DAILY [facility] Last Admin: 07/01/17 11:22 Dose: Not Given Duloxetine HCl (Cymbalta) 60 mg PO DAILY [facility] Last Admin: 07/01/17 11:22 Dose: Not Given Famotidine (Pepcid) 20 mg SLOW IVP Q12HR [facility] Last Admin: 07/01/17 09:20 Dose: 20 mg Guaifenesin (Mucinex) 600 mg PO BID [facility] Last Admin: 07/01/17 11:22 Dose: Not Given Sodium Chloride (Normal Saline 0.9%) 1,000 mls @ 75 mls/hr IV .[id number] [facility] Last Admin: 06/30/17 22:40 Dose: 1,000 mls Lisinopril (Zestril) 5 mg PO DAILY [facility] Last Admin: 07/01/17 11:22 Dose: Not Given Nitroglycerin (Nitrostat) 0.4 mg PO Q5MIN PRN PRN Reason: Chest Pain Ondansetron HCl (Zofran Odt) 4 mg PO Q6H PRN PRN Reason: Nausea/Vomiting Ondansetron HCl (Zofran) 4 mg IVP Q6H PRN PRN Reason: Nausea/Vomiting Pantoprazole Sodium (Protonix) 40 mg PO 2100 [facility] Pregabalin (Lyrica) 100 mg PO TID [facility] Last Admin: 07/01/17 11:23 Dose: Not Given Saccharomyces Boulardii (Florastor) 250 mg PO DAILY [facility] Last Admin: 07/01/17 11:23 Dose: Not Given
[2017-07-01 19:23] LABS: Calc. Creatinine Clearance 61 mL/min (70-130); Estimated GFR-MDRD 83; Potassium 4.1 mmol/L (3.5-5.1)
[2017-07-02] MEDS: Sodium Chloride 0.9% 1,000 ML IV SCH ×2 (02:40→08:47)
--- NOTE | 2017-07-02 04:58 | CON ---
DATE OF CONSULTATION: 07/01/2017 REFERRING PROVIDER: Dr. Ke Michael. REASON FOR CONSULTATION: Altered mental status. HISTORY OF PRESENT ILLNESS: Ms. Wick is a pleasant 87-year-old female who has been consult ed for evaluation of altered mental status. History was obtained from patient's son who was present at bedside. Son reports that over the past few months, the patient has been having increasing diffic ulty with remembering names and forgetting what she wants to say. She has been admitted to the [facility] for 3 times over the past one and a half months. She was initially admitted about a month and eid lf ago with pneumonia and flu. After discharge, she presented back again with new onset atrial fibri llation. She was discharged and was slowly recovering about 10 days ago; however, over the past 3-4 days they have noticed that she has become increasingly lethargic and sleepy and confused. She is no t able to get up even to eat. This prompted them to be concerned and bring her to the emergency room for further evaluation. He notes that today she has been little more alert than she has been over t he past 3-4 days. PAST MEDICAL HISTORY: Significant for hypertension; COPD; GERD; acute on chronic hypoxic respiratory failure; chronic atrial fibrillation; history of strep pneumonia and influenza; history of breast ca ncer, status post chemotherapy. PAST SURGICAL HISTORY: Significant for left breast lumpectomy, bilateral total hip replacement, left shoulder replacement, and lumbar spine surgery. CURRENT MEDICATIONS: Please review MAR. ALLERGIES: Include OXYCODONE, CODEINE, and DICLOFENAC. FAMILY HISTORY: Noncontributory. SOCIAL HISTORY: She currently lives with her son at his home. She does not smoke, drink alcohol, or use illicit drugs. REVIEW OF SYSTEMS: As mentioned above in the HPI, otherwise negative. PHYSICAL EXAMINATION: VITAL SIGNS: Blood pressure of 160/78, pulse of 76, temperature of 98.6, respirations are 24, O2 sat s of 93% on room air. GENERAL: Well-developed, well-nourished female, in no apparent distress. RESPIRATORY: Clear to auscultation bilaterally. CARDIOVASCULAR: Regular rate and rhythm. NEUROLOGIC: Mental status: The patient is awake, alert, and oriented to person and place. Speech a nd language: Fluent speech. Cranial nerves: Pupils are 3 mm and reactive. Visual culver are intac t. Extraocular muscle movements are intact. Face is symmetric. Tongue and uvula are midline. Mundo r exam showed normal tone and bulk with a 5/5 strength in both upper and lower extremities. Sensory: Sensation is intact and symmetric. Babinski: Plantar responses flexion bilaterally. Coordination intact to [id number] tapping bilaterally. LABORATORY DATA: Labs are reviewed, which included CBC, CMP, troponin, lipid profile, urinalysis and digoxin level, which is significant for troponin of 0.361. Urinalysis showed small leukocyte estera se, 11-20 wbc, otherwise negative. IMAGING STUDIES: CT head without contrast was reviewed, which showed no acute intracranial abnormali ty. IMPRESSION: Altered mental status, likely toxic metabolic encephalopathy. ASSESSMENT AND PLAN: Ms. Wick is a pleasant 87-year-old female who presented with changes in mentation. She likely has underlying toxic metabolic encephalopathy. She may also have underlyin g dementia as her son did mention of having increasing difficulty with names and minimum conversation s over the past few months and given her age, this is likely indicative of dementia. At this time, I will recommend continuing current medical management. No further neurological workup needed from my standpoint. Thank you for your consultation.
[2017-07-02 05:14] LABS: #Basophils 0.1 thou/uL (0.0-0.2); #Eosinphils 0.2 thou/uL (0.0-0.7); #Lymphocytes 2.5 thou/uL (1.20-3.40); #Neutrophils 4.2 thou/uL (1.40-6.50); %Basophils 0.9 % (0.0-1.0); %Eosinophils 2.4 % (0.0-10.0); %Monocytes 12.4 % (0.0-10.0); %Neutrophils 52.3 % (42.0-75.0); Hemoglobin 11.8 g/dL (12.0-16.0); Mean Corpuscular Volume 99.8 fl (81.0-99.0); Mean Platelet Volume 7.6 fL (7.4-10.4); Platelet Count 259 thou/uL (130-400); RBC Distribution Width 15.3 % (11.5-14.5); Red Blood Cell (RBC) Count 3.57 mill/uL (4.20-5.40); White Blood Cell (WBC) Count 7.9 thou/uL (4.8-10.8)
[2017-07-02] MEDS: Acetaminophen 325 MG TAB PO PRN ×2 (05:19→16:30)
[2017-07-02 05:24] LABS: Anion Gap 10 mmol/L (10-20); BUN (Urea Nitrogen) 10 mg/dL (9.8-20.1); Calc. Creatinine Clearance 57 mL/min (70-130); Calcium 8.6 mg/dL (7.8-10.44); Carbon Dioxide 29 mmol/L (23-31); Chloride 105 mmol/L (98-107); Estimated GFR-MDRD 79; Glucose 128 mg/dL (83-110); Potassium 3.8 mmol/L (3.5-5.1); Sodium 140 mmol/L (136-145)
[2017-07-02 05:34] LABS: Digoxin 2.64 ng/mL (0.8-2.0)
[2017-07-02] MEDS: Anastrozole 1 MG TAB PO SCH (08:48)
[2017-07-02] MEDS: ALPRAZolam 0.25 MG TAB PO SCH ×2 (08:48→23:01)
[2017-07-02] MEDS: Apixaban 5 MG TAB PO SCH ×2 (08:48→20:19)
[2017-07-02] MEDS: DULoxetine 60 MG CAP PO SCH (08:48)
[2017-07-02] MEDS: Saccharomyces boulardii 250 MG CAP PO SCH (08:48)
[2017-07-02] MEDS: Carvedilol 3.125 MG TAB PO SCH (08:48)
[2017-07-02] MEDS: Aspirin 325 MG TAB PO SCH (08:48)
[2017-07-02] MEDS: Pregabalin 50 MG CAP PO SCH ×4 (08:48→23:01)
[2017-07-02] MEDS: guaiFENesin ER 600 MG TAB PO SCH ×2 (08:49→20:19)
[2017-07-02] MEDS: Famotidine/PF 20 mg/2ml Vial SLOW IVP SCH ×2 (08:49→20:19)
[2017-07-02] MEDS: Lisinopril 5 MG TAB PO SCH (08:49)
[2017-07-02] MEDS ORDERED: hydrALAZINE 20 MG/ML VIAL SLOW IVP PRN (11:47)
[2017-07-02] MEDS ORDERED: Furosemide 40 MG/4 ML VIAL SLOW IVP SCH (13:00)
--- NOTE | 2017-07-02 13:23 | RAD ---
FRONTAL RADIOGRAPH CHEST: Date: 07/02/17 COMPARISON: 06/30/17. HISTORY: Shortness of breath. FINDINGS: Cardiac silhouette is prominent. There is degenerative change involving the right shoulder. There is a left shoulder arthroplasty present. There is no pneumothorax. There is new pulmonary vascular congestion. New interstitial opacity noted in the perihilar regions and right paratracheal region with developing increased density in both lung bases, left greater than right, suggesting bilateral pleural effusions and left basilar air space disease. Calcific density n oted in the region of the gastroesophageal junction/epigastric region. IMPRESSION: Findings suggesting developing interstitial and alveolar edema versus infectious pneumonitis. The for amna is favored. Recommend follow-up imaging following treatment to document resolution. POS: FRITZ
--- NOTE | 2017-07-02 14:24 | PDOC.PN ---
- Subjective Encounter Start Date: 07/02/17 Encounter Start Time: 12:30 Patient is seen today, discussed about her condition, pt was alert and oriented , Discussed with Son , explained she is getting better , will get pt/OT from tomorrow. - Objective Resuscitation Status: Resuscitation Status FULL:Full Resuscitation MAR Reviewed: Yes Vital Signs & Weight: Vital Signs (12 hours) Temp Pulse Pulse Pulse Resp BP BP 07/02/17 12:20 98.2 F 89 24 H 07/02/17 10:11 07/02/17 09:04 75 82 115/103 H 236/109 H 07/02/17 08:59 97.9 F 90 20 07/02/17 08:49 92 07/02/17 08:45 97.9 F 90 20 07/02/17 04:10 97.5 F L 92 24 H BP Pulse Ox 07/02/17 12:20 187/82 H 93 L 07/02/17 10:11 176/88 H 07/02/17 09:04 07/02/17 08:59 177/78 H 95 07/02/17 08:49 07/02/17 08:45 07/02/17 04:10 162/85 H 96 Weight Weight 139 lb 8 oz I&O: 07/01/17 07/02/17 07/03/17 06:59 06:59 06:59 Intake Total 1638 2617 Output Total 400 2725 Balance 1238 -108 Result Diagrams: 07/02/17 04:53 07/02/17 04:53 Radiology Reviewed by me: Yes EKG Reviewed by me: Yes Phys Exam - Physical Examination HEENT: PERRLA, moist MMs Neck: no nodes, no JVD Respiratory: wheezing present Cardiovascular: RRR, no significant murmur, no rub Gastrointestinal: soft, non-tender Musculoskeletal: no edema, pulses present Neurological: non-focal, normal sensation Psychiatric: normal affect, A&O x 3 Skin: no rash, normal turgor Dx/Plan (1) Hypertension Code(s): I10 - ESSENTIAL (PRIMARY) HYPERTENSION Status: Acute Qualifiers: Hypertension type: other secondary hypertension Qualified Code(s): I15.8 - Other secondary hypertension (2) Encephalopathy, toxic Code(s): G92 - TOXIC ENCEPHALOPATHY Status: Acute (3) Digoxin toxicity Code(s): T46.0X1A - POISONING BY CARDI-STIM GLYCOS/DRUG SIMLAR ACT, ACC, INIT Status: Acute (4) Acute on chronic respiratory failure with hypoxia Code(s): J96.21 - ACUTE AND CHRONIC RESPIRATORY FAILURE WITH HYPOXIA Status: Acute Comment: Resolved, continuing on O2 via NC at baseline levels (5) Atrial fibrillation with RVR Code(s): I48.91 - UNSPECIFIED ATRIAL FIBRILLATION Status: Acute (6) NSTEMI (non-ST elevated myocardial infarction) Code(s): I21.4 - NON-ST ELEVATION (NSTEMI) MYOCARDIAL INFARCTION Status: Acute Comment: Supportive mgmt, beta-blockers, statin (7) GERD (gastroesophageal reflux disease) Code(s): K21.9 - GASTRO-ESOPHAGEAL REFLUX DISEASE WITHOUT ESOPHAGITIS Status: Chronic - Plan cont current plan of care, plan discussed w/ family, PT/OT, respiratory therapy , incentive spirometry, out of bed/ambulate - Acute Pulmonary edema with CHF exacerbation, will Increase lasix 40mg IV BID. Echo showed good EF, >50% likely Diastolic heart failure. -Acute Digixin toxicity: likelyt the Rerason for her delirium and confusion, she has No nausea or vomitng, Will contiue to monitor, Will consult neurology if confusion do not improve after normalizing Dig levls - Acute Atria FIbrillation Rate controlled, Cardiology following, suggested reducing dose of Cardizem 180. -Acute on chronic hypoxic resp failur, continue to monitor with harjeet Calabrese. - Acute Encephalopathy, likely from digoxin levels, will consult nurology if persistant. - un controlled Hypertension: will do Hydralazine 10mg IV q 6hr prn for systolic >160, will increase lisnopril to 10mg and Coreg to 6.25BID, Dvt prophylaxis pt is Anticoagulant with Eliquis. - Discharge Day Encounter end time: 13:10 (30 Min of Critical care time) Review of Systems - Review of Systems Constitutional: weakness Eyes: negative: Pain, Vision Change, Conjunctivae Inflammation, Eyelid Inflammation, Redness, Other ENT: negative: Ear Pain, Ear Discharge, Nose Pain, Nose Discharge, Nose Congestion, Mouth Pain, Mouth Swelling, Throat Pain, Throat Swelling, Other Respiratory: Cough, Shortness of Breath, Wheezing Cardiovascular: orthopnea Gastrointestinal: negative: Nausea, Vomiting, Abdominal Pain, Diarrhea, Constipation, Melena, Hematochezia, Other Genitourinary: negative: Dysuria, Frequency, Incontinence, Hematuria, Retention , Other Musculoskeletal: negative: Neck Pain, Shoulder Pain, Arm Pain, Back Pain, Hand Pain, Leg Pain, Foot Pain, Other Skin: negative: Rash, Lesions, [place], Bruising, Other Neurological: negative: Weakness, Numbness, Incoordination, Change in Speech, Confusion, Seizures, Other - Medications/Allergies Allergies/Adverse Reactions: Allergies Allergy/AdvReac Type Severity Reaction Status Date / Time adhesive Allergy Mild Rash Verified 03/15/17 19:48 oxycodone HCl Allergy Unknown Hives Verified 03/15/17 19:48 [From OxyContin] codeine Allergy Verified 03/15/17 19:48 diclofenac Allergy Verified 03/15/17 19:48 donepezil Allergy Verified 03/15/17 19:48 hydrocodone bitartrate Allergy AMS Verified 03/15/17 19:48 [From Vicodin] Medications: Current Medications Acetaminophen (Tylenol) 650 mg PO Q6H PRN PRN Reason: Headache/Fever or Pain Last Admin: 07/02/17 05:19 Dose: 650 mg Albuterol Sulfate (Ventolin) 2.5 mg NEB Q4H PRN PRN Reason: SOB &/or Wheezing Alprazolam (Xanax) 0.25 mg PO BID [facility] Last Admin: 07/02/17 08:48 Dose: 0.25 mg Anastrozole (Arimidex) 1 mg PO DAILY [facility] Last Admin: 07/02/17 08:48 Dose: 1 mg Apixaban (Eliquis) 5 mg PO BID [facility] Last Admin: 07/02/17 08:48 Dose: 5 mg Aspirin (Aspirin) 325 mg PO DAILY [facility] Last Admin: 07/02/17 08:48 Dose: 325 mg [facility] Diltiazem HCl (Cardizem Cd) 180 mg PO DAILY [facility] Last Admin: 07/02/17 08:48 Dose: 180 mg Duloxetine HCl (Cymbalta) 60 mg PO DAILY [facility] Last Admin: 07/02/17 08:48 Dose: 60 mg Famotidine (Pepcid) 20 mg SLOW IVP Q12HR [facility] Last Admin: 07/02/17 08:49 Dose: 20 mg Furosemide (Lasix) 40 mg SLOW IVP NOW [facility] Stop: 07/02/17 15:00 Last Admin: 07/02/17 13:09 Dose: 40 mg Furosemide (Lasix) 40 mg SLOW IVP 0600,1400 [facility] Guaifenesin (Mucinex) 600 mg PO BID [facility] Last Admin: 07/02/17 08:49 Dose: 600 mg Hydralazine HCl (Apresoline) 10 mg SLOW IVP Q6H PRN PRN Reason: SBP>160 Lisinopril (Zestril) 10 mg PO DAILY [facility] Nitroglycerin (Nitrostat) 0.4 mg PO Q5MIN PRN PRN Reason: Chest Pain Ondansetron HCl (Zofran Odt) 4 mg PO Q6H PRN PRN Reason: Nausea/Vomiting Ondansetron HCl (Zofran) 4 mg IVP Q6H PRN PRN Reason: Nausea/Vomiting Pantoprazole Sodium (Protonix) 40 mg PO 2100 [facility] Last Admin: 07/01/17 21:05 Dose: 40 mg Pregabalin (Lyrica) 100 mg PO TID [facility] Last Admin: 07/02/17 08:48 Dose: 100 mg Saccharomyces Boulardii (Florastor) 250 mg PO DAILY [facility] Last Admin: 07/02/17 08:48 Dose: 250 mg
[2017-07-02] MEDS: Carvedilol 6.25 MG TAB PO SCH (16:30)
[2017-07-03] MEDS: traMADol HCl 50 MG TAB PO PRN ×2 (01:30→13:11)
[2017-07-03 02:00] LABS: Bilirubin Small (Negative); Blood, Urine Large (Negative); Clarity CLEAR (Clear); Glucose, Urine (Dipstick) Negative (Negative); Leukocyte Trace (Negative); Nitrite Negative (Negative); Protein, Urine (Dipstick) 300 mg/dL (Neg-Trace); Specific Gravity, Urine 1.019 (1.002-1.036)
[2017-07-03 02:03] LABS: Bacteria/HPF None Seen HPF (None Seen); Hyaline Casts/LPF 0-3 HYALINE CAST LPF (0-3 Hyaline); Pathc Cast-AUWi Flag 0.13 (0-2.49); RBC/HPF 21-50 HPF (0-3); Squamous Epithelial 0-3 HPF (0-3)
[2017-07-03] MEDS ORDERED: hydrALAZINE 10 MG TAB PO PRN (03:20)
[2017-07-03 05:03] LABS: Anion Gap 12 mmol/L (10-20); BUN (Urea Nitrogen) 9 mg/dL (9.8-20.1); Calc. Creatinine Clearance 59 mL/min (70-130); Calcium 8.5 mg/dL (7.8-10.44); Carbon Dioxide 30 mmol/L (23-31); Chloride 103 mmol/L (98-107); Estimated GFR-MDRD 85; Glucose 86 mg/dL (83-110); Potassium 3.7 mmol/L (3.5-5.1); Sodium 141 mmol/L (136-145)
[2017-07-03 05:05] LABS: Digoxin 1.39 ng/mL (0.8-2.0)
[2017-07-03] MEDS: Furosemide 40 MG/4 ML VIAL SLOW IVP SCH ×2 (06:11→14:59)
[2017-07-03] MEDS ORDERED: Furosemide 40 MG TAB PO SCH (07:30)
[2017-07-03] MEDS: Pregabalin 50 MG CAP PO SCH ×3 (09:36→20:54)
[2017-07-03] MEDS: Famotidine/PF 20 mg/2ml Vial SLOW IVP SCH ×2 (09:36→20:54)
[2017-07-03] MEDS: Lisinopril 10 MG TAB PO SCH (09:36)
[2017-07-03] MEDS: guaiFENesin ER 600 MG TAB PO SCH ×2 (09:37→20:54)
[2017-07-03] MEDS: DULoxetine 60 MG CAP PO SCH (09:37)
[2017-07-03] MEDS: Saccharomyces boulardii 250 MG CAP PO SCH (09:37)
[2017-07-03] MEDS: Carvedilol 6.25 MG TAB PO SCH ×2 (09:37→17:15)
[2017-07-03] MEDS: ALPRAZolam 0.25 MG TAB PO SCH ×2 (09:37→20:53)
[2017-07-03] MEDS: Apixaban 5 MG TAB PO SCH ×2 (09:37→20:53)
[2017-07-03] MEDS: Anastrozole 1 MG TAB PO SCH (09:37)
[2017-07-03] MEDS: Aspirin 325 MG TAB PO SCH (09:37)
--- NOTE | 2017-07-03 15:08 | PDOC.PN ---
- Subjective Encounter Start Date: 07/03/17 Encounter Start Time: 13:30 Patient is seen today, alert and oriented, Pt is weak and will need Rehab/ SNF placement. - Objective Resuscitation Status: Resuscitation Status FULL:Full Resuscitation MAR Reviewed: Yes Vital Signs & Weight: Vital Signs (12 hours) Temp Pulse Resp BP Pulse Ox 07/03/17 12:02 97.9 F 80 18 119/66 96 07/03/17 09:30 98.3 F 80 20 141/68 H 97 07/03/17 04:30 98.3 F 74 24 H 156/67 H 94 L Weight Weight 136 lb 14.4 oz I&O: 07/02/17 07/03/17 07/04/17 06:59 06:59 06:59 Intake Total 2617 1981 Output Total 2013 1999 Result Diagrams: 07/02/17 04:53 07/03/17 04:35 Radiology Reviewed by me: Yes (Chest xray shows alveolar edema.) Phys Exam - Physical Examination HEENT: PERRLA, moist MMs Neck: no nodes, no JVD Respiratory: wheezing present Cardiovascular: RRR, no significant murmur Gastrointestinal: soft, non-tender Musculoskeletal: pulses present, edema present Lymphatic: no nodes Psychiatric: normal affect, A&O x 3 Skin: no rash, normal turgor Dx/Plan (1) Hypertension Code(s): I10 - ESSENTIAL (PRIMARY) HYPERTENSION Status: Acute Qualifiers: Hypertension type: other secondary hypertension Qualified Code(s): I15.8 - Other secondary hypertension (2) Encephalopathy, toxic Code(s): G92 - TOXIC ENCEPHALOPATHY Status: Acute (3) Digoxin toxicity Code(s): T46.0X1A - POISONING BY CARDI-STIM GLYCOS/DRUG SIMLAR ACT, ACC, INIT Status: Acute (4) Acute on chronic respiratory failure with hypoxia Code(s): J96.21 - ACUTE AND CHRONIC RESPIRATORY FAILURE WITH HYPOXIA Status: Acute Comment: Resolved, continuing on O2 via NC at baseline levels (5) Atrial fibrillation with RVR Code(s): I48.91 - UNSPECIFIED ATRIAL FIBRILLATION Status: Acute (6) NSTEMI (non-ST elevated myocardial infarction) Code(s): I21.4 - NON-ST ELEVATION (NSTEMI) MYOCARDIAL INFARCTION Status: Acute Comment: Supportive mgmt, beta-blockers, statin (7) GERD (gastroesophageal reflux disease) Code(s): K21.9 - GASTRO-ESOPHAGEAL REFLUX DISEASE WITHOUT ESOPHAGITIS Status: Chronic (8) Acute diastolic (congestive) heart failure Code(s): I50.31 - ACUTE DIASTOLIC (CONGESTIVE) HEART FAILURE Status: Acute Comment: improving, continue Lasix 40mg IV BID - Plan cont current plan of care, plan discussed w/ family, PT/OT, social security assessor, respiratory therapy, incentive spirometry, DVT proph w/lovenox - Acute Pulmonary edema with CHF exacerbation, will continue lasix 40mg IV BID. Echo showed good EF, >50% likely Diastolic heart failure.Improving -Acute Digixin toxicity: Resolved.likelyt the Rerason for her delirium and confusion, she has No nausea or vomitng, Will contiue to monitor, - Acute Atria FIbrillation Rate controlled, Cardiology following, suggested reducing dose of Cardizem 180. -Acute on chronic hypoxic resp failur, continue to monitor with harjeet Calabrese. - Acute Encephalopathy, Resolved. likely from digoxin levels, will consult nurology if persistant. - un controlled Hypertension:Improved,. will do Hydralazine 10mg IV q 6hr prn for systolic >160, will increase lisnopril to 10mg and Coreg to 6.25BID, Dvt prophylaxis pt is Anticoagulant with Eliquis. - Discharge Day Encounter end time: 14:30 Review of Systems - Review of Systems Constitutional: weakness Eyes: negative: Pain, Vision Change, Conjunctivae Inflammation, Eyelid Inflammation, Redness, Other ENT: negative: Ear Pain, Ear Discharge, Nose Pain, Nose Discharge, Nose Congestion, Mouth Pain, Mouth Swelling, Throat Pain, Throat Swelling, Other Respiratory: Shortness of Breath. negative: Cough, Dry, Hemoptysis, SOB with Excertion, Pleuritic Pain, Sputum, Wheezing Cardiovascular: negative: chest pain, palpitations, orthopnea, paroxysmal nocturnal dyspnea, edema, light headedness, other Genitourinary: negative: Dysuria, Frequency, Incontinence, Hematuria, Retention , Other Musculoskeletal: negative: Neck Pain, Shoulder Pain, Arm Pain, Back Pain, Hand Pain, Leg Pain, Foot Pain, Other Skin: negative: Rash, Lesions, [place], Bruising, Other Neurological: negative: Weakness, Numbness, Incoordination, Change in Speech, Confusion, Seizures, Other - Medications/Allergies Allergies/Adverse Reactions: Allergies Allergy/AdvReac Type Severity Reaction Status Date / Time adhesive Allergy Mild Rash Verified 03/15/17 19:48 oxycodone HCl Allergy Unknown Hives Verified 03/15/17 19:48 [From OxyContin] codeine Allergy Verified 03/15/17 19:48 diclofenac Allergy Verified 03/15/17 19:48 donepezil Allergy Verified 03/15/17 19:48 hydrocodone bitartrate Allergy AMS Verified 03/15/17 19:48 [From Vicodin] Medications: Current Medications Acetaminophen (Tylenol) 650 mg PO Q6H PRN PRN Reason: Headache/Fever or Pain Last Admin: 07/02/17 16:30 Dose: 650 mg Albuterol Sulfate (Ventolin) 2.5 mg NEB Q4H PRN PRN Reason: SOB &/or Wheezing Alprazolam (Xanax) 0.[address] [facility] Last Admin: 07/03/17 09:37 Dose: 0.25 mg Anastrozole (Arimidex) [address] [facility] Last Admin: 07/03/17 09:37 Dose: 1 mg Apixaban (Eliquis) [address] [facility] Last Admin: 07/03/17 09:37 Dose: 5 mg Aspirin (Aspirin) [address] [facility] Last Admin: 07/03/17 09:37 Dose: 325 mg Carvedilol (Coreg) 6.25 mg PO BID[facility] Last Admin: 07/03/17 09:37 Dose: 6.25 mg Diltiazem HCl (Cardizem Cd) [address] [facility] Last Admin: 07/03/17 09:37 Dose: 180 mg Duloxetine HCl (Cymbalta) [address] [facility] Last Admin: 07/03/17 09:37 Dose: 60 mg Famotidine (Pepcid) [address]P Q12[address] [facility] Last Admin: 07/03/17 09:36 Dose: 20 mg Furosemide (Lasix) 40 mg SLOW IVP 0600,1400 [facility] Last Admin: 07/03/17 14:59 Dose: 40 mg Guaifenesin (Mucinex) [address] [facility] Last Admin: 07/03/17 09:37 Dose: 600 mg Hydralazine HCl (Apresoline) 10 mg PO Q6H PRN PRN Reason: SBP GREATER THAN 160 Lisinopril (Zestril) [address] [facility] Last Admin: 07/03/17 09:36 Dose: 10 mg Nitroglycerin (Nitrostat) 0.4 mg PO Q5MIN PRN PRN Reason: Chest Pain Ondansetron HCl (Zofran Odt) 4 mg PO Q6H PRN PRN Reason: Nausea/Vomiting Ondansetron HCl (Zofran) 4 mg IVP Q6H PRN PRN Reason: Nausea/Vomiting Pantoprazole Sodium (Protonix) [address] [facility] Last Admin: 07/02/17 20:19 Dose: 40 mg Pregabalin (Lyrica) [address] [facility] Last Admin: 07/03/17 14:59 Dose: 100 mg Saccharomyces Boulardii (Florastor) [address] [facility] Last Admin: 07/03/17 09:37 Dose: 250 mg Tramadol HCl (Ultram) 50 mg PO Q6H PRN PRN Reason: Pain Last Admin: 07/03/17 13:11 Dose: 50 mg
--- NOTE | 2017-07-03 15:27 | PDOC.CTH ---
<Nola Avila - Last Filed: 07/03/17 15:25> Cardiology Progress Note - Subjective The pt seen and examined. No overnight events. no cardiac complaints. She walked with PT today with no cardiac complaints. - Objective Vital Signs Temp Pulse Resp BP Pulse Ox 07/03/17 12:02 97.9 F 80 18 119/66 96 07/03/17 09:30 98.3 F 80 20 141/68 H 97 07/03/17 04:30 98.3 F 74 24 H 156/67 H 94 L Weight 136 lb 14.4 oz 07/02/17 07/03/17 07/04/17 06:59 06:59 06:59 Intake Total 2617 1982 Output Total 2725 1999 - Physical Examination General/Neuro: alert & oriented x3 Neck: no JVD present Lungs: other: (diminished at bases) Heart: other: (irregular) Abdomen: soft Extremities: other: (No edemas) - Telemetry Telemetry Rhythm: [id number] - Labs Result Diagrams: 07/02/17 04:53 07/03/17 04:35 Troponin/CKMB CK-MB (CK-2) 1.9 ng/mL (0-6.6) 06/30/17 12:04 Troponin I 0.361 ng/mL (< 0.028) H* 06/30/17 18:47 - Assessment/Plan 1. Encephalopathy 2ndary to Digoxin toxicity - improving; family at bedside; cont. monitor 2. Chronic Afib - Remain AFib with controlled HR; Hx of cardioversion on ; on Diltiazem 180mg QD and Eliqus 5mg BID; Digoxin is on hold due to Digoxin Toxicity; Echo on 07/01/17 showed mild LAE 3. Acute on Chronic diastolic HF - stable with Lasix; Echo on 07/01/17 showed EF 50-55%, mild-mod MR, mild Pul. pressure, mod-severe TR, mild LAE 4. COPD w/ home O2 - stable; cont. monitor 5. HTN - stable with current medication 6. NSTEMI with demind ischemia - stable with BBlocker, LEV, ASA; cont. monitor on tele Review of Systems - Review of Systems Constitutional: reports: no symptoms reported EENTM: reports: no symptoms reported Respiratory: reports: no symptoms reported Cardiac (ROS): reports: no symptoms reported ABD/GI: reports: no symptoms reported : reports: no symptoms reported Musculoskeletal: reports: no symptoms reported Skin: reports: no symptoms reported <Julius Harding - Last Filed: 07/03/17 18:52> Cardiology Progress Note - Objective Vital Signs Temp Pulse Resp BP Pulse Ox 07/03/17 15:06 97.9 F 82 18 122/75 92 L 07/03/17 12:02 97.9 F 80 18 119/66 96 07/03/17 09:30 98.3 F 80 20 141/68 H 97 Weight 136 lb 14.4 oz 07/02/17 07/03/17 07/04/17 06:59 06:59 06:59 Intake Total 2617 1981 Output Total 0621 1999 - Labs Result Diagrams: 07/02/17 04:53 07/03/17 04:35 Troponin/CKMB CK-MB (CK-2) 1.9 ng/mL (0-6.6) 06/30/17 12:04 Troponin I 0.361 ng/mL (< 0.028) H* 06/30/17 18:47 - Assessment/Plan Pt. seen and eval. I agree with the A/P by the [employer]. The HR is under reasonable control with Diltiazem and Coreg, which she seems to be tolerating . Chest; scattered rales, more dry than wet. Irreg,irreg. rhythm., She may eventually need a pacemaker and an ablation if the HR increases. Or a pacemaker and increased doses of dilt. or betablockers as tolerated. I will discuss with EP about possible options of anti-arrhythmics.
[2017-07-04] MEDS: Furosemide 40 MG/4 ML VIAL SLOW IVP SCH ×2 (05:53→14:59)
[2017-07-04 05:54] LABS: Digoxin 1.02 ng/mL (0.8-2.0)
[2017-07-04] MEDS: Carvedilol 6.25 MG TAB PO SCH ×2 (08:23→16:36)
[2017-07-04] MEDS: DULoxetine 60 MG CAP PO SCH (08:23)
[2017-07-04] MEDS: Apixaban 5 MG TAB PO SCH ×2 (08:23→20:21)
[2017-07-04] MEDS: Anastrozole 1 MG TAB PO SCH (08:24)
[2017-07-04] MEDS: Acetaminophen 325 MG TAB PO PRN (08:24)
[2017-07-04] MEDS: Famotidine/PF 20 mg/2ml Vial SLOW IVP SCH ×2 (08:35→20:21)
[2017-07-04] MEDS: ALPRAZolam 0.25 MG TAB PO SCH ×2 (08:35→20:21)
[2017-07-04] MEDS: guaiFENesin ER 600 MG TAB PO SCH ×2 (08:35→20:21)
[2017-07-04] MEDS: Saccharomyces boulardii 250 MG CAP PO SCH (08:36)
[2017-07-04] MEDS: Lisinopril 10 MG TAB PO SCH (08:36)
[2017-07-04] MEDS: Pregabalin 50 MG CAP PO SCH ×3 (09:57→20:20)
--- NOTE | 2017-07-04 11:45 | PDOC.CTH ---
Cardiology Progress Note - Subjective Pt. seen and eval. by me this AM. She is very lethargic. Family is at the bedside and tells me that she is sometimes like this at home and may sleep all day. - Objective Vital Signs Temp Pulse Resp BP Pulse Ox 07/04/17 08:15 98.4 F 77 18 139/69 95 07/04/17 08:00 98.4 F 77 18 07/04/17 04:00 97.3 F L 88 16 134/72 93 L Weight 137 lb 11.2 oz 07/03/17 07/04/17 07/05/17 06:59 06:59 06:59 Intake Total 1981 720 Output Total 1999 1200 Balance -18 -480 - Physical Examination General/Neuro: other: (lethargic .) Neck: carotid US brisk Lungs: other: (few scattered rales. No dyspnea.) Heart: other: (irreg/irreg.) Abdomen: soft - Telemetry Telemetry Rhythm: afib. Rate controlled. - Labs Result Diagrams: 07/02/17 04:53 07/03/17 04:35 Troponin/CKMB CK-MB (CK-2) 1.9 ng/mL (0-6.6) 06/30/17 12:04 Troponin I 0.361 ng/mL (< 0.028) H* 06/30/17 18:47 - Assessment/Plan 1. Encephalopathy 2ndary to Digoxin toxicity - improving;sleepy this AM, family at bedside; cont. monitor 2. Chronic Afib - Remain AFib with controlled HR; Hx of cardioversion on ; on Diltiazem 180mg QD and Eliqus 5mg BID; Digoxin is on hold due to Digoxin Toxicity; Tolerating low dose beta-blockers thus far. Echo on 07/01/17 showed mild LAE. If the HR becomes too slow then a pacemaker will be in order.. The daughter tells me that she is a DNR status. 3. Acute on Chronic diastolic HF - stable with Lasix; Echo on 07/01/17 showed EF 50-55%, mild-mod MR, mild Pul. pressure, mod-severe TR, mild LAE 4. COPD w/ home O2 - stable; cont. monitor 5. HTN - stable with current medication 6. NSTEMI with demind ischemia - stable with BBlocker, LEV, ASA; cont. monitor on tele Review of Systems - Review of Systems EENTM: reports: no symptoms reported Respiratory: reports: no symptoms reported Cardiac (ROS): reports: no symptoms reported ABD/GI: reports: no symptoms reported Musculoskeletal: reports: no symptoms reported
--- NOTE | 2017-07-04 12:40 | PDOC.PN ---
- Subjective Encounter Start Date: 07/04/17 Encounter Start Time: 12:39 Ms. Wick was seen today in follow-up. She was concerned that she was very drowsy this morning. she believes it could be related to her medications. - Objective Resuscitation Status: Resuscitation Status FULL:Full Resuscitation MAR Reviewed: Yes Vital Signs & Weight: Vital Signs (12 hours) Temp Pulse Resp BP Pulse Ox 07/04/17 11:51 98.1 F 77 18 122/62 94 L 07/04/17 08:15 98.4 F 77 18 139/69 95 07/04/17 08:00 98.4 F 77 18 07/04/17 04:00 97.3 F L 88 16 134/72 93 L Weight Weight 137 lb 11.2 oz I&O: 07/03/17 07/04/17 07/05/17 06:59 06:59 06:59 Intake Total 1981 720 Output Total 1999 1200 Balance -18 -480 Result Diagrams: 07/02/17 04:53 07/03/17 04:35 Phys Exam - Physical Examination HEENT: PERRLA Respiratory: no wheezing, no rales + occasional rhonchi Cardiovascular: RRR, no significant murmur Gastrointestinal: soft, non-tender, positive bowel sounds Musculoskeletal: no edema Dx/Plan (1) COPD (chronic obstructive pulmonary disease) Status: Acute (2) Digoxin toxicity Code(s): T46.0X1A - POISONING BY CARDI-STIM GLYCOS/DRUG SIMLAR ACT, ACC, INIT Status: Acute (3) Encephalopathy, toxic Code(s): G92 - TOXIC ENCEPHALOPATHY Status: Acute (4) Atrial fibrillation with RVR Code(s): I48.91 - UNSPECIFIED ATRIAL FIBRILLATION Status: Acute (5) Chronic pain disorder Code(s): G89.4 - CHRONIC PAIN SYNDROME Status: Chronic - Plan * Toxic Metabolic encephalopathy- improved- likely from digoxin toxicity * Hypersomnolence- this could be medication related, or may be due to resolving encephalopathy- will call the pharmacy to review her home medications, and ensure they have been entered correctly * AFIB- she has had variable heart rate, and plan is for EP evaluation * COPD- stable.
--- NOTE | 2017-07-04 13:37 | CON ---
DATE OF CONSULTATION: 07/04/2017 ELECTROPHYSIOLOGY CONSULTATION REPORT REFERRING PHYSICIAN: Dr. Mckeon. I am seeing Ms. Wick at our [facility] Telemetry Floor as an electrophysiologic otm consultant for the following problems: 1. 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 A. History of newly found atrial fibrillation in 05/2017. B. Status post cardioversion on 06/05/2017 on flecainide. C. Current admission with elevated digoxin levels requiring Digibind and also with bradycardia and mental status changes. 2. History of advanced pulmonary disease. 3. History of preserved LVEF 50-55%, moderate to severe TR, marked elevated pulmonary pressures, mild to moderate MR on echo 07/01/2017. 4. Recent history of Staph pneumonia in 05/2017. 5. Chronic anticoagulation with apixaban. 6. History of hypertension. 7. History of gastroesophageal reflux disease. 8. Prior history of breast cancer, status post chemotherapy, in remission. 9. Possible early Alzheimer's. 10. History of anxiety. ALLERGIES: ADHESIVES, OXYCODONE, CODEINE, DICLOFENAC, DONEPEZIL. MEDICATIONS AT HOME: Included alprazolam, tramadol, Tylenol, lisinopril, duloxetine, anastrozole, cyclobenzaprine, multivitamin, triglobulin, albuterol, apixaban diltiazem, digoxin, guaifenesin, furosemide, Florastor. SUBJECTIVE: Ms. Wick is a poor historian, this morning is slightly sleepy most of the history is obtained from the chart and from the family, her daughter, present in the room. I have seen this lady back in May, at that point for still paroxysmal atrial fibrillation. Now she seems to be persisting atrial fibrillation, ventricular rate control was continued to be achieved with diltiazem and digoxin. She was noted to have marked bradycardia and her digoxin levels were 3.77. She actually did receive Digibind on 07/01/2017. Today the digoxin level was decreased to the therapeutic range 1, but still present. Her confusion seems to be improving. She has no new stroke-like symptoms. No focal deficits. Currently not dizzy or passes out. The rest of the 12 point system overall unremarkable, no current bleeding issues are noted either. PAST MEDICAL HISTORY: As above. SOCIAL HISTORY: The patient denies smoking, ETOH or drug use. She ambulates and uses a walker for assistance. FAMILY HISTORY: Significant for no early coronary artery disease. Otherwise, unremarkable. OBJECTIVE: VITAL SIGNS: Currently, blood pressure 139/69, heart rate 77, respirations 18, temperature 98.4 degrees Fahrenheit. On admission, blood pressure was 158/94, heart rate 82, respirations 24, temperature 97.6 degrees Fahrenheit. GENERAL: The patient is unarousable woman in no apparent distress. NECK: Supple. Jugular veins are not distended. CHEST: Coarse without crackles. CARDIAC: Heart sounds are irregularly irregular. S1 and S2 variable. No murmur or gallop. ABDOMEN: Benign. Bowel sounds are positive. EXTREMITIES: Lower extremities without edema, clubbing or cyanosis. Pulses are adequate. NEUROLOGIC: Patient is nonfocal. MUSCULOSKELETAL: Without joint swelling or deformities. SKIN: Without rash. DATABASE: The initial EKGs reveal atrial fibrillation with rate of 60 beats per minute with depression of the ST segments concerned with dig exposure, some bradycardia in 30s and 40s noted as late as last night, but this morning her heart rates are in good range, ranging 60 to 80 at rest. No pauses over 3 seconds are documented. LABORATORY DATA: Again, dig level 3.77, gradually decreasing over days to 1.02 after Digibind administration. White count 7.9, hemoglobin 11.8, platelet count is 259 on the 14th. INR 1.6. Sodium 141, potassium 3.7, BUN is 9, creatinine 0.66. X-ray on the 14 shows interstitial alveolar edema versus infectious pneumonitis. ASSESSMENT AND PLAN: Ms. Wick is a pleasant 87-year-old woman with prior history of now persisting atrial fibrillation with prior failed cardioversion and with response to flecainide. She is currently rate controlled with Cardizem and digoxin, but she got dig toxic requiring Digibind on this admission. Now her digoxin level came down to still therapeutic levels from the toxic levels resolved. Nevertheless she still has some bradyarrhythmias on the current therapeutic levels of digoxin. Previously she had significant issues with tachyarrhythmia's. This elderly lady is not markedly symptomatic from atrial fibrillation at this point. Nevertheless, her rate control is a challenge. I am not expecting significant benefit from pulmonary venous isolation procedure in this lady. I will think rate control is very reasonable. Would recommend consideration of pacemaker, especially if the rates remains slow after digoxin washout. Continue diltiazem and possibly beta blockers if tolerated. Discussed with dr Mckeon. [facility]
[2017-07-04] MEDS: traMADol HCl 50 MG TAB PO PRN (15:11)
[2017-07-05] MEDS: Furosemide 40 MG/4 ML VIAL SLOW IVP SCH (05:30)
[2017-07-05] MEDS: Acetaminophen 325 MG TAB PO PRN (05:53)
[2017-07-05] MEDS: traMADol HCl 50 MG TAB PO PRN ×2 (06:00→15:35)
[2017-07-05 06:01] LABS: Hemoglobin 11.8 g/dL (12.0-16.0); Platelet Count 277 thou/uL (130-400)
[2017-07-05] MEDS: Pregabalin 50 MG CAP PO SCH ×2 (08:53→15:17)
[2017-07-05] MEDS: Famotidine/PF 20 mg/2ml Vial SLOW IVP SCH (08:54)
[2017-07-05] MEDS: Apixaban 5 MG TAB PO SCH (08:54)
[2017-07-05] MEDS: Anastrozole 1 MG TAB PO SCH (08:54)
[2017-07-05] MEDS: Saccharomyces boulardii 250 MG CAP PO SCH (08:54)
[2017-07-05] MEDS: Lisinopril 10 MG TAB PO SCH (08:54)
[2017-07-05] MEDS: DULoxetine 60 MG CAP PO SCH (08:54)
[2017-07-05] MEDS: Carvedilol 6.25 MG TAB PO SCH ×2 (08:55→18:31)
[2017-07-05] MEDS: ALPRAZolam 0.25 MG TAB PO SCH (08:56)
[2017-07-05] MEDS: guaiFENesin ER 600 MG TAB PO SCH (08:56)
--- NOTE | 2017-07-05 10:46 | PDOC.CTH ---
Cardiology Progress Note - Subjective The pt seen and examined. No overnight events. No cardiac complaints. She reported that she felt better this AM. She complains of headache when she wakes up which improved with coffee. - Objective Vital Signs Temp Pulse Resp BP Pulse Ox 07/05/17 08:00 84 19 136/65 96 07/05/17 04:00 98.3 F 81 20 129/58 L 92 L Weight 136 lb 1.6 oz 07/04/17 07/05/17 07/06/17 06:59 06:59 06:59 Intake Total 720 1340 Output Total 1200 2250 Balance -480 -910 - Physical Examination General/Neuro: alert & oriented x3 Neck: no JVD present Lungs: other: (diminished at bases) Heart: other: (irregualr) Abdomen: soft Extremities: other: (No edema) - Telemetry Telemetry Rhythm: Afib with HR 80s - Labs Result Diagrams: 07/05/17 05:01 07/05/17 05:01 Troponin/CKMB CK-MB (CK-2) 1.9 ng/mL (0-6.6) 06/30/17 12:04 Troponin I 0.361 ng/mL (< 0.028) H* 06/30/17 18:47 - Assessment/Plan 1. Encephalopathy 2ndary to Digoxin toxicity - improved; Digoxin level on was within normal range; cont. monitor 2. Chronic Afib - Remain AFib with controlled HR; Hx of cardioversion on ; on Diltiazem 180mg QD, Eliqus 5mg BID, and bblocker; Digoxin is on hold due to Digoxin Toxicity; Echo on 07/01/17 showed mild LAE. If the HR becomes too slow then a pacemaker will be in order. 3. Acute on Chronic diastolic HF - Echo on 07/01/17 showed EF 50-55%, mild-mod MR, mild Pul. pressure, mod-severe TR, mild LAE; stable with Lasix; Lasix 40mg BID was changed from IV to PO from this PM. 4. COPD w/ home O2 - stable; cont. monitor 5. HTN - stable with current medication 6. NSTEMI with demind ischemia - stable with BBlocker, LEV, ASA; cont. monitor on tele AUG reviewed * The daughter tells me that she is a DNR status. * The pt had a few minutes Bradycardia HR down to 42. The pt was asymptomatic. The pt will d/c home with EVR for 2 wks. The pt will f/u with Dr Harding' office within 2-3wks. Review of Systems - Review of Systems Constitutional: reports: see HPI EENTM: reports: no symptoms reported Respiratory: reports: no symptoms reported Cardiac (ROS): reports: no symptoms reported ABD/GI: reports: no symptoms reported : reports: no symptoms reported Musculoskeletal: reports: no symptoms reported
--- NOTE | 2017-07-05 12:29 | PDOC.PN ---
- Subjective Encounter Start Date: 07/05/17 Encounter Start Time: 12:28 Ms. Wick was seen today in follow-up. She does not have any complaints. - Objective Resuscitation Status: Resuscitation Status FULL:Full Resuscitation MAR Reviewed: Yes Vital Signs & Weight: Vital Signs (12 hours) Temp Pulse Resp BP Pulse Ox 07/05/17 08:00 84 19 136/65 96 07/05/17 04:00 98.3 F 81 20 129/58 L 92 L Weight Weight 136 lb 1.6 oz I&O: 07/04/17 07/05/17 07/06/17 06:59 06:59 06:59 Intake Total 720 1340 Output Total 1200 2250 Balance -480 -910 Result Diagrams: 07/05/17 05:01 07/05/17 05:01 Phys Exam - Physical Examination HEENT: PERRLA Respiratory: no wheezing, no rales, no rhonchi, clear to auscultation bilateral Cardiovascular: RRR, no significant murmur Gastrointestinal: soft, non-tender, positive bowel sounds Musculoskeletal: no edema Dx/Plan (1) COPD (chronic obstructive pulmonary disease) Status: Acute (2) Digoxin toxicity Code(s): T46.0X1A - POISONING BY CARDI-STIM GLYCOS/DRUG SIMLAR ACT, ACC, INIT Status: Acute (3) Encephalopathy, toxic Code(s): G92 - TOXIC ENCEPHALOPATHY Status: Acute (4) Atrial fibrillation with RVR Code(s): I48.91 - UNSPECIFIED ATRIAL FIBRILLATION Status: Acute (5) Chronic pain disorder Code(s): G89.4 - CHRONIC PAIN SYNDROME Status: Chronic - Plan * AFIB- her heart rate has been stable * COPD -stable * Stable for discharge home today.
--- NOTE | 2017-07-05 12:30 | PRG ---
DATE OF SERVICE: 07/05/2017 SUBJECTIVE: Mrs. Wick seems to be doing fair. No new complaints noted. OBJECTIVE: VITAL SIGNS: Blood pressure is 136/65, heart rate 84, respirations 19, temperature 98.3 degrees Fahr enheit. GENERAL: Alert and oriented woman in no apparent distress. NECK: Supple. Jugular veins not distended. CHEST: Coarse, no crackles. CARDIOVASCULAR: Heart sounds are irregularly irregular. S1 and S2 is variable. No murmur or gallop . ABDOMEN: Benign. Bowel sounds positive. EXTREMITIES: Lower extremities without edema, clubbing or cyanosis. DATABASE: EKGs show the telemetry strips revealed continued atrial fibrillation, albeit with control led ventricular rates in the 60s-90s. No marked bradycardia noted. ASSESSMENT AND PLAN: 1. Mrs. Wick is an 87-year-old woman with prior history of atrial fibrillation which we attempted to suppress, but she recurred despite flecainide and cardioversion. Now she is on rate control and adv anced comorbidity. She is doing well with rate control, but required readmission due to digoxin [place] and bradycardia, now that resolved. She seems to be doing well on the current regimen including diltiazem 180 mg daily and added Coreg 6.25 mg twice a day. We discussed with Dr. Harding. She will continue to be monitored. If further bradycardia or tachycardi a requiring incremental doses of beta blockers risking further bradycardia in the future, she could b e considered for pacemaker implantation. Likely single chamber device, possibly the right ventricula r pacemaker could be even considered. 2. Oral anticoagulation with Eliquis. Continue as before. 3. Routine followup in the office requested.
[2017-07-05] MEDS ORDERED: Furosemide 40 MG TAB PO SCH (14:00)
--- NOTE | 2017-07-05 19:34 | DIS ---
DATE OF ADMISSION: 06/30/2017 DATE OF DISCHARGE: 07/05/2017 PRIMARY CARE PHYSICIAN: Adrian Vega MD DISCHARGE DISPOSITION: Home. PRIMARY DISCHARGE DIAGNOSES: 1. Atrial fibrillation with variable heart rate. 2. Acute encephalopathy. 3. Digoxin toxicity. 4. Hypertension. 5. Hyperlipidemia. 6. Chronic respiratory failure secondary to chronic obstructive pulmonary disease with hypoxemia on home oxygen. 7. Chronic anticoagulation secondary to atrial fibrillation. 8. Chronic pain. 9. Gastroesophageal reflux disease. 10. History of breast cancer. DISCHARGE MEDICATIONS: Please note that the patient's dose of Cardizem has been decreased to 180 mg daily, carvedilol was added at 6.25 mg twice daily. She was taken off of digoxin. She is to continu e tramadol 50 mg q.6 hours as needed, Florastor 250 mg daily, Lyrica 100 mg t.i.d., multivitamin once daily, lisinopril was increased to 10 mg daily, Mucinex 600 mg twice a day, Lasix 40 mg daily, Nexiu m 40 mg daily, duloxetine 60 mg daily, Flexeril 10 mg t.i.d., aspirin 81 mg daily, Eliquis 5 mg twice a day, Arimidex 1 mg daily, Xanax 0.25 mg twice a day, albuterol nebs t.i.d., acetaminophen 500 mg q .6 hours as needed. PROCEDURES DONE DURING ADMISSION: The patient had a CT scan of the brain showing no evidence of any acute intracranial process. She had an echocardiogram showing an ejection fraction of 50-55%. There was moderate to severe tricuspid regurgitation. Diastolic function could not be assessed due to atr ial fibrillation. CODE STATUS: FULL CODE. ALLERGIES: HYDROCODONE, OXYCODONE, CODEINE, ADHESIVE, DICLOFENAC and DONEPEZIL. HOSPITAL COURSE: Ms. Wick is a pleasant 87-year-old female who was brought to the hospital as a resu lt of altered mental status. She was also very lethargic and disoriented. CT scan of the head was n egative. It was discovered that she had digoxin toxicity. This also caused her heart rate to drop. Digoxin was discontinued and she was evaluated for possible pacemaker placement. She was seen by Ca rdiology as well as Electrophysiology but it was felt that the drop in heart rate was likely as a res ult of digoxin toxicity. Her heart rate has so far been stable off digoxin and her Cardizem dose was decreased from 240 to 180 and carvedilol was added. Lisinopril dose was increased. Her mental stat us improved. She was subsequently able to be discharged home with close outpatient followup.
[2017-07-05 22:03] VITALS: BP 116/57; TEMP 98.2
== END 2017-07-05 18:48 | disposition home health service (06) | DRG 917 ==
LOC: ERS 11:43 → 2NO 15:18
PROVIDERS: ADMIT Family Medicine; ATTEND Family Medicine
DX: T46.0X1A Poisoning by cardiac-stimulant glycosides and drugs of similar action, accidental (unintentional), initial encounter (principal); I21.4 Non-ST elevation (NSTEMI) myocardial infarction; G92 Toxic encephalopathy; I50.33 Acute on chronic diastolic (congestive) heart failure; J96.11 Chronic respiratory failure with hypoxia; I48.1 Persistent atrial fibrillation; I24.8 Other forms of acute ischemic heart disease; I08.1 Rheumatic disorders of both mitral and tricuspid valves; R41.82 Altered mental status, unspecified; J44.9 Chronic obstructive pulmonary disease, unspecified; I48.2 Chronic atrial fibrillation; K21.9 Gastro-esophageal reflux disease without esophagitis; G89.4 Chronic pain syndrome; Z85.3 Personal history of malignant neoplasm of breast; Z96.643 Presence of artificial hip joint, bilateral; Z96.612 Presence of left artificial shoulder joint; Z79.51 Long term (current) use of inhaled steroids; Z79.01 Long term (current) use of anticoagulants; Z88.5 Allergy status to narcotic agent; Z88.8 Allergy status to other drugs, medicaments and biological substances; E78.5 Hyperlipidemia, unspecified; Y92.019 Unspecified place in single-family (private) house as the place of occurrence of the external cause; Z99.81 Dependence on supplemental oxygen; I49.5 Sick sinus syndrome; I11.0 Hypertensive heart disease with heart failure; Z66 Do not resuscitate; I15.8 Other secondary hypertension; Z92.21 Personal history of antineoplastic chemotherapy; G47.00 Insomnia, unspecified; M79.7 Fibromyalgia
CPT/HCPCS: 36415; 36416; 70450; 71045; 80048; 80053; 80061; 80162; 81001; 82553; 82565; 83605; 83735; 83880; 84484; 85014; 85018; 85025; 85049; 85610; 85730; 93005; 93306; 94760; 96360; 96361; G8981-GP-CM; G8982-GP-CK; G8990-GO-CM; G8992-GO-CJ; J1162; J1940; J7050; S0028

== ENCOUNTER 2017-07-15 20:03 | Inpatient (IN) | payer MEDICARE ==
--- NOTE | 2017-07-15 20:48 | RAD ---
CHEST ONE VIEW 07/15/17 COMPARISON: 07/02/17 HISTORY: Fever. FINDINGS: Persistent opacification left hemithorax due to pleural and parenchymal changes. Stable configuration of the cardiac silhouette. Lung volumes continue to be diminished. Chronic changes in the right mert ral head. Left humeral prosthesis. Diffuse bone demineralization. Previous vertebroplasty change is n oted in the lower thoracic spine. No pneumothorax. IMPRESSION: Persistent opacification left hemithorax presumed to be due to pleural and parenchymal changes. POS: DAVID
[2017-07-15 20:49] LABS: Bilirubin Negative (Negative); Blood, Urine Moderate (Negative); Clarity CLEAR (Clear); Glucose, Urine (Dipstick) Negative (Negative); Leukocyte Negative (Negative); Nitrite Negative (Negative); Protein, Urine (Dipstick) 300 mg/dL (Neg-Trace); Specific Gravity, Urine 1.015 (1.002-1.036)
[2017-07-15 20:51] LABS: Bacteria/HPF None Seen HPF (None Seen); Hyaline Casts/LPF 0-3 HYALINE CAST LPF (0-3 Hyaline); RBC/HPF 21-50 HPF (0-3); Squamous Epithelial 0-3 HPF (0-3); WBC/HPF 0-3 HPF (0-3)
[2017-07-15 21:12] LABS: #Basophils 0.1 thou/uL (0.0-0.2); #Eosinphils 0.1 thou/uL (0.0-0.7); #Lymphocytes 4.3 thou/uL (1.20-3.40); #Neutrophils 5.5 thou/uL (1.40-6.50); %Basophils 0.7 % (0.0-1.0); %Eosinophils 1.2 % (0.0-10.0); %Lymphocytes 39.1 % (21.0-51.0); %Monocytes 9.1 % (0.0-10.0); %Neutrophils 49.9 % (42.0-75.0); Mean Corpuscular HGB CONC 32.5 g/dL (32.0-36.0); Mean Corpuscular Hemoglobin 32.3 pg (27.0-31.0); Mean Corpuscular Volume 99.4 fl (81.0-99.0); Mean Platelet Volume 8.4 fL (7.4-10.4); Platelet Count 248 thou/uL (130-400); RBC Distribution Width 14.3 % (11.5-14.5); White Blood Cell (WBC) Count 10.9 thou/uL (4.8-10.8)
[2017-07-15 21:31] LABS: ALT (SGPT) 14 U/L (8-55); AST (SGOT) 19 U/L (5-34); Albumin 3.1 g/dL (3.4-4.8); Alkaline Phosphatase 77 U/L (40-150); Anion Gap 13 mmol/L (10-20); BUN (Urea Nitrogen) 18 mg/dL (9.8-20.1); Bilirubin, Total 0.7 mg/dL (0.2-1.2); CK (CPK) 57 U/L (29-168); Calc. Creatinine Clearance 0 mL/min (70-130); Calcium 8.7 mg/dL (7.8-10.44); Carbon Dioxide 25 mmol/L (23-31); Chloride 100 mmol/L (98-107); Estimated GFR-MDRD 79; Glucose 93 mg/dL (83-110); Potassium 4.2 mmol/L (3.5-5.1); Protein, Total 7.1 g/dL (6.0-8.3); Sodium 134 mmol/L (136-145)
[2017-07-15 21:34] LABS: CKMB 0.8 ng/mL (0-6.6); Troponin I 0.239 ng/mL (< 0.028)
[2017-07-15] MEDS ORDERED: Acetaminophen 500 MG TAB ONE (21:40)
[2017-07-15] MEDS ORDERED: Piperacillin/Tazobactam 4.5 GM in Sodium Chloride 0.9% 100 ML IVPB SCH (22:30)
[2017-07-15] MEDS ORDERED: Furosemide 40 MG/4 ML VIAL ONE (23:38)
[2017-07-16 01:09] LABS: Troponin I 0.257 ng/mL (< 0.028)
[2017-07-16 03:10] LABS: CKMB 0.9 ng/mL (0-6.6); Troponin I 0.234 ng/mL (< 0.028)
[2017-07-16] MEDS ORDERED: Digoxin 0.25 MG TAB ONE (03:26)
[2017-07-16] MEDS ORDERED: Loratadine 10 MG TAB PO PRN (03:43)
[2017-07-16] MEDS ORDERED: Eucerin (Mineral Oil/Petrolatum,White) 30 gm Jar TOP PRN (03:43)
[2017-07-16] MEDS ORDERED: Artificial Tears 18 DROP/0.9 ML EA EYE PRN (03:43)
[2017-07-16] MEDS ORDERED: Chloraseptic Spray 180 ml Bottle PO PRN (03:43)
[2017-07-16] MEDS ORDERED: Sodium Chloride 0.65% Nasal 44 ML BOT EA NARE PRN (03:43)
[2017-07-16] MEDS ORDERED: Ondansetron HCl/PF 4 MG/2 ML Vial IVP PRN (03:43)
[2017-07-16] MEDS ORDERED: Ondansetron ODT 4 MG TAB PO PRN (03:43)
[2017-07-16] MEDS ORDERED: Diabetic Tussin 200 MG/10 ML UDCUP PO PRN (03:43)
[2017-07-16] MEDS ORDERED: Milk Of Magnesia 30 ML UDCUP PO PRN (03:43)
[2017-07-16] MEDS ORDERED: Labetalol HCl 100 MG/20 ML VIAL SLOW IVP PRN (03:43)
[2017-07-16] MEDS ORDERED: Nitroglycerin 0.4 MG TAB (25 Tab Bottle) SL PRN (03:43)
[2017-07-16] MEDS ORDERED: Loperamide HCl 2 MG CAP PO PRN (03:43)
[2017-07-16] MEDS ORDERED: Mag-Al 1200 mg/1200 mg/30 ML UDCUP PO PRN (03:43)
[2017-07-16 04:00] LABS: Troponin I 0.248 ng/mL (< 0.028)
--- NOTE | 2017-07-16 05:04 | HP ---
PRIMARY CARE PHYSICIAN: Dr. Gary Campbell. REASON FOR ADMISSION: Acute on chronic diastolic congestive heart failure, altered mental status, suspected pneumonia, and urinary tract infection. HISTORY OF PRESENT ILLNESS: An 87-year-old female who has multiple medical problems, who was recently hospitalized multiple times in our hospital. Her most recent admission was on 07/05/2017. After discharge, she was doing well, but she started feeling weak, disoriented, delusional, and lethargic for the last couple of days. Patient was having high grade fever at home. In the emergency room, her temperature was 101.2. She was tachycardic. She was also in atrial fibrillation. She was tachypneic. She was in respiratory distress. This patient was not able to provide any good history, but her son was present at bedside and he confirmed her DNR status. He reported that he found some blood either in urine or stool, he was not sure. Today in the emergency room, her hemoglobin is better than before. Her troponin is coming down from previous. Her BNP is elevated. Her chest x-ray showed persistent opacification of left base with pleural and parenchymal changes. Given her fever, tachycardia, leukocytosis, there was concern of underlying sepsis. Source of infection was worried about UTI versus pneumonia. Her influenza screen was negative. EMERGENCY ROOM COURSE: In the emergency room, patient has received broad spectrum antibiotic therapy with vancomycin and Zosyn. She was given Lasix 40 mg as she had elevated troponin that is why the patient also received aspirin and Tylenol 1 gram and digoxin 0.25 mg was given for atrial fibrillation with RVR. REVIEW OF SYSTEMS: Constitutional: Weight loss or gain, ability to conduct usual activities. Skin: Rash, itching. Eyes: Double vision, pain. ENT/Mouth : Nose bleeding, neck stiffness, pain, tenderness. Cardiovascular: Palpitations, dyspnea on exertion, orthopnea. Respiratory: Shortness of breath , wheezing, cough, hemoptysis, fever or night sweats. Gastrointestinal: Poor appetite, abdominal pain, heartburn, nausea, vomiting, constipation, or diarrhea. Genitourinary: Urgency, frequency, dysuria, nocturia. Musculoskeletal: Pain, swelling. Neurologic/Psychiatric: Anxiety, depression. Allergy/Immunologic: Skin rash, bleeding tendency. The above- mentioned review of systems is not reliable because of her level of cognitive status. PAST MEDICAL HISTORY: Chronic hypoxic respiratory failure, on home oxygen therapy; chronic atrial fibrillation with variable rate control, required cardioversion in the past; history of Streptococcal pneumonia and bacteremia; COPD; chronically elevated troponin; physical deconditioning; gastroesophageal reflux disease; chronic pain disorder; history of breast cancer, required chemotherapy; history of mechanical falls. PAST PSYCHIATRIC HISTORY: Anxiety and depression. PAST SURGICAL HISTORY: Left breast needle biopsy and subsequent lumpectomy, bilateral total hip arthroplasties, left shoulder replacement, lumbar spine surgery. ALLERGIES: OXYCODONE, CODEINE, DICLOFENAC. FAMILY HISTORY: No strong family history of premature coronary artery disease, stroke, or cancer. SOCIAL HISTORY: Patient lives at home with her family. No history of tobacco, alcohol, or illicit drug abuse. She ambulates with a walker. CURRENT HOME MEDICATIONS: Albuterol nebulization t.i.d., Xanax 0.25 mg p.o. b.i.d., Arimidex 1 mg p.o. daily, Eliquis 5 mg p.o. b.i.d., aspirin 81 mg p.o. daily, Coreg 6.25 mg p.o. b.i.d., Flexeril 10 mg t.i.d. p.r.n., Cardizem-CD 180 mg p.o. daily, Cymbalta 60 mg p.o. daily, Nexium 40 mg p.o. daily, Lasix 40 mg p.o. daily, lisinopril 10 mg p.o. daily, multivitamin 1 tablet p.o. daily, Lyrica 100 mg p.o. t.i.d., tramadol 50 mg q.6 hourly p.r.n. PHYSICAL EXAMINATION: VITAL SIGNS: On arrival, blood pressure 124/64, pulse 112 to 130 irregular, respiratory rate 22, temperature 101.2, saturation 94% on 2 liter oxygen, weight 63.5 kg. GENERAL: Patient currently appears weak, sick, in no acute distress. HEENT: Head: Normocephalic, atraumatic. Eyes: Pupils round, reactive to light. Extraocular muscles are intact. ENT: Oropharynx within normal limits. Moist mucous membranes. No oral lesions. No pharyngeal erythema, no exudate. NECK: Supple. No JVD, no thyromegaly, no carotid bruit. LUNGS: The patient appears in mild respiratory distress using accessory muscles of respiration. She does have coarse rales at base, no air entry reduced. On the left base, she has rales. CARDIAC: S1, S2 irregularly irregular, systolic murmur present parasternally. No gallop, no rub. ABDOMEN: Soft, bowel sounds present, nontender, nondistended. No organomegaly , no mass, no suprapubic tenderness. BACK: Unremarkable. No CVA tenderness. EXTREMITIES: Upper extremity passive movement of all joints are normal. Lower extremity, trace lower extremity edema noted. NEUROLOGIC: Nonfocal examination. She moves all 4 limbs. Detailed neurological examination was not possible because of her cognitive status. SKIN: No skin rash. SIGNIFICANT LABORATORY AND DIAGNOSTIC DATA: Chest x-ray showing persistent opacification of left hemithorax due to pleural and parenchymal changes. EKG showing atrial fibrillation with rapid ventricular response, low voltage QRS complex. CBC: WBC 10.9, hemoglobin 12.0, platelet 248. BMP: Sodium 134, potassium 4.2, chloride 100, carbon dioxide 25, anion gap 13, BUN 18, creatinine 0.70, glucose 93, calcium 8.7, lactic acid 1.2. LFT: Alkaline phosphatase 77, ALT 14, AST 19, albumin 3.1. CK-MB 0.8. CK 57, troponin 0.239. BNP 923.5. Urinalysis: Rbc's 21-50, blood moderate. Influenza A and B negative. ASSESSMENT AND PLAN: 1. Acute on chronic diastolic congestive heart failure exacerbation. Patient will be given Lasix 20 mg IV b.i.d. We will monitor daily weight, input and output chart. We will monitor creatinine and electrolytes and replace accordingly. Fluid restriction 1500 mL per day. 2. Chronic obstructive pulmonary disease exacerbation. Patient will be given DuoNeb q.6 hourly and p.r.n. basis and Dulera 2 puffs inhalation b.i.d., Mucinex 600 mg twice daily. We will give her Solu-Medrol 20 mg IV q.8 hourly x3 dose. 3. Atrial fibrillation with rapid ventricular response. The patient will be given digoxin 0.25 mg IV one time dose. This patient had recently drop in the Cardizem dose. At this point, we will monitor on telemetry floor. If blood pressure permits, then we may consider doing Cardizem drip if needed. We will monitor on telemetry floor. 4. Hematochezia/hematuria. We will check a stool for guaiac to rule out any occult bleeding. Her hemoglobin is stable. Doubt this patient has any ongoing active bleeding, but as patient is on chronic anticoagulation therapy. We will monitor. 5. Elevated troponin. The patient previously non-STEMI, this troponin is now trending down. We will monitor. No need of further intervention at this point. 6. Moderate tricuspid regurgitation based on prior echocardiography. 7. Chronic respiratory failure on home oxygen therapy. 8. Chronic anticoagulation with Eliquis therapy, which we will continue while in hospital. 9. Gastroesophageal reflux disease. We will continue Protonix 40 mg p.o. daily. 10. History of breast cancer. We will continue Arimidex 1 mg p.o. daily. 11. Anxiety and depression. We will continue alprazolam and Cymbalta as per home dosage. 12. History of hypertension. Currently, the patient has low blood pressure and that is why we will hold on antihypertensive medication. When the patient' s blood pressure permits, then we will resume lisinopril, Cardizem-CD, and Coreg. 13. Pneumonia and urinary tract infection suspected. At this point, patient has sepsis criteria. She meets systemic inflammatory response syndrome criteria with leukocytosis, high-grade fever, and tachycardia. Patient will be given broad-spectrum antibiotic therapy with Rocephin, cefepime, Levaquin and we will monitor on telemetry floor. We will follow up on culture result and change antibiotic therapy accordingly. 14. Deep venous thrombosis prophylaxis. Patient is already on full dose of anticoagulation therapy with Eliquis. 15. Gastrointestinal prophylaxis, Protonix 40 mg p.o. daily. CODE STATUS: I spoke with the patient's son who is medical power of county attorney and confirmed her DNR status. Disposition plan based on clinical course, we are expecting patient's stay in hospital more than 2 midnights. Plan of care was discussed with the patient and to her son at bedside in the emergency room. JEANETTE
[2017-07-16] MEDS ORDERED: Furosemide 20 MG/2 ML VIAL ONE ×2 (06:54→13:35)
[2017-07-16] MEDS ORDERED: Levofloxacin 500 mg/D5W 100 ml Premix Bag ONE (06:54)
[2017-07-16] MEDS ORDERED: ALPRAZolam 0.25 MG TAB ONE (08:53)
--- NOTE | 2017-07-16 09:15 | PDOC.PN ---
- Subjective Encounter Start Date: 07/16/17 Encounter Start Time: 09:13 Ms. Wick was seen in follow-up. She denies ever feeling short of breath. Family at the bedside said she was " breathing abnormally heavy" but this has improved. 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 She can't tell where it is coming from. She denies any dysuria, or abdominal pain. - Objective Resuscitation Status: Resuscitation Status DNR:Do Not Resuscitate MAR Reviewed: Yes Result Diagrams: 07/15/17 21:01 07/15/17 21:01 Phys Exam - Physical Examination HEENT: PERRLA + rales at the left base Cardiovascular: no significant murmur, irregular Gastrointestinal: soft, non-tender, positive bowel sounds Musculoskeletal: no edema Dx/Plan (1) Persistent pneumonia Code(s): J18.9 - PNEUMONIA, UNSPECIFIED ORGANISM Status: Acute (2) Afib Code(s): I48.91 - UNSPECIFIED ATRIAL FIBRILLATION Status: Acute (3) Acute on chronic heart failure with normal ejection fraction Code(s): I50.33 - ACUTE ON CHRONIC DIASTOLIC (CONGESTIVE) HEART FAILURE Status : Acute (4) Atrial fibrillation with RVR Code(s): I48.91 - UNSPECIFIED ATRIAL FIBRILLATION Status: Acute (5) COPD (chronic obstructive pulmonary disease) Status: Acute (6) Hypertension Code(s): I10 - ESSENTIAL (PRIMARY) HYPERTENSION Status: Acute Qualifiers: Hypertension type: other secondary hypertension Qualified Code(s): I15.8 - Other secondary hypertension - Plan * Acute on chronic heart failure- improved, likely due to AFIB with RVR- recently admitted with the same- will consult Cardiology * AFIB- her heart rate is still a bit elevated- * Persistent Pneumonia- will consult Pulmonology * Hematuria vs. Vaginal bleeding- will need to evaluate further where the blood is coming from, and then proceed with recommendations * HTN- blood pressure is stable.
[2017-07-16] MEDS: Furosemide 20 MG/2 ML VIAL SLOW IVP SCH ×2 (09:32→13:39)
[2017-07-16] MEDS: Anastrozole 1 MG TAB PO SCH (09:34)
[2017-07-16] MEDS: Cefepime 1 GM in Syringe 10 ML IVPB SCH ×2 (09:34→21:10)
[2017-07-16] MEDS: Apixaban 5 MG TAB PO SCH ×3 (09:34→21:09)
[2017-07-16] MEDS: ALPRAZolam 0.25 MG TAB PO SCH ×2 (09:34→21:09)
[2017-07-16] MEDS: DULoxetine 60 MG CAP PO SCH (09:35)
[2017-07-16] MEDS: Saccharomyces boulardii 250 MG CAP PO SCH (09:35)
[2017-07-16] MEDS ORDERED: Multivitamin W/ Minerals 1 TAB ONE (09:39)
[2017-07-16] MEDS: Multivitamin W/ Minerals 1 TAB PO SCH (09:39)
[2017-07-16] MEDS ORDERED: Acetaminophen 325 MG TAB ONE (11:48)
[2017-07-16] MEDS: Acetaminophen 325 MG TAB PO PRN ×2 (11:49→18:54)
[2017-07-16] MEDS ORDERED: Water For Inject, Bacteriostat 30 ML ONE (13:35)
[2017-07-16] MEDS: Mometasone/Formoterol 120 PUFF INHALER INH SCH ×2 (14:48→19:49)
--- NOTE | 2017-07-16 17:08 | CON ---
DATE OF CONSULTATION: 07/16/2017 CONSULTING PHYSICIAN: Dr. Carrera. REASON FOR CONSULTATION: Abnormal x-ray. HISTORY OF PRESENT ILLNESS: Ms. Wick is an 87-year-old female who has been seen by my partner, Dr. Edin Pillai in the past. She has been hospitalized for evaluation of blood in her urine, apparently shortness of breath has also been a chronic issue. She came to the emergency room not before last with altered mental status and the hematuria. Her family states that she has been lethargic for the last couple of days. Temperature was as high as 101.2. She was short of breath. She had an x-ray performed. In May, she was admitted for pneumonia and most of the peripheral lung infiltrate has cleared. I see an x-ray from several weeks ago where she had blunting of the left costophrenic angle which has persisted on the current x-ray. Right now she is asymptomatic from a pulmonary standpoint and has no complaints. PAST MEDICAL HISTORY: 1. Pneumonia. 2. Chronic hypoxic respiratory failure, requiring home O2. 3. Chronic atrial fibrillation. 4. COPD, not from tobacco abuse. 5. Chronic pain. 6. Breast cancer requiring chemotherapy. 7. Falling. PSYCHIATRIC HISTORY: Remarkable for anxiety and depression. PAST SURGICAL HISTORY: 1. She has had a left breast needle biopsy and lumpectomy. 2. Bilateral hip arthroplasties. 3. Left shoulder replacements. 4. Lumbar spine surgery. ALLERGIES: OXYCODONE, CODEINE, DICLOFENAC. MEDICATIONS: These were reviewed and include multivitamin, duloxetine, aspirin , Eliquis, Arimidex, Xanax, tramadol, Mucinex, Florastor, Lyrica, Zestril, Lasix , Nexium, Cardizem, cyclobenzaprine, Coreg, acetaminophen, and albuterol. SOCIAL HISTORY: Never a smoker, does not consume alcohol, does not use illicit drugs. REVIEW OF SYSTEMS: Twelve point review of systems otherwise negative except history of present illness. PHYSICAL EXAMINATION: VITAL SIGNS: Temperature 99.4, pulse 117, respirations 16, O2 sat 93% on 3.5 liters. GENERAL: She is awake and alert and in no acute distress. HEENT: Unremarkable. NECK: Demonstrates no JVD. LUNGS: She has slightly diminished breath sounds in the left base compared to the right. CARDIAC: S1, S2 regular. ABDOMEN: Soft, nontender. EXTREMITIES: No edema. LABORATORY DATA: Urinalysis demonstrated 21-50 red blood cells, 0-3 white blood cells. White blood cell count 10.9, hematocrit 36.8, platelet count 248. Sodium 134, potassium 4.2, chloride 100, CO2 of 25, BUN 18, creatinine 0.7, glucose 93. BNP 923, troponin 0.234. X-ray was reviewed by me personally and demonstrates cardiomegaly with blunting in the left costophrenic angle. ASSESSMENT: 1. Abnormal x-ray -- pneumonia versus pleural effusion from congestive heart failure. 2. Hematuria of uncertain significance given that she is on blood thinners. 3. Chronic diastolic heart failure with mild exacerbation. RECOMMENDATIONS: At this point, I would just follow her x-ray. I would agree with current treatment including the antibiotics and I would consider withholding her anticoagulation if at all possible. She will eventually need a urologist's opinion regarding hematuria. She may end up needing a CT scan of the chest in the future, but I would probably hold off on that for the time being. I will inform Dr. Pillai, the patient's hospitalization. 70 min spent on patient at the bedside and or on the patient's floor MTDD
--- NOTE | 2017-07-16 17:48 | PDOC.EVN ---
Event Note - Event Note Event Note: I returned to visually inspect the patient's perineum. She has a small skin tear on the posterior labia on each side. There is some dried blood present. It is possible that this could be the source of the bleeding, and the blood may have mixed with the urine. It is noted that her H&H has not dropped. Will consult [facility] in the AM to perform a pelvic exam. If this is negative, then will consider Urology evaluation.- Will continue to monitor.
[2017-07-16] MEDS ORDERED: Carvedilol 6.25 MG TAB PO SCH (21:00)
[2017-07-16] MEDS ORDERED: Digoxin 0.5 MG/2 ML AMP SLOW IVP SCH (21:15)
[2017-07-16] MEDS ORDERED: Diltiazem 125 MG in Sodium Chloride 0.9% 100 ML IVPB SCH (21:30)
--- NOTE | 2017-07-17 00:57 | ADD-CON ---
DATE OF CONSULTATION: 07/16/2017 INDICATION FOR CONSULTATION: An 87-year-old female with atrial fibrillation. Please refer to the no cale already dictated by the nurse practitioner, Nola. This is an unfortunate 87-year-old female who has been followed by me for many years. She recently underwent electrical cardioversion due to atri al fibrillation and converted back to normal sinus rhythm. For the last several days, her daughter sa diana she has been sleeping more, has been more confused and so she brought her back to the hospital and she was found to be back in atrial fibrillation with rapid ventricular response. Previously, she eid s been treated with digoxin and developed digoxin toxicity, but she is no longer on that medication. She has also been on oral anticoagulation in the form of Eliquis. She denied any chest pain and nor any significant shortness of breath but does appear to be somewhat more fatigued. At this time, we will try to monitor her by rate control and we will continue the medications. She was also visited b y the investigation officer on her last hospitalization just about 10 days ago or 2 weeks ago and was f ound to have the atrial fibrillation. She also had a cardioversion on 06/05 while on flecainide. At this time, her ejection fraction had remained relatively stable. She continues to have a good eject ion fraction and she is on chronic anticoagulation. She does have hypertension and also some early A lzheimer disease as well as anxiety and we may need to revisit with the investigation officer again. S he denied any chest pain. At this time with the atrial fibrillation and the rapid ventricular respon se, her heart rate has been up in the one-teens since being admitted to the floor. Earlier today in the emergency room with the atrial fibrillation, her heart rate was about 93 beats per minute. PAST MEDICAL HISTORY: Please refer to the notes dictated by the nurse practitioner. SOCIAL HISTORY: Please refer to the notes dictated by the nurse practitioner. FAMILY HISTORY: Please refer to the notes dictated by the nurse practitioner. REVIEW OF SYSTEMS: Please refer to the notes dictated by the nurse practitioner. PHYSICAL EXAMINATION: GENERAL: Reveals an elderly, frail, ill-appearing female. VITAL SIGNS: Blood pressure is 120/66, heart rate is anywhere between 100-120 now, O2 saturation 94% , respiratory rate 16. She is afebrile. HEENT: Shows the head to be normocephalic, atraumatic. Carotid pulses are present. There were no s ignificant bruits noted. CHEST: Few fine basilar rales, but otherwise, no significant abnormalities. CARDIOVASCULAR: Reveals a tachycardia with an irregular rhythm. EXTREMITIES: Showed no clubbing, cyanosis, or edema. NEUROLOGIC: The patient appears to be very fatigued but does appear to understand. She has some dem entia, but she is at least coherent enough to answer the questions. IMPRESSION: Atrial fibrillation with a rapid ventricular response. We will need to revisit with the investigation officer and she may need to eventually undergo atrioventricular node ablation with pacem norah insertion. Hopefully, this will be the last resort. She is not a good candidate for beta block ers as last time she was on a significant amount of beta blockers and she also developed significant bradycardia. We may need to observe to insert pacemaker insertion and then continue with beta blocke rs if necessary. Thus far, she has been tolerating a low dose of Coreg. We will see whether or not she will continue to tolerate this and hopefully, we will be able to control the heart rate with thes e medications. For other assessment and plan, please refer to the notes dictated by the nurse practitioner. I would agree with this assessment and plan.
[2017-07-17] MEDS: Acetaminophen 325 MG TAB PO PRN (04:25)
[2017-07-17 05:19] LABS: #Lymphocytes 1.5 thou/uL (1.20-3.40); #Monocytes 0.3 thou/uL (0.11-0.59); #Neutrophils 3.7 thou/uL (1.40-6.50); %Basophils 0.5 % (0.0-1.0); %Eosinophils 0.2 % (0.0-10.0); %Monocytes 4.7 % (0.0-10.0); %Neutrophils 67.6 % (42.0-75.0); Hemoglobin 12.7 g/dL (12.0-16.0); Mean Corpuscular HGB CONC 32.4 g/dL (32.0-36.0); Mean Corpuscular Hemoglobin 32.2 pg (27.0-31.0); Mean Corpuscular Volume 99.3 fl (81.0-99.0); Mean Platelet Volume 8.5 fL (7.4-10.4); Platelet Count 295 thou/uL (130-400); RBC Distribution Width 13.9 % (11.5-14.5); Red Blood Cell (RBC) Count 3.95 mill/uL (4.20-5.40); White Blood Cell (WBC) Count 5.5 thou/uL (4.8-10.8)
[2017-07-17 05:32] LABS: ALT (SGPT) 14 U/L (8-55); AST (SGOT) 16 U/L (5-34); Albumin 3.1 g/dL (3.4-4.8); Alkaline Phosphatase 70 U/L (40-150); Anion Gap 14 mmol/L (10-20); BUN (Urea Nitrogen) 20 mg/dL (9.8-20.1); Bilirubin, Total 0.6 mg/dL (0.2-1.2); Calc. Creatinine Clearance 50 mL/min (70-130); Calcium 8.9 mg/dL (7.8-10.44); Carbon Dioxide 28 mmol/L (23-31); Chloride 99 mmol/L (98-107); Estimated GFR-MDRD 71; Globulin 4.3 g/dL (2.4-3.5); Glucose 188 mg/dL (83-110); Potassium 3.8 mmol/L (3.5-5.1); Protein, Total 7.4 g/dL (6.0-8.3); Sodium 137 mmol/L (136-145); Uric Acid 9.3 mg/dL (2.6-6.0)
--- NOTE | 2017-07-17 06:03 | CON ---
DATE OF CONSULTATION: 07/16/2017 ROOM #: [id number] PRIMARY CLINICAL REHAB LIAISON: Johnna Harding M.D. PRIMARY DOCTOR: Here in [place] is Dr. Carrera. REASON FOR CARDIOLOGY CONSULTATION: Atrial fibrillation with rapid ventricular response. HISTORY OF PRESENT ILLNESS: Ms. Wick is an 87 years old female with a significant history of COPD with home O2, 2 liters nasal cannula, chronic diastolic heart failure and history of atrial f ibrillation with cardioversion in 06/2017. Per the family report the patient was fatigued, sleepy, a nd confused for 3 days prior to this admission. The daughter noticed the patient's confusion is gett ing worse and today, she almost started voiding in living room, which is really unusual for this michele ent, so the patient's daughter and son decided to bring the patient to the emergency department for f urther evaluation and treatment and the patient was found to have low-grade temperature which was 101 .2 at the emergency department. The patient has been seen by home health care and there is some landcare officer every day to check her vital signs which were normal according to the daughter's report and als o, in the emergency department, she was found to have atrial fibrillation with rapid ventricular resp onse and heart rate of 100-120s. Also, the patient's family noticed the patient having bloody urine, hematuria for a couple of days, however, the patient was found to have some skin tear to the perinea l area and the patient's primary care doctor in the [place] ordered [facility] [employer] [facility] consult for pelvic exam for this patient. The daughter reports the patient did not complain of any chest pain or tightness in her chest, palpitation or fluttering, numbness to the left extremities. She has chronic shortness of breath due to that COPD and she uses home O2. She has a history of atrial fibrillation, status p ost cardioversion in 06/2017 and after the cardioversion, the patient's heart rate down to the 40s on e time and she was discharged with event monitor record. The patient's last echocardiogram was done in 06/2017, which shows EF of 50-55%, mildly dilated left atrium, [id number] mitral regurgitation, jstlhboz-lb-zlmirf tricuspid regurgitation, and modera tely elevated pulmonary artery pressure and diastolic function could not be assessed at that time due to the atrial fibrillation and she also was admitted to hospital in 06/2017 due to altered mental st atus secondary to digoxin toxicity. During the assessment, the patient denied any chest pain or tigh tness in her chest, palpitation or fluttering in her chest, or any other cardiac complaints. She can not tell whether she is having shortness of breath or not due to the COPD. The patient's influenza s creen was negative and urine culture was also negative. UA shows high protein count in the urine mor e than 300. PAST MEDICAL HISTORY: 1. Atrial fibrillation with a rapid ventricular response. 2. Acute encephalopathy secondary to digoxin toxicity. 3. Chronic diastolic dysfunction. 4. Chronic respiratory failure secondary to chronic obstructive pulmonary disease, on home oxygen. 5. Hypertension. 6. Hyperlipidemia. 7. Chronic pain due to rheumatoid arthritis. 8. GERD. 9. History of breast cancer. 10. Chronic anticoagulation secondary to atrial fibrillation. PAST SURGICAL HISTORY: 1. Left hip replacement in 1999. 2. Left shoulder replacement. 3. Right hip replacement. 4. Breast biopsy. 5. Lumpectomy in 2017. FAMILY HISTORY: The patient's mother had a history of breast cancer, myocardial infarction. The pat mariano's sister has a history of diabetes. SOCIAL HISTORY: She is and she lives with her 2 children, they are alive and well. She den ies any tobacco abuse, ETOH, or illicit drug abuse. She uses home oxygen 2-3 liters of nasal cannula every day. ALLERGIES: She has allergies to OXYCODONE and ANY MEDICATION CONTAINING OXYCODONE. She must use the paper tape due to her very fragile skin. HOME MEDICATIONS: Diltiazem 180 mg once a day, carvedilol 6.25 twice a day, tramadol 50 mg every 6 h ours as needed, Florastor 250 once a day, Lyrica 100 mg 3 times a day, multivitamin once a day, lisin opril 10 mg once a day, Mucinex 600 mg twice a day, Lasix 40 mg once a day, Nexium 40 mg once a day, duloxetine 60 mg once a day, Flexeril 10 mg 3 times a day, aspirin 81 mg once a day, Eliquis 5 mg twi ce a day, Arimidex 1 mg once a day, Xanax 0.25 mg twice a day, albuterol nebs 3 times a day, acetamin ophen 5 mg every 6 hours as needed. REVIEW OF SYSTEMS: The following complete review of systems was negative, unless otherwise mentioned in the HPI or below: Constitutional: Weight loss or gain, ability to conduct usual activities prio r to this event. Skin: Positive for very fragile skin and skin tear between the leg. Eyes: Double vision or vision change or eye pain. ENT: Mouth, nose bleeding, obstruction or discharge from nose , neck stiffness, pain, tenderness or masses to palpate in the thyroid or other areas. Cardiovascula r: Palpitations, dyspnea on exertion, or orthopnea. Respiratory: Shortness of breath, wheezing, co ugh, hemoptysis. Gastrointestinal: Poor appetite, abdominal pain, heartburn, nausea, vomiting, constipation, diarrhea , blood in the stool or urine from internal bleeding, abnormal bowel habit. Genitourinary: Urgency, frequency, dysuria, nocturia, hematuria. Musculoskeletal: She uses a walker to prevent fall, posit sara for general pain due to fibromyalgia but negative to swelling or heat in the joints or muscle. N eurologic: Conversation polite, coordination. Psychiatric: Emotional problem, anxiety, depre ssion, previous psychiatric care. PHYSICAL EXAMINATION: VITAL SIGNS: Blood pressure is 120/66, heart rates have been 110s to 140s with atrial fibrillation, atrial flutter with RVR, respiratory rate is 16, temperature 99.4. GENERAL: Well-developed, well-nourished without any acute distress. HEAD: Normocephalic, atraumatic. EYES: Extraocular muscle movement is intact. ENT: Oral and nasal mucosa are moist without lesion. NECK: No JVD. Neck is supple and normal range of motion. LUNGS: Very tight in the bases, tight through the lung, but no wheezing, rales, or rhonchi noted. CARDIOVASCULAR: Irregularly irregular but no significant murmur, hives, thrill, bruit, or rub noted. There are 2+ pulses in the dorsal pedis, posterior tibial, and popliteal. Carotid pulse is present without bruit or thrill. No edema in the bilateral lower extremities. ABDOMEN: Soft and nontender or mass to palpate, nondistended. Bowel sounds are present. MUSCULOSKELETAL: The patient able to move all extremities. SKIN: Warm and dry. No skin rash but there supposed to be a lesion between leg, but at this time, t he patient refused to be examined. NEUROLOGIC: The patient is alert and oriented x4, awake, and normal affect, nonfocal. PSYCHIATRIC: The patient admitted to be depressed due to fear from this event. IMAGIN. EKG in the emergency department shows atrial fibrillation with heart rate 93-140s. 2. Chest x-ray shows persistent opacification at left hemithorax presumed to be due to pleural and p arenchymal change. LABORATORY DATA: WBC 10.9, hemoglobin 12.9, hematocrit 36.8, platelets 248. Chemistry: Sodium 134, potassium 4.2, BUN 18, creatinine 0.7, AST 19, ALT 14. Troponin is highest one to 0.257 and the las t one was 0.234. BNP 923. UA showing urine protein is 300 and urine blood, moderate. ASSESSMENT AND PLAN: 1. Atrial fibrillation with a rapid ventricular response. We are going to start Coreg 6.25 mg twice a day p.o. from [facility] and also we would like to start on diltiazem IV drip 5 mg per an hour and we would like to titrate the diltiazem dosage as appropriate. If possible, we would like to request EP consult for atrial fibrillation with rapid ventricular response, we can no longer control the patien t's heart rate with medication. The patient on Eliquis 5 mg twice a day, carvedilol 6.25 twice a day , and diltiazem 5 mg per an hour IV. 2. Altered mental status with low-grade temperature. At this time, the patient's condition is stabl e. The patient is alert and oriented x4. The patient still feels fatigue at this moment. We would like to continue to monitor. 3. Acute on chronic diastolic heart failure. The patient's reading is stable at this time. The pat ient is on carvedilol, Lasix. 4. Hypertension. The patient's blood pressure has been stable with current medication. 5. Chronic respiratory failure secondary to chronic obstructive pulmonary disease. The patient's br eathing is stable at this time with 2 liters nasal cannula. We would like to continue to monitor. 6. Non-ST elevation myocardial infarction secondary to demand ischemia. The patient's troponin is v rick elevated today, which is possibly due to low-grade temperature and shortness of breath secondary to the chronic obstructive pulmonary disease. 7. Hematuria. The patient is going to have a cervical exam by [facility] doctor. 8. Gag reflex. The patient is on Protonix 40 mg once a day. We would like to continue to monitor. 6. Anxiety and depression. The patient is on the Xanax and Cymbalta. We would like to continue to monitor. Thank you very much for allowing the Cardiology service to participate in the care of this patient. We will follow along with the patient care team and make further recommendations as appropriate.
[2017-07-17] MEDS: Furosemide 20 MG/2 ML VIAL SLOW IVP SCH ×2 (06:15→14:53)
[2017-07-17] MEDS: Mometasone/Formoterol 120 PUFF INHALER INH SCH ×2 (08:01→21:35)
[2017-07-17] MEDS ORDERED: FLU VACC TS2017-18 (>65YR) 0.5 ML SYRINGE IM ONE (09:00)
[2017-07-17] MEDS: ALPRAZolam 0.25 MG TAB PO SCH ×2 (09:52→20:36)
[2017-07-17] MEDS: Carvedilol 6.25 MG TAB PO SCH ×2 (09:52→19:15)
[2017-07-17] MEDS: Anastrozole 1 MG TAB PO SCH (09:53)
[2017-07-17] MEDS: Multivitamin W/ Minerals 1 TAB PO SCH (09:54)
[2017-07-17] MEDS: Saccharomyces boulardii 250 MG CAP PO SCH (09:55)
[2017-07-17] MEDS: DULoxetine 60 MG CAP PO SCH (09:56)
--- NOTE | 2017-07-17 09:56 | PDOC.PN ---
- Subjective Encounter Start Date: 07/17/17 Encounter Start Time: 09:53 Ms. Wick was seen today in follow-up. She says she is not short of breath and was never short of breath. She denies any chest pain. - Objective Resuscitation Status: Resuscitation Status DNR:Do Not Resuscitate MAR Reviewed: Yes Vital Signs & Weight: Vital Signs (12 hours) Temp Pulse Resp BP Pulse Ox 07/17/17 08:01 114 H 20 07/17/17 04:20 98 F 90 20 120/84 95 07/17/17 00:45 117 H 18 95 07/16/17 23:55 98 F 112 H 20 115/58 L 97 07/16/17 22:55 120 H 20 120/66 Weight Weight 135 lb 12.8 oz I&O: 07/16/17 07/17/17 07/18/17 06:59 06:59 06:59 Intake Total 1100 Output Total 550 Balance 550 Result Diagrams: 07/17/17 04:59 07/17/17 04:59 Phys Exam - Physical Examination HEENT: PERRLA + rales at the bases, no wheezing Cardiovascular: irregular Gastrointestinal: soft, non-tender, positive bowel sounds Musculoskeletal: edema present trace edema Dx/Plan (1) Persistent pneumonia Code(s): J18.9 - PNEUMONIA, UNSPECIFIED ORGANISM Status: Acute (2) Afib Code(s): I48.91 - UNSPECIFIED ATRIAL FIBRILLATION Status: Acute (3) Acute on chronic heart failure with normal ejection fraction Code(s): I50.33 - ACUTE ON CHRONIC DIASTOLIC (CONGESTIVE) HEART FAILURE Status : Acute (4) Atrial fibrillation with RVR Code(s): I48.91 - UNSPECIFIED ATRIAL FIBRILLATION Status: Acute (5) COPD (chronic obstructive pulmonary disease) Status: Acute (6) Hypertension Code(s): I10 - ESSENTIAL (PRIMARY) HYPERTENSION Status: Acute Qualifiers: Hypertension type: other secondary hypertension Qualified Code(s): I15.8 - Other secondary hypertension - Plan * Pneumonia- continue the current antibiotics- Levaquin and Cefepime * HTN- blood pressure was stable. * AFIB- her heart rate is a bit elevated- will continue to monitor, she has been placed on a Cardizem drip. * Continue Eliquis for Stroke prevention * Hematuria vs. Vaginal bleeding- discussed with Dr. Wooten- this will likely need to be evaluated in the Outpatient setting. Her H&H has been stable, and She has not shown signs of gross bleeding- She may also need outpatient Urology evaluation * COPD -stable
[2017-07-17] MEDS: Cefepime 1 GM in Syringe 10 ML IVPB SCH ×2 (09:57→20:36)
[2017-07-17] MEDS: Apixaban 5 MG TAB PO SCH ×2 (09:58→20:36)
--- NOTE | 2017-07-17 12:16 | PDOC.CTH ---
<Nola Avila - Last Filed: 07/17/17 12:26> Cardiology Progress Note - Subjective the pt seen and examined. No overnight events. No cardiac complaints. She still feels weak. - Objective Vital Signs Temp Pulse Pulse Resp BP BP BP 07/17/17 09:52 113/75 07/17/17 08:59 123 H 112/65 113/75 07/17/17 08:01 114 H 20 07/17/17 04:20 98 F 90 20 07/17/17 00:45 117 H 18 BP Pulse Ox 07/17/17 09:52 07/17/17 08:59 07/17/17 08:01 07/17/17 04:20 120/84 95 07/17/17 00:45 95 Weight 135 lb 12.8 oz 07/16/17 07/17/17 07/18/17 06:59 06:59 06:59 Intake Total 1100 Output Total 550 Balance 550 - Physical Examination General/Neuro: alert & oriented x3 Neck: no JVD present Lungs: other: (diminished at bases) Heart: other: (irregluar) Abdomen: soft Extremities: other: (No edema) - Telemetry Telemetry Rhythm: Afib 120-130s - Labs Result Diagrams: 07/17/17 04:59 07/17/17 04:59 Troponin/CKMB CK-MB (CK-2) 0.9 ng/mL (0-6.6) 07/16/17 02:34 Troponin I 0.248 ng/mL (< 0.028) H 07/16/17 03:28 - Assessment/Plan 1. Afib with RVR - Remains in Afib with HR 120-130s with Eliquis 5mg BID, Diltiazem 5mg/h and coreg 6.25mg BID before 0930; her HR was down to 100-110s 30 mins after Diltiazem was increased to 7.5mg/h with BP 119/68; Increase Diltiazem to 10mg/h (Which was changed at 1210 and asked RN to check the pt's BP within 30-1hr); cont. monitor on tele 2. Persistent pneumonia - on Antibiotic IV; managed by PCP 3. Acute on chronic diastolic HF - stable with current medication 4. COPD - unchanged 5. HTN - stable; cont. monitor 6. Hematuria vs. Vaginal bleeding - Possible evaluation by Dr Wooten as outpt. Stable H&H. 7. Hx of Dig toxicity MAR reviewed Review of Systems - Review of Systems Constitutional: reports: no symptoms reported EENTM: reports: no symptoms reported Respiratory: reports: no symptoms reported Cardiac (ROS): reports: no symptoms reported ABD/GI: reports: no symptoms reported <Julius Harding - Last Filed: 07/17/17 22:56> Cardiology Progress Note - Objective Vital Signs Temp Pulse Resp BP BP Pulse Ox 07/17/17 20:31 98.2 F 87 24 H 135/64 94 L 07/17/17 19:15 120/75 07/17/17 16:00 97.9 F 113 H 18 112/62 94 L 07/17/17 13:48 114 H 20 94 L 07/17/17 12:00 97.8 F 122 H 20 119/68 95 Weight 135 lb 12.8 oz 07/16/17 07/17/17 07/18/17 06:59 06:59 06:59 Intake Total 1100 1080 Output Total 550 Balance 550 1080 - Labs Result Diagrams: 07/17/17 04:59 07/17/17 04:59 Troponin/CKMB CK-MB (CK-2) 0.9 ng/mL (0-6.6) 07/16/17 02:34 Troponin I 0.248 ng/mL (< 0.028) H 07/16/17 03:28 - Assessment/Plan Pt. seen and eval. b y me. I agree with the A/P by the PCAS. The rate is stikll difficult to control. I will request EP for their opinion regarding the atrial fib and RVR. She did not tolerate digoxin in the past.. She may eventually need a pacemaker and AVJ ablation.
--- NOTE | 2017-07-17 14:09 | PQF ---
CLINICAL DOCUMENTATION IMPROVEMENT CLARIFICATION FORM: ICD-10 Updated PLEASE DO AN ADDENDUM TO THE PROGRESS NOTE WITH ANY DOCUMENTATION UPDATES OR ADDITIONS AND CARRY THROUGH TO DC SUMMARY. THANK YOU. DATE: 07/17/17 ATTN: Dr. Carrera Please exercise your independent, professional judgment in responding to the clarification form. Clinical indicators are provided on the bottom of this form for your review Please check appropriate box(s): [ X ] Sepsis due to: (Pna, UTI, gangrenous gall bladder, etc.) [ ] SIRS due to non-infectious process (please specify etiology) [ ] with organ dysfunction [ ] without organ dysfunction [ ] Severe sepsis with acute organ dysfunction of: (Examples: respiratory failure, encephalopathy, acute kidney failure, other ) [ ] Localized infection without sepsis [ ] Other diagnosis [ ] Unable to determine In addition, please specify: Present on Admission (POA): [X ] Yes [ ] No [ ] Unable to determine For continuity of documentation, please document condition throughout progress notes and discharge summary. Thank You. CLINICAL INDICATORS - SIGNS / SYMPTOMS / LABS ED RECORD: BP 124/64, PULSE 112, RESP. 22, TEMP 101.2, O2 SAT 94 ON 2L OXYGEN. DX: FEVER, CHF EXAC, POSITIVE SIRS CRITERIA H&P: GIVEN HER FEVER, TACHYCARDIA, LEUKOCYTOSIS, THERE WAS CONCERN OF UNDERLYING SEPSIS. PN 07/16-07/17/17: PERSISTENT PNEUMONIA. ACUTE RISKS: H&P: AGE 87. CHRONIC HYPOXIC RESP. FAILURE; HX OF STREPTOCOCCAL PNA & BACTEREMI COPD. CHRONICALLY ELEVATED TROPONIN. ASSESSMENT: PNEUMONIA & UTI SUSPECTED. TREATMENT: CPOE 07/16: LEVAQUIN 500MG IV Q 24 HRS. CPOE 07/16: CEFEPIME 1 GM IV Q 12 HRS Thank you, Sandra (This form is maintained as a part of the permanent medical record) 2015 [employer]. All Rights Reserved Sandra Gilbert RN, BSN [email or web address] Office: [phone] [facility]
--- NOTE | 2017-07-17 14:44 | PRG ---
DATE OF SERVICE: 07/17/2017 SERVICE: Pulmonary Medicine. INTERVAL HISTORY: The patient is doing fine from a cardiovascular and respiratory standpoint. She denies any current fevers, chills, nausea or vomiting. Her breathing is comfortable. Otherwise, there has been no interval change to her condition. She denies having any significant fever or chills since she has been here. There were no overnight events. She remains in atrial fibrillation and her rate is under fairly poor control. PHYSICAL EXAMINATION: VITAL SIGNS: Afebrile, pulse 114, blood pressure 113/75, respirations 20, saturation 94% on 4 liters nasal cannula. GENERAL: The patient is awake and alert, in no apparent distress. LUNGS: Decent air entry. There is not much in the way of prolonged expiratory phase. I do not appreciate wheezing. Dependent crackles are minimal. No rhonchi. HEART: Tachycardic. Irregular. ABDOMEN: Soft, nontender, and nondistended. Bowel sounds are positive. MUSCULOSKELETAL: No cyanosis or clubbing. No pitting in the bilateral lower extremities. NEUROLOGIC: Grossly nonfocal. LABORATORY DATA: WBC 5.5, hemoglobin 12.7, and platelets 295,000. Basic metabolic profile and liver function studies are otherwise unremarkable. BNP 923, troponin 0.248 and gently up trending. Influenza A and B is negative. Blood culture x2 and urine culture are both negative to date. IMAGING: Chest x-ray demonstrates left pleural parenchymal abnormality. ASSESSMENT: 1. Acute hypoxic respiratory failure. 2. Pulmonary infiltrate versus effusion. 3. Atrial fibrillation with rapid ventricular response. 4. Chronic obstructive pulmonary disease without current exacerbation. PLAN: We will continue to support the patient with antibiotics, nebulize medications. We will deescalate her steroids. We will focus on mobilizing the patient as much as tolerated. The patient will continue working with physical therapy. We will make certain that she gets into a chair 3 times daily with all meals. Pulmonary or Critical Care will continue to follow while the patient remains in this location. Hopefully, she will be able to get out of the hospital in 24-48 hours, once her heart rate is under slightly better control. The viral prodrome seems to be abating. Because she has had a persistent infiltrate for couple of months, we will go ahead and do a noncontrasted CT of the chest, so that we can further identify underlying issues with that part of the lung. JEANETTE
--- NOTE | 2017-07-17 15:41 | CT ---
CT OF THE CHEST WITHOUT CONTRAST: Date: 07/17/17 COMPARISON: 10/03/16. HISTORY: Pleural effusion versus infiltrate in left lung TECHNIQUE: Multiple contiguous axial images were obtained in a CT of the chest without contrast. Coronal reforma ts were performed. FINDINGS: There is a small left pleural effusion with adjacent atelectasis. Atelectasis is also seen in the rig ht lung base. No suspicious pulmonary nodules are seen. The heart is enlarged. Calcifications are seen in the coronary arteries and aorta. No hilar or medias tinal lymphadenopathy is seen, but evaluation is limited without IV contrast. Calcifications in the spleen may be from prior granulomatous disease. There is a tiny calcification i n the left kidney which appears nonobstructing. The other visualized subdiaphragmatic structures are unremarkable. Degenerative changes are seen in the spine. The chest wall soft tissues are unremarkable. IMPRESSION: 1. Small left pleural effusion with adjacent atelectasis. 2. Right basilar atelectasis. 3. Possible small nonobstructing left renal calcification. POS: FRITZ
[2017-07-17] MEDS: Diltiazem 125 MG in Sodium Chloride 0.9% 100 ML IVPB SCH (19:00)
[2017-07-18] MEDS: Diltiazem 125 MG in Sodium Chloride 0.9% 100 ML IVPB SCH ×2 (04:03→17:23)
[2017-07-18] MEDS ORDERED: Sodium Chloride 0.9% 10 ML ONE (05:23)
[2017-07-18] MEDS: Furosemide 20 MG/2 ML VIAL SLOW IVP SCH (05:35)
[2017-07-18] MEDS: Cefepime 1 GM in Syringe 10 ML IVPB SCH ×2 (09:30→21:36)
[2017-07-18] MEDS: Carvedilol 6.25 MG TAB PO SCH ×2 (09:49→17:23)
[2017-07-18] MEDS: Apixaban 5 MG TAB PO SCH (09:50)
[2017-07-18] MEDS: Multivitamin W/ Minerals 1 TAB PO SCH (09:50)
[2017-07-18] MEDS: ALPRAZolam 0.25 MG TAB PO SCH ×2 (09:50→21:36)
[2017-07-18] MEDS: DULoxetine 60 MG CAP PO SCH (09:50)
[2017-07-18] MEDS: Anastrozole 1 MG TAB PO SCH (09:50)
[2017-07-18] MEDS: Saccharomyces boulardii 250 MG CAP PO SCH (09:51)
--- NOTE | 2017-07-18 10:37 | PDOC.PN ---
- Subjective Encounter Start Date: 07/18/17 Encounter Start Time: 10:34 Patient says she is sleepy, and asked that I come back later. - Objective Resuscitation Status: Resuscitation Status DNR:Do Not Resuscitate MAR Reviewed: Yes Vital Signs & Weight: Vital Signs (12 hours) Temp Pulse Resp BP BP Pulse Ox 07/18/17 09:49 138/63 07/18/17 08:00 98.4 F 77 20 95 07/18/17 05:27 98.4 F 77 20 136/60 95 07/18/17 00:52 113 H 18 95 07/17/17 23:42 20 94 L Weight Weight 135 lb 1.6 oz I&O: 07/17/17 07/18/17 07/19/17 06:59 06:59 06:59 Intake Total 1100 1562 Output Total 550 600 Balance 550 962 Result Diagrams: 07/17/17 04:59 07/17/17 04:59 Phys Exam - Physical Examination Unable now Dx/Plan (1) Persistent pneumonia Code(s): J18.9 - PNEUMONIA, UNSPECIFIED ORGANISM Status: Acute (2) Afib Code(s): I48.91 - UNSPECIFIED ATRIAL FIBRILLATION Status: Acute (3) Acute on chronic heart failure with normal ejection fraction Code(s): I50.33 - ACUTE ON CHRONIC DIASTOLIC (CONGESTIVE) HEART FAILURE Status : Acute (4) Atrial fibrillation with RVR Code(s): I48.91 - UNSPECIFIED ATRIAL FIBRILLATION Status: Acute (5) COPD (chronic obstructive pulmonary disease) Status: Acute (6) Hypertension Code(s): I10 - ESSENTIAL (PRIMARY) HYPERTENSION Status: Acute Qualifiers: Hypertension type: other secondary hypertension Qualified Code(s): I15.8 - Other secondary hypertension - Plan * Pneumonai-as per Dr. Pillai- will continue the current antibiotics for now * Try to mobilize as much as possible * AFIB with variable heart rate- discussed with Dr. Harding- She plans to have EP to evaluate her * She continues on the Cardizem drip * Hematuria- this will be evaluated as an outpatient once the issue with the AFIB is addressed.
[2017-07-18] MEDS: Mometasone/Formoterol 120 PUFF INHALER INH SCH ×2 (11:36→20:01)
--- NOTE | 2017-07-18 14:14 | PDOC.CTH ---
<Nola Avila - Last Filed: 07/18/17 14:12> Cardiology Progress Note - Subjective The pt seen and examined. No overnight events. No cardiac complaints. She seems to be more confused and defended to almost everything in AM which was not like her normal personality. However, around noon and after exercising with PT , she is more alerted and oriented. - Objective Vital Signs Temp Pulse Pulse Resp BP BP BP 07/18/17 13:13 94 125/72 126/71 07/18/17 12:00 98.0 F 115 H 18 07/18/17 11:39 07/18/17 11:36 94 20 07/18/17 09:49 138/63 07/18/17 08:00 98.2 F 77 19 07/18/17 05:27 98.4 F 77 20 BP BP BP Pulse Ox 07/18/17 13:13 07/18/17 12:00 117/68 124/62 128/60 95 07/18/17 11:39 94 L 07/18/17 11:36 94 L 07/18/17 09:49 07/18/17 08:00 153/78 H 94 L 07/18/17 05:27 136/60 95 Weight 135 lb 1.6 oz 07/17/17 07/18/17 07/19/17 06:59 06:59 06:59 Intake Total 1100 1562 Output Total 550 600 Balance 550 962 - Physical Examination Neck: no JVD present Lungs: other: (coarse and diminished at bases) Heart: other: (irregualr) Abdomen: soft Extremities: other: (No edema) - Telemetry Telemetry Rhythm: AFib 80-100s - Labs Result Diagrams: 07/17/17 04:59 07/17/17 04:59 Troponin/CKMB CK-MB (CK-2) 0.9 ng/mL (0-6.6) 07/16/17 02:34 Troponin I 0.248 ng/mL (< 0.028) H 07/16/17 03:28 - Assessment/Plan 1. Afib with RVR - Remains in Afib with HR 80-100s with Eliquis 5mg BID, Diltiazem 10mg/h and coreg 6.25mg BID; cont. monitor on tele; EP consult was ordered for their opinion regarding the atrial fib and RVR and possible AVJ ablation? 2. Persistent pneumonia - on Antibiotic IV; managed by PCP 3. Acute on chronic diastolic HF - stable with current medication 4. COPD - unchanged 5. HTN - stable; cont. monitor 6. Hematuria vs. Vaginal bleeding - Possible evaluation by Dr Wooten as outpt. Stable H&H. 7. Hx of Dig toxicity MAR reviewed Review of Systems - Review of Systems Constitutional: reports: see HPI EENTM: reports: see HPI Respiratory: reports: shortness of breath, SOB with excertion Cardiac (ROS): reports: no symptoms reported ABD/GI: reports: no symptoms reported : reports: no symptoms reported <Julius Harding - Last Filed: 07/18/17 17:15> Cardiology Progress Note - Objective Vital Signs Temp Pulse Pulse Pulse Pulse Pulse Resp 07/18/17 13:13 94 07/18/17 12:00 98.0 F 115 H 18 07/18/17 11:39 07/18/17 11:36 94 20 07/18/17 09:49 07/18/17 09:27 111 H 77 77 112 H 07/18/17 08:00 98.2 F 77 19 07/18/17 05:27 98.4 F 77 20 BP BP BP BP BP BP BP 07/18/17 13:13 125/72 126/71 07/18/17 12:00 117/68 124/62 07/18/17 11:39 07/18/17 11:36 07/18/17 09:49 138/63 07/18/17 09:27 138/63 153/78 H 141/71 H 153/79 H 07/18/17 08:00 153/78 H 07/18/17 05:27 136/60 BP Pulse Ox 07/18/17 13:13 07/18/17 12:00 128/60 95 07/18/17 11:39 94 L 07/18/17 11:36 94 L 07/18/17 09:49 07/18/17 09:27 07/18/17 08:00 94 L 07/18/17 05:27 95 Weight 135 lb 1.6 oz 07/17/17 07/18/17 07/19/17 06:59 06:59 06:59 Intake Total 1100 1562 Output Total 550 600 Balance 550 962 - Labs Result Diagrams: 07/17/17 04:59 07/17/17 04:59 Troponin/CKMB CK-MB (CK-2) 0.9 ng/mL (0-6.6) 07/16/17 02:34 Troponin I 0.248 ng/mL (< 0.028) H 07/16/17 03:28 - Assessment/Plan Pt. seen and eval. by me. She still remains in Afib with RVR. The rate is better than in the last couple days but still elevated for her age. I agree with the a/p by the CONDEMNATION ENGINEER. EP will revisit with the pt. again today.
--- NOTE | 2017-07-18 17:33 | PDOC.CTH ---
<Kimberly Moser - Last Filed: 07/18/17 17:26> Cardiology Progress Note - Subjective EP Follow up Note Patient was recently hospitalized for persistent atrial fibrillation, originally diagnosed 05/2017, with tachybrady syndrome and is undergoing re- evaluation today for the same issues. She presented to the hospital with increased fatigue, lethargy, urinary incontinence, and confusion beginning 3 days prior to admission. Also she had been having hematuria and was found to have perineal skin tears. She had a low grade fever of 101.2 in the ER. UA was negative for UTI but positive for proteinuria. During her previous hospitalization she was found to be dig-toxic, requiring digibind. She had significant bradycardia after cardioversion, likely from dig toxicity, but possibly linked with beta gustavo therapy as well. She is no longer on dig but is maintained on low dose coreg and diltiazem. We again find her symptomatic with her arrhythmia this admission. She denies any chest pain or pressure, heart racing, or palpitations. She denies stroke or stroke like symptoms. She is maintained on Eliquis for stroke prophylaxis. Her most recent EF is 55-60% also showing moderate BL atrial enlargement, mod MR, mild AR, and severe TR. - Objective Vital Signs Temp Pulse Pulse Pulse Pulse Pulse Resp 07/18/17 17:23 07/18/17 13:13 94 07/18/17 12:00 98.0 F 115 H 18 07/18/17 11:39 07/18/17 11:36 94 20 07/18/17 09:49 07/18/17 09:27 111 H 77 77 112 H 07/18/17 08:00 98.2 F 77 19 07/18/17 05:27 98.4 F 77 20 BP BP BP BP BP BP BP 07/18/17 17:23 121/69 07/18/17 13:13 125/72 126/71 07/18/17 12:00 117/68 124/62 07/18/17 11:39 07/18/17 11:36 07/18/17 09:49 138/63 07/18/17 09:27 138/63 153/78 H 141/71 H 153/79 H 07/18/17 08:00 153/78 H 07/18/17 05:27 136/60 BP Pulse Ox 07/18/17 17:23 07/18/17 13:13 07/18/17 12:00 128/60 95 07/18/17 11:39 94 L 07/18/17 11:36 94 L 07/18/17 09:49 07/18/17 09:27 07/18/17 08:00 94 L 07/18/17 05:27 95 Weight 135 lb 1.6 oz 07/17/17 07/18/17 07/19/17 06:59 06:59 06:59 Intake Total 1100 1562 Output Total 550 600 Balance 550 962 - Physical Examination General/Neuro: NAD, other: (confused, baseline dementia) Neck: carotid US brisk, no JVD present Lungs: CTA, unlabored respirations Heart: PMI normal, RRR Abdomen: no HSM, NT/ND, soft - Telemetry Telemetry Rhythm: A Fib - Labs Result Diagrams: 07/17/17 04:59 07/17/17 04:59 Troponin/CKMB - Assessment/Plan 1. Atrial fibrillation with RVR 2. Tachybrady syndrome 3. COPD 4. Chronic oral anticoagulation with Eliquis. \ She has failed AAD therapy with Multaq. Plan is for pacemaker implantation to allow for increased dosing of AV celia agents. If that fails she may be a candidate for AV node ablation in the future. Hold Eliquis until pacemaker implant on afternoon around 3pm. Thank you for the referral. <Tony Smith - Last Filed: 07/18/17 18:00> Cardiology Progress Note - Objective Vital Signs Temp Pulse Pulse Pulse Pulse Pulse Resp 07/18/17 17:23 07/18/17 16:00 98.4 F 120 H 17 07/18/17 13:13 94 07/18/17 12:00 98.0 F 115 H 18 07/18/17 11:39 07/18/17 11:36 94 20 07/18/17 09:49 07/18/17 09:27 111 H 77 77 112 H 07/18/17 08:00 98.2 F 77 19 BP BP BP BP BP BP BP 07/18/17 17:23 121/69 07/18/17 16:00 126/71 07/18/17 13:13 125/72 126/71 07/18/17 12:00 117/68 124/62 07/18/17 11:39 01/30/18 11:36 07/18/17 09:49 138/63 07/18/17 09:27 138/63 153/78 H 141/71 H 153/79 H 07/18/17 08:00 153/78 H BP Pulse Ox 07/18/17 17:23 07/18/17 16:00 96 07/18/17 13:13 07/18/17 12:00 128/60 95 07/18/17 11:39 94 L 07/18/17 11:36 94 L 07/18/17 09:49 07/18/17 09:27 07/18/17 08:00 94 L Weight 135 lb 1.6 oz 07/17/17 07/18/17 07/19/17 06:59 06:59 06:59 Intake Total 1100 1562 360 Output Total 550 600 420 Balance 550 962 -60 - Labs Result Diagrams: 07/17/17 04:59 07/17/17 04:59 Troponin/CKMB CK-MB (CK-2) 0.9 ng/mL (0-6.6) 07/16/17 02:34 Troponin I 0.248 ng/mL (< 0.028) H 07/16/17 03:28 Attending Addendum - Attending Addendum I personally evaluated the patient and discussed the management with Mrs Moser. I agree with the History, Examination, Assessment and Plan documented above.
--- NOTE | 2017-07-19 02:00 | PRG ---
DATE OF SERVICE: 07/18/2017 SERVICE: Pulmonary Medicine. INTERVAL HISTORY: The patient is doing fine from a cardiovascular and respiratory standpoint. She d enies any current shortness of breath or chest discomfort. Today, she walked over 100 feet. It was extraordinarily exhausting and she is resting currently. She also sat on the side of bed for a coupl e of hours today. Overall, she has improved tone, and she has better outlook. She had a CT scan of the chest yesterday, just so we could follow up this previously noted infiltrates. It is pretty george r that this represents a dense area of atelectasis with no discrete endobronchial disease. This is a ctually reassuring news. PHYSICAL EXAMINATION: VITAL SIGNS: Afebrile, pulse 115, blood pressure 125/72, respirations 18, saturation 95% on 3 liters nasal cannula. GENERAL: The patient is awake and alert, no apparent distress. LUNGS: Decent air entry. There is no prolonged expiratory phase. HEART: Tachycardic, irregular. ABDOMEN: Soft, nontender, nondistended. Bowel sounds are positive. MUSCULOSKELETAL: No cyanosis or clubbing. No pitting in the bilateral lower extremities. NEUROLOGIC: Grossly nonfocal. LABORATORY DATA: Influenza A and B are unremarkable. Blood culture x2 and urine culture are both ne gative. IMAGING: CT of the chest demonstrates a very small left pleural effusion with adjacent atelectasis o f the entirety of the left lower lobe except for the superior segment of the left lower lobe. Nonobs tructing renal calculi are also identified. There is also small amount of atelectasis in the posteri or segment of the right lower lobe. ASSESSMENT: 1. Acute hypoxic respiratory failure. 2. Atelectasis of most of the left lower lobe, in the posterior basal segment of the right lower lob e. 3. Atrial fibrillation with rapid ventricular response. 4. Chronic obstructive pulmonary disease without acute exacerbation. PLAN: We will continue our supportive care. Most importantly, we will try to get the patient as mob ile as possible while she remains in the hospital. From the purely lung standpoint, she is stable fo r transition out of the hospital, though we are working on getting her heart tuned up obviously. No additional imaging is required of the lungs moving forward.
[2017-07-19] MEDS: Diltiazem 125 MG in Sodium Chloride 0.9% 100 ML IVPB SCH ×2 (03:40→16:51)
[2017-07-19] MEDS: Furosemide 20 MG/2 ML VIAL SLOW IVP SCH (06:31)
[2017-07-19] MEDS: Mometasone/Formoterol 120 PUFF INHALER INH SCH ×2 (07:11→19:28)
[2017-07-19] MEDS: Cefepime 1 GM in Syringe 10 ML IVPB SCH ×2 (09:11→20:21)
[2017-07-19] MEDS: Anastrozole 1 MG TAB PO SCH (09:11)
[2017-07-19] MEDS: DULoxetine 60 MG CAP PO SCH (09:11)
[2017-07-19] MEDS: Multivitamin W/ Minerals 1 TAB PO SCH (09:11)
[2017-07-19] MEDS: ALPRAZolam 0.25 MG TAB PO SCH ×2 (09:11→20:21)
[2017-07-19] MEDS: Saccharomyces boulardii 250 MG CAP PO SCH (09:11)
[2017-07-19] MEDS: Carvedilol 6.25 MG TAB PO SCH ×2 (09:12→16:49)
--- NOTE | 2017-07-19 10:08 | PDOC.CTH ---
<Nola Avila - Last Filed: 07/19/17 10:15> Cardiology Progress Note - Subjective The pt seen and examined. No overnight events. No cardiac complaints. Still intermittent confused. - Objective Vital Signs Temp Pulse Resp BP BP Pulse Ox 07/19/17 09:12 140/86 07/19/17 07:40 97.2 F L 113 H 17 140/86 95 07/19/17 07:10 106 H 18 96 07/19/17 04:00 97.6 F 74 18 143/79 H 07/19/17 00:00 71 18 126/77 97 Weight 136 lb 07/18/17 07/19/17 07/20/17 06:59 06:59 06:59 Intake Total 1562 720 240 Output Total 600 1020 Balance 962 -300 240 - Physical Examination Neck: no JVD present Lungs: other: (diminished at bases) Heart: other: (irregular) Abdomen: soft Extremities: other: (No edema) Other PE findings: Afib 80-100s - Labs Result Diagrams: 07/17/17 04:59 07/17/17 04:59 Troponin/CKMB CK-MB (CK-2) 0.9 ng/mL (0-6.6) 07/16/17 02:34 Troponin I 0.248 ng/mL (< 0.028) H 07/16/17 03:28 - Assessment/Plan 1. Afib with RVR - Remains in Afib with HR 80-100s with Eliquis 5mg BID, Diltiazem 10mg/h and coreg 6.25mg BID; PM placement tomorrow; Eliquis was alreay on hold from yesterday; will hold ASA tomorrow AM; cont. monitor on tele ; 2. Persistent pneumonia - on Antibiotic IV; managed by PCP 3. Acute on chronic diastolic HF - stable with current medication 4. COPD - unchanged 5. HTN - stable; cont. monitor 6. Hematuria vs. Vaginal bleeding - Possible evaluation by Dr Wooten as outpt. Stable H&H. 7. Hx of Dig toxicity MAR reviewed * the pt will undergo PM placement tomorrow; The procedure and the risk were explained to the pt and daughter. The risk are, included but not limited to, hemorrhage, infection, anaphylaxis reaction to medication, dislodgment of PM leads, pneumothorax, hematoma. The pt and family voiced understanding and agreed to proceed the procedure tomorrow. However, around noon and after exercising with PT, she is more alerted and oriented. Review of Systems - Review of Systems Constitutional: reports: weakness EENTM: reports: no symptoms reported Respiratory: reports: cough, shortness of breath Cardiac (ROS): reports: no symptoms reported ABD/GI: reports: no symptoms reported : reports: no symptoms reported <Julius Harding - Last Filed: 07/19/17 18:39> Cardiology Progress Note - Objective Vital Signs Temp Pulse Pulse Pulse Resp BP BP 07/19/17 16:49 132/80 07/19/17 16:00 98.1 F 82 17 07/19/17 15:30 82 117 H 150/70 H 07/19/17 12:00 97.2 F L 76 18 07/19/17 09:12 140/86 07/19/17 07:40 97.2 F L 113 H 17 07/19/17 07:10 106 H 18 BP BP Pulse Ox 07/19/17 16:49 07/19/17 16:00 150/70 H 95 07/19/17 15:30 114/72 07/19/17 12:00 143/63 H 94 L 07/19/17 09:12 07/19/17 07:40 140/86 95 07/19/17 07:10 96 Weight 136 lb 07/18/17 07/19/17 07/20/17 06:59 06:59 06:59 Intake Total 5346 886 7613 Output Total 600 1020 550 Balance 962 -300 490 - Labs Result Diagrams: 07/17/17 04:59 07/17/17 04:59 Troponin/CKMB CK-MB (CK-2) 0.9 ng/mL (0-6.6) 07/16/17 02:34 Troponin I 0.248 ng/mL (< 0.028) H 07/16/17 03:28 - Assessment/Plan Pt. seen and eval. by me. i agree wkith the A/P by the PHOTOGRAPHY ASSISTANT. I rediscussed the pacemaker procedure and risks. Plan for pacemaker insertion in AM.
--- NOTE | 2017-07-19 11:29 | PDOC.PN ---
- Subjective Encounter Start Date: 07/19/17 Encounter Start Time: 11:27 Ms. Wick was seen in follow-up. She is feeling a bit better today. She says she had a bad night the previous night, with very little sleep, along with concern for the pacemaker which had made her irritable. - Objective Resuscitation Status: Resuscitation Status DNR:Do Not Resuscitate MAR Reviewed: Yes Vital Signs & Weight: Vital Signs (12 hours) Temp Pulse Resp BP BP Pulse Ox 07/19/17 09:12 140/86 07/19/17 07:40 97.2 F L 113 H 17 140/86 95 07/19/17 07:10 106 H 18 96 07/19/17 04:00 97.6 F 74 18 143/79 H 07/19/17 00:00 71 18 126/77 97 Weight Weight 136 lb I&O: 07/18/17 07/19/17 07/20/17 06:59 06:59 06:59 Intake Total 1562 720 240 Output Total 600 1020 Balance 962 -300 240 Result Diagrams: 07/17/17 04:59 07/17/17 04:59 Phys Exam - Physical Examination HEENT: PERRLA + rhonchi scattered, no rales Cardiovascular: irregular Gastrointestinal: soft, non-tender, positive bowel sounds Musculoskeletal: no edema Dx/Plan (1) Persistent pneumonia Code(s): J18.9 - PNEUMONIA, UNSPECIFIED ORGANISM Status: Acute (2) Afib Code(s): I48.91 - UNSPECIFIED ATRIAL FIBRILLATION Status: Acute (3) Acute on chronic heart failure with normal ejection fraction Code(s): I50.33 - ACUTE ON CHRONIC DIASTOLIC (CONGESTIVE) HEART FAILURE Status : Acute (4) Atrial fibrillation with RVR Code(s): I48.91 - UNSPECIFIED ATRIAL FIBRILLATION Status: Acute (5) COPD (chronic obstructive pulmonary disease) Status: Acute (6) Hypertension Code(s): I10 - ESSENTIAL (PRIMARY) HYPERTENSION Status: Acute Qualifiers: Hypertension type: other secondary hypertension Qualified Code(s): I15.8 - Other secondary hypertension - Plan * AFIB with variable heart rate- plan is for pacemaker placement tomorrow. * Margo is on hold in preparation for this * Pneumonia- improving- can possibly begin de-escalating antibiotics soon * HTN- blood pressure is stable
--- NOTE | 2017-07-19 11:37 | PRG ---
DATE OF SERVICE: 07/19/2017 ELECTROPHYSIOLOGY FOLLOW UP NOTE SUBJECTIVE: Ms. Wick seems to be doing fair today. Her symptoms have improved. Her atrial fibrillation rates are also somewhat improved. OBJECTIVE DATA: VITAL SIGNS: Blood pressure is 140/86, heart rate 113, respirations 17, temperature 97.2 degrees Fah renheit. GENERAL: This is an alert and oriented elderly woman, in no apparent distress. NECK: Supple. Jugular veins not distended. CHEST: Coarse, no crackles, no wheezes. CARDIOVASCULAR: Heart sounds are irregularly irregular. S2 is variable. No murmur or gallop. ABDOMEN: Benign. Bowel sounds positive. EXTREMITIES: Lower extremities without edema, clubbing or cyanosis. DATABASE: The telemetry strips reveals atrial fibrillation with still occasionally overt ventricular rate response in the 110. LABORATORY DATA: White blood cell count is 5.5, hemoglobin is 12.7, platelet count is 295. Electrol ytes in good range from the 29th. ASSESSMENT AND PLAN: Ms. Wick is an 87-year-old woman with history of persistent atrial fibrillation with multiple medical problems, essential tachybrady syndrome associated with her atrial fibrillatio n. She has recurrent noncardiac issues, which raises her heart rate excessively, but she could not t olerate prior heart rate lowering regimens. I do think this lady would benefit from pacemaker at thi s point and then we can progressively increase her AV celia blocking agents. She did fail antiarrhyt hmic agents for maintaining sinus rhythm in the past. At this point, we are not planning cardioversi ons. She will need to resume Eliquis after her pacemaker as per Dr. Harding. This was discussed with Dr. Harding yesterday as well as to the family in detail. We will follow with you. Thank you for letting us participate in the care of this patient.
--- NOTE | 2017-07-19 11:53 | PRG ---
DATE OF SERVICE: 07/19/2017 SERVICE: Pulmonary Medicine. INTERVAL HISTORY: The patient is doing great from a respiratory standpoint. She denies any shortnes s of breath or chest discomfort currently. Otherwise, there has been no interval change to her condi tion. Since I talked to her yesterday, she has not gotten out of bed once except to use the bedside commode and she got immediately back into bed. On multiple occasions, I have told her how important it is for her to get out of bed into a chair. Apparently, she is not too terribly motivated to get s tronger despite the fact that she keeps telling me that she intends to get stronger. We will make ad ditional efforts to get her moving. PHYSICAL EXAMINATION: VITAL SIGNS: Afebrile, pulse 113, blood pressure 140/86, respirations 17, saturation 95% on 3 liters nasal cannula. GENERAL: Patient is awake, alert, in no apparent distress. LUNGS: Decent air entry. There is no prolonged expiratory phase. No wheezing, rhonchi, or crackles appreciated today. HEART: Normal rate, regular. ABDOMEN: Soft, nontender, nondistended. Bowel sounds are positive. MUSCULOSKELETAL: No cyanosis or clubbing. No pitting in the bilateral lower extremities. NEUROLOGIC: Grossly nonfocal. ASSESSMENT: 1. Acute hypoxic respiratory failure. 2. Atelectasis of the majority of the left lower lobe in the posterobasal segment of the right lower lobe. 3. Atrial fibrillation with rapid ventricular response. 4. Chronic obstructive pulmonary disease without current exacerbation. 5. Deconditioning, severe. PLAN: We will continue focusing our efforts at mobilizing this patient as often as possible. I woul d like for her to be up into a chair 3 times daily. This is not a suggestion. If she does not do th is, we may need to discontinue her bed during the daytime hours. I will continue to follow along.
[2017-07-20] MEDS ORDERED: CEFAZOLIN/Water 2 GM/20 ML SYRINGE SLOW IVP SCH (06:15)
[2017-07-20] MEDS: Furosemide 20 MG/2 ML VIAL SLOW IVP SCH (06:28)
[2017-07-20] MEDS ORDERED: CEFAZOLIN/Water 2 GM/20 ML SYRINGE ONE (06:41)
[2017-07-20] MEDS ORDERED: Gentamicin 80 MG/2 ML VIAL ONE (06:41)
[2017-07-20] MEDS ORDERED: CEFAZOLIN 1 GM VIAL ONE (06:41)
[2017-07-20] MEDS: Carvedilol 6.25 MG TAB PO SCH ×3 (07:01→16:03)
[2017-07-20] MEDS ORDERED: Carvedilol 6.25 MG TAB PO SCH (08:12)
[2017-07-20] MEDS: Mometasone/Formoterol 120 PUFF INHALER INH SCH ×2 (08:43→19:23)
[2017-07-20] MEDS: Anastrozole 1 MG TAB PO SCH (08:45)
[2017-07-20] MEDS: ALPRAZolam 0.25 MG TAB PO SCH ×2 (08:45→20:55)
[2017-07-20] MEDS: Saccharomyces boulardii 250 MG CAP PO SCH (08:45)
[2017-07-20] MEDS: Multivitamin W/ Minerals 1 TAB PO SCH (08:45)
[2017-07-20] MEDS: DULoxetine 60 MG CAP PO SCH (08:46)
--- NOTE | 2017-07-20 09:25 | RAD ---
PORTABLE CHEST 1 VIEW: Date: 07/20/17 Time: 0849 hours HISTORY: Pacemaker placement. FINDINGS/IMPRESSION: Comparison made with exam of 07/15/17. There has been interval placement of a left-sided pacemaker device with bipolar leads in the right at rium and the right ventricle. No pneumothoraces are seen. There is continued opacifications in the sonido ng base. Left-sided humeral head prosthesis and degenerative changes in the right shoulder joint are again seen. POS: FRITZ
[2017-07-20] MEDS: Cefepime 1 GM in Syringe 10 ML IVPB SCH ×2 (09:50→20:55)
--- NOTE | 2017-07-20 10:48 | PRG ---
DATE OF SERVICE: 07/20/2017 SERVICE: Pulmonary Medicine INTERVAL HISTORY: The patient is doing fine from a respiratory standpoint. She actually got up out of bed into a chair yesterday for over an hour. I am really happy that she did this. That being devin d, she went for procedure this morning and thinks that she should remain in bed for the rest of the d ay to recover from that procedure. I have suggested to her that this is not the case and that she ne eds to continue to make efforts in mobilizing herself. She currently has no absolute indication to b e bed bound. As such, we will continue with our mobilization efforts. She did not seem too terribly excited about this, but is committed to getting up at lunch, and at dinnertime today. Hopefully, we will be able to target 1 hour on each occasion. PHYSICAL EXAMINATION: VITAL SIGNS: Afebrile, pulse 115, blood pressure 138/71, respirations 18, saturation 98% on room air . GENERAL: The patient is awake, alert, no apparent distress. LUNGS: Decent air entry. There is no prolonged expiratory phase, wheezing, rhonchi or crackles. HEART: Normal rate, regular. ABDOMEN: Soft, nontender, nondistended. Bowel sounds are positive. MUSCULOSKELETAL: No cyanosis or clubbing. No pitting in the bilateral lower extremities. NEUROLOGIC: Grossly nonfocal. IMAGING: Chest x-ray demonstrates interval placement of a pacemaker. There are leads in the right a trium and right ventricle. No pneumothorax is identified. No acute cardiopulmonary process is other bianchi identified. ASSESSMENT: 1. Acute hypoxic respiratory failure, resolved. 2. Atelectasis of the majority of the left lower lobe and the posterior basal segment of the right l ower lobe. 3. Atrial fibrillation with rapid ventricular response, status post pacemaker placement. 4. Chronic obstructive pulmonary disease without current exacerbation. 5. Deconditioning, severe. PLAN: We will continue making efforts at mobilizing the patient as much as tolerated. From a purely respiratory perspective, she is stable for transition out of the hospital. She will need to pursue aggressive physical therapy in the outpatient setting. Pulmonary will continue to follow to motivate her to get out of bed on a daily basis.
[2017-07-20] MEDS: Acetaminophen 325 MG TAB PO PRN (12:28)
[2017-07-20] MEDS: Senokot 8.6 MG TAB PO PRN ×2 (14:54→14:56)
[2017-07-20] MEDS: Diltiazem 125 MG in Sodium Chloride 0.9% 100 ML IVPB SCH (16:02)
--- NOTE | 2017-07-20 16:33 | CCL ---
PACEMAKER INSERTION: Date: 07/20/17 This is an 87-year-old female with tachybrady syndrome and intermittent atrial fibrillation, with the hopes that we can convert her back to sinus rhythm. She required a dual chamber pacemaker due to her significant bradycardia associated with the medications. She was taken to the cardiac cath lab radiological technologist, prep ped, and draped in sterile fashion, and underwent the procedure without any complications or difficul ties. She was implanted with a dual chamber pacemaker from [employer], an Advia dual chamber pacemaker , with screw-in lead in the right ventricle and tie-in lead in the right atrium. There were no diffic ulties or complications encountered. The pacemaker was set with the upper rate at 120 and the lower r ate was set at 60. The full dictated note can be found in the chart.
--- NOTE | 2017-07-20 16:42 | PDOC.PN ---
- Subjective Encounter Start Date: 07/20/17 Encounter Start Time: 16:41 Ms. Wick was seen in follow-up. She was sleeping with an ice bag on her head. No complaints from her daughter who was at bedside. - Objective Resuscitation Status: Resuscitation Status DNR:Do Not Resuscitate MAR Reviewed: Yes Vital Signs & Weight: Vital Signs (12 hours) Temp Pulse Resp BP BP Pulse Ox 07/20/17 16:00 97.8 F 105 H 17 135/86 92 L 07/20/17 14:30 102 H 20 07/20/17 12:00 98.8 F 86 18 134/61 98 07/20/17 08:30 98.1 F 95 18 119/75 90 L 07/20/17 08:00 98.1 F 95 18 07/20/17 07:01 132/80 Weight Weight 135 lb I&O: 07/19/17 07/20/17 07/21/17 06:59 06:59 06:59 Intake Total 720 1400 Output Total 1020 1350 Balance -300 50 Result Diagrams: 07/17/17 04:59 07/17/17 04:59 Phys Exam - Physical Examination HEENT: PERRLA Respiratory: no wheezing, no rales, no rhonchi, clear to auscultation bilateral Cardiovascular: RRR, no significant murmur Dx/Plan (1) Persistent pneumonia Code(s): J18.9 - PNEUMONIA, UNSPECIFIED ORGANISM Status: Acute (2) Afib Code(s): I48.91 - UNSPECIFIED ATRIAL FIBRILLATION Status: Acute (3) Acute on chronic heart failure with normal ejection fraction Code(s): I50.33 - ACUTE ON CHRONIC DIASTOLIC (CONGESTIVE) HEART FAILURE Status : Acute (4) Atrial fibrillation with RVR Code(s): I48.91 - UNSPECIFIED ATRIAL FIBRILLATION Status: Acute (5) COPD (chronic obstructive pulmonary disease) Status: Acute (6) Hypertension Code(s): I10 - ESSENTIAL (PRIMARY) HYPERTENSION Status: Acute Qualifiers: Hypertension type: other secondary hypertension Qualified Code(s): I15.8 - Other secondary hypertension - Plan * AFIB- she had had the Pacemaker placed * HTN- blood pressure is stable * COPD- stable * Possibly home soon.
[2017-07-20] MEDS: traMADol HCl 50 MG TAB PO PRN (18:11)
[2017-07-21] MEDS: traMADol HCl 50 MG TAB PO PRN ×3 (02:39→20:59)
[2017-07-21] MEDS: Diltiazem 125 MG in Sodium Chloride 0.9% 100 ML IVPB SCH ×2 (02:39→18:20)
[2017-07-21] MEDS: Furosemide 20 MG/2 ML VIAL SLOW IVP SCH (05:30)
[2017-07-21] MEDS: Mometasone/Formoterol 120 PUFF INHALER INH SCH ×2 (08:29→19:29)
[2017-07-21] MEDS: Saccharomyces boulardii 250 MG CAP PO SCH (09:02)
[2017-07-21] MEDS: Anastrozole 1 MG TAB PO SCH (09:02)
[2017-07-21] MEDS: Multivitamin W/ Minerals 1 TAB PO SCH (09:02)
[2017-07-21] MEDS: Apixaban 5 MG TAB PO SCH ×2 (09:02→20:55)
[2017-07-21] MEDS: Carvedilol 6.25 MG TAB PO SCH ×2 (09:02→16:48)
[2017-07-21] MEDS: DULoxetine 60 MG CAP PO SCH (09:03)
[2017-07-21] MEDS: ALPRAZolam 0.25 MG TAB PO SCH ×2 (09:03→20:55)
[2017-07-21] MEDS: Cefepime 1 GM in Syringe 10 ML IVPB SCH ×2 (10:40→20:55)
[2017-07-21] MEDS ORDERED: Digoxin 0.5 MG/2 ML AMP SLOW IVP SCH (12:15)
--- NOTE | 2017-07-21 12:17 | PDOC.CTH ---
<Nola Avila - Last Filed: 07/21/17 12:14> Cardiology Progress Note - Subjective The pt seen and examined. No overnight events. No cardiac complaints. The PM site is DREW, clean and dry, mild hematoma. - Objective Vital Signs Temp Pulse Pulse Pulse Resp BP BP 07/21/17 11:54 97.6 F 68 28 H 07/21/17 10:12 108 H 99 131/81 132/58 L 07/21/17 08:29 96 12 07/21/17 08:14 07/21/17 08:13 96 12 07/21/17 08:00 98.2 F 76 18 07/21/17 04:00 98.0 F 81 18 BP BP Pulse Ox Pulse Ox Pulse Ox 07/21/17 11:54 122/66 07/21/17 10:12 90 L 90 L 07/21/17 08:29 07/21/17 08:14 95 07/21/17 08:13 07/21/17 08:00 122/57 L 92 L 07/21/17 04:00 117/68 92 L Weight 135 lb 3 oz 07/20/17 07/21/17 07/22/17 06:59 06:59 06:59 Intake Total 1400 1180 Output Total 1350 1550 Balance 50 -370 - Physical Examination General/Neuro: alert & oriented x3 Neck: no JVD present Lungs: other: (diminished at bases) Heart: other: (irregular) Abdomen: soft Extremities: other: (No edema) - Telemetry Telemetry Rhythm: Afib 80s w/interm. V pace - Labs Result Diagrams: 07/17/17 04:59 07/17/17 04:59 Troponin/CKMB CK-MB (CK-2) 0.9 ng/mL (0-6.6) 07/16/17 02:34 Troponin I 0.248 ng/mL (< 0.028) H 07/16/17 03:28 - Assessment/Plan 1. Afib with RVR - Remains in Afib with HR 80-100s with Eliquis 5mg BID, coreg 6.25mg BID and Diltiazem 10mg/h due to HR was up to 120s. S/o PM placement on 07/20/17; Diogixn 0.5mg IV push x1 and 0.125mg PO QOD. Check Dig level within 2 wks; cont. monitor on tele; 2. Persistent pneumonia - on Antibiotic IV; managed by PCP 3. Acute on chronic diastolic HF - stable with current medication 4. COPD - unchanged 5. HTN - stable; cont. monitor 6. Hematuria vs. Vaginal bleeding - Possible evaluation by Dr Wooten as outpt. Stable H&H. 7. Hx of Dig toxicity MAR reviewed * Start Diogixn today and will check Dig level within 2 wks Review of Systems - Review of Systems Constitutional: reports: no symptoms reported EENTM: reports: no symptoms reported Respiratory: reports: no symptoms reported Cardiac (ROS): reports: no symptoms reported ABD/GI: reports: no symptoms reported : reports: no symptoms reported <Julius Harding - Last Filed: 07/21/17 14:40> Cardiology Progress Note - Objective Vital Signs Temp Pulse Pulse Pulse Resp BP BP 07/21/17 12:31 96 07/21/17 11:54 97.6 F 68 28 H 07/21/17 10:12 108 H 99 131/81 132/58 L 07/21/17 08:29 96 12 07/21/17 08:14 07/21/17 08:13 96 12 07/21/17 08:00 98.2 F 76 18 07/21/17 04:00 98.0 F 81 18 BP BP Pulse Ox Pulse Ox Pulse Ox 07/21/17 12:31 07/21/17 11:54 122/66 07/21/17 10:12 90 L 90 L 07/21/17 08:29 07/21/17 08:14 95 07/21/17 08:13 07/21/17 08:00 122/57 L 92 L 07/21/17 04:00 117/68 92 L Weight 135 lb 3 oz 07/20/17 07/21/17 07/22/17 06:59 06:59 06:59 Intake Total 1400 1180 Output Total 1350 1550 Balance 50 -370 - Labs Result Diagrams: 07/17/17 04:59 07/17/17 04:59 Troponin/CKMB CK-MB (CK-2) 0.9 ng/mL (0-6.6) 07/16/17 02:34 Troponin I 0.248 ng/mL (< 0.028) H 07/16/17 03:28 - Assessment/Plan Pt. seen and eval. by me. I discussed her care with the PROP AND EFFECTS DESIGNER. She is still tachycardic. I will add low dose digoxin and monitor. If she remains tachy then she may eventually need an AVJ ablation.we may consider cardioversion in a couple weeks. Overall she has improved since admission. Chest : decreased breath sounds in the left base. Consider repeat CXR.
[2017-07-21] MEDS ORDERED: Furosemide 20 MG/2 ML VIAL SLOW IVP SCH ×2 (15:00)
[2017-07-21] MEDS ORDERED: Bisacodyl 10 MG SUPP PR PRN (16:36)
[2017-07-21] MEDS ORDERED: Polyethylene Glycol 3350 17 GM Packet PO SCH (16:45)
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
[2017-07-21] MEDS: Senokot S 8.6-50 MG TAB PO SCH (20:55)
--- NOTE | 2017-07-21 21:50 | PDOC.PN ---
- Subjective Encounter Start Date: 07/21/17 Encounter Start Time: 12:00 Patient seen and examined. No new complaints. No overnight events - Objective Resuscitation Status: Resuscitation Status DNR:Do Not Resuscitate MAR Reviewed: Yes Vital Signs & Weight: Vital Signs (12 hours) Temp Pulse Pulse Pulse Resp BP BP 07/21/17 19:17 116 H 12 07/21/17 16:00 98 F 72 17 07/21/17 15:17 114 H 16 07/21/17 13:53 68 115 H 127/59 L 117/61 07/21/17 12:31 96 07/21/17 11:54 97.6 F 68 28 H 07/21/17 10:12 108 H 99 131/81 132/58 L BP BP Pulse Ox Pulse Ox Pulse Ox 07/21/17 19:17 94 L 07/21/17 16:00 136/60 92 L 07/21/17 15:17 07/21/17 13:53 07/21/17 12:31 07/21/17 11:54 122/66 07/21/17 10:12 90 L 90 L Weight Weight 135 lb 3 oz I&O: 07/20/17 07/21/17 07/22/17 06:59 06:59 06:59 Intake Total 1400 1180 Output Total 1350 1550 Balance 50 -370 Result Diagrams: 07/22/17 05:38 07/22/17 05:38 EKG Reviewed by me: Yes (Afib) Phys Exam - Physical Examination Constitutional: NAD Respiratory: no wheezing, no rhonchi Cardiovascular: no rub, irregular Gastrointestinal: soft, non-tender, positive bowel sounds Musculoskeletal: no edema Neurological: moves all 4 limbs Dx/Plan - Plan cont current plan of care, continue antibiotics IMPRESSION: 1. Acute hypoxic resp failure / Persistent Pneumonia 2. Afib with RVR- on Cardizem drip/Anticoag 3. s/p Pacemaker 4. COPD 5. Physical deconditioning/Chronic Resp failure on home O2/HTN/HLD/GERD/Mod- severe TR PLAN: * Cardio/Pulm following * Atbx per Pulmonary * Cont to monitor * On Cardizem drip * Anticoag restarted * Cont therapy * Pt will probably need placement Review of Systems - Review of Systems Respiratory: negative: Cough, Dry, Shortness of Breath, Hemoptysis, SOB with Excertion, Pleuritic Pain, Sputum, Wheezing Cardiovascular: negative: chest pain, palpitations, orthopnea, paroxysmal nocturnal dyspnea, edema, light headedness - Medications/Allergies Allergies/Adverse Reactions: Allergies Allergy/AdvReac Type Severity Reaction Status Date / Time adhesive Allergy Mild Rash Verified 07/16/17 21:40 oxycodone HCl Allergy Unknown Hives Verified 07/16/17 21:40 [From OxyContin] codeine Allergy Verified 07/16/17 21:40 diclofenac Allergy Verified 07/16/17 21:40 donepezil Allergy Verified 07/16/17 21:40 hydrocodone bitartrate Allergy AMS Verified 07/16/17 21:40 [From Vicodin] Medications: Current Medications Acetaminophen (Tylenol) 650 mg PO Q4H PRN PRN Reason: Headache/Fever or Pain Last Admin: 07/20/17 12:28 Dose: 650 mg Al Hydroxide/Mg Hydroxide (Maalox) 30 ml PO Q6H PRN PRN Reason: Heartburn or Indigestion Albuterol/Ipratropium (Duoneb) 3 ml NEB [id number] [facility] Last Admin: 07/21/17 19:17 Dose: 3 ml Alprazolam (Xanax) 0.25 mg PO BID [facility] Last Admin: 07/21/17 20:55 Dose: 0.25 mg Anastrozole (Arimidex) 1 mg PO DAILY [facility] Last Admin: 07/21/17 09:02 Dose: 1 mg Apixaban (Eliquis) 5 mg PO BID [facility] Last Admin: 07/21/17 20:55 Dose: 5 mg Artificial Tears (Tears Naturale) 0 drop EA EYE PRN PRN PRN Reason: Dry Eyes Aspirin (Aspirin Chewable) 81 mg PO DAILY [facility] Last Admin: 07/21/17 09:05 Dose: 81 mg Bisacodyl (Dulcolax) 10 mg [place] DAILYPRN PRN PRN Reason: Constipation Carvedilol (Coreg) 12.5 mg PO BID-[facility] Last Admin: 07/21/17 16:48 Dose: 12.5 mg Digoxin (Lanoxin) 0.125 mg PO Q2D@0900 [facility] Duloxetine HCl (Cymbalta) 60 mg PO DAILY [facility] Last Admin: 07/21/17 09:03 Dose: 60 mg Furosemide (Lasix) 20 mg SLOW IVP 0600,1400 [facility] Guaifenesin (Robitussin Sf) 200 mg PO Q4H PRN PRN Reason: Cough Cefepime HCl 1 gm/ Syringe 10 mls @ 20 mls/hr IVPB Q12HR [facility] Last Admin: 07/21/17 20:55 Dose: 10 mls Levofloxacin 500 mg/ Device 100 mls @ 100 mls/hr IVPB Q24HR [facility] Last Admin: 07/21/17 05:30 Dose: 100 mls Diltiazem HCl 125 mg/ Sodium (Chloride) 125 mls @ 10 mls/hr IVPB INF JONES; 10 MG /HR PRN Reason: Protocol Last Admin: 07/21/17 18:20 Dose: 125 mls Iron/Minerals/Multivitamins (Theragran M) 1 tab PO DAILY [facility] Last Admin: 07/21/17 09:02 Dose: 1 tab Labetalol HCl (Normodyne) 10 mg SLOW IVP Q4H PRN PRN Reason: Systolic BP > 180 Loperamide HCl (Imodium) 2 mg PO PRN PRN PRN Reason: Diarrhea/Loose Stools Loratadine (Claritin) 10 mg PO DAILYPRN PRN PRN Reason: Sinus Symptoms Magnesium Hydroxide (Milk Of Magnesium) 30 ml PO DAILYPRN PRN PRN Reason: Constipation Last Admin: 07/18/17 21:49 Dose: 30 ml Methylprednisolone Sodium Succinate (Solu-Medrol) 20 mg IVP DAILY [facility] Last Admin: 07/21/17 09:03 Dose: 20 mg Mineral Oil/White Petrolatum (Eucerin Cream) 0 gm TOP BIDPRN PRN PRN Reason: Dry Skin Mometasone Furoate/Formoterol Fumar (Dulera 200 Mcg/5 Mcg Inhaler) 2 puff INH BID-RT [facility] Last Admin: 07/21/17 19:29 Dose: 2 puff Nitroglycerin (Nitrostat) 0.4 mg SL Q5MIN PRN PRN Reason: Chest Pain Ondansetron HCl (Zofran Odt) 4 mg PO Q6H PRN PRN Reason: Nausea/Vomiting Last Admin: 07/18/17 13:19 Dose: 4 mg Ondansetron HCl (Zofran) 4 mg IVP Q6H PRN PRN Reason: Nausea/Vomiting Pantoprazole Sodium (Protonix) 40 mg PO DAILY [facility] Last Admin: 07/21/17 09:03 Dose: 40 mg Phenol (Chloraseptic [place] 180 Ml Bot) 0 ml PO PRN PRN PRN Reason: Sore Throat Polyethylene Glycol (Miralax) 17 gm PO DAILY [facility] Saccharomyces Boulardii (Florastor) 250 mg PO DAILY [facility] Last Admin: 07/21/17 09:02 Dose: 250 mg Senna (Senokot) 2 tab PO HSPRN PRN PRN Reason: Constipation Last Admin: 07/20/17 14:56 Dose: 2 tab Senna/Docusate Sodium (Senokot S) 1 tab PO BID [facility] Last Admin: 07/21/17 20:55 Dose: 1 tab Sodium Chloride (Canones Nasal [place] 0.65%) 0 ml EA NARE QIDPRN PRN PRN Reason: Nasal Congestion Sodium Chloride (Flush - Normal Saline) 10 ml IVF Q12HR [facility] Last Admin: 07/21/17 20:57 Dose: 10 ml Sodium Chloride (Flush - Normal Saline) 10 ml IVF PRN PRN PRN Reason: Saline Flush Tramadol HCl (Ultram) 50 mg PO Q8H PRN PRN Reason: Pain Last Admin: 07/21/17 20:59 Dose: 50 mg
[2017-07-22] MEDS: Diltiazem 125 MG in Sodium Chloride 0.9% 100 ML IVPB SCH (05:40)
[2017-07-22 05:56] LABS: #Lymphocytes 2.6 thou/uL (1.20-3.40); #Neutrophils 5.2 thou/uL (1.40-6.50); %Basophils 0.3 % (0.0-1.0); %Eosinophils 0.1 % (0.0-10.0); %Lymphocytes 29.2 % (21.0-51.0); %Monocytes 11.4 % (0.0-10.0); %Neutrophils 58.9 % (42.0-75.0); Hemoglobin 12.7 g/dL (12.0-16.0); Mean Corpuscular HGB CONC 32.4 g/dL (32.0-36.0); Mean Corpuscular Hemoglobin 31.6 pg (27.0-31.0); Mean Corpuscular Volume 97.5 fl (81.0-99.0); Mean Platelet Volume 7.5 fL (7.4-10.4); Platelet Count 382 thou/uL (130-400); RBC Distribution Width 13.9 % (11.5-14.5); Red Blood Cell (RBC) Count 4.03 mill/uL (4.20-5.40); White Blood Cell (WBC) Count 8.9 thou/uL (4.8-10.8)
[2017-07-22 06:00] LABS: Hemoglobin 12.9 g/dL (12.0-16.0); Platelet Count 390 thou/uL (130-400)
[2017-07-22] MEDS ORDERED: Furosemide 20 MG/2 ML VIAL SLOW IVP SCH (06:00)
[2017-07-22 06:19] LABS: Anion Gap 10 mmol/L (10-20); BUN (Urea Nitrogen) 34 mg/dL (9.8-20.1); BUN/Creatinine Ratio 50.75; Calc. Creatinine Clearance 58 mL/min (70-130); Calcium 9.1 mg/dL (7.8-10.44); Carbon Dioxide 34 mmol/L (23-31); Chloride 98 mmol/L (98-107); Estimated GFR-MDRD 83; Glucose 94 mg/dL (83-110); Magnesium 2.1 mg/dL (1.6-2.6); Phosphorus 3.2 mg/dL (2.3-4.7); Potassium 4.4 mmol/L (3.5-5.1); Sodium 138 mmol/L (136-145)
[2017-07-22] MEDS: DULoxetine 60 MG CAP PO SCH (08:32)
[2017-07-22] MEDS: Apixaban 5 MG TAB PO SCH ×2 (08:32→21:38)
[2017-07-22] MEDS: Senokot S 8.6-50 MG TAB PO SCH ×2 (08:32→21:39)
[2017-07-22] MEDS: ALPRAZolam 0.25 MG TAB PO SCH ×2 (08:33→21:38)
[2017-07-22] MEDS: Multivitamin W/ Minerals 1 TAB PO SCH (08:33)
[2017-07-22] MEDS: Anastrozole 1 MG TAB PO SCH (08:33)
[2017-07-22] MEDS: Carvedilol 6.25 MG TAB PO SCH ×2 (08:33→17:21)
[2017-07-22] MEDS: Saccharomyces boulardii 250 MG CAP PO SCH (08:33)
[2017-07-22] MEDS: Polyethylene Glycol 3350 17 GM Packet PO SCH (08:34)
[2017-07-22] MEDS: Cefepime 1 GM in Syringe 10 ML IVPB SCH ×2 (08:45→21:39)
[2017-07-22] MEDS: traMADol HCl 50 MG TAB PO PRN ×2 (08:47→21:38)
[2017-07-22] MEDS ORDERED: Diltiazem 125 MG in Sodium Chloride 0.9% 100 ML IVPB SCH (08:49)
[2017-07-22] MEDS: Mometasone/Formoterol 120 PUFF INHALER INH SCH ×3 (11:51→20:02)
--- NOTE | 2017-07-22 13:46 | EKG ---
Test Reason : AMS Blood Pressure : / mmHG Vent. Rate : 093 BPM Atrial Rate : 220 BPM P-R Int : 000 ms QRS Dur : 070 ms QT Int : 332 ms P-R-T Axes : 000 -17 -07 degrees QTc Int : 412 ms Atrial fibrillation Low voltage QRS Confirmed by CHELSI RILEY [id number]), development editor CYN SWAIN ([id number]) on 07/22/2017 1:45:47 PM Referred By: Confirmed By:CHELSI RILEY
--- NOTE | 2017-07-22 15:41 | PDOC.PN ---
- Subjective Encounter Start Date: 07/22/17 Encounter Start Time: 13:00 Patient seen and examined. No new complaints. No overnight events - Objective Resuscitation Status: Resuscitation Status DNR:Do Not Resuscitate MAR Reviewed: Yes Vital Signs & Weight: Vital Signs (12 hours) Temp Pulse Pulse Pulse Resp BP BP 07/22/17 13:45 104 H 96 134/96 H 123/76 07/22/17 12:00 97.8 F 85 18 07/22/17 11:55 87 16 07/22/17 07:39 97.6 F 83 17 07/22/17 07:30 97.6 F 83 17 07/22/17 06:00 98.4 F 77 18 BP BP BP BP Pulse Ox Pulse Ox Pulse Ox 07/22/17 13:45 98 96 07/22/17 12:00 113/62 94 L 07/22/17 11:55 07/22/17 07:39 07/22/17 07:30 136/81 142/76 H 123/64 93 L 07/22/17 06:00 125/60 93 L Weight Weight 137 lb 6.4 oz I&O: 07/21/17 07/22/17 07/23/17 06:59 06:59 06:59 Intake Total 1180 310 Output Total 1550 350 Balance -370 -40 Result Diagrams: 07/22/17 05:38 07/22/17 05:38 EKG Reviewed by me: Yes (Tele Afib) Phys Exam - Physical Examination Constitutional: NAD Respiratory: no wheezing, no rhonchi Cardiovascular: no rub, irregular Gastrointestinal: soft, non-tender, positive bowel sounds Musculoskeletal: no edema Neurological: moves all 4 limbs Dx/Plan - Plan continue antibiotics, PT/OT IMPRESSION: 1. Acute hypoxic resp failure / Persistent Pneumonia 2. Afib with RVR- on Cardizem drip/Anticoag 3. s/p Pacemaker 4. COPD - on Nebs 5. Physical deconditioning/Chronic Resp failure on home O2/HTN/HLD/GERD/Mod- severe TR PLAN: * AM labs * Change Lasix to daily due to contraction alkalosis * Cardio/Pulm following * On Cefepine with steroids * Cont to monitor * Cont Cardizem drip per Cardiology * Cont current meds as below * Inpt Rehab screening Review of Systems - Review of Systems Respiratory: negative: Cough, Dry, Shortness of Breath, Hemoptysis, SOB with Excertion, Pleuritic Pain, Sputum, Wheezing Cardiovascular: negative: chest pain, palpitations, orthopnea, paroxysmal nocturnal dyspnea, edema, light headedness - Medications/Allergies Allergies/Adverse Reactions: Allergies Allergy/AdvReac Type Severity Reaction Status Date / Time adhesive Allergy Mild Rash Verified 07/16/17 21:40 oxycodone HCl Allergy Unknown Hives Verified 07/16/17 21:40 [From OxyContin] codeine Allergy Verified 07/16/17 21:40 diclofenac Allergy Verified 07/16/17 21:40 donepezil Allergy Verified 07/16/17 21:40 hydrocodone bitartrate Allergy AMS Verified 07/16/17 21:40 [From Vicodin] Medications: Current Medications Acetaminophen (Tylenol) 650 mg PO Q4H PRN PRN Reason: Headache/Fever or Pain Last Admin: 07/20/17 12:28 Dose: 650 mg Al Hydroxide/Mg Hydroxide (Maalox) 30 ml PO Q6H PRN PRN Reason: Heartburn or Indigestion Albuterol/Ipratropium (Duoneb) 3 ml NEB [id number] [facility] Last Admin: 07/22/17 11:55 Dose: 3 ml Alprazolam (Xanax) 0.25 mg PO BID [facility] Last Admin: 07/22/17 08:33 Dose: 0.25 mg Anastrozole (Arimidex) 1 mg PO DAILY [facility] Last Admin: 07/22/17 08:33 Dose: 1 mg Apixaban (Eliquis) 5 mg PO BID [facility] Last Admin: 07/22/17 08:32 Dose: 5 mg Artificial Tears (Tears Naturale) 0 drop EA EYE PRN PRN PRN Reason: Dry Eyes Aspirin (Aspirin Chewable) 81 mg PO DAILY [facility] Last Admin: 07/22/17 08:33 Dose: 81 mg Bisacodyl (Dulcolax) 10 mg [place] DAILYPRN PRN PRN Reason: Constipation Calcium/Vitamin D (Caltrate 600 + Vit D) 1 tab PO BID-[facility] Carvedilol (Coreg) 12.5 mg PO BID-[facility] Last Admin: 07/22/17 08:33 Dose: 12.5 mg Digoxin (Lanoxin) 0.125 mg PO Q2D@0900 [facility] Duloxetine HCl (Cymbalta) 60 mg PO DAILY [facility] Last Admin: 07/22/17 08:32 Dose: 60 mg Furosemide (Lasix) 20 mg SLOW IVP DAILY [facility] Guaifenesin (Robitussin Sf) 200 mg PO Q4H PRN PRN Reason: Cough Cefepime HCl 1 gm/ Syringe 10 mls @ 20 mls/hr IVPB Q12HR [facility] Last Admin: 07/22/17 08:45 Dose: 10 mls Levofloxacin 500 mg/ Device 100 mls @ 100 mls/hr IVPB Q24HR [facility] Last Admin: 07/22/17 05:39 Dose: 100 mls Diltiazem HCl 125 mg/ Sodium (Chloride) 125 mls @ 5 mls/hr IVPB INF JONES; 5 MG/ HR PRN Reason: Protocol Iron/Minerals/Multivitamins (Theragran M) 1 tab PO DAILY [facility] Last Admin: 07/22/17 08:33 Dose: 1 tab Labetalol HCl (Normodyne) 10 mg SLOW IVP Q4H PRN PRN Reason: Systolic BP > 180 Loperamide HCl (Imodium) 2 mg PO PRN PRN PRN Reason: Diarrhea/Loose Stools Loratadine (Claritin) 10 mg PO DAILYPRN PRN PRN Reason: Sinus Symptoms Magnesium Hydroxide (Milk Of Magnesium) 30 ml PO DAILYPRN PRN PRN Reason: Constipation Last Admin: 07/18/17 21:49 Dose: 30 ml Methylprednisolone Sodium Succinate (Solu-Medrol) 20 mg IVP DAILY [facility] Last Admin: 07/22/17 08:34 Dose: 20 mg Mineral Oil/White Petrolatum (Eucerin Cream) 0 gm TOP BIDPRN PRN PRN Reason: Dry Skin Mometasone Furoate/Formoterol Fumar (Dulera 200 Mcg/5 Mcg Inhaler) 2 puff INH BID-RT [facility] Last Admin: 07/22/17 11:51 Dose: Not Given Nitroglycerin (Nitrostat) 0.4 mg SL Q5MIN PRN PRN Reason: Chest Pain Ondansetron HCl (Zofran Odt) 4 mg PO Q6H PRN PRN Reason: Nausea/Vomiting Last Admin: 07/18/17 13:19 Dose: 4 mg Ondansetron HCl (Zofran) 4 mg IVP Q6H PRN PRN Reason: Nausea/Vomiting Pantoprazole Sodium (Protonix) 40 mg PO DAILY [facility] Last Admin: 07/22/17 08:33 Dose: 40 mg Phenol (Chloraseptic [place] 180 Ml Bot) 0 ml PO PRN PRN PRN Reason: Sore Throat Polyethylene Glycol (Miralax) 17 gm PO DAILY [facility] Last Admin: 07/22/17 08:34 Dose: 17 gm Saccharomyces Boulardii (Florastor) 250 mg PO DAILY [facility] Last Admin: 07/22/17 08:33 Dose: 250 mg Senna (Senokot) 2 tab PO HSPRN PRN PRN Reason: Constipation Last Admin: 07/20/17 14:56 Dose: 2 tab Senna/Docusate Sodium (Senokot S) 1 tab PO BID [facility] Last Admin: 07/22/17 08:32 Dose: 1 tab Sodium Chloride (Dare Nasal [place] 0.65%) 0 ml EA NARE QIDPRN PRN PRN Reason: Nasal Congestion Sodium Chloride (Flush - Normal Saline) 10 ml IVF Q12HR [facility] Last Admin: 07/22/17 08:57 Dose: 10 ml Sodium Chloride (Flush - Normal Saline) 10 ml IVF PRN PRN PRN Reason: Saline Flush Tramadol HCl (Ultram) 50 mg PO Q8H PRN PRN Reason: Pain Last Admin: 07/22/17 08:47 Dose: 50 mg
[2017-07-22] MEDS: Calcium Carbonate + Vit D 1 TAB PO SCH (17:21)
[2017-07-23] MEDS: traMADol HCl 50 MG TAB PO PRN ×2 (05:38→14:52)
[2017-07-23 06:38] LABS: Anion Gap 15 mmol/L (10-20); BUN (Urea Nitrogen) 34 mg/dL (9.8-20.1); Calc. Creatinine Clearance 57 mL/min (70-130); Calcium 9.3 mg/dL (7.8-10.44); Carbon Dioxide 27 mmol/L (23-31); Chloride 100 mmol/L (98-107); Estimated GFR-MDRD 85; Glucose 86 mg/dL (83-110); Potassium 4.7 mmol/L (3.5-5.1); Sodium 137 mmol/L (136-145)
[2017-07-23] MEDS: Digoxin 0.125 MG TAB PO SCH (08:28)
[2017-07-23] MEDS: Saccharomyces boulardii 250 MG CAP PO SCH (08:31)
[2017-07-23] MEDS: ALPRAZolam 0.25 MG TAB PO SCH ×2 (08:34→20:54)
[2017-07-23] MEDS: Multivitamin W/ Minerals 1 TAB PO SCH (08:35)
[2017-07-23] MEDS: Apixaban 5 MG TAB PO SCH ×2 (08:35→20:54)
[2017-07-23] MEDS: Anastrozole 1 MG TAB PO SCH (08:37)
[2017-07-23] MEDS: DULoxetine 60 MG CAP PO SCH (08:38)
[2017-07-23] MEDS: Senokot S 8.6-50 MG TAB PO SCH ×2 (08:39→20:55)
[2017-07-23] MEDS: Carvedilol 6.25 MG TAB PO SCH ×2 (08:40→16:01)
[2017-07-23] MEDS: Calcium Carbonate + Vit D 1 TAB PO SCH ×2 (08:42→16:01)
[2017-07-23] MEDS: Furosemide 20 MG/2 ML VIAL SLOW IVP SCH (08:53)
[2017-07-23] MEDS: Polyethylene Glycol 3350 17 GM Packet PO SCH ×2 (09:06→20:54)
[2017-07-23] MEDS: Cefdinir 300 MG CAP PO SCH ×2 (09:08→20:54)
[2017-07-23] MEDS ORDERED: Diltiazem HCl SR 60 mg Capsule PO SCH (10:15)
[2017-07-23] MEDS: Mometasone/Formoterol 120 PUFF INHALER INH SCH ×2 (11:38→19:40)
[2017-07-23] MEDS ORDERED: Milk Of Magnesia 30 ML UDCUP PO PRN (12:57)
[2017-07-23] MEDS ORDERED: Bisacodyl 10 MG SUPP PR PRN (12:59)
[2017-07-23] MEDS ORDERED: Fleet Enema 133 ML BOT PR PRN (12:59)
[2017-07-23] MEDS ORDERED: Diltiazem 125 MG in Sodium Chloride 0.9% 100 ML IVPB SCH (13:18)
--- NOTE | 2017-07-23 15:14 | PRG ---
DATE OF SERVICE: 07/23/2017 SUBJECTIVE: Ms. Wick is doing well. No significant change overnight. She continues again 5 mg IV C ardizem. She was given diltiazem 180 this morning in addition to 60 mg. OBJECTIVE: VITAL SIGNS: Heart rate 64, blood pressure 112/65. LUNGS: Clear to auscultation. CARDIAC: Irregularly irregular. ABDOMEN: Soft, nontender, nondistended. EXTREMITIES: No edema. IMPRESSION: 1. Atrial fibrillation. 2. Status post pacemaker. RECOMMENDATIONS: We will increase diltiazem to 240 q.a.m. We will decrease IV Cardizem to 2.5 per h our. She will likely hold her heart rate at 240 mg of Cardizem or 360 of Cardizem. Continue Eliquis , carvedilol, and Cardizem.
--- NOTE | 2017-07-23 18:38 | PDOC.PN ---
- Subjective Encounter Start Date: 07/23/17 Encounter Start Time: 10:00 Patient seen and examined. No new complaints. No overnight events - Objective Resuscitation Status: Resuscitation Status DNR:Do Not Resuscitate MAR Reviewed: Yes Vital Signs & Weight: Vital Signs (12 hours) Temp Pulse Pulse Pulse Resp BP BP 07/23/17 16:02 97.4 F L 82 18 07/23/17 16:01 130/60 07/23/17 16:00 97.4 F L 82 18 07/23/17 14:53 91 77 136/69 07/23/17 14:43 81 12 07/23/17 12:45 97.5 F L 81 18 07/23/17 09:23 64 12 07/23/17 08:40 125/65 07/23/17 08:28 80 07/23/17 08:00 98.7 F 84 18 BP BP BP BP BP Pulse Ox Pulse Ox 07/23/17 16:02 130/72 94 L 07/23/17 16:01 07/23/17 16:00 130/72 94 L 07/23/17 14:53 130/65 95 07/23/17 14:43 07/23/17 12:45 129/62 132/74 125/64 95 07/23/17 09:23 07/23/17 08:40 07/23/17 08:28 07/23/17 08:00 124/64 95 Pulse Ox 07/23/17 16:02 07/23/17 16:01 07/23/17 16:00 07/23/17 14:53 94 L 07/23/17 14:43 07/23/17 12:45 07/23/17 09:23 07/23/17 08:40 07/23/17 08:28 07/23/17 08:00 Weight Weight 132 lb 3.2 oz I&O: 07/22/17 07/23/17 07/24/17 06:59 06:59 06:59 Intake Total 310 1450 Output Total 350 1450 Balance -40 0 Result Diagrams: 07/26/17 04:58 07/26/17 04:58 EKG Reviewed by me: Yes (Tele Afib) Phys Exam - Physical Examination Constitutional: NAD (on Cardizem drip) Respiratory: no wheezing, no rhonchi Cardiovascular: no rub, irregular Gastrointestinal: soft, non-tender, positive bowel sounds Musculoskeletal: no edema Neurological: moves all 4 limbs Dx/Plan - Plan IMPRESSION: 1. Acute hypoxic resp failure /Persistent Pneumonia 2. Afib with RVR- on Cardizem drip/Anticoag 3. s/p Pacemaker 4. COPD - on Nebs 5. Physical deconditioning/Chronic Resp failure on home O2/HTN/HLD/GERD/Mod- severe TR/Constipation PLAN: * Treat constipation * AM labs * Cont diuresis * Cardio/Pulm following * Change Atbx to PO * Cont IV Steroids per Pulmonary * Cont to monitor * Cont Cardizem drip per Cardiology - on PO Cardizem * Cont current meds as below * Inpt Rehab screening Review of Systems - Review of Systems Constitutional: negative: fever, chills, sweats, weakness, malaise Cardiovascular: negative: chest pain, palpitations, orthopnea, paroxysmal nocturnal dyspnea, edema, light headedness Gastrointestinal: Constipation. negative: Nausea, Vomiting, Abdominal Pain, Diarrhea, Melena, Hematochezia - Medications/Allergies Allergies/Adverse Reactions: Allergies Allergy/AdvReac Type Severity Reaction Status Date / Time adhesive Allergy Mild Rash Verified 07/16/17 21:40 oxycodone HCl Allergy Unknown Hives Verified 07/16/17 21:40 [From OxyContin] codeine Allergy Verified 07/16/17 21:40 diclofenac Allergy Verified 07/16/17 21:40 donepezil Allergy Verified 07/16/17 21:40 hydrocodone bitartrate Allergy AMS Verified 07/16/17 21:40 [From Vicodin] Medications: Current Medications Acetaminophen (Tylenol) 650 mg PO Q4H PRN PRN Reason: Headache/Fever or Pain Last Admin: 07/20/17 12:28 Dose: 650 mg Al Hydroxide/Mg Hydroxide (Maalox) 30 ml PO Q6H PRN PRN Reason: Heartburn or Indigestion Albuterol/Ipratropium (Duoneb) 3 ml NEB [id number] [facility] Last Admin: 07/23/17 14:43 Dose: 3 ml Alprazolam (Xanax) 0.25 mg PO BID [facility] Last Admin: 07/23/17 08:34 Dose: 0.25 mg Anastrozole (Arimidex) 1 mg PO DAILY [facility] Last Admin: 07/23/17 08:37 Dose: 1 mg Apixaban (Eliquis) 5 mg PO BID [facility] Last Admin: 07/23/17 08:35 Dose: 5 mg Artificial Tears (Tears Naturale) 0 drop EA EYE PRN PRN PRN Reason: Dry Eyes Aspirin (Aspirin Chewable) 81 mg PO DAILY [facility] Last Admin: 07/23/17 08:42 Dose: 81 mg Bisacodyl (Dulcolax) 10 mg [place] DAILYPRN PRN PRN Reason: Constipation Bisacodyl (Dulcolax) 10 mg [place] DAILY [facility] Bisacodyl (Dulcolax) 10 mg [place] DAILYPRN PRN PRN Reason: Constipation Calcium/Vitamin D (Caltrate 600 + Vit D) 1 tab PO BID-[facility] Last Admin: 07/23/17 16:01 Dose: 1 tab Carvedilol (Coreg) 12.5 mg PO BID-[facility] Last Admin: 07/23/17 16:01 Dose: 12.5 mg Cefdinir (Omnicef) 300 mg PO BID [facility] Last Admin: 07/23/17 09:08 Dose: 300 mg Digoxin (Lanoxin) 0.125 mg PO Q2D@0900 [facility] Last Admin: 07/23/17 08:28 Dose: 0.125 mg Diltiazem HCl (Cardizem Cd) 240 mg PO DAILY [facility] Duloxetine HCl (Cymbalta) 60 mg PO DAILY [facility] Last Admin: 07/23/17 08:38 Dose: 60 mg Furosemide (Lasix) 20 mg SLOW IVP DAILY [facility] Last Admin: 07/23/17 08:53 Dose: 20 mg Guaifenesin (Robitussin Sf) 200 mg PO Q4H PRN PRN Reason: Cough Diltiazem HCl 125 mg/ Sodium (Chloride) 125 mls @ 2.5 mls/hr IVPB INF [facility]; 2.5 MG/HR PRN Reason: Protocol Iron/Minerals/Multivitamins (Theragran M) 1 tab PO DAILY [facility] Last Admin: 07/23/17 08:35 Dose: 1 tab Labetalol HCl (Normodyne) 10 mg SLOW IVP Q4H PRN PRN Reason: Systolic BP > 180 Loperamide HCl (Imodium) 2 mg PO PRN PRN PRN Reason: Diarrhea/Loose Stools Loratadine (Claritin) 10 mg PO DAILYPRN PRN PRN Reason: Sinus Symptoms Magnesium Hydroxide (Milk Of Magnesium) 30 ml PO DAILYPRN PRN PRN Reason: Constipation Last Admin: 07/18/17 21:49 Dose: 30 ml Magnesium Hydroxide (Milk Of Magnesium) 30 ml PO DAILYPRN PRN PRN Reason: Constipation Methylprednisolone Sodium Succinate (Solu-Medrol) 20 mg IVP DAILY [facility] Last Admin: 07/23/17 09:00 Dose: 20 mg Mineral Oil/White Petrolatum (Eucerin Cream) 0 gm TOP BIDPRN PRN PRN Reason: Dry Skin Mometasone Furoate/Formoterol Fumar (Dulera 200 Mcg/5 Mcg Inhaler) 2 puff INH BID-RT [facility] Last Admin: 07/23/17 11:38 Dose: Not Given Nitroglycerin (Nitrostat) 0.4 mg SL Q5MIN PRN PRN Reason: Chest Pain Ondansetron HCl (Zofran Odt) 4 mg PO Q6H PRN PRN Reason: Nausea/Vomiting Last Admin: 07/18/17 13:19 Dose: 4 mg Ondansetron HCl (Zofran) 4 mg IVP Q6H PRN PRN Reason: Nausea/Vomiting Pantoprazole Sodium (Protonix) 40 mg PO DAILY [facility] Last Admin: 07/23/17 08:33 Dose: 40 mg Phenol (Chloraseptic [place] 180 Ml Bot) 0 ml PO PRN PRN PRN Reason: Sore Throat Polyethylene Glycol (Miralax) 17 gm PO BID [facility] Saccharomyces Boulardii (Florastor) 250 mg PO DAILY [facility] Last Admin: 07/23/17 08:31 Dose: 250 mg Senna (Senokot) 2 tab PO HSPRN PRN PRN Reason: Constipation Last Admin: 07/20/17 14:56 Dose: 2 tab Senna/Docusate Sodium (Senokot S) 2 tab PO BID [facility] Sodium Biphosphate/Sodium Phosphate (Fleet Enema) 133 ml [place] DAILY PRN PRN Reason: Constipation Sodium Chloride ([place] Nasal [place] 0.65%) 0 ml EA NARE QIDPRN PRN PRN Reason: Nasal Congestion Sodium Chloride (Flush - Normal Saline) 10 ml IVF Q12HR [facility] Last Admin: 07/23/17 10:17 Dose: Not Given Sodium Chloride (Flush - Normal Saline) 10 ml IVF PRN PRN PRN Reason: Saline Flush Tramadol HCl (Ultram) 50 mg PO Q8H PRN PRN Reason: Pain Last Admin: 07/23/17 14:52 Dose: 50 mg
[2017-07-24 05:14] LABS: Hemoglobin 12.5 g/dL (12.0-16.0); Platelet Count 387 thou/uL (130-400)
[2017-07-24 05:49] LABS: Anion Gap 13 mmol/L (10-20); BUN (Urea Nitrogen) 31 mg/dL (9.8-20.1); Calc. Creatinine Clearance 63 mL/min (70-130); Calcium 9.1 mg/dL (7.8-10.44); Carbon Dioxide 30 mmol/L (23-31); Chloride 96 mmol/L (98-107); Estimated GFR-MDRD Greater than 90; Glucose 110 mg/dL (83-110); Potassium 4.2 mmol/L (3.5-5.1); Sodium 135 mmol/L (136-145)
[2017-07-24] MEDS: Mometasone/Formoterol 120 PUFF INHALER INH SCH ×2 (08:12→20:52)
[2017-07-24 08:50] VITALS: BMI 27.0
[2017-07-24] MEDS: Multivitamin W/ Minerals 1 TAB PO SCH (09:19)
[2017-07-24] MEDS: Apixaban 5 MG TAB PO SCH ×2 (09:19→21:40)
[2017-07-24] MEDS: Carvedilol 6.25 MG TAB PO SCH ×2 (09:20→17:57)
[2017-07-24] MEDS: Cefdinir 300 MG CAP PO SCH ×2 (09:20→21:41)
[2017-07-24] MEDS: Anastrozole 1 MG TAB PO SCH (09:20)
[2017-07-24] MEDS: Saccharomyces boulardii 250 MG CAP PO SCH (09:20)
[2017-07-24] MEDS: DULoxetine 60 MG CAP PO SCH (09:20)
[2017-07-24] MEDS: ALPRAZolam 0.25 MG TAB PO SCH ×2 (09:20→21:40)
[2017-07-24] MEDS: Bisacodyl 10 MG SUPP PR SCH (09:21)
[2017-07-24] MEDS: Furosemide 20 MG/2 ML VIAL SLOW IVP SCH (09:21)
[2017-07-24] MEDS: Calcium Carbonate + Vit D 1 TAB PO SCH ×2 (09:21→17:58)
[2017-07-24] MEDS: Polyethylene Glycol 3350 17 GM Packet PO SCH ×2 (09:22→21:45)
[2017-07-24] MEDS: Senokot S 8.6-50 MG TAB PO SCH ×2 (09:22→21:45)
--- NOTE | 2017-07-24 10:38 | PDOC.CTH ---
<Nola Avila - Last Filed: 07/24/17 10:41> Cardiology Progress Note - Subjective The pt seen and examined. No overnight events. No cardiac complaints. She reported that she has intermittent confusion especially in AM. she would like to be tx to Inpt rehab for gaining her strength. - Objective Vital Signs Temp Pulse Resp BP BP Pulse Ox 07/24/17 09:19 112 H 133/63 07/24/17 08:14 112 H 16 94 L 07/24/17 08:12 83 18 114/56 L 94 L 07/24/17 03:59 98.0 F 80 20 156/107 H 98 07/24/17 01:31 76 12 Admit Weight 137 lb Weight 133 lb 12.8 oz 07/23/17 07/24/17 07/25/17 06:59 06:59 06:59 Intake Total 1450 1120 Output Total 1450 1300 Balance 0 -180 - Physical Examination General/Neuro: alert & oriented x3 Neck: no JVD present Lungs: other: (diminished at bases coarses) Heart: other: (irregular) Abdomen: soft Extremities: other: (No edema) - Telemetry Telemetry Rhythm: Afib 80-100s - Labs Result Diagrams: 07/24/17 04:57 07/24/17 04:57 Troponin/CKMB CK-MB (CK-2) 0.9 ng/mL (0-6.6) 07/16/17 02:34 Troponin I 0.248 ng/mL (< 0.028) H 07/16/17 03:28 - Assessment/Plan 1. Afib with RVR - Remains in Afib with HR 80-100s with Eliquis 5mg BID, coreg 6.2512.5 mg BID, Digogixn 0.125mg QOD, and Diltiazem 2.5 mg/h; Start Diltiazem PO 240mg daily from today. S/o PM placement on 07/20/17; digoxin was started on 07/21/17 and will check Dig level within 2 wks; cont. monitor on tele; 2. Persistent pneumonia - on Antibiotic IV; managed by PCP 3. Acute on chronic diastolic HF - stable with current medication 4. COPD - unchanged 5. HTN - stable; cont. monitor 6. Hematuria vs. Vaginal bleeding - Possible evaluation by Dr Wooten as outpt. Stable H&H. 7. Hx of Dig toxicity 8. S/p Pacemaker placement on 07/20/17 MAR reviewed Review of Systems - Review of Systems Constitutional: reports: see HPI, weakness EENTM: reports: no symptoms reported Respiratory: reports: see HPI Cardiac (ROS): reports: no symptoms reported ABD/GI: reports: no symptoms reported : reports: no symptoms reported <Julius Harding - Last Filed: 07/24/17 16:12> Cardiology Progress Note - Objective Vital Signs Temp Pulse Resp BP BP BP Pulse Ox 07/24/17 14:49 73 16 97 07/24/17 11:25 98.1 F 63 20 111/65 07/24/17 09:22 98.5 F 07/24/17 09:19 112 H 133/63 07/24/17 08:14 112 H 16 94 L 07/24/17 08:12 83 18 114/56 L 94 L 07/24/17 07:10 98.1 F 63 20 94 L Admit Weight 137 lb Weight 133 lb 12.8 oz 07/23/17 07/24/17 07/25/17 06:59 06:59 06:59 Intake Total 1450 1120 Output Total 1450 1300 Balance 0 -180 - Labs Result Diagrams: 07/24/17 04:57 07/24/17 04:57 Troponin/CKMB CK-MB (CK-2) 0.9 ng/mL (0-6.6) 07/16/17 02:34 Troponin I 0.248 ng/mL (< 0.028) H 07/16/17 03:28 - Assessment/Plan Pt. seen and eval. by me. 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 As soon as the HR is reasonably well controlled then she should go to rehab.Will consider outpt. cardioversion in 2-4 weeks.
--- NOTE | 2017-07-24 13:03 | PDOC.CTH ---
Cardiology Progress Note - Subjective EP Progress Note Patient tired and resting in bed. She has had some confusion in the AMs. She has been up walking in the halls but feels weak. Denies any heart racing, palpitations, dizziness, passing out, swelling of her lower extremities, or stroke/stroke like symptoms. - Objective Vital Signs Temp Pulse Resp BP BP BP Pulse Ox 07/24/17 11:25 98.1 F 63 20 111/65 07/24/17 09:22 98.5 F 07/24/17 09:19 112 H 133/63 07/24/17 08:14 112 H 16 94 L 07/24/17 08:12 83 18 114/56 L 94 L 07/24/17 03:59 98.0 F 80 20 156/107 H 98 07/24/17 01:31 76 12 Admit Weight 137 lb Weight 133 lb 12.8 oz 07/23/17 07/24/17 07/25/17 06:59 06:59 06:59 Intake Total 1450 1120 Output Total 1450 1300 Balance 0 -180 - Physical Examination General/Neuro: alert & oriented x3 (tired.) Neck: carotid US brisk, no JVD present Lungs: CTA, unlabored respirations Heart: other: (irregularly irregular. ) Abdomen: no HSM, NT/ND Extremities: other: (no edema to BLE) Other PE findings: PPM implant at L infraclavicular fossa healing without complication - Telemetry Telemetry Rhythm: A Fib - Labs Result Diagrams: 07/24/17 04:57 07/24/17 04:57 - Assessment/Plan 1. Persistent A Fib- failed AAD in past. Rates better controlled but continues to have occasional RVR episodes with rates in 110-130 range. Asymptomatic. 2. Essential Tachybrady Syndrome- now with inclusion of Med[employer]onic pacemaker. Optimize rate control with medication. Currently on carvedilol 12.5mg BID, digoxin 0.125mg Q2D, and diltiazem. Diltiazem gtt continues to infuse at 2.5mg/ hr but is transitioning to 240mg PO QD. BP has been stable. Consider AV node ablation in the future if rate control continues to be a challenge after medication optimized. 3. Oral anticoagulation/stroke prophylaxis-Adjusted to low dose Eliquis 2.5mg BID, inclusion criteria of age >80 and weight 133lbs.
--- NOTE | 2017-07-24 14:29 | PRG ---
DATE OF SERVICE: 07/24/2017 SERVICE: Pulmonary Medicine. INTERVAL HISTORY: The patient is doing really well from a respiratory standpoint. She is breathing comfortably. Her strength is improving day by day. She is actually starting to participate with [facility] sical therapy. She has been walking today and she is more motivated to get into a chair a couple arcenio es daily. Otherwise, there has been no interval change to her condition. PHYSICAL EXAMINATION: VITAL SIGNS: Afebrile, pulse 63, blood pressure 111/65, respirations 20, saturation 94% on 2 liters nasal cannula. GENERAL: The patient is awake and alert, in no apparent distress. LUNGS: Improved air entry. She has got no prolonged expiratory phase. Dependent crackles are minim al. No rhonchi or wheezing. HEART: Normal rate, regular. ABDOMEN: Soft, nontender, nondistended. Bowel sounds are positive. MUSCULOSKELETAL: No cyanosis or clubbing. No pitting in the bilateral lower extremities. NEUROLOGIC: Grossly nonfocal. LABORATORY DATA: Hemoglobin 12.5. Platelets are 387,000. Basic metabolic profile is essentially un remarkable. Calcium is 9.1, magnesium 2.0. Influenza A and B, blood culture x2 and urine culture ar e all unremarkable. ASSESSMENT: 1. Acute hypoxic respiratory failure, improving. 2. Atelectasis of most of the left lower lobe in the posterior basal segment of the right lower lobe , likely improving. 3. Atrial fibrillation with rapid ventricular response, currently rate controlled. 4. Chronic obstructive pulmonary disease without current exacerbation. 5. Deconditioning. DISCUSSION AND PLAN: We will continue motivated the patient to get out of bed into a chair a couple times daily and working hard with physical therapy. From fairly respiratory standpoint, she is stabl e for transition out of the hospital as soon as her atrial fibrillation is under adequate control. I will continue to follow, intermittently while the patient remains in-house.
--- NOTE | 2017-07-24 16:21 | PDOC.PN ---
- Subjective Encounter Start Date: 07/24/17 Encounter Start Time: 12:30 Patient seen and examined. No new complaints. No overnight events. Sitting on chair. - Objective Resuscitation Status: Resuscitation Status DNR:Do Not Resuscitate MAR Reviewed: Yes Vital Signs & Weight: Vital Signs (12 hours) Temp Pulse Resp BP BP BP Pulse Ox 07/24/17 14:49 73 16 97 07/24/17 11:25 98.1 F 63 20 111/65 07/24/17 09:22 98.5 F 07/24/17 09:19 112 H 133/63 07/24/17 08:14 112 H 16 94 L 07/24/17 08:12 83 18 114/56 L 94 L 07/24/17 07:10 98.1 F 63 20 94 L Weight Admit Weight 137 lb Weight 133 lb 12.8 oz I&O: 07/23/17 07/24/17 07/25/17 06:59 06:59 06:59 Intake Total 1450 1120 Output Total 1450 1300 Balance 0 -180 Result Diagrams: 07/24/17 04:57 07/24/17 04:57 EKG Reviewed by me: Yes (Tele Afib) Phys Exam - Physical Examination Constitutional: NAD Respiratory: no wheezing, no rhonchi Cardiovascular: RRR, no rub Gastrointestinal: soft, non-tender, positive bowel sounds Musculoskeletal: no edema Neurological: moves all 4 limbs Dx/Plan - Plan IMPRESSION: 1. Acute hypoxic resp failure /Persistent Pneumonia 2. Afib with RVR- on Cardizem drip/Anticoag 3. s/p Pacemaker 4. COPD - on Nebs 5. Physical deconditioning/Chronic Resp failure on home O2/HTN/HLD/GERD/Mod- severe TR/Constipation PLAN: * Eliquis dose reduced * AM labs * Cont diuresis * Cardio/Pulm following * Cont IV Steroids per Pulmonary * Cont to monitor * Cont Cardizem drip taper per Cardiology - on PO Cardizem * Cont current meds as below * Inpt Rehab screening pending Review of Systems - Review of Systems Respiratory: negative: Cough, Dry, Shortness of Breath, Hemoptysis, SOB with Excertion, Pleuritic Pain, Sputum, Wheezing Cardiovascular: negative: chest pain, palpitations, orthopnea, paroxysmal nocturnal dyspnea, edema, light headedness - Medications/Allergies Allergies/Adverse Reactions: Allergies Allergy/AdvReac Type Severity Reaction Status Date / Time adhesive Allergy Mild Rash Verified 07/16/17 21:40 oxycodone HCl Allergy Unknown Hives Verified 07/16/17 21:40 [From OxyContin] codeine Allergy Verified 07/16/17 21:40 diclofenac Allergy Verified 07/16/17 21:40 donepezil Allergy Verified 07/16/17 21:40 hydrocodone bitartrate Allergy AMS Verified 07/16/17 21:40 [From Vicodin] Medications: Current Medications Acetaminophen (Tylenol) 650 mg PO Q4H PRN PRN Reason: Headache/Fever or Pain Last Admin: 07/20/17 12:28 Dose: 650 mg Al Hydroxide/Mg Hydroxide (Maalox) 30 ml PO Q6H PRN PRN Reason: Heartburn or Indigestion Albuterol/Ipratropium (Duoneb) 3 ml NEB [id number] [facility] Last Admin: 07/24/17 14:49 Dose: 3 ml Alprazolam (Xanax) 0.25 mg PO BID [facility] Last Admin: 07/24/17 09:20 Dose: 0.25 mg Anastrozole (Arimidex) 1 mg PO DAILY [facility] Last Admin: 07/24/17 09:20 Dose: 1 mg Apixaban (Eliquis) 2.5 mg PO BID [facility] Artificial Tears (Tears Naturale) 0 drop EA EYE PRN PRN PRN Reason: Dry Eyes Aspirin (Aspirin Chewable) 81 mg PO DAILY [facility] Last Admin: 07/24/17 09:20 Dose: 81 mg Bisacodyl (Dulcolax) 10 mg [place] DAILYPRN PRN PRN Reason: Constipation Bisacodyl (Dulcolax) 10 mg [place] DAILY [facility] Last Admin: 07/24/17 09:21 Dose: Not Given Bisacodyl (Dulcolax) 10 mg [place] DAILYPRN PRN PRN Reason: Constipation Calcium/Vitamin D (Caltrate 600 + Vit D) 1 tab PO BID[facility] Last Admin: 07/24/17 09:21 Dose: 1 tab Carvedilol (Coreg) 12.5 mg PO BID-[facility] Last Admin: 07/24/17 09:20 Dose: 12.5 mg Cefdinir (Omnicef) 300 mg PO BID [facility] Last Admin: 07/24/17 09:20 Dose: 300 mg Digoxin (Lanoxin) 0.125 mg PO Q2D@0900 [facility] Last Admin: 07/23/17 08:28 Dose: 0.125 mg Diltiazem HCl (Cardizem Cd) 240 mg PO DAILY [facility] Last Admin: 07/24/17 09:19 Dose: 240 mg Duloxetine HCl (Cymbalta) 60 mg PO DAILY [facility] Last Admin: 07/24/17 09:20 Dose: 60 mg Furosemide (Lasix) 20 mg SLOW IVP DAILY [facility] Last Admin: 07/24/17 09:21 Dose: 20 mg Guaifenesin (Robitussin Sf) 200 mg PO Q4H PRN PRN Reason: Cough Diltiazem HCl 125 mg/ Sodium (Chloride) 125 mls @ 2.5 mls/hr IVPB INF [facility]; 2.5 MG/HR PRN Reason: Protocol Last Admin: 07/24/17 14:06 Dose: 125 mls Iron/Minerals/Multivitamins (Theragran M) 1 tab PO DAILY [facility] Last Admin: 07/24/17 09:19 Dose: 1 tab Labetalol HCl (Normodyne) 10 mg SLOW IVP Q4H PRN PRN Reason: Systolic BP > 180 Loperamide HCl (Imodium) 2 mg PO PRN PRN PRN Reason: Diarrhea/Loose Stools Loratadine (Claritin) 10 mg PO DAILYPRN PRN PRN Reason: Sinus Symptoms Magnesium Hydroxide (Milk Of Magnesium) 30 ml PO DAILYPRN PRN PRN Reason: Constipation Last Admin: 07/18/17 21:49 Dose: 30 ml Magnesium Hydroxide (Milk Of Magnesium) 30 ml PO DAILYPRN PRN PRN Reason: Constipation Methylprednisolone Sodium Succinate (Solu-Medrol) 20 mg IVP DAILY [facility] Last Admin: 07/24/17 09:21 Dose: 20 mg Mineral Oil/White Petrolatum (Eucerin Cream) 0 gm TOP BIDPRN PRN PRN Reason: Dry Skin Mometasone Furoate/Formoterol Fumar (Dulera 200 Mcg/5 Mcg Inhaler) 2 puff INH BID-RT [facility] Last Admin: 07/24/17 08:12 Dose: 2 puff Nitroglycerin (Nitrostat) 0.4 mg SL Q5MIN PRN PRN Reason: Chest Pain Ondansetron HCl (Zofran Odt) 4 mg PO Q6H PRN PRN Reason: Nausea/Vomiting Last Admin: 07/18/17 13:19 Dose: 4 mg Ondansetron HCl (Zofran) 4 mg IVP Q6H PRN PRN Reason: Nausea/Vomiting Pantoprazole Sodium (Protonix) 40 mg PO DAILY [facility] Last Admin: 07/24/17 09:21 Dose: 40 mg Phenol (Chloraseptic [place] 180 Ml Bot) 0 ml PO PRN PRN PRN Reason: Sore Throat Polyethylene Glycol (Miralax) 17 gm PO BID [facility] Last Admin: 07/24/17 09:22 Dose: Not Given Saccharomyces Boulardii (Florastor) 250 mg PO DAILY [facility] Last Admin: 07/24/17 09:20 Dose: 250 mg Senna (Senokot) 2 tab PO HSPRN PRN PRN Reason: Constipation Last Admin: 07/20/17 14:56 Dose: 2 tab Senna/Docusate Sodium (Senokot S) 2 tab PO BID [facility] Last Admin: 07/24/17 09:22 Dose: Not Given Sodium Biphosphate/Sodium Phosphate (Fleet Enema) 133 ml [place] DAILY PRN PRN Reason: Constipation Sodium Chloride ([place] Nasal [place] 0.65%) 0 ml EA NARE QIDPRN PRN PRN Reason: Nasal Congestion Sodium Chloride (Flush - Normal Saline) 10 ml IVF Q12HR [facility] Last Admin: 07/24/17 09:22 Dose: 10 ml Sodium Chloride (Flush - Normal Saline) 10 ml IVF PRN PRN PRN Reason: Saline Flush Tramadol HCl (Ultram) 50 mg PO Q8H PRN PRN Reason: Pain Last Admin: 07/23/17 14:52 Dose: 50 mg
[2017-07-24] MEDS: traMADol HCl 50 MG TAB PO PRN (21:44)
[2017-07-25] MEDS: traMADol HCl 50 MG TAB PO PRN ×2 (05:29→21:07)
[2017-07-25 05:51] LABS: Anion Gap 10 mmol/L (10-20); BUN (Urea Nitrogen) 27 mg/dL (9.8-20.1); Calc. Creatinine Clearance 65 mL/min (70-130); Calcium 9.1 mg/dL (7.8-10.44); Carbon Dioxide 34 mmol/L (23-31); Chloride 95 mmol/L (98-107); Estimated GFR-MDRD Greater than 90; Glucose 103 mg/dL (83-110); Magnesium 1.8 mg/dL (1.6-2.6); Potassium 4.1 mmol/L (3.5-5.1); Sodium 135 mmol/L (136-145)
[2017-07-25] MEDS: Mometasone/Formoterol 120 PUFF INHALER INH SCH ×2 (08:15→19:43)
[2017-07-25] MEDS: Saccharomyces boulardii 250 MG CAP PO SCH (09:20)
[2017-07-25] MEDS: Furosemide 20 MG/2 ML VIAL SLOW IVP SCH (09:20)
[2017-07-25] MEDS: Apixaban 5 MG TAB PO SCH ×2 (09:21→21:06)
[2017-07-25] MEDS: Carvedilol 6.25 MG TAB PO SCH ×2 (09:22→17:24)
[2017-07-25] MEDS: Anastrozole 1 MG TAB PO SCH (09:22)
[2017-07-25] MEDS: Multivitamin W/ Minerals 1 TAB PO SCH (09:25)
[2017-07-25] MEDS: ALPRAZolam 0.25 MG TAB PO SCH ×2 (09:25→21:06)
[2017-07-25] MEDS: Digoxin 0.125 MG TAB PO SCH (09:25)
[2017-07-25] MEDS: Cefdinir 300 MG CAP PO SCH ×2 (09:26→21:06)
[2017-07-25] MEDS: Calcium Carbonate + Vit D 1 TAB PO SCH ×2 (09:26→17:24)
[2017-07-25] MEDS: DULoxetine 60 MG CAP PO SCH (09:26)
[2017-07-25] MEDS: Polyethylene Glycol 3350 17 GM Packet PO SCH ×2 (09:27→21:08)
[2017-07-25] MEDS: Bisacodyl 10 MG SUPP PR SCH (09:27)
[2017-07-25] MEDS: Senokot S 8.6-50 MG TAB PO SCH ×2 (09:32→21:07)
--- NOTE | 2017-07-25 11:18 | PDOC.CTH ---
<Nola Avila - Last Filed: 07/25/17 11:16> Cardiology Progress Note - Subjective The pt seen and examined. No overnight events. No cardiac complaints. Per family, her HR went up to 100s when she walked with PT today. - Objective Vital Signs Temp Pulse Resp BP BP Pulse Ox 07/25/17 09:26 86 07/25/17 09:25 86 07/25/17 09:22 128/60 07/25/17 08:16 104 H 18 94 L 07/25/17 08:15 104 H 20 94 L 07/25/17 08:00 97.8 F 86 16 128/60 94 L 07/25/17 03:31 97.8 F 90 18 148/70 H 94 L Admit Weight 137 lb Weight 134 lb 2 oz 07/24/17 07/25/17 07/26/17 06:59 06:59 06:59 Intake Total 1120 700 Output Total 1300 1300 Balance -180 -600 - Physical Examination General/Neuro: alert & oriented x3 Neck: no JVD present Lungs: other: (diminished at bases) Heart: other: (irregular) Abdomen: soft Extremities: other: (No edema) - Telemetry Telemetry Rhythm: Afib 80-90s - Labs Result Diagrams: 07/24/17 04:57 07/25/17 04:53 Troponin/CKMB CK-MB (CK-2) 0.9 ng/mL (0-6.6) 07/16/17 02:34 Troponin I 0.248 ng/mL (< 0.028) H 07/16/17 03:28 - Assessment/Plan 1. Afib with RVR - Remains in Afib with HR 80-100s with Eliquis 5mg BID, coreg 6.2512.5 mg BID, Digogixn 0.125mg QOD, and Diltiazem 2.5 mg/h with Diltiazem PO 240mg daily. Increase Diltiazem to 300mg daily from today. S/o PM placement on 07/20/17; digoxin was started on 07/21/17 and will check Dig level within 2 wks; cont. monitor on tele; 2. Persistent pneumonia - on Antibiotic IV; managed by PCP 3. Acute on chronic diastolic HF - stable with current medication 4. 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 HTN - stable; cont. monitor 6. Hematuria vs. Vaginal bleeding - Possible evaluation by Dr Wooten as outpt. Stable H&H. 7. Hx of Dig toxicity 8. S/p Pacemaker placement on 07/20/17 MAR reviewed * As soon as the HR is reasonably well controlled then she should go to rehab.Will consider outpt. cardioversion in 2-4 weeks. Review of Systems - Review of Systems Constitutional: reports: no symptoms reported, weakness EENTM: reports: no symptoms reported Respiratory: reports: SOB with excertion Cardiac (ROS): reports: see HPI ABD/GI: reports: no symptoms reported : reports: no symptoms reported <Julius Harding - Last Filed: 07/25/17 17:49> Cardiology Progress Note - Objective Vital Signs Temp Pulse Pulse Pulse Resp BP BP 07/25/17 17:24 122/57 L 07/25/17 12:23 98 16 07/25/17 12:00 97.7 F 101 H 18 07/25/17 09:54 116 H 77 145/60 H 07/25/17 09:26 86 07/25/17 09:25 86 07/25/17 09:22 128/60 07/25/17 08:40 97.8 F 86 16 07/25/17 08:16 104 H 18 07/25/17 08:15 104 H 20 07/25/17 08:00 97.8 F 86 16 BP BP BP Pulse Ox Pulse Ox Pulse Ox 07/25/17 17:24 07/25/17 12:23 95 07/25/17 12:00 122/57 L 93 L 07/25/17 09:54 163/71 H 95 95 07/25/17 09:26 07/25/17 09:25 07/25/17 09:22 07/25/17 08:40 94 L 07/25/17 08:16 94 L 07/25/17 08:15 94 L 07/25/17 08:00 128/60 94 L Admit Weight 137 lb Weight 134 lb 2 oz 07/24/17 07/25/17 07/26/17 06:59 06:59 06:59 Intake Total 1120 700 Output Total 1300 1300 Balance -180 -600 - Labs Result Diagrams: 07/24/17 04:57 07/25/17 04:53 Troponin/CKMB CK-MB (CK-2) 0.9 ng/mL (0-6.6) 07/16/17 02:34 Troponin I 0.248 ng/mL (< 0.028) H 07/16/17 03:28 - Assessment/Plan pt. seen and eval. by me.I agree with the A/P by the [employer]. Chest is clear except in the left base. Irreg./irreg.
[2017-07-25] MEDS ORDERED: Diltiazem HCl SR 60 mg Capsule PO SCH (11:30)
--- NOTE | 2017-07-25 16:13 | PDOC.CTH ---
<Kimberly Moser - Last Filed: 07/25/17 16:09> Cardiology Progress Note - Subjective EP progress note Patient resting in bed. Feels weak and tired. She has been OOB walking with PT today. Denies heart racing, chest pain, palpitations, dizziness, or passing out. - ROS shortness of breath - Objective Vital Signs Temp Pulse Pulse Pulse Resp BP BP 07/25/17 12:23 98 16 07/25/17 12:00 97.7 F 101 H 18 07/25/17 09:54 116 H 77 145/60 H 07/25/17 09:26 86 07/25/17 09:25 86 07/25/17 09:22 128/60 07/25/17 08:40 97.8 F 86 16 07/25/17 08:16 104 H 18 07/25/17 08:15 104 H 20 07/25/17 08:00 97.8 F 86 16 BP BP BP Pulse Ox Pulse Ox Pulse Ox 07/25/17 12:23 95 07/25/17 12:00 122/57 L 93 L 07/25/17 09:54 163/71 H 95 95 07/25/17 09:26 07/25/17 09:25 07/25/17 09:22 07/25/17 08:40 94 L 07/25/17 08:16 94 L 07/25/17 08:15 94 L 07/25/17 08:00 128/60 94 L Admit Weight 137 lb Weight 134 lb 2 oz 07/24/17 07/25/17 07/26/17 06:59 06:59 06:59 Intake Total 1120 700 Output Total 1300 1300 Balance -180 -600 - Physical Examination General/Neuro: alert & oriented x3, NAD Lungs: unlabored respirations Abdomen: NT/ND, soft - Telemetry Telemetry Rhythm: AF - Labs Result Diagrams: 07/24/17 04:57 07/25/17 04:53 Troponin/CKMB CK-MB (CK-2) 0.9 ng/mL (0-6.6) 07/16/17 02:34 Troponin I 0.248 ng/mL (< 0.028) H 07/16/17 03:28 - Assessment/Plan 1. Atrial Fibrillation- increasing diltiazem for improved rate control. Remains on low dose IV gtt at 2.5mg/hr. Will consider AVJ ablation in future if rate control with medications inadequate. Blood pressure tolerating increased CCB well. HR well controlled between 80 and 100. <Tony Smith - Last Filed: 07/25/17 18:39> Cardiology Progress Note - Objective Vital Signs Temp Pulse Pulse Pulse Resp BP BP 07/25/17 17:24 122/57 L 07/25/17 12:23 98 16 07/25/17 12:00 97.7 F 101 H 18 07/25/17 09:54 116 H 77 145/60 H 07/25/17 09:26 86 07/25/17 09:25 86 07/25/17 09:22 128/60 07/25/17 08:40 97.8 F 86 16 07/25/17 08:16 104 H 18 07/25/17 08:15 104 H 20 07/25/17 08:00 97.8 F 86 16 BP BP BP Pulse Ox Pulse Ox Pulse Ox 07/25/17 17:24 07/25/17 12:23 95 07/25/17 12:00 122/57 L 93 L 07/25/17 09:54 163/71 H 95 95 07/25/17 09:26 07/25/17 09:25 07/25/17 09:22 07/25/17 08:40 94 L 07/25/17 08:16 94 L 07/25/17 08:15 94 L 07/25/17 08:00 128/60 94 L Admit Weight 137 lb Weight 134 lb 2 oz 07/24/17 07/25/17 07/26/17 06:59 06:59 06:59 Intake Total 1120 700 Output Total 1300 1300 Balance -180 -600 - Labs Result Diagrams: 07/24/17 04:57 07/25/17 04:53 Troponin/CKMB CK-MB (CK-2) 0.9 ng/mL (0-6.6) 07/16/17 02:34 Troponin I 0.248 ng/mL (< 0.028) H 07/16/17 03:28 Attending Addendum - Attending Addendum I personally evaluated the patient and discussed the management with Ms Moser. I agree with the History, Examination, Assessment and Plan documented above with any addition or exceptions noted below. Agree with increasing diltiazem to 300mg a day increase dilt/carvedilol further as tolerated.
[2017-07-25] MEDS: Nystatin Powder 15 GM BOT TOP SCH (21:08)
--- NOTE | 2017-07-25 22:47 | PDOC.PN ---
- Subjective Encounter Start Date: 07/25/17 Encounter Start Time: 15:00 Patient seen and examined. No new complaints. No overnight events - Objective Resuscitation Status: Resuscitation Status DNR:Do Not Resuscitate MAR Reviewed: Yes Vital Signs & Weight: Vital Signs (12 hours) Temp Pulse Resp BP BP BP Pulse Ox 07/25/17 19:47 71 16 92 L 07/25/17 19:43 71 16 92 L 07/25/17 19:40 96.4 F L 62 18 115/65 93 L 07/25/17 17:24 122/57 L 07/25/17 12:23 98 16 95 07/25/17 12:00 97.7 F 101 H 18 122/57 L 93 L Weight Admit Weight 137 lb Weight 134 lb 2 oz I&O: 07/24/17 07/25/17 07/26/17 06:59 06:59 06:59 Intake Total 1120 700 Output Total 1300 1300 Balance -180 -600 Result Diagrams: 07/24/17 04:57 07/25/17 04:53 EKG Reviewed by me: Yes (Tele Afib) Phys Exam - Physical Examination Constitutional: NAD Respiratory: no wheezing, no rhonchi Cardiovascular: RRR, no rub Gastrointestinal: soft, positive bowel sounds Musculoskeletal: no edema Neurological: moves all 4 limbs Dx/Plan - Plan IMPRESSION: 1. Acute hypoxic resp failure /Persistent Pneumonia - improving, on Omnicef 2. Afib with RVR- off Cardizem drip/Anticoag. Also on Coreg/Digoxin 3. s/p Pacemaker (this admission) 4. COPD - on Nebs 5. Physical deconditioning/Chronic Resp failure on home O2/HTN/HLD/GERD/Mod- severe TR/Constipation PLAN: * AM labs * Change Lasix and steroids to PO * Cardio/Pulm following * Cont current meds as below * Inpt Rehab screening pending Review of Systems - Review of Systems Respiratory: negative: Cough, Dry, Shortness of Breath, Hemoptysis, SOB with Excertion, Pleuritic Pain, Sputum, Wheezing Cardiovascular: negative: chest pain, palpitations, orthopnea, paroxysmal nocturnal dyspnea, edema, light headedness - Medications/Allergies Allergies/Adverse Reactions: Allergies Allergy/AdvReac Type Severity Reaction Status Date / Time adhesive Allergy Mild Rash Verified 07/16/17 21:40 oxycodone HCl Allergy Unknown Hives Verified 07/16/17 21:40 [From OxyContin] codeine Allergy Verified 07/16/17 21:40 diclofenac Allergy Verified 07/16/17 21:40 donepezil Allergy Verified 07/16/17 21:40 hydrocodone bitartrate Allergy AMS Verified 07/16/17 21:40 [From Vicodin] Medications: Current Medications Acetaminophen (Tylenol) 650 mg PO Q4H PRN PRN Reason: Headache/Fever or Pain Last Admin: 07/20/17 12:28 Dose: 650 mg Al Hydroxide/Mg Hydroxide (Maalox) 30 ml PO Q6H PRN PRN Reason: Heartburn or Indigestion Albuterol/Ipratropium (Duoneb) 3 ml NEB [id number] [facility] Last Admin: 07/25/17 19:47 Dose: 3 ml Alprazolam (Xanax) 0.25 mg PO BID [facility] Last Admin: 07/25/17 21:06 Dose: 0.25 mg Anastrozole (Arimidex) 1 mg PO DAILY [facility] Last Admin: 07/25/17 09:22 Dose: 1 mg Apixaban (Eliquis) 2.5 mg PO BID [facility] Last Admin: 07/25/17 21:06 Dose: 2.5 mg Artificial Tears (Tears Naturale) 0 drop EA EYE PRN PRN PRN Reason: Dry Eyes Aspirin (Aspirin Chewable) 81 mg PO DAILY [facility] Last Admin: 07/25/17 09:26 Dose: 81 mg Bisacodyl (Dulcolax) 10 mg [place] DAILYPRN PRN PRN Reason: Constipation Bisacodyl (Dulcolax) 10 mg [place] DAILYPRN PRN PRN Reason: Constipation Calcium/Vitamin D (Caltrate 600 + Vit D) 1 tab PO BID-[facility] Last Admin: 07/25/17 17:24 Dose: 1 tab Carvedilol (Coreg) 18.75 mg PO BID-[facility] Last Admin: 07/25/17 17:24 Dose: 18.75 mg Cefdinir (Omnicef) 300 mg PO BID [facility] Last Admin: 07/25/17 21:06 Dose: 300 mg Digoxin (Lanoxin) 0.125 mg PO Q2D@0900 [facility] Last Admin: 07/25/17 09:25 Dose: 0.125 mg Diltiazem HCl (Cardizem Cd) 240 mg PO DAILY [facility] Duloxetine HCl (Cymbalta) 60 mg PO DAILY [facility] Last Admin: 07/25/17 09:26 Dose: 60 mg Furosemide (Lasix) 20 mg PO DAILY [facility] Guaifenesin (Robitussin Sf) 200 mg PO Q4H PRN PRN Reason: Cough Iron/Minerals/Multivitamins (Theragran M) 1 tab PO DAILY [facility] Last Admin: 07/25/17 09:25 Dose: 1 tab Labetalol HCl (Normodyne) 10 mg SLOW IVP Q4H PRN PRN Reason: Systolic BP > 180 Loperamide HCl (Imodium) 2 mg PO PRN PRN PRN Reason: Diarrhea/Loose Stools Loratadine (Claritin) 10 mg PO DAILYPRN PRN PRN Reason: Sinus Symptoms Magnesium Hydroxide (Milk Of Magnesium) 30 ml PO DAILYPRN PRN PRN Reason: Constipation Last Admin: 07/18/17 21:49 Dose: 30 ml Magnesium Hydroxide (Milk Of Magnesium) 30 ml PO DAILYPRN PRN PRN Reason: Constipation Mineral Oil/White Petrolatum (Eucerin Cream) 0 gm TOP BIDPRN PRN PRN Reason: Dry Skin Mometasone Furoate/Formoterol Fumar (Dulera 200 Mcg/5 Mcg Inhaler) 2 puff INH BID-RT [facility] Last Admin: 07/25/17 19:43 Dose: 2 puff Nitroglycerin (Nitrostat) 0.4 mg SL Q5MIN PRN PRN Reason: Chest Pain Nystatin (Mycostatin Powder) 0 gm TOP BID [facility] Last Admin: 07/25/17 21:08 Dose: Not Given Ondansetron HCl (Zofran Odt) 4 mg PO Q6H PRN PRN Reason: Nausea/Vomiting Last Admin: 07/18/17 13:19 Dose: 4 mg Ondansetron HCl (Zofran) 4 mg IVP Q6H PRN PRN Reason: Nausea/Vomiting Pantoprazole Sodium (Protonix) 40 mg PO DAILY [facility] Last Admin: 07/25/17 09:25 Dose: 40 mg Phenol (Chloraseptic [place] 180 Ml Bot) 0 ml PO PRN PRN PRN Reason: Sore Throat Polyethylene Glycol (Miralax) 17 gm PO BID [facility] Last Admin: 07/25/17 21:08 Dose: Not Given Prednisone (Prednisone) 20 mg PO QA-[facility] Saccharomyces Boulardii (Florastor) 250 mg PO DAILY [facility] Last Admin: 07/25/17 09:20 Dose: 250 mg Senna (Senokot) 2 tab PO HSPRN PRN PRN Reason: Constipation Last Admin: 07/20/17 14:56 Dose: 2 tab Senna/Docusate Sodium (Senokot S) 2 tab PO BID [facility] Last Admin: 07/25/17 21:07 Dose: 2 tab Sodium Biphosphate/Sodium Phosphate (Fleet Enema) 133 ml [place] DAILY PRN PRN Reason: Constipation Sodium Chloride ([place] Nasal [place] 0.65%) 0 ml EA NARE QIDPRN PRN PRN Reason: Nasal Congestion Sodium Chloride (Flush - Normal Saline) 10 ml IVF Q12HR [facility] Last Admin: 07/25/17 21:08 Dose: 10 ml Sodium Chloride (Flush - Normal Saline) 10 ml IVF PRN PRN PRN Reason: Saline Flush Tramadol HCl (Ultram) 50 mg PO Q8H PRN PRN Reason: Pain Last Admin: 07/25/17 21:07 Dose: 50 mg
[2017-07-26 05:37] LABS: Hemoglobin 12.5 g/dL (12.0-16.0); Platelet Count 427 thou/uL (130-400)
[2017-07-26 05:57] LABS: Anion Gap 10 mmol/L (10-20); BUN (Urea Nitrogen) 27 mg/dL (9.8-20.1); Calc. Creatinine Clearance 57 mL/min (70-130); Calcium 9.1 mg/dL (7.8-10.44); Carbon Dioxide 36 mmol/L (23-31); Chloride 95 mmol/L (98-107); Estimated GFR-MDRD 83; Glucose 114 mg/dL (83-110); Potassium 4.2 mmol/L (3.5-5.1); Sodium 137 mmol/L (136-145)
[2017-07-26] MEDS ORDERED: predniSONE 20 MG TAB PO SCH (08:00)
[2017-07-26] MEDS: Carvedilol 6.25 MG TAB PO SCH (08:18)
[2017-07-26] MEDS: Cefdinir 300 MG CAP PO SCH (08:18)
[2017-07-26] MEDS: Apixaban 5 MG TAB PO SCH (08:18)
[2017-07-26] MEDS: Saccharomyces boulardii 250 MG CAP PO SCH (08:19)
[2017-07-26] MEDS: Senokot S 8.6-50 MG TAB PO SCH (08:19)
[2017-07-26] MEDS: Anastrozole 1 MG TAB PO SCH (08:19)
[2017-07-26] MEDS: Polyethylene Glycol 3350 17 GM Packet PO SCH (08:19)
[2017-07-26] MEDS: Calcium Carbonate + Vit D 1 TAB PO SCH (08:19)
[2017-07-26] MEDS: Mometasone/Formoterol 120 PUFF INHALER INH SCH (08:19)
[2017-07-26] MEDS: DULoxetine 60 MG CAP PO SCH (08:19)
[2017-07-26] MEDS: Multivitamin W/ Minerals 1 TAB PO SCH (08:19)
[2017-07-26] MEDS: Nystatin Powder 15 GM BOT TOP SCH (08:40)
[2017-07-26] MEDS ORDERED: Diltiazem HCl CD 300 mg Capsule PO SCH (09:00)
[2017-07-26] MEDS ORDERED: Furosemide 20 MG TAB PO SCH (09:00)
[2017-07-26] MEDS ORDERED: ALPRAZolam 0.25 MG TAB PO SCH (09:00)
[2017-07-26 12:18] VITALS: BP 118/56; TEMP 97.5
--- NOTE | 2017-07-26 14:00 | PDOC.CTH ---
<Nola Avila - Last Filed: 07/26/17 13:57> Cardiology Progress Note - Subjective The pt seen and examined. No overnight events. No cardiac complaints. - Objective Vital Signs Temp Pulse Pulse Pulse Resp BP BP 07/26/17 12:16 97.5 F L 80 20 07/26/17 10:13 84 122 H 136/76 127/86 07/26/17 08:25 07/26/17 08:19 85 20 07/26/17 08:00 98.0 F 79 20 07/26/17 05:00 97.8 F 95 18 BP BP Pulse Ox 07/26/17 12:16 118/56 L 92 L 07/26/17 10:13 07/26/17 08:25 90 L 07/26/17 08:19 90 L 07/26/17 08:00 136/71 94 L 07/26/17 05:00 132/81 92 L Admit Weight 137 lb Weight 134 lb 07/25/17 07/26/17 07/27/17 06:59 06:59 06:59 Intake Total 700 150 Output Total 1300 Balance -600 150 - Physical Examination General/Neuro: alert & oriented x3 Neck: no JVD present Lungs: other: (diminished at bases) Heart: other: (irregular) Abdomen: soft Extremities: other: (No edema) - Telemetry Telemetry Rhythm: AFib 90-100s - Labs Result Diagrams: 07/26/17 04:58 07/26/17 04:58 Troponin/CKMB CK-MB (CK-2) 0.9 ng/mL (0-6.6) 07/16/17 02:34 Troponin I 0.248 ng/mL (< 0.028) H 07/16/17 03:28 - Assessment/Plan 1. Afib with RVR - Remains in Afib with HR 80-100s with Eliquis 5mg BID, coreg 18.75 mg BID, Digogixn 0.125mg QOD, and Diltiazem PO 240mg daily. S/o PM placement on 07/20/17; digoxin was started on 07/21/17 and will check Dig level within 2 wks; 2. Persistent pneumonia - on Antibiotics; managed by PCP 3. Acute on chronic diastolic HF - stable with current medication 4. 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 HTN - stable; cont. monitor 6. Hematuria vs. Vaginal bleeding - Possible evaluation by Dr Wooten as outpt. Stable H&H. 7. Hx of Dig toxicity 8. S/p Pacemaker placement on 07/20/17 MAR reviewed * As soon as the HR is reasonably well controlled then she should go to rehab.Will consider outpt. cardioversion in 4-6 weeks. * From cardiac standpoint, the pt is stable to tx to rehab. The pt will f/u with Dr Harding' office within 2-4 wks after she is d/tete from rehab. Review of Systems - Review of Systems Constitutional: reports: no symptoms reported EENTM: reports: no symptoms reported Respiratory: reports: no symptoms reported Cardiac (ROS): reports: no symptoms reported <Julius Harding - Last Filed: 07/26/17 17:11> Cardiology Progress Note - Objective Vital Signs Temp Pulse Pulse Pulse Resp BP BP 07/26/17 12:16 97.5 F L 80 20 07/26/17 10:13 84 122 H 136/76 127/86 07/26/17 08:25 07/26/17 08:19 85 20 07/26/17 08:00 98.0 F 79 20 BP BP Pulse Ox 07/26/17 12:16 118/56 L 92 L 07/26/17 10:13 07/26/17 08:25 90 L 07/26/17 08:19 90 L 07/26/17 08:00 136/71 94 L Admit Weight 137 lb Weight 134 lb 07/25/17 07/26/17 07/27/17 06:59 06:59 06:59 Intake Total 700 150 Output Total 1300 Balance -600 150 - Labs Result Diagrams: 07/26/17 04:58 07/26/17 04:58 Troponin/CKMB CK-MB (CK-2) 0.9 ng/mL (0-6.6) 07/16/17 02:34 Troponin I 0.248 ng/mL (< 0.028) H 07/16/17 03:28 - Assessment/Plan Pt. seen and eval. by me. I agree with the A/P by the PAIRER ODDS. Pt. stable for transfer to rehab.
--- NOTE | 2017-07-26 14:59 | DIS ---
DATE OF ADMISSION: 07/15/2017 DATE OF DISCHARGE: 07/26/2017 DISCHARGE DIAGNOSES: 1. Acute on chronic hypoxemic respiratory failure. 2. Persistent pneumonia. 3. Atrial fibrillation with rapid ventricular response. 4. Status post pacemaker placement. 5. Acute exacerbation of chronic obstructive pulmonary disease. 6. Physical deconditioning. 7. Hypertension. 8. Hyperlipidemia. 9. Gastroesophageal reflux disease. 10. Moderate to severe tricuspid regurgitation. 11. Chronic constipation. 12. Acute on chronic diastolic congestive heart failure. CONSULTATIONS: 1. Cardiology, Dr. David Harding. 2. Electrophysiology, Dr. Tony Smith. 3. Pulmonary or Critical Care initially Dr. Breezy Duran followed by Dr. Edin Pillai. HISTORY AND PHYSICAL: Ms. Wick is an 87-year-old white female with the above history who presented t o the Emergency Department for shortness of breath. She had altered mental status, suspected pneumon ia, UTI, and acute on chronic diastolic congestive heart failure. She was recently here on 8 and discharged. Post-discharge, started feeling weak, disoriented, delusional and lethargic for a couple days prior to representation. She had high grade fever at home to 101.2 and was tachycardic a nd was found to be in atrial fibrillation with RVR. She came to the emergency department for evaluat ion. In the ER, she was given broad spectrum antibiotic therapy with vancomycin and Zosyn given Lasi x IV and noted to have elevated troponin. We were subsequently called for admission. HOSPITAL COURSE: The patient was seen and examined by Dr. Nolasco. She was started on Lasix IV twic e a day and given a fluid restriction. She was given DuoNebs, Mucinex, and Solu-Medrol for chronic o bstructive pulmonary disease exacerbation. She was in atrial fibrillation with RVR and was given dig oxin 0.25 mg and started on a Cardizem drip and placed on the telemetry floor. Due to Cardizem drip, the patient was actually placed in the Intermediate Care Unit. Pulmonary and C ritical Care saw the patient in consultation on 07/16/2017 and recommended following the x-ray and co ntinue the current antibiotic therapy she was on. He recommend getting Urology consultation regardin g hematuria and informed Dr. Pillai that patient's admitted as his patient. Cardiology did see the patient on 07/16/2017 as well and recommended Electrophysiology consultation. The patient remained fairly well rate controlled. The patient was stabilized and was subsequently seen by Dr. Smith on 07/18/2017. Due to failure of th erapy with Multaq, he recommended pacemaker implantation to allow for increase the use of AV celia bl ocking agents and AV celia ablation in the future. She failed that. He recommended holding the Eliq uis and I would place the pacemaker later in the week. The patient remained stable. She was ultimately taken to the catheterization laboratory technician on 07/20/2017 for a pacemaker placement with good response. She was able to be increased on her beta gustavo agents until she had regular rhythm. She is continued on a Cardizem drip for rate control and inpatient rehab screening was begun. By 07/23/2017, patient was followed by Dr. Denton over the weekend. She was doing well and she wa s increased on oral Cardizem to try to get off of the drip. On 07/24/2017, she was having some increased morning confusion, but was feeling weak. She denies any heart racing, palpitations or dizziness and was feeling better, just tired. She continued to have o ccasional tachycardic rates into the 110-130 range and atrial fibrillation. She was continued on Katie marycruz, was on carvedilol, digoxin and diltiazem IV as well as orally. She continued to have improved rates through the weekend and through the first part of the week and b y today 07/26/2017, heart rate was down below 100. She was doing well, would only have heart rate el evations when getting up. Physical therapy was able to discharge once approved to [facility]. PHYSICAL EXAMINATION: The patient was seen and examined on the day of discharge. Discharge plan and disposition was discussed with the patient and her daughter face to face at the bedside. DISCHARGE MEDICATIONS: 1. Apixaban 2.5 mg p.o. b.i.d. 2. Artificial Tears as needed. 3. Carvedilol 18.75 mg p.o. b.i.d. 4. Omnicef 300 mg p.o. b.i.d. 5. Digoxin 0.125 mg p.o. day every other day. 6. Diltiazem 240 mg p.o. daily. 7. Lasix 20 mg daily. 8. DuoNebs q.6 hours. 9. Claritin 10 mg p.o. daily p.r.n. 10. Dulera 250/5 2 puffs b.i.d. 11. Nitroglycerin sublingual p.r.n. 12. Pantoprazole 40 mg daily. 13. MiraLax 17 grams p.o. b.i.d. 14. Florastor 250 mg p.o. daily. 15. Prednisone 20 mg p.o. daily. 16. Ultram 50 mg p.o. q.8 hours p.r.n. 17. Stopping her Nexium, tramadol. High dose Eliquis, low dose carvedilol, low dose diltiazem, Lasi x 40 mg daily, continuing her albuterol 2.5 mg nebs t.i.d. p.r.n. shortness of breath. 18. Arimidex 1 mg p.o. daily. 19. Cyclobenzaprine 5 mg p.o. t.i.d. p.r.n. muscle spasm. 20. Duloxetine 60 mg p.o. daily 21. Multivitamin daily. 22. Lyrica 100 mg p.o. t.i.d. 23. Guaifenesin 600 mg p.o. b.i.d. p.r.n. 24. Xanax 0.25 mg p.o. b.i.d. New prescription sent with aspirin 81 mg daily and with lisinopril 10 mg daily. FOLLOWUP APPOINTMENTS: 1. [facility]. 2. [facility] cardiac rehabilitation. 3. Puneet Wooten, primary care physician in 2 weeks. 4. Adrian Vega, primary care physician in 1 week. 5. Cardiology per their clinic schedule. 6. Dr. Smith in 2-3 weeks. DISCHARGE ACTIVITY: Per cardiopulmonary limits. DISCHARGE DIET: Heart healthy recommended. DISCHARGE CONDITION: Stable. DISPOSITION: Being transferred to [facility] via EMS transport for further rehabilitation.
[2017-07-26] MEDS: traMADol HCl 50 MG TAB PO PRN (15:31)
--- NOTE | 2017-07-26 16:36 | PDOC.CTH ---
Cardiology Progress Note - Subjective Uneventful past 24 hours. She is doing well and ambulating in room/halls. No new complaints No heart racing, chest pain, or palpitations. - Objective Vital Signs Temp Pulse Pulse Pulse Resp BP BP 07/26/17 12:16 97.5 F L 80 20 07/26/17 10:13 84 122 H 136/76 127/86 07/26/17 08:25 07/26/17 08:19 85 20 07/26/17 08:00 98.0 F 79 20 07/26/17 05:00 97.8 F 95 18 BP BP Pulse Ox 07/26/17 12:16 118/56 L 92 L 07/26/17 10:13 07/26/17 08:25 90 L 07/26/17 08:19 90 L 07/26/17 08:00 136/71 94 L 07/26/17 05:00 132/81 92 L Admit Weight 137 lb Weight 134 lb 07/25/17 07/26/17 07/27/17 06:59 06:59 06:59 Intake Total 700 150 Output Total 1300 Balance -600 150 - Physical Examination General/Neuro: alert & oriented x3, NAD, other: (forgetful) Neck: no JVD present Lungs: unlabored respirations Heart: PMI normal Abdomen: no HSM, NT/ND - Telemetry Telemetry Rhythm: AF - Labs Result Diagrams: 07/26/17 04:58 07/26/17 04:58 Troponin/CKMB CK-MB (CK-2) 0.9 ng/mL (0-6.6) 07/16/17 02:34 Troponin I 0.248 ng/mL (< 0.028) H 07/16/17 03:28 - Assessment/Plan 1. Atrial fibrillation- rate controlled with oral agents. Off diltiazem gtt. 2. Pacemaker- site healing and without complication Ok for tx to rehab by EP. Clinic follow up in 1-2 weeks. Considering AV node ablation in future once PPM healed & settled if rate not controlled with oral agents or hypotension occurs from medical management.
--- NOTE | 2017-08-08 10:01 | PQF ---
NORMAN SANTIAGO ERIC [id number] CLINICAL DOCUMENTATION CLARIFICATION FORM: POST DISCHARGE Addendum to original discharge summary date: ____ Late entry note date: __ NORMAN SANTIAGO [id number] ANTONIO KASPER MD PLEASE DOCUMENT YOUR RESPONSE BELOW PLEASE FAX RESPONSE BACK TO YOUR INPUT IS NEEDED TO CORRECTLY CODE A DIAGNOSIS FOR YOUR PATIENT. DATE: 08/08/2017 ATTN: DR. BERNARD Please exercise your independent, professional judgment in responding to the clarification form. Clinical indicators are provided on the bottom of this form for your review Please check appropriate box(s) to clarify if the following diagnosis has been ruled in our ruled out: SEPSIS (CDI/Coding list diagnosis here) [ ] Ruled in diagnosis [ ] Continue to treat [ ] Resolved [ ] Ruled out diagnosis [ ] Cannot rule out diagnosis [ ] Other diagnosis [ ] Unable to determine In addition, please specify: Present on Admission (POA): [ ] Yes [ ] No [ ] Unable to determine For continuity of documentation, please document condition throughout progress notes and discharge summary. Thank You. CLINICAL INDICATORS - SIGNS / SYMPTOMS / LABS: ER: BP 124/64, PULSE 112, RESP 22, TEMP 101.2, O2 SAT 94 ON 2L OXYGEN DX: FEVER, CHF EXAC POSITIVE SIRS CRITERIA H&P: GIVEN FEVER, TACHYCARDIA, LEUKOCYTOSIS, THERE WAS CONCERN OF UNDERLYING SEPSIS NO FURTHER MENTION OF SEPSIS DS: ACUTE ON CHRONIC HYPOXEMIC RESPIRATORY FAILURE PERSISTENT PNEUMONIA RISK FACTORS: H&P: AGE 87 - CHRONIC HYPOXIC RESP FAILURE PNEUMONIA & UTI SUSPECTED TREATMENTS: CPOE 07/16: LEVAQUIN 500MG IV Q 24 HRS CPOE 07/16: CEFEPIME 1 GM IV Q 12 HRS (This form is maintained as a part of the permanent medical record) 2014 [employer], [employer]. All Rights Reserved Jennifer Selby CCS, [facility]-H [email or web address] [phone] MTDD
--- NOTE | 2017-08-08 10:07 | PQF ---
NORMAN SANTIAGO ERIC [id number] CLINICAL DOCUMENTATION CLARIFICATION FORM: POST DISCHARGE Addendum to original discharge summary date: ____ Late entry note date: __ NORMAN SANTIAGO [id number] ANTONIO KASPER MD PLEASE DOCUMENT YOUR RESPONSE BELOW PLEASE FAX RESPONSE BACK TO [phone] YOUR INPUT IS NEEDED TO CORRECTLY CODE A DIAGNOSIS FOR YOUR PATIENT. DATE: 08/08/2017 ATTN: DR. BERNARD Please exercise your independent, professional judgment in responding to the clarification form. Clinical indicators are provided on the bottom of this form for your review Please check appropriate box(s) to clarify if the following diagnosis has been ruled in our ruled out: UTI (CDI/Coding list diagnosis here) [ ] Ruled in diagnosis [ ] Continue to treat [ ] Resolved [ ] Ruled out diagnosis [ ] Cannot rule out diagnosis [ ] Other diagnosis [ ] Unable to determine In addition, please specify: Present on Admission (POA): [ ] Yes [ ] No [ ] Unable to determine For continuity of documentation, please document condition throughout progress notes and discharge summary. Thank You. CLINICAL INDICATORS - SIGNS / SYMPTOMS / LABS: ER: FEVER, LEUKOCYTOSIS H&P: UTI SUSPECTED, LEUKOCYTOSIS UA - NEGATIVE DS: SUSPECTED UTI RISK FACTORS: PNEUMONIA RESPIRATORY FAILURE TREATMENTS: ROCEPHIN, CEFEPIME, LEVAQUIN (This form is maintained as a part of the permanent medical record) 2014 [employer]. All Rights Reserved Jenniferсветлана Selby, KYLE, [employer]-H [email or web address] [phone] [email or web address]
== END 2017-07-26 16:25 | DRG 242 ==
LOC: ERS 20:03 → ERHOLD 23:31 → 2NO 07-16 14:11
PROVIDERS: ADMIT Internal Medicine; ATTEND Internal Medicine
PROC: 0JH606Z Insertion of Pacemaker, Dual Chamber into Chest Subcutaneous Tissue and Fascia, Open Approach (ICD-10-PCS; principal; 2017-07-20)
PROC: 02H63JZ Insertion of Pacemaker Lead into Right Atrium, Percutaneous Approach (ICD-10-PCS; 2017-07-20)
PROC: 02HK3JZ Insertion of Pacemaker Lead into Right Ventricle, Percutaneous Approach (ICD-10-PCS; 2017-07-20)
DX: I48.2 Chronic atrial fibrillation (principal); J18.9 Pneumonia, unspecified organism; J96.21 Acute and chronic respiratory failure with hypoxia; I50.33 Acute on chronic diastolic (congestive) heart failure; A41.9 Sepsis, unspecified organism; I24.8 Other forms of acute ischemic heart disease; J44.1 Chronic obstructive pulmonary disease with (acute) exacerbation; I11.0 Hypertensive heart disease with heart failure; I49.5 Sick sinus syndrome; N39.0 Urinary tract infection, site not specified; J98.11 Atelectasis; Z66 Do not resuscitate; Z99.81 Dependence on supplemental oxygen; C50.919 Malignant neoplasm of unspecified site of unspecified female breast; Z79.01 Long term (current) use of anticoagulants; K21.9 Gastro-esophageal reflux disease without esophagitis; Z79.811 Long term (current) use of aromatase inhibitors; F41.9 Anxiety disorder, unspecified; F32.9 Major depressive disorder, single episode, unspecified; E78.5 Hyperlipidemia, unspecified; K59.09 Other constipation; R31.9 Hematuria, unspecified; I08.3 Combined rheumatic disorders of mitral, aortic and tricuspid valves
CPT/HCPCS: 33208; 36415; 51701; 71045; 71250; 80048; 80053; 80069; 81003; 81015; 82550; 82553; 83605; 83735; 83880; 84484; 84550; 85014; 85018; 85025; 85049; 87040; 87086; 93005; 93010; 93798; 94640; 96365; 96367; 96375; 96376; A4216; C1785; C1898; G8978-GP-CI; G8979-GP-CI; G8987-GO-CK; G8988-GO-CI; J0690; J0692; J1160; J1580; J1940; J1956; J2543; J2920; J3370; J7050; J7506; J7620; Q0162

== ENCOUNTER 2017-08-10 16:59 | Inpatient (IN) | payer MEDICARE ==
[~2017-08-10 16:59] MED LIST: ISOVUE-370 76%-LOCM 1 ML ONE
[2017-08-10] MEDS ORDERED: Nitroglycerin 0.4 MG TAB (25 Tab Bottle) SL PRN (17:56)
[2017-08-10] MEDS ORDERED: Milk Of Magnesia 30 ML UDCUP PO PRN (17:58)
[2017-08-10] MEDS ORDERED: Ondansetron HCl/PF 4 MG/2 ML Vial IVP PRN (17:58)
[2017-08-10] MEDS ORDERED: Bisacodyl 5 MG TAB PO PRN (17:58)
[2017-08-10] MEDS ORDERED: Acetaminophen 325 MG TAB PO PRN (17:58)
[2017-08-10 18:57] LABS: Troponin I 0.428 ng/mL (< 0.028)
[2017-08-10] MEDS ORDERED: Albuterol Sulfate 2.5 mg/3 ml Neb NEB PRN (19:08)
--- NOTE | 2017-08-10 19:33 | CT ---
CT ANGIOGRAM OF ABDOMEN CT ANGIOGRAM OF PELVIS AND BILATERAL LOWER EXTREMITIES RUNOFF PROTOCOL 08/10/17 COMPARISON: None. HISTORY: Cold left lower extremity, weakness, shortness of breath, difficulty ambulating. TECHNIQUE: Serial axial CT imaging at 2.5 mm intervals from lung bases through feet with IV contrast using CT an giogram protocol. Coronal and sagittal 3D reformatted imaging obtained. FINDINGS: Small bilateral pleural effusions are noted, left greater than right. There is adjacent passive atele ctatic change involving both lower lobes, left greater than right, incompletely imaged on this exam. Incompletely assessed transvenous pacing device present. Heart is enlarged. No free intraperitoneal air. Hepatic parenchyma is diffusely hypodense, evidence of hepatic steatosis. Gallbladder appears grossly unremarkable. Splenic granulomata noted. Bilateral adrenal glands appear unremarkable. There is fatty atrophy of the pancreas. Right kidney is grossly unremarkable. There is a lower pole exophytic hypodense lesion emanating from the lower pole left kidney, Hounsfield units of approximately 5, greater than that expected for a simple cyst. Thus , followup renal ultrasound is advised for further assessment. Bilateral hip prosthesis are present with associated streak artifact limiting detailed assessment of the pelvis. Trace nonspecific free fluid in the pelvis. Uterine calcifications suggest fibroid diseas e. Extensive diverticulosis of the sigmoid colon noted with no evidence for diverticulitis. No eviden ce for bowel obstruction. No retroperitoneal lymphadenopathy. Small hiatal hernia noted. Abdominal aorta demonstrates no evidence for aneurysm or dissection. There is scattered atherosclerot ic calcifications of the abdominal aorta, most prominent in the infrarenal region. Celiac axis and superior mesenteric artery are patent with no hemodynamically significant stenosis at their origins. There is atherosclerotic calcification at the origin of the right renal artery with m ild associated stenosis. Left renal artery unremarkable. Inferior mesenteric artery is patent. Bilateral common iliac arteries demonstrate atherosclerotic calcification but are otherwise unremarka ble. The internal and external iliac arteries are patient bilaterally. RIGHT LOWER EXTREMITY: The right common femoral artery is patent and appears normal in course and caliber. Right profunda fe moral artery is patent. Right superficial femoral artery is patent with scattered areas of atheroscle rotic calcification and no evidence for hemodynamically significant stenosis. Right popliteal artery appears unremarkable. The right anterior tibial artery is patent to the mid calf level. The tibioperoneal trunk is patent and demonstrates calcification. The posterior tibial artery appears patent to the level of the distal calf. Peroneal artery is patent to the distal calf as well. No dis crete arterial flow seen below the level of the distal tibial and fibular shaft. Varicosities are not ed within the posterior aspect of the mid calf on the right. LEFT LOWER EXTREMITY: Left common femoral artery appears patent. Left profunda femoral artery is patent. The left superficial artery is patent and demonstrates scattered areas of atherosclerotic calcificati on. There is very faint contrast opacifying the distal most aspect of the left SFA near the adductor hiat us. The contrast media fades away with no appreciable opacification of the popliteal artery on the le ft. In addition, no flow seen within the arterial structures below the knee to the level of the foot. The osseous structures demonstrate no worrisome lytic or blastic bone lesions. There is lower lumbar spine postoperative change with a pedicle screw on the left at L4 and L5. Multilevel lower lumbar spi ne bilateral laminectomy noted. No worrisome lytic or blastic bone lesions. There is an age indeterminate severe compression fracture of T12. IMPRESSION: 1. Lack of contrast opacification of the left popliteal artery and the arterial structures of th e calf suggest minimal arterial flow/occlusion of distal SFA/popliteal artery with findings concernin g for occlusion of runoff vessels on the left. Vascular surgery consultation is thus advised. This wa s discussed with Dr. Monge at 6:50 p.m., 08/10/17. 2. Bilateral pleural effusions. 3. Low density lesion lower pole left kidney, which does not meet criteria for a cyst and thus, followup renal ultrasound is advised. 4. Hepatic steatosis. 5. Sigmoid diverticulosis. Code CR POS: [id number]
[2017-08-10] MEDS ORDERED: Furosemide 20 MG/2 ML VIAL SLOW IVP SCH (19:45)
--- NOTE | 2017-08-10 20:56 | HP ---
PRIMARY CARE PHYSICIAN: Adrian Vega MD PRESENTING COMPLAINT: Shortness of breath with weakness. HISTORY OF PRESENT ILLNESS: An 87-year-old lady with multiple comorbidities and frequent hospitaliza tions who presents to the emergency room due to complaints of shortness of breath. The patient repor ts that last night, she had trouble sleeping, more short of breath and had difficulty getting out of bed. She states that she immediately knew something was wrong. She felt weak and has had confusion for the past 2 days. Her shortness of breath has been off for the past 3 days. She denies chest siena n, dizziness, palpitations, orthopnea, PND or lower extremity edema. She has a history of COPD and u ses 3 liters of oxygen at home. She was recently admitted and discharged on 07/26/2017, sent to reha b and recently was sent back home. At the emergency room, she was found to have elevated troponin of greater than 0.4 (her last number was around 0.2). Her EKG did not show acute ischemia and patient was asymptomatic. Family had reported that she has had a cold for the past 2 days. Labs were likely unremarkable apart from the troponin. Imaging was noncontributory. In addition, she had coolness i n her left lower extremities and a CTA of a aorta with runoff was done. This shows left popliteal ar sondra occlusion, emergency room called Cardiovascular Surgery and the patient has been admitted for fu rther management. PAST MEDICAL HISTORY: Chronic hypoxic respiratory failure on home oxygen, chronic atrial fibrillatio n on Eliquis with history of cardioversion, history of Streptococcal pneumonia, bacteremia, COPD, chr onically elevated troponin, physical deconditioning, GERD, chronic pain disorder, history of breast c ancer requiring chemotherapy, history of mechanical falls. PAST PSYCHIATRIC HISTORY: Anxiety and depression. PAST SURGICAL HISTORY: Left breast needle biopsy and subsequent left lumpectomy bilaterally, bilater al total hip arthroplasty, left shoulder replacement, lumbar spine surgery. FAMILY HISTORY: Reviewed and noncontributory. SOCIAL HISTORY: No history of tobacco, alcohol, or illicit drug use. ALLERGIES: OXYCODONE, CODEINE, DICLOFENAC, DONEPEZIL, HYDROCODONE, BITARTRATE, ADHESIVES. CODE STATUS: The patient has advanced directives signed by her and is DNR. REVIEW OF SYSTEMS: A 10-point review of systems was done and negative except for as specified in HPI . PHYSICAL EXAMINATION: VITAL SIGNS: Stable. GENERAL: Not in acute distress, sitting comfortably in bed. HEENT: Normocephalic, atraumatic. PERRLA, EOMI. Moist mucous membranes, not pale, anicteric. NECK: Supple. No JVD. Full range of movement. LUNGS: Vesicular breath sounds bilaterally; breath seems shallow. No wheezes, rales, or rhonchi. CARDIOVASCULAR: S1 and S2 with irregular rhythm, but regular rate. Positive systolic murmur. No ga llops or rubs. ABDOMEN: Positive bowel sounds normal, nontender, nondistended, no organomegaly. EXTREMITIES: Left lower extremity cool to touch, pulses 1+. Right lower extremity with 2+ pulses. NEUROLOGIC: Alert and oriented to person and place, but not time. No focal deficits. SKIN: Warm on the right extremity, but cool on the left lower extremity. No rashes or lesions. ASSESSMENT AND PLAN: 1. Elevated troponin/type 2 [id number] myocardial infarction. Concern for ACS, as the patient has shortness of breath and was initially thought that she had chest pain, but she denies all chest pain for now. We will admit monitor on tele and trend troponin. Also, obtain possible Cardiology co nsults. 2. Left popliteal artery occlusion: Almost complete occlusion seen on CT angio of her left lower ex tremity. We will obtain cardiothoracic surgery consult for further inputs. 3. Chronic hypoxic respiratory failure and chronic obstructive pulmonary disease. Patient is on 3 l iters of oxygen at her baseline. We will continue oxygen supplementation. Scheduled DuoNeb treatmen t with p.r.n. albuterol nebulizer. 4. Chronic atrial fibrillation. Patient takes Eliquis at home. We will hold for tonight pending Ca rdiovascular Surgery consults; restarting will depend on what they recommend. We will resume all her home medications and ensure she is rate controlled. 5. Gastroesophageal reflux disease. Continue Protonix. 6. Hypertension. We will monitor blood pressure closely and reintroduce her medications gradually.
[2017-08-10] MEDS: Docusate 100 MG CAP PO SCH (21:33)
[2017-08-10 21:37] VITALS: BMI 29.5
[2017-08-10 21:50] LABS: Critical Call Chem Troponin I RESULT DECREASING; Troponin I 0.322 ng/mL (< 0.028)
[2017-08-11 00:01] LABS: Troponin I 0.323 ng/mL (< 0.028)
[2017-08-11 05:45] LABS: #Eosinphils 0.1 thou/uL (0.0-0.7); #Lymphocytes 1.7 thou/uL (1.20-3.40); #Monocytes 0.6 thou/uL (0.11-0.59); #Neutrophils 7.3 thou/uL (1.40-6.50); %Basophils 0.2 % (0.0-1.0); %Eosinophils 1.5 % (0.0-10.0); %Lymphocytes 17.5 % (21.0-51.0); %Monocytes 5.9 % (0.0-10.0); Hemoglobin 12.3 g/dL (12.0-16.0); Mean Corpuscular HGB CONC 31.8 g/dL (32.0-36.0); Mean Corpuscular Hemoglobin 31.4 pg (27.0-31.0); Mean Corpuscular Volume 98.6 fl (81.0-99.0); Mean Platelet Volume 8.2 fL (7.4-10.4); Platelet Count 121 thou/uL (130-400); RBC Distribution Width 15.5 % (11.5-14.5); Red Blood Cell (RBC) Count 3.91 mill/uL (4.20-5.40); White Blood Cell (WBC) Count 9.8 thou/uL (4.8-10.8)
[2017-08-11] MEDS: Furosemide 20 MG/2 ML VIAL SLOW IVP SCH ×2 (06:01→15:47)
[2017-08-11 06:07] LABS: Anion Gap 9 mmol/L (10-20); BUN (Urea Nitrogen) 17 mg/dL (9.8-20.1); Calc. Creatinine Clearance 60 mL/min (70-130); Calcium 8.7 mg/dL (7.8-10.44); Carbon Dioxide 35 mmol/L (23-31); Chloride 97 mmol/L (98-107); Estimated GFR-MDRD 83; Glucose 80 mg/dL (83-110); Potassium 4.4 mmol/L (3.5-5.1); Sodium 137 mmol/L (136-145)
[2017-08-11 06:13] LABS: Troponin I 0.293 ng/mL (< 0.028)
--- NOTE | 2017-08-11 06:34 | HP ---
HISTORY OF PRESENT ILLNESS: This is an 87-year-old female with a diagnosis of COPD, atrial fibrillat ion, physical deconditioning, who noticed the night before she was unable to rest due to dyspnea. Th is did not improve during the day and she exhibited generalized weakness. She was brought to the [facility] ER where she was noted to have an elevated troponin and transferred to [place]. The patient 's family relates she had coolness in lower extremities and a CT angiogram was done demonstrating wha t appeared to be a left popliteal artery occlusion with a report of no Doppler signals in her left fo ot. The patient denies any pain in her left leg. PAST MEDICAL HISTORY: COPD, etiology unknown, with no smoking history, atrial fibrillation with requ irement of a pacemaker last year to assist with treatment of her atrial fibrillation, evidently place d on Eliquis at that time. She has a history of anxiety and depression. PAST SURGICAL HISTORY: Includes lumpectomy on the left, bilateral hips, left shoulder and lumbar spi ne surgery. ALLERGIES: Noted in the chart and include OXYCODONE, CODEINE, ANTI-INFLAMMATORIES, ADHESIVES. SOCIAL HISTORY: The patient lives at home with family living next door. Family helps with her medic ations. MEDICATIONS: Include Eliquis 2.5 b.i.d., prednisone 20 daily, Lyrica 100 t.i.d., Protonix 40 a day, inhalers, lisinopril 10 a day, Lasix 20 a day, diltiazem CD 240 a day, digoxin 0.125 every other day, duloxetine 60 daily, Coreg 18.75 b.i.d., aspirin 81 a day, Arimidex 1 mg a day, Xanax 0.25 b.i.d. LABORATORY DATA: Demonstrate a troponin maximum of 0.4, hemoglobin 12, white count normal. PHYSICAL EXAMINATION: VITAL SIGNS: Height 4 feet 10, weight 141. GENERAL: Elderly lady in no distress. Wearing a nasal cannula oxygen, unable to have conversation, although slightly dyspneic while talking. LUNGS: Demonstrates no wheezes. CARDIAC: Irregularly irregular rhythm, no murmurs. Healed pacemaker site, left chest. ABDOMEN: Soft, nontender. EXTREMITIES: She has palpable femoral pulses bilaterally as well as a right popliteal pulse. Her le ft popliteal pulse is not palpable and she has palpable pedal pulses in both feet with good Doppler s ignals bilaterally. She has no skin changes in her feet and both toes and both feet are pink. Nailb eds are painted. ASSESSMENT AND PLAN: At this time, the patient denies any symptoms of pain or claudication. She rep orts that she did have some left heel pain several months ago. She may have suffered an embolus to h er left popliteal artery at some point in the past, although it is difficult to know if this was agnes te or recent. In any event, she has good circulation at this time and given her multiple comorbiditi es and activity level, I do not think that she will have any symptoms related to her popliteal occlus ion and would not recommend surgical or thrombolytic intervention at this time.
[2017-08-11] MEDS ORDERED: Artificial Tears 18 DROP/0.9 ML EA EYE PRN (06:52)
[2017-08-11] MEDS ORDERED: CYCLOBENZAPRINE HCL 10 MG PO PRN (06:52)
[2017-08-11] MEDS ORDERED: Loratadine 10 MG TAB PO PRN (06:52)
[2017-08-11] MEDS ORDERED: guaiFENesin ER 600 MG TAB PO PRN (06:52)
[2017-08-11] MEDS ORDERED: Cyclobenzaprine 10 MG TAB PO PRN (07:12)
[2017-08-11] MEDS: Carvedilol 6.25 MG TAB PO SCH ×2 (08:52→17:41)
[2017-08-11] MEDS: Docusate 100 MG CAP PO SCH ×2 (08:59→20:45)
[2017-08-11] MEDS: Anastrozole 1 MG TAB PO SCH (08:59)
[2017-08-11] MEDS ORDERED: Aspirin 81 mg Enteric Coated Tablet PO SCH (09:00)
[2017-08-11] MEDS: ALPRAZolam 0.25 MG TAB PO SCH ×2 (09:00→20:45)
[2017-08-11] MEDS ORDERED: Non-Formulary Item 1 EACH (Multivitamin [Multi-Vitamin Daily] 1 TABLET) PO SCH (09:00)
[2017-08-11] MEDS: Pregabalin 50 MG CAP PO SCH ×3 (09:01→20:44)
[2017-08-11] MEDS: DULoxetine 60 MG CAP PO SCH (09:01)
[2017-08-11] MEDS: Polyethylene Glycol 3350 17 GM Packet PO SCH ×2 (09:02→20:46)
[2017-08-11] MEDS: Saccharomyces boulardii 250 MG CAP PO SCH (09:04)
[2017-08-11] MEDS: predniSONE 20 MG TAB PO SCH (09:04)
[2017-08-11] MEDS: Digoxin 0.125 MG TAB PO SCH (09:05)
[2017-08-11] MEDS: Multivit, Therapeutic 1 TAB PO SCH (09:05)
[2017-08-11] MEDS: Apixaban 5 MG TAB PO SCH ×2 (09:05→20:45)
[2017-08-11] MEDS: Lisinopril 10 MG TAB PO SCH (09:09)
[2017-08-11 12:20] LABS: Troponin I 0.416 ng/mL (< 0.028)
--- NOTE | 2017-08-11 18:31 | CON ---
DATE OF CONSULTATION: 08/11/2017 LOCATION: Room #251. PRIMARY FLOWER MAKER: Dr. Johnna Harding. PRIMARY CARE PHYSICIAN: Dr. Adrian Vega. REFERRING PHYSICIIAN: Dr. Burt. REASON FOR CARDIOLOGY CONSULTATION: acute TX. HISTORY OF PRESENT ILLNESS: Ms. Wick is an 87-year-old female with a significant history of COPD with home O2, 2 liters nasal cannula, chronic diastolic heart failure and history of atrial fibrillation with cardioversion in 06/2017 and pacemaker placement in 07/2017. The patient was transferred to rehab for a couple of weeks. She was discharged from rehab and she started deteriorating for the last 4-5 days. Especially, last night, the patient reports that she could move and she just did not have any energy to complete her task and she also complained of shortness of breath and chronic fatigue, which is getting worse last night, so the patient's family member decided to bring the patient to the Emergency Department for further evaluation and treatment. The patient denies any chest pain or heaviness or tightness in her chest, palpitation or fluttering in her chest, nausea, vomiting or any other cardiac symptoms. She reports that she had this one episode of different feeling in her chest for a couple of minutes a few days ago. She did not have any other cardiac related symptoms at that time. Per family report, her sister- in-law last week which hit her very hard. During the Cardiology initial consult assessment, the patient denied any chest pain or discomfort in her chest, palpitation or fluttering, nausea, vomiting or diaphoresis or any other complaints except the shortness of breath and chronic fatigue. The patient's last echocardiogram was done in 06/2017, which showed an EF of 50 % to 55%, mildly dilated left atrium, mild to moderate mitral valve regurgitation and moderate to severe tricuspid regurgitation, and moderate elevated pulmonary artery pressure and diastolic function could not assess at that time due to the atrial fibrillation. The patient underwent a cardiac catheterization in 2009, which revealed she had a normal coronary artery with EF of 50% to 55%. She had a stress test in 2015, which revealed normal result with no reversible ischemia. She underwent lumpectomy in 2016 and she had a dual-chamber pacemaker placement in 07/2017. Today, the patient's CTA angiogram with runoff, which showed mild arterial flow and occlusion to distal SFA and popliteal artery and bilateral pleural effusion, hepatic stenosis. PAST MEDICAL HISTORY: 1. Atrial fibrillation with rapid ventricular response. 2. Acute encephalopathy secondary to the digoxin toxicity in 06/2017. 3. Chronic diastolic dysfunction. 4. Chronic respiratory failure secondary to chronic obstructive pulmonary disease, on home O2. 5. Hypertension. 6. Hyperlipidemia. 7. Chronic pain due to rheumatoid arthritis. 8. Coreg. 9. History of breast cancer. 10. Chronic anticoagulation secondary to atrial fibrillation. PAST SURGICAL HISTORY: 1. Dual pacemaker placement in 07/2017. 2. Left hip replacement in 1999. 3. Left shoulder replacement. 4. Right hip replacement. 5. Breast biopsy. 6. Laminectomy in 2017. FAMILY HISTORY: The patient's mother has a history of breast cancer, myocardial infarction. The patient's sister has a history of diabetes. SOCIAL HISTORY: She is and she lives with her 2 children, they are alive and well. She denied any tobacco abuse, EtOH or illicit drug abuse. She uses a home oxygen 2-3 liters nasal cannula every day. ALLERGIES: She is allergic to OXYCODONE and she must use a paper tape due to a very fragile skin. HOME MEDICATIONS: 1. Xanax 0.25 p.o. twice a day. 2. Tylenol 2 tablets every 6 hours as needed. 3. Duloxetine 60 mg once a day. 4. Arimidex 1 mg once a day. 5. Cyclobenzaprine 10 mg 3 times a day as needed. 6. Multivitamin 1 tablet once a day. 7. Lyrica 100 mg 3 times a day. 8. Albuterol 2.5 mg/3 mL 3 times a day as needed. 9. Aspirin 81 mg once a day. 10. Lisinopril 10 mg once a day. 11. Mucinex 600 mg twice a day as needed. 12. Eliquis 2.5 mg twice a day. 13. Artificial Tears 1 drop each eye p.r.n. 14. Clopidogrel 18.75 mg b.i.d. 15. Omnicef 300 mg twice a day. 16. Digoxin 0.125 mg every other day. 17. Diltiazem 240 mg once a day. 18. Lasix 20 mg once a day. 19. DuoNebs 3 mL every 6 hours as needed. 20. Claritin 10 mg daily. 21. Dulera 200 mcg/5 mcg 2 puffs twice a day. 22. Nitroglycerin 0.4 mg as needed. 23. Protonix 40 mg once a day. 24. MiraLax 17 grams twice a day. 25. Prednisone 20 mg once a day. 26. Florastor 250 mg once a day. 27. Ultram 50 mg every 8 hours as needed. REVIEW OF SYSTEMS: The following complete review of systems negative, unless otherwise mentioned in the HPI or below. Constitutional: Weight loss or gain, ability to conduct usual activity when she was in the rehab. Skin: Positive for a very fragile skin. Eyes: Denied double visions, vision change or eye pain. ENT: Headache, vertigo, obstruction, discharge, dental difficulties, gingival bleeding, dentures. Neck: Neck stiffness, pain, tenderness mostly in the thyroid or other areas. Cardiovascular: Precordial pain, substernal distress, palpitations, syncope, dyspnea on exertion, orthopnea, nocturnal paroxysmal dyspnea, edema, cyanosis, varicosis, claudication. Respiratory: Pain, wheezing, stridor, fever or night sweats, but positive for shortness of breath and cough. Gastrointestinal: Positive for poor appetite due to the chronic fatigue, but denied abdominal pain, heartburn, eructation, nausea, vomiting, tenderness, constipation or diarrhea, abnormal stool, blood in stool. Genitourinary: Urgency, frequency, dysuria, nocturia, hematuria, polyuria, oliguria, unusual color of urine. Musculoskeletal: Pain, swelling, redness or heat of muscle or joint, limitation of motion, muscular weakness, atrophy, cramps. Neurologic: Convulsion, paralysis, seizure, tremor, incoordination. Psychiatric: Emotional problem, anxiety, depression, previous psychiatric care , unusual perception, hallucination. PHYSICAL EXAMINATION: VITAL SIGNS: Blood pressure 137/63, respiratory rate 26, pulse is 75, was AFib and V-pacing. Temperature this morning 100.6 and the patient is on 3 liters nasal cannula 92% to 95%. GENERAL: The patient is very drowsy, lethargic, but well developed and well- nourished. HEAD: Normocephalic and atraumatic. EYES: Extraocular muscle movement intact. ENT: Oral nasal mucosa moist and without lesion. NECK: No JVD. Neck is supple with normal range of motion. LUNGS: Clear to auscultation bilaterally. No wheezing, rales or rhonchi noted. CARDIOVASCULAR: Irregularly irregular, but no significant murmur, hives, thrill , bruits, or rub noted. They have 2+ pulses in bilateral dorsal pedis, popliteal and posterior tibial and 1+ in the bilateral popliteal. Carotid pulses are present without bruits or thrill. No edema in the bilateral lower extremities. ABDOMEN: Soft and nontender to touch and nondistended. Bowel sounds are present. MUSCULOSKELETAL: Able to move all extremities bur really fatigued and weak. SKIN: Very fragile skin, but warm and dry. No skin rash, lesions or bruise noted. NEUROLOGIC: Alert and oriented x4; however, very lethargic. PSYCHIATRIC: Mood and affect are normal. IMAGING DATA: EKG: A 12-lead EKG in the ER shows atrial fibrillation with no ST segment change or T-wave inversions. LABORATORY DATA: WBC 9.8, hemoglobin 12.3, hematocrit is 38.5 and platelet 121. Sodium 137, potassium 4.4, BUN 17, creatinine 0.67 and glucose 80. Troponins 0.428, 0.322, 0.323, 0.293 and 0.416. ASSESSMENT AND PLAN: 1. Elevated troponins. The patient's troponins are trending down at this moment. The patient denied any chest pain or discomfort in her chest or any other cardiac symptoms besides the shortness of breath and fatigue at home prior to admitting this time; however, due to her age and condition, we would like to hold any cardiac related workup for this patient at this moment. We would like to continue to monitor the patient on the telemetry. 2. Left popliteal artery occlusion. The patient's CTA runoff shows minimum stenosis to left popliteal arteries . Per Dr. Ledezma there is no surgical or thrombolytic intervention at this time. 3. Respiratory failure possibly secondary to the chronic obstructive pulmonary disease. Her O2 sat is 92% to 98%, breathing with nasal cannula. She has a breathing treatment scheduled, which is managed by patient's primary care doctor. 4. Chronic atrial fibrillation. This patient's heart rate is well controlled with clopidogrel, diltiazem and digoxin. She is also on Eliquis 2.5 mg twice a day and aspirin 81 mg once a day which was started by Dr. Ledezma. 5. Chronic diastolic heart failure. The patient's condition is stable at this moment with Lasix 20 mg IV push twice a day, beta gustavo and lisinopril. We would like to continue to monitor. 6. Hypertension. The patient's blood pressure has been stable at this time. We would like to continue current medication. 7. Anxiety and depression. The patient's condition is stable with Xanax, aspirin and Cymbalta, which is managed by the patient's primary care doctor. Thank you very much for allowing the Cardiology Service participating in the care of the patient. We will follow along with the patient care team and make further recommendations as appropriate. JEANETTE
[2017-08-11 19:20] LABS: Troponin I 0.463 ng/mL (< 0.028)
[2017-08-11] MEDS: Nystatin Powder 15 GM BOT TOP PRN (20:47)
--- NOTE | 2017-08-11 22:59 | ADD-CON ---
This is an addendum to note already dictated by the nurse practitioner, Nola. DATE OF ADMISSION: 08/10/2017 DATE OF CONSULTATION: 08/11/2017 INDICATION FOR CONSULTATION: An 87-year-old female with a recent history of atrial fibrillation, pac emaker insertion and somewhat failure to thrive. She has been having increasing shortness of breath since she left the hospital recently. She was just here I believe the first week in July, was re cently discharged. She was seen at that time by Electrophysiology. We will try to arrange to contin ue to manage her medications with atrial fibrillation, but eventually she need to undergo pacemaker i nsertion for the atrial fibrillation, but that was not going to be eventful and she would need to und ergo an ablation of her AVJ node, so that we could continue to pace her without having tachycardia. At this time, she presented again to the outside facility complaining of increasing shortness of jammie th. She was found to be continuously in the atrial fibrillation, but the rate did not appear to be e xtremely elevated and she was transferred to our facility. She denies any chest pain, did have some slight abnormalities of the cardiac enzymes and did continue to have some shortness of breath and has since been in the hospital, and per the family, continues to deteriorate further. She does not want to eat. She rarely gets out of the bed, but previously had been, actually going to the bathroom jus t a few days ago and taking showers with the assistance of family members. There has been no history of fevers, but today I noted that her vital signs, she has a temperature earlier today of 100.6. He r wbc is not significantly elevated; however, there has been no urinalysis checked and we may check u rinalysis to ensure that she does not have a urinary tract infection. Otherwise, I do not see any si gnificant abnormalities as far as pacemakers concerns or the cardiac status, but she does appear to b e somewhat more short of breath than usual. She does have a history of chronic obstructive pulmonary disease. We will continue to monitor her very carefully. We will further evaluate as to why she eid s become so lethargic, she rarely even eats, she puts food in the mouth and not even swallow and leav es it to the inner mouth. We may need to consider whether or not to be more aggressive with her. Gi kaila her age of [id number] years old whether or not she is just continued to decline, but we will need to ensu re whether or not there is some underlying infection prior to proceeding with further evaluation. As far as her past medical history, social history, medication list, allergies, and review of systems, please refer to the notes dictated by the nurse practitioner. PHYSICAL EXAMINATION: VITAL SIGNS: Reveals an elderly female, who was earlier today had a temperature of 100.6, her heart rates has been in the 70s. She has occasional pacing. Blood pressure is 137/63 and respiratory rate is in the 20s. HEENT: Unremarkable. LUNGS: Chest has decreased breath sounds at the bases, but otherwise was unremarkable. No significa nt rales or rhonchi were noted. CARDIOVASCULAR: Exam reveals a somewhat irregular rhythm. I did not hear any significant murmurs or heaves. She does have a systolic murmur at the apex. ABDOMEN: Shows obesity as she does not elicit any tenderness. EXTREMITIES: Show no clubbing or cyanosis. I did not feel any significant edema at this time. She does have decreased pulses on the left side due to most likely the popliteal occlusion, which was beckie gnosed earlier. Otherwise, she appears to be relatively stable. We will need to monitor her very carefully for furth er shortness of breath, but at this time we will see what we can to do to stabilize or more so and th en to see whether or not she can ambulate and then go back to home. If not, she will need to be seen by the palliative care or hospice service. IMPRESSION: 1. Probably some degree of congestive heart failure. 2. Chronic obstructive pulmonary disease. 3. Atrial fibrillation. 4. Status post pacemaker. 5. History of hypertension. 6. 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
[2017-08-12 01:53] LABS: Critical Call Chem Troponin I RESULT DECREASING; Troponin I 0.406 ng/mL (< 0.028)
[2017-08-12] MEDS: traMADol HCl 50 MG TAB PO PRN (02:00)
[2017-08-12 05:38] LABS: #Basophils 0.1 thou/uL (0.0-0.2); #Eosinphils 0.2 thou/uL (0.0-0.7); #Lymphocytes 2.2 thou/uL (1.20-3.40); #Monocytes 0.6 thou/uL (0.11-0.59); #Neutrophils 5.5 thou/uL (1.40-6.50); %Basophils 0.6 % (0.0-1.0); %Eosinophils 1.9 % (0.0-10.0); %Lymphocytes 25.6 % (21.0-51.0); %Monocytes 6.6 % (0.0-10.0); %Neutrophils 65.3 % (42.0-75.0); Hemoglobin 10.6 g/dL (12.0-16.0); Mean Corpuscular HGB CONC 32.7 g/dL (32.0-36.0); Mean Corpuscular Hemoglobin 31.8 pg (27.0-31.0); Mean Corpuscular Volume 97.3 fl (81.0-99.0); Mean Platelet Volume 9.6 fL (7.4-10.4); Platelet Count 129 thou/uL (130-400); RBC Distribution Width 15.4 % (11.5-14.5); Red Blood Cell (RBC) Count 3.34 mill/uL (4.20-5.40); White Blood Cell (WBC) Count 8.5 thou/uL (4.8-10.8)
[2017-08-12 05:44] LABS: Anion Gap 10 mmol/L (10-20); BUN (Urea Nitrogen) 32 mg/dL (9.8-20.1); Calc. Creatinine Clearance 53 mL/min (70-130); Calcium 8.5 mg/dL (7.8-10.44); Carbon Dioxide 36 mmol/L (23-31); Chloride 94 mmol/L (98-107); Estimated GFR-MDRD 73; Glucose 157 mg/dL (83-110); Magnesium 1.8 mg/dL (1.6-2.6); Potassium 4.3 mmol/L (3.5-5.1); Sodium 136 mmol/L (136-145)
[2017-08-12] MEDS: Furosemide 20 MG/2 ML VIAL SLOW IVP SCH ×2 (05:52→14:50)
[2017-08-12] MEDS: ALPRAZolam 0.25 MG TAB PO SCH ×2 (09:30→20:48)
[2017-08-12] MEDS: Polyethylene Glycol 3350 17 GM Packet PO SCH ×2 (09:30→20:48)
[2017-08-12] MEDS: Lisinopril 10 MG TAB PO SCH (09:30)
[2017-08-12] MEDS: Carvedilol 6.25 MG TAB PO SCH ×2 (09:31→17:36)
[2017-08-12] MEDS: Multivit, Therapeutic 1 TAB PO SCH (09:31)
[2017-08-12] MEDS: predniSONE 20 MG TAB PO SCH (09:31)
[2017-08-12] MEDS: Anastrozole 1 MG TAB PO SCH (09:32)
[2017-08-12] MEDS: Saccharomyces boulardii 250 MG CAP PO SCH (09:33)
[2017-08-12] MEDS: Apixaban 5 MG TAB PO SCH ×2 (09:34→20:48)
[2017-08-12] MEDS: Docusate 100 MG CAP PO SCH ×2 (09:34→20:48)
[2017-08-12] MEDS: DULoxetine 60 MG CAP PO SCH (09:35)
[2017-08-12] MEDS: Pregabalin 50 MG CAP PO SCH ×3 (09:35→20:49)
[2017-08-12] MEDS: Nystatin Powder 15 GM BOT TOP PRN (09:43)
--- NOTE | 2017-08-12 10:16 | PDOC.PN ---
- Subjective Encounter Start Date: 08/12/17 Encounter Start Time: 10:14 Subjective: sob improved, falls asleep talking, amnestic for events yesterday - Objective Resuscitation Status: Resuscitation Status DNR:Do Not Resuscitate MAR Reviewed: Yes Vital Signs & Weight: Vital Signs (12 hours) Temp Pulse Resp BP BP BP Pulse Ox 08/12/17 09:34 74 114/59 L 08/12/17 09:31 137/63 08/12/17 09:30 114/59 L 08/12/17 07:35 97.8 F 74 20 96 08/12/17 07:30 97.8 F 74 20 114/59 L 96 08/12/17 06:46 96 08/12/17 06:45 66 12 08/12/17 04:00 98.3 F 72 20 100/50 L 92 L 08/12/17 03:20 93 L Weight Admit Weight 141 lb 1 oz Weight 139 lb 1 oz I&O: 08/11/17 08/12/17 08/13/17 06:59 06:59 06:59 Intake Total 240 640 Output Total 500 350 Balance -260 290 Result Diagrams: 08/12/17 04:21 08/12/17 04:21 Phys Exam - Physical Examination Constitutional: NAD Neck: no JVD bibasilar rales Cardiovascular: no significant murmur, irregular Gastrointestinal: soft, non-tender, positive bowel sounds Musculoskeletal: edema present Dx/Plan (1) Acute diastolic (congestive) heart failure Code(s): I50.31 - ACUTE DIASTOLIC (CONGESTIVE) HEART FAILURE Status: Acute Comment: improving, continue Lasix 40mg IV BID (2) Acute on chronic respiratory failure with hypoxia Code(s): J96.21 - ACUTE AND CHRONIC RESPIRATORY FAILURE WITH HYPOXIA Status: Acute Comment: Resolved, continuing on O2 via NC at baseline levels (3) Afib Code(s): I48.91 - UNSPECIFIED ATRIAL FIBRILLATION Status: Chronic Qualifiers: Atrial fibrillation type: persistent Qualified Code(s): I48.1 - Persistent atrial fibrillation (4) COPD with exacerbation Code(s): J44.1 - CHRONIC OBSTRUCTIVE PULMONARY DISEASE W (ACUTE) EXACERBATION Status: Chronic (5) Demand ischemia of myocardium Code(s): I24.8 - OTHER FORMS OF ACUTE ISCHEMIC HEART DISEASE Status: Acute (6) Hypertension Code(s): I10 - ESSENTIAL (PRIMARY) HYPERTENSION Status: Chronic Qualifiers: Hypertension type: other secondary hypertension Qualified Code(s): I15.8 - Other secondary hypertension (7) Anxiety and depression Code(s): F41.8 - OTHER SPECIFIED ANXIETY DISORDERS Status: Chronic - Plan difficult, probably multifatorial sob, now improved -: check ABG -: cont iv lasix, diltiazem, lisinopril, dig, asa, eliquis, -: discuss with cardiology * .
[2017-08-12 12:07] LABS: Actual Bicarbonate (HCO3a) 34.1 mEq/L (22-26); Base Excess (BEa) 9.4 mEq/L (0 (+/-) 2.5); CO2 Tension 47.7 mmHg (35.0-45.0); Hematocrit-ABG 36.5 % (36.0-47.0); Hemoglobin (Hb) 10.4 g/dL (12.0-16.0); O2 Tension (PaO2) 79.9 mmHg (80.0-100.0); pH, Arterial 7.47 (7.35-7.45)
[2017-08-12 12:13] LABS: ALV-art Gradient 88.635 (0-20); Calcium, Ionized 1.1 mmol/L (1.12-1.30); Puncture Site RRA
[2017-08-12 21:45] LABS: Bilirubin Negative (Negative); Blood, Urine Small (Negative); Clarity CLOUDY (Clear); Glucose, Urine (Dipstick) Negative (Negative); Leukocyte Trace (Negative); Nitrite Negative (Negative); Protein, Urine (Dipstick) 100 mg/dL (Neg-Trace); Specific Gravity, Urine 1.019 (1.002-1.036)
[2017-08-12 21:48] LABS: Bacteria/HPF 2+ HPF (None Seen); Hyaline Casts/LPF 0-3 HYALINE CAST LPF (0-3 Hyaline); Squamous Epithelial 0-3 HPF (0-3)
[2017-08-13 05:36] LABS: Mean Corpuscular HGB CONC 32.2 g/dL (32.0-36.0); Mean Corpuscular Hemoglobin 31.3 pg (27.0-31.0); Mean Corpuscular Volume 97.2 fl (81.0-99.0); Mean Platelet Volume 8.6 fL (7.4-10.4); Platelet Count 161 thou/uL (130-400); RBC Distribution Width 15.3 % (11.5-14.5); White Blood Cell (WBC) Count 6.5 thou/uL (4.8-10.8)
[2017-08-13 05:37] LABS: #Eosinphils 0.1 thou/uL (0.0-0.7); #Lymphocytes 2.3 thou/uL (1.20-3.40); #Monocytes 0.5 thou/uL (0.11-0.59); #Neutrophils 3.5 thou/uL (1.40-6.50); %Basophils 0.3 % (0.0-1.0); %Eosinophils 1.1 % (0.0-10.0); %Lymphocytes 35.9 % (21.0-51.0); %Monocytes 8.1 % (0.0-10.0); %Neutrophils 54.6 % (42.0-75.0)
[2017-08-13 05:51] LABS: Anion Gap 11 mmol/L (10-20); BUN (Urea Nitrogen) 28 mg/dL (9.8-20.1); Calc. Creatinine Clearance 60 mL/min (70-130); Calcium 8.6 mg/dL (7.8-10.44); Carbon Dioxide 36 mmol/L (23-31); Chloride 96 mmol/L (98-107); Estimated GFR-MDRD 85; Glucose 90 mg/dL (83-110); Potassium 4.1 mmol/L (3.5-5.1); Sodium 139 mmol/L (136-145)
[2017-08-13] MEDS: Furosemide 20 MG/2 ML VIAL SLOW IVP SCH ×2 (06:26→16:36)
[2017-08-13] MEDS ORDERED: Loperamide HCl 2 MG CAP PO PRN (07:50)
[2017-08-13] MEDS ORDERED: Temazepam 15 MG CAP PO PRN (07:50)
[2017-08-13] MEDS ORDERED: Sodium Chloride 0.65% Nasal 44 ML BOT EA NARE PRN (07:50)
[2017-08-13] MEDS ORDERED: Mag-Al 1200 mg/1200 mg/30 ML UDCUP PO PRN (07:50)
[2017-08-13] MEDS ORDERED: Ondansetron ODT 4 MG TAB PO PRN (07:50)
[2017-08-13] MEDS ORDERED: Chloraseptic Spray 180 ml Bottle PO PRN (07:50)
[2017-08-13] MEDS ORDERED: Diabetic Tussin 200 MG/10 ML UDCUP PO PRN (07:50)
[2017-08-13] MEDS ORDERED: hydrALAZINE 20 MG/ML VIAL SLOW IVP PRN (07:50)
[2017-08-13] MEDS ORDERED: Eucerin (Mineral Oil/Petrolatum,White) 30 gm Jar TOP PRN (07:50)
[2017-08-13] MEDS: Lisinopril 10 MG TAB PO SCH (10:20)
[2017-08-13] MEDS: ALPRAZolam 0.25 MG TAB PO SCH ×2 (10:20→21:08)
[2017-08-13] MEDS: Famotidine 20 MG TAB PO SCH ×2 (10:20→21:10)
[2017-08-13] MEDS: Carvedilol 6.25 MG TAB PO SCH ×2 (10:21→17:07)
[2017-08-13] MEDS: predniSONE 20 MG TAB PO SCH (10:21)
[2017-08-13] MEDS: Digoxin 0.125 MG TAB PO SCH (10:22)
[2017-08-13] MEDS: Docusate 100 MG CAP PO SCH ×2 (10:22→21:07)
[2017-08-13] MEDS: Polyethylene Glycol 3350 17 GM Packet PO SCH ×2 (10:22→21:08)
[2017-08-13] MEDS: Anastrozole 1 MG TAB PO SCH (10:22)
[2017-08-13] MEDS: Multivit, Therapeutic 1 TAB PO SCH (10:22)
[2017-08-13] MEDS: Apixaban 5 MG TAB PO SCH ×2 (10:23→21:09)
[2017-08-13] MEDS: DULoxetine 60 MG CAP PO SCH (10:23)
[2017-08-13] MEDS: Saccharomyces boulardii 250 MG CAP PO SCH (10:24)
[2017-08-13] MEDS: Pregabalin 50 MG CAP PO SCH ×3 (10:27→21:08)
--- NOTE | 2017-08-13 10:34 | PDOC.PN ---
- Subjective Encounter Start Date: 08/13/17 Encounter Start Time: 08:55 -: old records requested/rev still has wheezing and dyspnea, daughter bedside - Objective Resuscitation Status: Resuscitation Status DNR:Do Not Resuscitate MAR Reviewed: Yes Vital Signs & Weight: Vital Signs (12 hours) Temp Pulse Resp BP BP BP Pulse Ox 08/13/17 10:24 72 112/55 L 08/13/17 10:22 72 08/13/17 10:21 112/55 L 08/13/17 10:20 112/55 L 08/13/17 08:00 97.5 F L 72 20 112/55 L 08/13/17 07:00 72 12 08/13/17 06:19 97.8 F 66 20 124/56 L 92 L 08/13/17 03:05 94 L 08/13/17 01:00 12 Weight Admit Weight 141 lb 1 oz Weight 136 lb 4.8 oz I&O: 08/12/17 08/13/17 08/14/17 06:59 06:59 06:59 Intake Total 640 1460 Output Total 350 2200 Balance 290 -740 Result Diagrams: 08/13/17 05:02 08/13/17 05:02 EKG Reviewed by me: Yes Phys Exam - Physical Examination Constitutional: NAD HEENT: PERRLA, moist MMs, sclera anicteric Neck: no JVD, supple Respiratory: no rales, wheezing present Cardiovascular: RRR, no significant murmur, no rub Gastrointestinal: soft, non-tender, no distention, positive bowel sounds Musculoskeletal: no edema, pulses present Neurological: moves all 4 limbs Lymphatic: no nodes Psychiatric: normal affect Skin: no rash, normal turgor Dx/Plan (1) Acute on chronic diastolic (congestive) heart failure Code(s): I50.33 - ACUTE ON CHRONIC DIASTOLIC (CONGESTIVE) HEART FAILURE Status : Acute (2) Acute on chronic respiratory failure with hypoxia and hypercapnia Code(s): J96.21 - ACUTE AND CHRONIC RESPIRATORY FAILURE WITH HYPOXIA; J96.22 - ACUTE AND CHRONIC RESPIRATORY FAILURE WITH HYPERCAPNIA Status: Acute (3) Demand ischemia of myocardium Code(s): I24.8 - OTHER FORMS OF ACUTE ISCHEMIC HEART DISEASE Status: Acute (4) Left popliteal artery occlusion Code(s): I70.202 - UNSP ATHSCL [place] ARTERIES OF EXTREMITIES, LEFT LEG Status : Acute (5) Afib Code(s): I48.91 - UNSPECIFIED ATRIAL FIBRILLATION Status: Chronic Qualifiers: Atrial fibrillation type: persistent Qualified Code(s): I48.1 - Persistent atrial fibrillation (6) Anxiety and depression Code(s): F41.8 - OTHER SPECIFIED ANXIETY DISORDERS Status: Chronic (7) COPD with exacerbation Code(s): J44.1 - CHRONIC OBSTRUCTIVE PULMONARY DISEASE W (ACUTE) EXACERBATION Status: Chronic (8) Chronic pain disorder Code(s): G89.4 - CHRONIC PAIN SYNDROME Status: Chronic (9) GERD (gastroesophageal reflux disease) Code(s): K21.9 - GASTRO-ESOPHAGEAL REFLUX DISEASE WITHOUT ESOPHAGITIS Status: Chronic (10) H/O malignant neoplasm of breast Code(s): Z85.3 - PERSONAL HISTORY OF MALIGNANT NEOPLASM OF BREAST Status: Chronic (11) Hypertension Code(s): I10 - ESSENTIAL (PRIMARY) HYPERTENSION Status: Chronic Qualifiers: Hypertension type: other secondary hypertension Qualified Code(s): I15.8 - Other secondary hypertension (12) Paroxysmal SVT (supraventricular tachycardia) Code(s): I47.1 - SUPRAVENTRICULAR TACHYCARDIA Status: Chronic - Plan cont current plan of care, plan discussed w/ family * medication reviewed as below * symptomatic treatment * continue current optimum medical therapy for COPD and CHF as below * still not ready for discharge. Review of Systems - Review of Systems Constitutional: negative: fever, chills, sweats, weakness, malaise, other ENT: negative: Ear Pain, Ear Discharge, Nose Pain, Nose Discharge, Nose Congestion, Mouth Pain, Mouth Swelling, Throat Pain, Throat Swelling, Other Respiratory: Shortness of Breath, SOB with Excertion, Wheezing. negative: Cough , Dry, Hemoptysis, Pleuritic Pain, Sputum Cardiovascular: negative: chest pain, palpitations, orthopnea, paroxysmal nocturnal dyspnea, edema, light headedness, other Gastrointestinal: negative: Nausea, Vomiting, Abdominal Pain, Diarrhea, Constipation, Melena, Hematochezia, Other Genitourinary: negative: Dysuria, Frequency, Incontinence, Hematuria, Retention , Other Musculoskeletal: negative: Neck Pain, Shoulder Pain, Arm Pain, Back Pain, Hand Pain, Leg Pain, Foot Pain, Other - Medications/Allergies Allergies/Adverse Reactions: Allergies Allergy/AdvReac Type Severity Reaction Status Date / Time adhesive Allergy Mild Rash Verified 07/16/17 21:40 oxycodone HCl Allergy Unknown Hives Verified 07/16/17 21:40 [From OxyContin] codeine Allergy Verified 07/16/17 21:40 diclofenac Allergy Verified 07/16/17 21:40 donepezil Allergy Verified 07/16/17 21:40 hydrocodone bitartrate Allergy AMS Verified 07/16/17 21:40 [From Vicodin] Medications: Current Medications Acetaminophen (Tylenol) 650 mg PO Q4H PRN PRN Reason: Headache/Fever or Pain Al Hydroxide/Mg Hydroxide (Maalox) 15 ml PO Q4H PRN PRN Reason: Heartburn or Indigestion Albuterol Sulfate (Ventolin) 2.5 mg NEB [id number] PRN PRN Reason: Wheezing Albuterol/Ipratropium (Duoneb) 3 ml NEB [id number] [facility] Last Admin: 08/13/17 07:00 Dose: 3 ml Alprazolam (Xanax) 0.25 mg PO BID [facility] Last Admin: 08/13/17 10:20 Dose: 0.25 mg Anastrozole (Arimidex) 1 mg PO DAILY [facility] Last Admin: 08/13/17 10:22 Dose: 1 mg Apixaban (Eliquis) 2.5 mg PO BID [facility] Last Admin: 08/13/17 10:23 Dose: 2.5 mg Artificial Tears (Tears Naturale) 1 drop EA EYE PRN PRN PRN Reason: Dry Eyes Aspirin (Aspirin Chewable) 81 mg PO DAILY [facility] Last Admin: 08/13/17 10:22 Dose: 81 mg Bisacodyl (Dulcolax) 10 mg PO DAILYPRN PRN PRN Reason: Constipation Carvedilol (Coreg) 18.75 mg PO BID-[facility] Last Admin: 08/13/17 10:21 Dose: 18.75 mg Cyclobenzaprine HCl (Flexeril) 10 mg PO TIDPRN PRN PRN Reason: Muscle Spasm Digoxin (Lanoxin) 0.125 mg PO Q2D@0900 [facility] Last Admin: 08/13/17 10:22 Dose: 0.125 mg Diltiazem HCl (Cardizem Cd) 240 mg PO DAILY [facility] Last Admin: 08/13/17 10:24 Dose: 240 mg Docusate Sodium (Colace) 100 mg PO BID [facility] Last Admin: 08/13/17 10:22 Dose: 100 mg Duloxetine HCl (Cymbalta) 60 mg PO DAILY [facility] Last Admin: 08/13/17 10:23 Dose: 60 mg Famotidine (Pepcid) 20 mg PO BID [facility] Last Admin: 08/13/17 10:20 Dose: 20 mg Furosemide (Lasix) 20 mg SLOW IVP 0600,1400 [facility] Last Admin: 08/13/17 06:26 Dose: 20 mg Guaifenesin (Mucinex) 600 mg PO BID PRN PRN Reason: Cough Guaifenesin (Robitussin Sf) 200 mg PO Q4H PRN PRN Reason: Cough Hydralazine HCl (Apresoline) 10 mg SLOW IVP Q4H PRN PRN Reason: Systolic BP > 180 Lisinopril (Zestril) 10 mg PO DAILY [facility] Last Admin: 08/13/17 10:20 Dose: 10 mg Loperamide HCl (Imodium) 2 mg PO PRN PRN PRN Reason: Diarrhea/Loose Stools Loratadine (Claritin) 10 mg PO DAILYPRN PRN PRN Reason: Sinus Symptoms Magnesium Hydroxide (Milk Of Magnesium) 30 ml PO DAILYPRN PRN PRN Reason: Constipation Mineral Oil/White Petrolatum (Eucerin Cream) 0 gm TOP BIDPRN PRN PRN Reason: Dry Skin Morphine Sulfate (Morphine) 2 mg SLOW IVP Q5MIN PRN PRN Reason: Chest Pain Multivitamins (Theragran) 1 tab PO DAILY [facility] Last Admin: 08/13/17 10:22 Dose: 1 tab Nitroglycerin (Nitrostat) 0.4 mg SL Q5MIN PRN PRN Reason: Chest Pain Nystatin (Mycostatin Powder) 0 gm TOP PRN PRN PRN Reason: Rash/Topical Irritation Last Admin: 08/12/17 09:43 Dose: 1 applic Ondansetron HCl (Zofran) 4 mg IVP Q6H PRN PRN Reason: Nausea/Vomiting Ondansetron HCl (Zofran Odt) 4 mg PO Q6H PRN PRN Reason: Nausea/Vomiting Pantoprazole Sodium (Protonix) 40 mg PO DAILY [facility] Last Admin: 08/13/17 10:22 Dose: 40 mg Phenol (Chloraseptic [place] 180 Ml Bot) 0 ml PO PRN PRN PRN Reason: Sore Throat Polyethylene Glycol (Miralax) 17 gm PO BID [facility] Last Admin: 08/13/17 10:22 Dose: 17 gm Prednisone (Prednisone) 20 mg PO QAM-WM [facility] Last Admin: 08/13/17 10:21 Dose: 20 mg Pregabalin (Lyrica) 100 mg PO TID [facility] Last Admin: 08/13/17 10:27 Dose: 100 mg Saccharomyces Boulardii (Florastor) 250 mg PO DAILY [facility] Last Admin: 08/13/17 10:24 Dose: 250 mg Sodium Chloride (Flush - Normal Saline) 10 ml IVF Q12HR [facility] Last Admin: 08/13/17 10:28 Dose: 10 ml Sodium Chloride (Flush - Normal Saline) 10 ml IVF PRN PRN PRN Reason: Saline Flush Sodium Chloride ([place] Nasal [place] 0.65%) 0 ml EA NARE QIDPRN PRN PRN Reason: Nasal Congestion Temazepam (Restoril) 15 mg PO HSPRN PRN PRN Reason: Insomnia Tramadol HCl (Ultram) 50 mg PO Q8H PRN PRN Reason: Pain Last Admin: 08/12/17 02:00 Dose: 50 mg
[2017-08-13] MEDS ORDERED: Hydrocortisone Acetate 25 MG Suppository PR PRN (20:45)
[2017-08-14 05:23] LABS: #Lymphocytes 1.8 thou/uL (1.20-3.40); #Monocytes 0.5 thou/uL (0.11-0.59); #Neutrophils 2.9 thou/uL (1.40-6.50); %Basophils 0.9 % (0.0-1.0); %Eosinophils 0.9 % (0.0-10.0); %Lymphocytes 34.4 % (21.0-51.0); %Monocytes 8.6 % (0.0-10.0); %Neutrophils 55.1 % (42.0-75.0); Hemoglobin 11.2 g/dL (12.0-16.0); Mean Corpuscular HGB CONC 31.9 g/dL (32.0-36.0); Mean Corpuscular Hemoglobin 31.1 pg (27.0-31.0); Mean Corpuscular Volume 97.3 fl (81.0-99.0); Mean Platelet Volume 8.6 fL (7.4-10.4); Platelet Count 176 thou/uL (130-400); RBC Distribution Width 15.2 % (11.5-14.5); Red Blood Cell (RBC) Count 3.61 mill/uL (4.20-5.40); White Blood Cell (WBC) Count 5.2 thou/uL (4.8-10.8)
[2017-08-14 05:24] LABS: Anion Gap 12 mmol/L (10-20); BUN (Urea Nitrogen) 27 mg/dL (9.8-20.1); Calc. Creatinine Clearance 60 mL/min (70-130); Calcium 8.6 mg/dL (7.8-10.44); Carbon Dioxide 34 mmol/L (23-31); Chloride 95 mmol/L (98-107); Estimated GFR-MDRD 88; Glucose 91 mg/dL (83-110); Magnesium 1.9 mg/dL (1.6-2.6); Potassium 4.1 mmol/L (3.5-5.1); Sodium 137 mmol/L (136-145)
[2017-08-14] MEDS: Furosemide 20 MG/2 ML VIAL SLOW IVP SCH ×2 (06:11→17:39)
[2017-08-14] MEDS: traMADol HCl 50 MG TAB PO PRN (06:36)
[2017-08-14] MEDS: Carvedilol 6.25 MG TAB PO SCH ×2 (08:54→17:35)
[2017-08-14] MEDS: Anastrozole 1 MG TAB PO SCH (08:55)
[2017-08-14] MEDS: ALPRAZolam 0.25 MG TAB PO SCH (08:56)
[2017-08-14] MEDS: predniSONE 20 MG TAB PO SCH (08:56)
[2017-08-14] MEDS: Famotidine 20 MG TAB PO SCH (08:56)
[2017-08-14] MEDS: Lisinopril 10 MG TAB PO SCH (08:56)
[2017-08-14] MEDS: Saccharomyces boulardii 250 MG CAP PO SCH (08:57)
[2017-08-14] MEDS: Multivit, Therapeutic 1 TAB PO SCH (08:57)
[2017-08-14] MEDS: Pregabalin 50 MG CAP PO SCH ×2 (08:58→15:30)
[2017-08-14] MEDS: Apixaban 5 MG TAB PO SCH (08:59)
[2017-08-14] MEDS: DULoxetine 60 MG CAP PO SCH (08:59)
[2017-08-14] MEDS: Docusate 100 MG CAP PO SCH (09:00)
[2017-08-14] MEDS: Polyethylene Glycol 3350 17 GM Packet PO SCH (09:01)
--- NOTE | 2017-08-14 10:15 | PDOC.PN ---
- Subjective Encounter Start Date: 08/14/17 Encounter Start Time: 07:10 Patient seen and examined. No new complaints. No overnight events - Objective Resuscitation Status: Resuscitation Status DNR:Do Not Resuscitate MAR Reviewed: Yes Vital Signs & Weight: Vital Signs (12 hours) Temp Pulse Resp BP BP BP Pulse Ox 08/14/17 08:57 89 135/73 08/14/17 08:56 135/73 08/14/17 08:54 135/73 08/14/17 08:00 98.1 F 89 24 H 135/73 08/14/17 07:08 8 L 16 92 L 08/14/17 06:03 97.9 F 100 16 131/72 92 L 08/14/17 00:44 87 12 Weight Admit Weight 141 lb 1 oz Weight 136 lb 11.2 oz I&O: 08/13/17 08/14/17 08/15/17 06:59 06:59 06:59 Intake Total 1460 480 Output Total 2200 600 Balance -740 -120 Result Diagrams: 08/14/17 04:05 08/14/17 04:05 EKG Reviewed by me: Yes Phys Exam - Physical Examination Constitutional: NAD HEENT: PERRLA, moist MMs, sclera anicteric Neck: no JVD, supple Respiratory: no wheezing, no rhonchi coarse sound bilateral base Cardiovascular: no significant murmur, no rub, irregular Gastrointestinal: soft, non-tender, no distention, positive bowel sounds Musculoskeletal: no edema, pulses present Neurological: non-focal, normal sensation Lymphatic: no nodes Psychiatric: normal affect Skin: no rash, normal turgor Dx/Plan (1) Acute on chronic diastolic (congestive) heart failure Code(s): I50.33 - ACUTE ON CHRONIC DIASTOLIC (CONGESTIVE) HEART FAILURE Status : Acute (2) Acute on chronic respiratory failure with hypoxia and hypercapnia Code(s): J96.21 - ACUTE AND CHRONIC RESPIRATORY FAILURE WITH HYPOXIA; J96.22 - ACUTE AND CHRONIC RESPIRATORY FAILURE WITH HYPERCAPNIA Status: Acute (3) Demand ischemia of myocardium Code(s): I24.8 - OTHER FORMS OF ACUTE ISCHEMIC HEART DISEASE Status: Acute (4) Left popliteal artery occlusion Code(s): I70.202 - UNSP ATHSCL [place] ARTERIES OF EXTREMITIES, LEFT LEG Status : Acute (5) Afib Code(s): I48.91 - UNSPECIFIED ATRIAL FIBRILLATION Status: Chronic Qualifiers: Atrial fibrillation type: persistent Qualified Code(s): I48.1 - Persistent atrial fibrillation (6) Anxiety and depression Code(s): F41.8 - OTHER SPECIFIED ANXIETY DISORDERS Status: Chronic (7) COPD with exacerbation Code(s): J44.1 - CHRONIC OBSTRUCTIVE PULMONARY DISEASE W (ACUTE) EXACERBATION Status: Chronic (8) Chronic pain disorder Code(s): G89.4 - CHRONIC PAIN SYNDROME Status: Chronic (9) GERD (gastroesophageal reflux disease) Code(s): K21.9 - GASTRO-ESOPHAGEAL REFLUX DISEASE WITHOUT ESOPHAGITIS Status: Chronic (10) H/O malignant neoplasm of breast Code(s): Z85.3 - PERSONAL HISTORY OF MALIGNANT NEOPLASM OF BREAST Status: Chronic (11) Hypertension Code(s): I10 - ESSENTIAL (PRIMARY) HYPERTENSION Status: Chronic Qualifiers: Hypertension type: other secondary hypertension Qualified Code(s): I15.8 - Other secondary hypertension (12) Paroxysmal SVT (supraventricular tachycardia) Code(s): I47.1 - SUPRAVENTRICULAR TACHYCARDIA Status: Chronic - Plan cont current plan of care, plan discussed w/ family, PT/OT, psychologist social * hospice evaluation * seems like now pt is baseline but she is always risk for readmission * medication reviewed as below * symptomatic treatment. Review of Systems - Review of Systems ENT: negative: Ear Pain, Ear Discharge, Nose Pain, Nose Discharge, Nose Congestion, Mouth Pain, Mouth Swelling, Throat Pain, Throat Swelling, Other Respiratory: negative: Cough, Dry, Shortness of Breath, Hemoptysis, SOB with Excertion, Pleuritic Pain, Sputum, Wheezing Cardiovascular: negative: chest pain, palpitations, orthopnea, paroxysmal nocturnal dyspnea, edema, light headedness, other Gastrointestinal: negative: Nausea, Vomiting, Abdominal Pain, Diarrhea, Constipation, Melena, Hematochezia, Other Genitourinary: negative: Dysuria, Frequency, Incontinence, Hematuria, Retention , Other Musculoskeletal: negative: Neck Pain, Shoulder Pain, Arm Pain, Back Pain, Hand Pain, Leg Pain, Foot Pain, Other - Medications/Allergies Allergies/Adverse Reactions: Allergies Allergy/AdvReac Type Severity Reaction Status Date / Time adhesive Allergy Mild Rash Verified 07/16/17 21:40 oxycodone HCl Allergy Unknown Hives Verified 07/16/17 21:40 [From OxyContin] codeine Allergy Verified 07/16/17 21:40 diclofenac Allergy Verified 07/16/17 21:40 donepezil Allergy Verified 07/16/17 21:40 hydrocodone bitartrate Allergy AMS Verified 07/16/17 21:40 [From Vicodin] Medications: Current Medications Acetaminophen (Tylenol) 650 mg PO Q4H PRN PRN Reason: Headache/Fever or Pain Al Hydroxide/Mg Hydroxide (Maalox) 15 ml PO Q4H PRN PRN Reason: Heartburn or Indigestion Albuterol Sulfate (Ventolin) 2.5 mg NEB [id number] PRN PRN Reason: Wheezing Albuterol/Ipratropium (Duoneb) 3 ml NEB [id number] [facility] Last Admin: 08/14/17 07:08 Dose: 3 ml Alprazolam (Xanax) 0.25 mg PO BID [facility] Last Admin: 08/14/17 08:56 Dose: 0.25 mg Anastrozole (Arimidex) 1 mg PO DAILY [facility] Last Admin: 08/14/17 08:55 Dose: 1 mg Apixaban (Eliquis) 2.5 mg PO BID [facility] Last Admin: 08/14/17 08:59 Dose: 2.5 mg Artificial Tears (Tears Naturale) 1 drop EA EYE PRN PRN PRN Reason: Dry Eyes Aspirin (Aspirin Chewable) 81 mg PO DAILY [facility] Last Admin: 08/14/17 08:56 Dose: 81 mg Bisacodyl (Dulcolax) 10 mg PO DAILYPRN PRN PRN Reason: Constipation Carvedilol (Coreg) 18.75 mg PO BID-[facility] Last Admin: 08/14/17 08:54 Dose: 18.75 mg Cyclobenzaprine HCl (Flexeril) 10 mg PO TIDPRN PRN PRN Reason: Muscle Spasm Digoxin (Lanoxin) 0.125 mg PO Q2D@0900 [facility] Last Admin: 08/13/17 10:22 Dose: 0.125 mg Diltiazem HCl (Cardizem Cd) 240 mg PO DAILY [facility] Last Admin: 08/14/17 08:57 Dose: 240 mg Docusate Sodium (Colace) 100 mg PO BID [facility] Last Admin: 08/14/17 09:00 Dose: Not Given Duloxetine HCl (Cymbalta) 60 mg PO DAILY [facility] Last Admin: 08/14/17 08:59 Dose: 60 mg Famotidine (Pepcid) 20 mg PO BID [facility] Last Admin: 08/14/17 08:56 Dose: 20 mg Furosemide (Lasix) 20 mg SLOW IVP 0600,1400 [facility] Last Admin: 08/14/17 06:11 Dose: 20 mg Guaifenesin (Mucinex) 600 mg PO BID PRN PRN Reason: Cough Guaifenesin (Robitussin Sf) 200 mg PO Q4H PRN PRN Reason: Cough Hydralazine HCl (Apresoline) 10 mg SLOW IVP Q4H PRN PRN Reason: Systolic BP > 180 Hydrocortisone Acetate (Anusol-Hc) 25 mg [place] BIDPRN PRN PRN Reason: Topical Irritations Last Admin: 08/13/17 21:10 Dose: 25 mg Lisinopril (Zestril) 10 mg PO DAILY [facility] Last Admin: 08/14/17 08:56 Dose: 10 mg Loperamide HCl (Imodium) 2 mg PO PRN PRN PRN Reason: Diarrhea/Loose Stools Loratadine (Claritin) 10 mg PO DAILYPRN PRN PRN Reason: Sinus Symptoms Magnesium Hydroxide (Milk Of Magnesium) 30 ml PO DAILYPRN PRN PRN Reason: Constipation Mineral Oil/White Petrolatum (Eucerin Cream) 0 gm TOP BIDPRN PRN PRN Reason: Dry Skin Morphine Sulfate (Morphine) 2 mg SLOW IVP Q5MIN PRN PRN Reason: Chest Pain Multivitamins (Theragran) 1 tab PO DAILY [facility] Last Admin: 08/14/17 08:57 Dose: 1 tab Nitroglycerin (Nitrostat) 0.4 mg SL Q5MIN PRN PRN Reason: Chest Pain Nystatin (Mycostatin Powder) 0 gm TOP PRN PRN PRN Reason: Rash/Topical Irritation Last Admin: 08/12/17 09:43 Dose: 1 applic Ondansetron HCl (Zofran) 4 mg IVP Q6H PRN PRN Reason: Nausea/Vomiting Ondansetron HCl (Zofran Odt) 4 mg PO Q6H PRN PRN Reason: Nausea/Vomiting Pantoprazole Sodium (Protonix) 40 mg PO DAILY [facility] Last Admin: 02/26/18 08:56 Dose: 40 mg Phenol (Chloraseptic [place] 180 Ml Bot) 0 ml PO PRN PRN PRN Reason: Sore Throat Polyethylene Glycol (Miralax) 17 gm PO BID [facility] Last Admin: 08/14/17 09:01 Dose: Not Given Prednisone (Prednisone) 20 mg PO QAM-WM [facility] Last Admin: 08/14/17 08:56 Dose: 20 mg Pregabalin (Lyrica) 100 mg PO TID [facility] Last Admin: 08/14/17 08:58 Dose: 100 mg Saccharomyces Boulardii (Florastor) 250 mg PO DAILY [facility] Last Admin: 08/14/17 08:57 Dose: 250 mg Sodium Chloride (Flush - Normal Saline) 10 ml IVF Q12HR [facility] Last Admin: 08/14/17 09:02 Dose: 10 ml Sodium Chloride (Flush - Normal Saline) 10 ml IVF PRN PRN PRN Reason: Saline Flush Sodium Chloride ([place] Nasal [place] 0.65%) 0 ml EA NARE QIDPRN PRN PRN Reason: Nasal Congestion Temazepam (Restoril) 15 mg PO HSPRN PRN PRN Reason: Insomnia Tramadol HCl (Ultram) 50 mg PO Q8H PRN PRN Reason: Pain Last Admin: 08/14/17 06:36 Dose: 50 mg
--- NOTE | 2017-08-14 11:25 | DIS ---
DATE OF ADMISSION: 08/10/2017 DATE OF DISCHARGE: 08/14/2017 PRIMARY CARE PHYSICIAN: Adrian Vega M.D. Pending cardiology clearance. DISCHARGE DISPOSITION: Home with home hospice. PRIMARY DISCHARGE DIAGNOSES: 1. Acute on chronic diastolic heart failure. 2. Acute on chronic respiratory failure with hypoxia and hypercapnia. 3. Demand ischemia of myocardium. 4. Left popliteal artery occlusion. SECONDARY DISCHARGE DIAGNOSES: Paroxysmal supraventricular tachycardia, paroxysmal atrial fibrillati on, hypertension, history of breast cancer, history of gastroesophageal reflux disease, chronic obstr uctive pulmonary disease with exacerbation, chronic pain disorder, anxiety and depression. PRIMARY PROCEDURE/OPERATION: None. RADIOLOGICAL INVESTIGATION: Aorto with runoff CT angiography showed popliteal arterial occlusion. SIGNIFICANT LABORATORY DATA: WBC 5.2, hemoglobin 11.2, platelets 176. Sodium 137, creatinine 0.64. Troponin 0.406. Urinalysis suggestive of UTI. DISCHARGE MEDICATIONS: Ventolin nebulization t.i.d. p.r.n., Xanax 0.25 mg p.o. b.i.d., Arimidex 1 mg p.o. daily, Eliquis 2.5 mg p.o. b.i.d., aspirin 81 mg p.o. daily, Coreg 18.75 mg p.o. b.i.d., Flexer il 10 mg t.i.d. p.r.n., digoxin 0.125 mg p.o. every other day, Cardizem CD 240 mg p.o. daily, Cymbalt a 60 mg p.o. daily, Lasix 20 mg p.o. daily, Mucinex 600 mg p.o. b.i.d., DuoNeb q.6 hourly, lisinopril 10 mg p.o. daily, Claritin 10 mg p.o. daily, Dulera 2 puffs inhalation b.i.d., multivitamin 1 tablet p.o. daily, nitroglycerin 0.4 mg sublingual p.r.n. for chest pain as directed, Protonix 40 mg p.o. d aily, MiraLax 17 grams p.o. b.i.d., Lyrica 100 mg t.i.d., tramadol 50 mg q.8 hourly p.r.n. CONTRAINDICATIONS: None. CODE STATUS: DNR. INPATIENT CONSULTANTS: Dr. Harding was following while in hospital. Dr. Ledezma was consulted while in h ospital. TEST RESULTS PENDING ON DISCHARGE: None. ALLERGIES: ADHESIVE OXYCODONE, CODEINE, DICLOFENAC, ARICEPT. DISCHARGE PLAN: Post hospital, patient will be discharged home with home hospice. HOSPITAL COURSE: An 87-year-old female with the above-mentioned medical problem who was admitted by Dr. Burt. Please see his H&P for further details. The patient was admitted for increasing short ness of breath and she was found with acute on chronic COPD exacerbation, diastolic heart failure exa cerbation as well as acute on chronic respiratory failure with hypoxia and hypercapnia. She was admi tted to telemetry floor. This patient was having left lower extremity cold that is why CT angiograph y runoff was performed that showed left popliteal arterial occlusion. Dr. Ledezma was consulted, but b ecause of patient's multiple comorbidities and asymptomatic nature of the left popliteal arterial occ lusion, Dr. Ledezma did not decide to do any further evaluation. The patient also had elevated troponi n and that is why Cardiology was following while in hospital. Patient was treated with diuretic ther apy and respiratory therapy optimally while in hospital. This patient and family members were intere sted in going home with home hospice and that is why we are evaluating hospice before discharge. If Cardiology is okay, then the patient can be discharged home later on today. Though her urinalysis wa s suggestive of UTI, but patient did not have any UTI symptoms and while in hospital she remained afe brile. We did not pursue any antibiotic therapy. Patient is seen and examined at bedside today. Please see my progress note from today for further de tails.
[2017-08-14 15:50] VITALS: BP 117/61; TEMP 98.1
== END 2017-08-14 18:50 | disposition hospice, home (50) | DRG 291 ==
LOC: ERS 16:59 → 2NO 18:00
PROVIDERS: ADMIT Internal Medicine; ATTEND Internal Medicine
DX: I11.0 Hypertensive heart disease with heart failure (principal); J96.21 Acute and chronic respiratory failure with hypoxia; I24.8 Other forms of acute ischemic heart disease; J96.22 Acute and chronic respiratory failure with hypercapnia; I47.1 Supraventricular tachycardia; J44.1 Chronic obstructive pulmonary disease with (acute) exacerbation; I50.33 Acute on chronic diastolic (congestive) heart failure; I77.9 Disorder of arteries and arterioles, unspecified; I48.0 Paroxysmal atrial fibrillation; F41.9 Anxiety disorder, unspecified; Z51.5 Encounter for palliative care; F32.9 Major depressive disorder, single episode, unspecified; K21.9 Gastro-esophageal reflux disease without esophagitis; Z66 Do not resuscitate; Z95.0 Presence of cardiac pacemaker; Z99.81 Dependence on supplemental oxygen; M06.9 Rheumatoid arthritis, unspecified
CPT/HCPCS: 36415; 75635; 80048; 81003; 81015; 82805; 83735; 84484; 85025; 93798; 94640; A4216; J1940; J7506; J7620

== ENCOUNTER 2017-08-19 10:35 | Inpatient (IN) | payer MEDICARE ==
[2017-08-19] MEDS ORDERED: Lidocaine 2% Jelly 5 ML TUBE ONE (10:48)
[2017-08-19 11:27] LABS: #Basophils 0.1 thou/uL (0.0-0.2); #Eosinphils 0.1 thou/uL (0.0-0.7); #Monocytes 0.7 thou/uL (0.11-0.59); #Neutrophils 7.2 thou/uL (1.40-6.50); %Basophils 0.5 % (0.0-1.0); %Eosinophils 0.8 % (0.0-10.0); %Lymphocytes 27.1 % (21.0-51.0); %Monocytes 6.2 % (0.0-10.0); %Neutrophils 65.3 % (42.0-75.0); Hemoglobin 11.1 g/dL (12.0-16.0); Mean Corpuscular HGB CONC 32.2 g/dL (32.0-36.0); Mean Corpuscular Hemoglobin 30.4 pg (27.0-31.0); Mean Corpuscular Volume 94.3 fl (81.0-99.0); Mean Platelet Volume 7.6 fL (7.4-10.4); Platelet Count 311 thou/uL (130-400); RBC Distribution Width 15.9 % (11.5-14.5); Red Blood Cell (RBC) Count 3.65 mill/uL (4.20-5.40)
[2017-08-19 11:33] LABS: INR-International Normal Ratio 1.5; PTT 33.8 SEC (22.9-36.1); Prothrombin Time 18.2 SEC (12.0-14.7)
[2017-08-19 11:48] LABS: Albumin 2.7 g/dL (3.4-4.8); Anion Gap 13 mmol/L (10-20); BUN (Urea Nitrogen) 26 mg/dL (9.8-20.1); Bilirubin, Total 0.8 mg/dL (0.2-1.2); Calc. Creatinine Clearance 0 mL/min (70-130); Calcium 9.1 mg/dL (7.8-10.44); Carbon Dioxide 33 mmol/L (23-31); Chloride 96 mmol/L (98-107); Estimated GFR-MDRD 82; Glucose 94 mg/dL (83-110); Potassium 4.9 mmol/L (3.5-5.1); Protein, Total 6.7 g/dL (6.0-8.3); Sodium 137 mmol/L (136-145)
[2017-08-19 11:49] LABS: ALT (SGPT) 20 U/L (8-55); AST (SGOT) 21 U/L (5-34); Alkaline Phosphatase 55 U/L (40-150); CK (CPK) 25 U/L (29-168); Lipase Less than 4 U/L (8-78)
[2017-08-19 11:52] LABS: CKMB 0.7 ng/mL (0-6.6); Troponin I 0.241 ng/mL (< 0.028)
[2017-08-19 12:14] LABS: Bilirubin Negative (Negative); Blood, Urine Trace (Negative); Clarity CLOUDY (Clear); Glucose, Urine (Dipstick) Negative (Negative); Leukocyte Trace (Negative); Nitrite Negative (Negative); Protein, Urine (Dipstick) 100 mg/dL (Neg-Trace); Specific Gravity, Urine 1.043 (1.002-1.036); pH, Urine 6.5 (5.0-9.0)
[2017-08-19 12:17] LABS: Bacteria/HPF 1+ HPF (None Seen); Hyaline Casts/LPF 7-10 HYALINE CAST LPF (0-3 Hyaline); RBC/HPF 21-50 HPF (0-3); Squamous Epithelial None Seen HPF (0-3)
--- NOTE | 2017-08-19 14:25 | CT ---
CT OF THE ABDOMEN AND PELVIS WITH CONTRAST: COMPARISON: 12/11/12. HISTORY: Unresponsive mental status and abdominal pain. The patient has not urinated in the past 24 hours and has been constipated. TECHNIQUE: Multiple contiguous axial images were obtained in a CT of the abdomen and pelvis with contrast. Mellisa nal reformats were performed. FINDINGS: There is a 2.7 cm cyst in the lower pole of the left kidney. The liver, gallbladder, right kidney, a drenal glands, spleen, and pancreas show no acute abnormality. No free air, free fluid, or stranding changes are seen in the abdomen or pelvis. Evaluation of the pelvis is limited secondary to streak artifact from the patient's bilateral hip prostheses. The small bowel is unremarkable. There is scattered diverticula in the colon. There are calcificati ons in the uterus which likely represent small calcified fibroids. Atherosclerotic calcifications are seen in the aorta. No abdominal or pelvic lymphadenopathy are see n. No significant stool retention is seen in the colon. There are small bilateral pleural effusions with adjacent atelectasis. Degenerative changes and post surgical changes are seen in the lumbar spine. IMPRESSION: 1. No evidence of acute intraabdominal/ pelvic abnormality. 2. Left renal cyst. 3. Diverticulosis. 4. Fibroid uterus. 5. Small bilateral pleural effusions with adjacent atelectasis. POS: [facility]
[2017-08-19] MEDS ORDERED: ISOVUE-370 76%-LOCM 1 ML ONE (14:35)
--- NOTE | 2017-08-19 15:09 | RAD ---
RADIOGRAPH CHEST 1 VIEW: Date: 08/19/17. Time: 12:35 p.m. HISTORY: An 87-year-old female with dyspnea, cardiac arrhythmia, and palpitations. COMPARISON: 08/10/17. FINDINGS: Cardiomegaly. Diffuse heterogeneous prominence of interstitial markings bilaterally. The airspace o pacity at the retrocardiac left lower lobe remains, but has improved. Dual-lead left subclavian pace maker. Left humeral head metallic prosthesis. No pneumothorax. IMPRESSION: 1. Interval improvement of the airspace opacity at the left lower lobe. 2. Cardiomegaly and diffuse mild interstitial changes are stable since 08/10/17. GAY [] POS: [facility]
[2017-08-19 17:10] VITALS: BMI 27.8
[2017-08-19] MEDS ORDERED: Ondansetron ODT 4 MG TAB SL PRN (17:18)
[2017-08-19] MEDS ORDERED: Acetaminophen 325 MG TAB PO PRN (17:18)
[2017-08-19] MEDS ORDERED: Ondansetron HCl/PF 4 MG/2 ML Vial IVP PRN ×2 (17:18→20:13)
[2017-08-19] MEDS ORDERED: Ondansetron ODT 4 MG TAB PO PRN (20:13)
[2017-08-19] MEDS ORDERED: cefTRIAXone\\ROCEPHIN 1 GM in Sodium Chloride 0.9% 100 ML IVPB SCH (20:15)
[2017-08-19] MEDS ORDERED: Nitroglycerin 0.4 MG TAB (25 Tab Bottle) SL PRN (20:18)
[2017-08-19] MEDS ORDERED: FLU VACC TS2017-18 (>65YR) 0.5 ML SYRINGE IM ONE (21:00)
[2017-08-19] MEDS: Famotidine 20 MG TAB PO SCH (21:49)
[2017-08-19] MEDS: Azithromycin 500 MG in Sodium Chloride 0.9% 250 ML 250 ML IVPB SCH (22:19)
[2017-08-19] MEDS: cefTRIAXone\\ROCEPHIN 1 GM, Syringe 0.4 ML in Sterile Water 9.6 ML SLOW IVP SCH (22:20)
--- NOTE | 2017-08-19 23:06 | HP ---
CHIEF COMPLAINT: Mental status change and shortness of breath. HISTORY OF PRESENT ILLNESS: This is an 87-year-old female patient who I could not get much of any hi story from. In any case, the patient was just recently treated here for pneumonitis and discharged a nd came right back with worsening shortness of breath as well as mental status change. The patient w as brought into the EMS with a history of unresponsive mental status. The patient is oxygen dependen t, about 3 liters; however, was noted to be hypoxic on presentation. The patient currently DNR and t he family is exploring the option of possible hospice. Evaluation in the ER did show evidence of pos sible interstitial pneumonitis. PAST MEDICAL HISTORY: 1. Significant hospitalization for pneumonitis. 2. Chronic hypoxic respiratory failure. 3. Chronic obstructive pulmonary disease. 4. Congestive heart failure. 5. Hypertension. 6. Left breast cancer. ALLERGIES: ADHESIVE TAPE, CODEINE SULFATE, CYMBALTA, DICLOFENAC, DONEPEZIL, OXYCODONE and HYDROCODON E. FAMILY HISTORY: Not significantly related to the presenting illness. SOCIAL HISTORY: Unremarkable. Please for the details of the social history, refer to the notes when patient was here barely about a week ago. PHYSICAL EXAMINATION: GENERAL: The patient was found to be responsive. Noted with the following vital signs. VITAL SIGNS: Afebrile with temperature 97.9, pulse 91 to 102, respiratory rate of 18, O2 sat 96%, bl ood pressure 119/64. HEENT: Remarkable for blood crossed in the mouth. CARDIOVASCULAR SYSTEM: First and second heart sounds were heard. RESPIRATORY SYSTEM: Clear to auscultation anteriorly. DIGESTIVE SYSTEM: Revealed a benign abdomen. EXTREMITIES: No peripheral edema. SKIN: No new gross rash. LYMPHATIC: No peripheral lymphadenopathy. IMPRESSION: 1. Interstitial pneumonitis per imaging studies 2. Mental status change. This is likely in the context of possible pneumonitis and hypoxic encephal opathy. 3. Chronic hypoxic respiratory failure. PLAN: 1. The patient to be admitted to medical floor. Code status is DNR, clarified with patient's family . 2. The patient is to be placed on broad-spectrum antibiotics. 3. The patient likely to benefit from Palliative Care consult. 4. Further management to be dependent on the clinical course.
[2017-08-20] MEDS: Dextrose 5 % And 0.9 % NaCl 1,000 ML IV SCH (04:43)
[2017-08-20] MEDS: Acetaminophen 650 MG Suppository PR PRN (04:44)
[2017-08-20 04:52] LABS: #Lymphocytes 2.5 thou/uL (1.20-3.40); #Monocytes 0.8 thou/uL (0.11-0.59); #Neutrophils 9.4 thou/uL (1.40-6.50); %Basophils 0.3 % (0.0-1.0); %Eosinophils 0.3 % (0.0-10.0); %Lymphocytes 19.6 % (21.0-51.0); %Monocytes 6.4 % (0.0-10.0); %Neutrophils 73.4 % (42.0-75.0); Hemoglobin 11.2 g/dL (12.0-16.0); Mean Corpuscular HGB CONC 32.7 g/dL (32.0-36.0); Mean Corpuscular Hemoglobin 30.6 pg (27.0-31.0); Mean Corpuscular Volume 93.5 fl (81.0-99.0); Mean Platelet Volume 7.8 fL (7.4-10.4); Platelet Count 316 thou/uL (130-400); RBC Distribution Width 15.8 % (11.5-14.5); Red Blood Cell (RBC) Count 3.66 mill/uL (4.20-5.40); White Blood Cell (WBC) Count 12.8 thou/uL (4.8-10.8)
[2017-08-20 05:17] LABS: Anion Gap 14 mmol/L (10-20); BUN (Urea Nitrogen) 20 mg/dL (9.8-20.1); Calc. Creatinine Clearance 63 mL/min (70-130); Calcium 9.1 mg/dL (7.8-10.44); Carbon Dioxide 27 mmol/L (23-31); Chloride 97 mmol/L (98-107); Estimated GFR-MDRD Greater than 90; Glucose 82 mg/dL (83-110); Potassium 4.2 mmol/L (3.5-5.1); Sodium 134 mmol/L (136-145)
[2017-08-20] MEDS: Mometasone/Formoterol 120 PUFF INHALER INH SCH ×2 (06:17→19:27)
[2017-08-20] MEDS: DULoxetine 60 MG CAP PO SCH (08:11)
[2017-08-20] MEDS: Famotidine 20 MG TAB PO SCH ×2 (08:11→20:20)
[2017-08-20] MEDS: Carvedilol 6.25 MG TAB PO SCH ×2 (08:11→16:39)
--- NOTE | 2017-08-20 10:15 | PDOC.PN ---
- Subjective Encounter Start Date: 08/20/17 Encounter Start Time: 10:13 CC: Dyspnea sub: Pt denies dyspnea - Objective Resuscitation Status: Resuscitation Status DNR:Do Not Resuscitate Vital Signs & Weight: Vital Signs (12 hours) Temp Pulse Resp BP Pulse Ox 08/20/17 08:11 93 08/20/17 07:35 98.7 F 113 H 24 H 122/74 97 08/20/17 06:15 93 20 96 08/20/17 05:01 99.2 F 110 H 18 137/79 99 08/19/17 23:48 99.2 F 119 H 22 H 126/73 91 L 08/19/17 23:03 94 L 08/19/17 23:01 91 20 94 L Weight Weight 138 lb I&O: 08/19/17 08/20/17 08/21/17 06:59 06:59 06:59 Intake Total 200 Balance 200 Result Diagrams: 08/20/17 04:12 08/20/17 04:12 Phys Exam - Physical Examination Constitutional: NAD HEENT: moist MMs Neck: no JVD diminished at bases, positive crackles, no accesory muscle usage seen Cardiovascular: RRR, no significant murmur Gastrointestinal: soft, non-tender Neurological: non-focal Dx/Plan - Plan Pt is 87 yrs old female now admitted to hospital due to dyspnea 1. Interstitial pneumonitis 2. Metabolic encaphalopathy 3. COPD 4. CHF 5. HTN 6. H/O FIB + Chronic anticoagulation PLAN: Will continue home dose of lasix bretahing impoving. continue breathing treatments Continue eliqus 2.5mg bid. Monito hgb closely Mental status improving D/W Pt & Pt son & Pt daughter. Pt son and daughter wants hospice eval. Will consult palliative care team
[2017-08-20] MEDS ORDERED: guaiFENesin ER 600 MG TAB PO PRN (13:08)
[2017-08-20] MEDS ORDERED: Albuterol Sulfate 2.5 mg/3 ml Neb NEB PRN (13:08)
[2017-08-20] MEDS ORDERED: Loratadine 10 MG TAB PO PRN (13:08)
[2017-08-20] MEDS ORDERED: Cyclobenzaprine 10 MG TAB PO PRN (13:21)
[2017-08-20] MEDS: Apixaban 5 MG TAB PO SCH (20:19)
[2017-08-20] MEDS: ALPRAZolam 0.25 MG TAB PO SCH (20:20)
[2017-08-20] MEDS: Azithromycin 500 MG in Sodium Chloride 0.9% 250 ML 250 ML IVPB SCH (20:20)
[2017-08-20] MEDS: cefTRIAXone\\ROCEPHIN 1 GM, Syringe 0.4 ML in Sterile Water 9.6 ML SLOW IVP SCH (20:21)
[2017-08-20] MEDS: Polyethylene Glycol 3350 17 GM Packet PO SCH (20:21)
[2017-08-21] MEDS ORDERED: Furosemide 20 MG/2 ML VIAL SLOW IVP SCH (01:15)
[2017-08-21] MEDS: Dextrose 5 % And 0.9 % NaCl 1,000 ML IV SCH (01:18)
[2017-08-21 05:08] VITALS: TEMP 98.1
[2017-08-21] MEDS: Acetaminophen 650 MG Suppository PR PRN ×2 (06:39→13:14)
[2017-08-21] MEDS: Mometasone/Formoterol 120 PUFF INHALER INH SCH ×2 (06:49→18:52)
--- NOTE | 2017-08-21 08:44 | RAD ---
FRONTAL VIEW CHEST: COMPARISON: Exam 2 days prior. INDICATION: Short of breath. FINDINGS: There is an enlarged cardiac silhouette, prominent pulmonary vasculature, and diffuse bilateral inter stitial and alveolar opacities. The left lung base is obscured by the cardiac silhouette. No additi onal significant interval change. IMPRESSION: Findings most consistent with decompensated congestive heart failure. Superimposed pneumonia not exc luded. Followup to resolution recommended. POS: [facility]
[2017-08-21] MEDS ORDERED: Multivit, Therapeutic 1 TAB PO SCH (09:00)
[2017-08-21] MEDS ORDERED: Digoxin 0.125 MG TAB PO SCH (09:00)
[2017-08-21] MEDS ORDERED: Lisinopril 10 MG TAB PO SCH (09:00)
[2017-08-21] MEDS ORDERED: Furosemide 20 MG TAB PO SCH (09:00)
[2017-08-21] MEDS: Carvedilol 6.25 MG TAB PO SCH ×2 (09:01→16:33)
[2017-08-21] MEDS: Famotidine 20 MG TAB PO SCH ×2 (09:04→20:57)
[2017-08-21] MEDS: Apixaban 5 MG TAB PO SCH ×2 (09:04→20:57)
[2017-08-21] MEDS: DULoxetine 60 MG CAP PO SCH (09:05)
[2017-08-21] MEDS: Polyethylene Glycol 3350 17 GM Packet PO SCH ×2 (09:06→21:14)
[2017-08-21] MEDS: ALPRAZolam 0.25 MG TAB PO SCH ×2 (09:06→20:57)
--- NOTE | 2017-08-21 12:21 | PDOC.PN ---
- Subjective Encounter Start Date: 08/21/17 Encounter Start Time: 12:15 Subjective: f/u for suspected pneumonitis however ucx/blood cx with enterococcus -: spp. Initially on Zithromax and Rocephin. Family wishing to pursue -: hospice on d/c. - Objective Resuscitation Status: Resuscitation Status DNR:Do Not Resuscitate MAR Reviewed: Yes Vital Signs & Weight: Vital Signs (12 hours) Temp Pulse Resp BP BP Pulse Ox 08/21/17 09:05 121/69 08/21/17 09:01 100 121/69 08/21/17 09:00 104 H 121/69 08/21/17 08:00 98.1 F 100 26 H 121/69 104 H 08/21/17 06:49 97 20 93 L 08/21/17 06:46 97 20 93 L 08/21/17 05:08 98.1 F 112 H 24 H 114/71 89 L 08/21/17 00:41 82 30 H 92 L Weight Weight 138 lb I&O: 08/20/17 08/21/17 08/22/17 06:59 06:59 06:59 Intake Total 680 Balance 680 Result Diagrams: 08/20/17 04:12 08/20/17 04:12 Additional Labs: Microbiology 08/19/17 11:53 Urine Straight Catheter Urine Culture - Final Enterococcus species 08/19/17 12:20 Venous blood - Right Hand Blood Culture - Preliminary Enterococcus faecalis 08/19/17 11:12 Venous blood - Right Arm Blood Culture - Preliminary Non-Hemolytic Streptococcus Laboratory Tests 08/10/17 08/19/17 08/19/17 14:30 11:12 11:12 WBC 11.0 H Lactic Acid Troponin I B-Natriuretic Peptide 1706.9 H 1093.9 H 08/19/17 08/19/17 11:12 11:12 WBC Lactic Acid 1.3 Troponin I 0.241 H B-Natriuretic Peptide Radiology Reviewed by me: Yes (PCXR - + pulm edema) Phys Exam - Physical Examination lethargic, sleepy dry oral mucosa HEENT: oral pharynx no lesions Neck: no JVD, supple coarse sounds bilat Cardiovascular: irregular Gastrointestinal: soft, non-tender, no distention, positive bowel sounds Musculoskeletal: no edema, pulses present Neurological: moves all 4 limbs Skin: normal turgor, cap refill <2 seconds Dx/Plan (1) Bacteremia due to Enterococcus Code(s): R78.81 - BACTEREMIA; B95.2 - ENTEROCOCCUS THE CAUSE OF DISEASES CLASSIFIED ELSEWHERE Status: Acute Comment: Start Levaquin 750mg IV daily (2) UTI (urinary tract infection) due to Enterococcus Code(s): N39.0 - URINARY TRACT INFECTION, SITE NOT SPECIFIED; B95.2 - ENTEROCOCCUS THE CAUSE OF DISEASES CLASSIFIED ELSEWHERE Status: Acute Comment: See #1 (3) Acute on chronic respiratory failure with hypoxia and hypercapnia Code(s): J96.21 - ACUTE AND CHRONIC RESPIRATORY FAILURE WITH HYPOXIA; J96.22 - ACUTE AND CHRONIC RESPIRATORY FAILURE WITH HYPERCAPNIA Status: Acute Comment : Continue pulmonary support, continue O2 at 4L, continue Duonebs and Dulera (4) Anxiety and depression Code(s): F41.8 - OTHER SPECIFIED ANXIETY DISORDERS Status: Chronic (5) Acute on chronic diastolic (congestive) heart failure Code(s): I50.33 - ACUTE ON CHRONIC DIASTOLIC (CONGESTIVE) HEART FAILURE Status : Chronic Comment: Continue Lasix daily (6) Afib Code(s): I48.91 - UNSPECIFIED ATRIAL FIBRILLATION Status: Chronic Qualifiers: Atrial fibrillation type: persistent Qualified Code(s): I48.1 - Persistent atrial fibrillation Comment: Continue Digoxin and Diltiazem (7) Chronic pain disorder Code(s): G89.4 - CHRONIC PAIN SYNDROME Status: Chronic - Plan plan discussed w/ family, continue antibiotics, social work job titles, DVT proph w/ SCDs Start Levaquin 750mg IV daily -: D/C Zithromax and Rocephin -: Saline lock IVF's -: Hospice consulted likely inpt -: Restoril 15mg HS * Likely d/c in 24h
[2017-08-21] MEDS ORDERED: Temazepam 15 MG CAP PO PRN (12:47)
[2017-08-21 21:14] VITALS: BP 91/56
--- NOTE | 2017-08-22 00:15 | DIS ---
DATE OF ADMISSION: 08/19/2017 DATE OF DISCHARGE: 08/21/2017 DISCHARGE DIAGNOSES: 1. Urinary tract infection with urine Enterococcus species. 2. Bacteremia due to Enterococcus species. 3. Acute on chronic hypoxemic, hypercapnic respiratory failure. 4. Suspected pneumonitis. 5. Anxiety and depression. 6. Acute on chronic diastolic congestive heart failure. 7. Chronic atrial fibrillation, rate controlled. 8. Chronic pain disorder. 9. Polypharmacy. 10. Severe deconditioning. 11. Chronic obstructive pulmonary disease. 12. Status post mechanical falls. CONSULTATIONS: None. PERTINENT LABORATORY AND X-RAY FINDINGS: Lactic acid level 1.3. BNP 1094 previously noted 1707 on 0 08/10/2017. CBC showed a white blood cell count ranging between 11.0 to 12.8, hemoglobin 11, hematocr it 34. 2/2 blood cultures positive for Enterococcus faecalis. Urine culture dated 08/19/2017, posit sara for greater than 100,[address] of the abdomen and pelvis dated showed no acute intra-abdominal process. Please see dictated report for full details. Port able chest x-ray dated 08/19/2017 showed left lower lobe airspace opacity. Cardiomegaly. Portable c hest x-ray dated 08/21/2017 showed decompensated congestive heart failure with pulmonary edema. HOSPITAL COURSE: Patient was admitted to the medical floor after initially presenting with altered m entation and shortness of breath. The patient with multiple admissions dating back to 05/2017, prese nting with worsening respiratory failure in the context of chronic hypoxemic hypercapnic respiratory failure. The patient was initially placed on broad-spectrum antibiotic therapy with Rocephin and Zit hromax after concern for suspected pneumonitis. The patient with recent Streptococcal bacteremia and pneumonia as well as influenza A in the last 3-4 months prior to this evaluation. The patient was c ontinued on oxygen supplementation and monitored for clinical improvement. The patient continued to clinically decline with lethargy, decreased energy level and attentiveness. Due to patient's overall continued clinical decline and failed outpatient management, the patient and family decided to pursu e palliative care measures and seek hospice care. The patient was evaluated by [facility] and deemed an appropriate candidate for inpatient hospice. The patient did receive Levaquin 750 mg daily after blood and urine cultures showed Enterococcus species as stated previously. The patien t will continue outpatient prescription with Levaquin to complete a 7-10 day course after discharge. Overall, patient's prognosis is guarded due to multitude of comorbid conditions, persistent function al and clinical decline and advanced age. The patient will transfer to [facility] on discharge on 08/21/2017. DISCHARGE MEDICATIONS: 1. Ventolin nebulized solution 2.5 mg nebulized t.i.d. 2. Xanax 0.25 mg p.o. b.i.d. 3. Arimidex 1 mg p.o. daily. 4. Eliquis 2.5 mg p.o. b.i.d. 5. Aspirin enteric coated 81 mg p.o. daily. 6. Coreg 18.75 mg p.o. b.i.d. 7. Flexeril 10 mg p.o. t.i.d. p.r.n. 8. Lanoxin 0.125 mg p.o. q.48 hours. 9. Diltiazem CD 240 mg p.o. daily. 10. Duloxetine 60 mg p.o. daily. 11. Lasix 20 mg 1 tab p.o. daily. 12. Mucinex ER 600 mg p.o. b.i.d. 13. Levaquin 750 mg p.o. daily x10 days. 14. Zestril 10 mg p.o. daily. 15. Claritin 10 mg p.o. daily. 16. Dulera two puffs inhaled b.i.d. 17. Multivitamin 1 tab p.o. daily. 18. Nitroglycerin 0.4 mg sublingually every 5 minutes p.r.n. chest pain. 19. Protonix 40 mg 1 tab p.o. daily. 20. MiraLax 17 grams p.o. b.i.d. 21. Lyrica 100 mg p.o. t.i.d. 22. Ultram 50 mg p.o. t.i.d. p.r.n. FOLLOWUP: Patient will follow up with [facility] after discharge on 08/21/2017. CONDITION ON DISCHARGE: Guarded. PROGNOSIS: Poor. DIET: Regular as tolerated. CODE STATUS: Do not resuscitate. DISPOSITION: Discharged to [facility] on 08/21/2017. Total time preparing and coordinating discharge is 33 minutes.
== END 2017-08-21 21:10 | disposition hospice, inpatient (51) | DRG 871 ==
LOC: ERS 10:35 → T4-B 15:19
PROVIDERS: ADMIT Internal Medicine Nephrology; ATTEND Internal Medicine Nephrology
DX: R78.81 Bacteremia (principal); J96.21 Acute and chronic respiratory failure with hypoxia; I50.33 Acute on chronic diastolic (congestive) heart failure; J18.9 Pneumonia, unspecified organism; G93.41 Metabolic encephalopathy; I11.0 Hypertensive heart disease with heart failure; Z99.81 Dependence on supplemental oxygen; J44.9 Chronic obstructive pulmonary disease, unspecified; I48.1 Persistent atrial fibrillation; J96.22 Acute and chronic respiratory failure with hypercapnia; N39.0 Urinary tract infection, site not specified; Z51.5 Encounter for palliative care; Z66 Do not resuscitate; Z88.5 Allergy status to narcotic agent; Z88.8 Allergy status to other drugs, medicaments and biological substances; B95.2 Enterococcus as the cause of diseases classified elsewhere; F41.9 Anxiety disorder, unspecified; F32.9 Major depressive disorder, single episode, unspecified; Z91.81 History of falling; Z79.01 Long term (current) use of anticoagulants; Z79.82 Long term (current) use of aspirin; Z79.51 Long term (current) use of inhaled steroids; G89.4 Chronic pain syndrome
CPT/HCPCS: 36415; 51701; 71045; 74177; 80048; 80053; 81003; 81015; 82553; 83605; 83690; 83880; 84484; 85025; 85610; 85730; 87040; 87077; 87086; 87149; 87186; 90471; 90682; 93005; 94640; 96365; 96366; 96368; A4216; A4353; G0008; G8996-GN-CJ; G8997-GN-CJ; J0456; J0696; J1940; J1956; J2405; J3370; J7050; J7620; Q2036